=== PATIENT | female | born 1950 | race Caucasian/White ===

== ENCOUNTER 2019-11-09 18:57 | Emergency (ER) | payer MEDICARE, SELFPAY | END 2019-11-09 22:30 | disposition home or self-care (01) | PROVIDERS: Emergency Provider Emergency Medicine; Family Provider Nurse Practitioner; Visit Provider Emergency Medicine | DX: J44.0 Chronic obstructive pulmonary disease with (acute) lower respiratory infection (principal); J20.8 Acute bronchitis due to other specified organisms; I10 Essential (primary) hypertension; Z95.1 Presence of aortocoronary bypass graft; F17.210 Nicotine dependence, cigarettes, uncomplicated ==

== ENCOUNTER 2019-11-18 12:57 | Emergency (ER) | payer MEDICARE, SELFPAY ==
[2019-11-18] VITALS (9 sets, daily range): BP systolic 141–163; BP diastolic 78–107; PULSE 68–82; RESP 18–24; O2SAT 88–97; BMI 27.6
--- NOTE | 2019-11-18 13:05 | ED_ITS ---
Entered by Paty Jung, acting as scribe for HPI - SOB/Dyspnea General: Chief Complaint: Shortness of Breath/Dyspnea Stated Complaint: trouble breathing Time Seen by Provider: 11/18/19 13:07 Source: patient and family Mode of arrival: ambulatory Limitations: other History of Present Illness: HPI Narrative: 69 yo female presents with shortness of breath. pt states this started several days but worsened yesterday. pt has had a cough. pt states she was seen in clinic yesterday for the same symptoms. pt was also seen on 11/09/19 for the same symptoms, discharged and DX with acute viral and bacterial bronchitis associated with chronic obstructive pulmonary disease. pt has a HX of CHF and COPD. MD elicited complaint: shortness of breath and cough Pertinent past history: congestive heart failure Onset (ago): day(s) (yesterday) Context: smoke/fume exposure Timing: progressively worsening Severity: moderate Exacerbating factors: exertion Relieving factors: nothing Known history of: COPD, congestive heart failure and other (Hypertension, Heart Disease, Hip FX, Femur FX) Associated symptoms: Reports cough; Deny abdominal pain, dizziness, extremity pain, fever(s), nausea or vomiting Treatment prior to arrival: none Review of Systems Const: Denies: fever, chills or night sweats Eyes: Denies: change in vision or blurry vision ENMT: Denies: throat pain, oral sores/lesions, dental pain, nasal discharge or nasal congestion Card: Reports: shortness of breath on exertion Resp: Denies: productive cough GI: Denies: abdominal pain, nausea, vomiting, vomiting blood, coffee grounds in vomit, difficulty swallowing, heartburn/indigestion, diarrhea, constipation, cramping, blood in stool or black tarry stool : Denies: flank pain, painful urination, urinary frequency, urinary urgency, urinary incontinence or blood in urine Musc: Denies: neck pain, back pain, extremity pain, extremity swelling, joint pain or joint swelling Skin/Breast: Denies: rash, itching or redness Neuro: Denies: headache, numbness in extremities, weakness in extremities, changes in sensation, lack of coordination, difficulty walking, frequent falls, dizziness, vertigo or confusion Jasbir/Lymph: Denies: easy bruising, easy bleeding, petechiae, enlarged lymph nodes or tender lymph nodes PFSH ED PFSH: Statuses (acute, chronic, etc) shown below reflect problem list status as previously entered and may not be historically accurate Social History Smoking and tobacco status: current every day smoker Physical Exam Const: COMMON NORMALS: average body habitus, oriented x3 and alert GENERAL APPEARANCE: cooperative, well kempt and well developed NUTRITIONAL APPEARANCE: obese ORIENTATION/CONSCIOUSNESS: Yes awake, Yes oriented to person and Yes oriented to place HENMT: COMMON NORMALS: normocephalic, head/scalp atraumatic, EAC's normal, T M's normal bilaterally, external nose normal, moist oral mucous membranes and oropharynx normal HEAD & SCALP: normocephalic and atraumatic NOSE: e xternal nose normal EXTERNAL AUDITORY CANAL: EAC's normal TYMPANIC MEMBRANE: TM's normal bilaterally MOUTH: oral and palatal mucosa normal, lip normal and tongue normal THROAT: posterior oropharynx normal and tonsils normal Eye: COMMON NORMALS: PERRL, EOMs intact bilaterally, conjunctivae normal and no scleral icterus CONJUNCTIVA: Yes conjunctivae normal PUPIL: Yes PERRL Neck/C-Spine: COMMON NORMALS: full ROM, no lymphadenopathy, supple, no meningeal signs and thyroid normal THYROID: thyroid normal and asymmetrical Lymph: LYMPHATIC: no lymphadenopathy noted Resp: EFFORT & INSPECTION: No able to speak in complete sentences, Yes labored and Yes uses accessory muscles AUSCULTATION: rhonchi throughout and wheezes expiratory wheezes and throughout Cardio: COMMON NORMALS: regular rhythm RATE: tachycardic RHYTHM: regular rhythm HEART SOUNDS: no murmurs GI: COMMON NORMALS: normal to inspection, nondistended, normoactive bowel sounds, soft to palpation and no hepatosplenomegaly PALPATION: Yes soft and Yes no hepatosplenomegaly : COMMON NORMALS: Yes no CVA tenderness BLADDER/KIDNEY EXAM: Yes no CVA tenderness Back/Pelvis: COMMON NORMALS: no CVA tenderness LUMBAR SPINE/LOWER BACK: Yes normal to inspection Extremity: COMMON NORMALS: no calf tenderness and no pedal edema Neuro: COMMON NORMALS: oriented x3 SENSORIUM/ORIENTATION: Yes alert, Yes oriented to person and Yes oriented to place MENINGEAL SIGNS: Yes no meningeal signs Psych: APPEARANCE: Yes well kempt Skin: COMMON NORMALS: no rashes or lesions noted and skin turgor normal GENERAL SKIN EXAM: no rashes or lesions noted and turgor normal Course Vital Signs: Vital signs: Vital Signs Pulse Rate 82 11/18/19 17:57 Respiratory Rate 20 H 11/18/19 17:57 Blood Pressure 141/104 11/18/19 17:57 Pulse Oximetry 93 11/18/19 18:12 MDM - SOB/Dyspnea Medical Records: Attestation: I reviewed the patient's medical records. Medical records narrative: Chest x-ray reviewed and synapse Lab Data: Attestation: I reviewed the patient's lab results. Labs: Lab Results 11/18/19 11/18/19 11/18/19 Range/Units 13:22 13:22 13:22 WBC 15.0 H (4.0-10.0) 10^3/ uL RBC 4.41 (4.1-5.3) 10^6/u L Hgb 14.0 (11.5-15.3) g/dL Hct 41.5 (37.0-47.0) % MCV 94.1 (81-99) fL MCH 31.7 (28.0-34.0) pg MCHC 33.7 (30.0-36.0) g/dL RDW 11.9 L (12.1-15.1) % Plt Count 265 (130-400) 10^3/c mm MPV 10.4 (7.4-10.4) fL Neut % (Auto) 87.0 % Lymph % (Auto) 8.5 % [place] % (Auto) 3.0 % Eos % (Auto) 0.1 % Baso % (Auto) 0.1 % Neut # (Auto) 13.0 H (1.8-7.7) 10^3/u L Lymph # (Auto) 1.3 (0.8-4.8) 10^3/u L [place] # (Auto) 0.5 (0.2-0.9) 10^3/u L Eos # (Auto) 0.0 (0.0-0.8) 10^3/u L Baso # (Auto) 0.0 (0.0-0.1) 10^3/u L Nucleated RBC % (a uto) 0 % Nucleated RBCs # 0.0 /100WBC PT 13.00 (10.5-13.3) SECO NDS INR 0.95 (0.8-1.2) APTT 23.0 L (23.9-36.7) SECO NDS Specimen Type Sample Site ABG pH (7.35-7.45) ABG pCO2 (35-45) mmHg ABG pO2 (80.0-100.0) mmH g ABG HCO3 (22-26) mmol/L ABG Base Excess (-2.0-2.0) mmol/ L [place] Test Hematocrit (37-47) % O2 Delivery Device O2 Liters/Min % Specimen Drawn By Compacting Machine Operator/Tender ID Sodium 138 (136-145) mmol/L Potassium 4.1 (3.5-5.1) mmol/L Chloride 99 (98-107) mmol/L Carbon Dioxide 26 (22-29) mmol/L Anion Gap 17.1 (5-19) BUN 21 (8-23) mg/dL Creatinine 0.6 (0.5-0.9) mg/dL GFR Calculation 99.7 (90-130) mL/min Glucose 163 H (74-106) mg/dL Calcium 10.0 (8.8-10.2) mg/Dl Total Bilirubin 0.7 (0.15-1.2) mg/dL AST 19 (0-32) U/L ALT 16 (0-33) U/L Alkaline Phosphata se 117 H (35-105) IU/L Troponin T Baselin e (0-10) ng/mL Troponin T 120 [place] (0-10) ng/mL Delta Troponin T (0-10) ABS# NT-Pro-B Natriuret Pep 351 H (0-125) pg/mL Total Protein 7.6 (6.6-8.7) g/dL Albumin 4.4 (3.5-5.2) g/dL Globulin 3.2 (1.3-4.6) g/dL Urine Color (Yellow) Urine Appearance (CLEAR) Urine pH (5-7) Ur Specific Gravit y (1.005-1.030) Urine Protein (Negative) Urine Glucose (UA) (Normal) Urine Ketones (Negative) Urine Occult Blood (Negative) Urine Nitrate (Negative) Urine Bilirubin (Negative) Urine Urobilinogen (Negative) mg/dL Ur Leukocyte Una ase (Negative) Urine RBC (0-2) /hpf Urine WBC (0-5) /hpf Ur Squamous Epith Cells (0-5) Urine Bacteria (NONE) Urine Mucus Influenza Type A A g (Negative) POC Influenza B Ag (Negative) 11/18/19 11/18/19 11/18/19 Range/Units 13:22 13:22 13:39 WBC (4.0-10.0) 10^3/ uL RBC (4.1-5.3) 10^6/u L Hgb (11.5-15.3) g/dL Hct (37.0-47.0) % MCV (81-99) fL MCH (28.0-34.0) pg MCHC (30.0-36.0) g/dL RDW (12.1-15.1) % Plt Count (130-400) 10^3/c mm MPV (7.4-10.4) fL Neut % (Auto) % Lymph % (Auto) % [place] % (Auto) % Eos % (Auto) % Baso % (Auto) % Neut # (Auto) (1.8-7.7) 10^3/u L Lymph # (Auto) (0.8-4.8) 10^3/u L [place] # (Auto) (0.2-0.9) 10^3/u L Eos # (Auto) (0.0-0.8) 10^3/u L Baso # (Auto) (0.0-0.1) 10^3/u L Nucleated RBC % (a uto) % Nucleated RBCs # /100WBC PT (10.5-13.3) SECO NDS INR (0.8-1.2) APTT (23.9-36.7) SECO NDS Specimen Type Sample Site ABG pH (7.35-7.45) ABG pCO2 (35-45) mmHg ABG pO2 (80.0-100.0) mmH g ABG HCO3 (22-26) mmol/L ABG Base Excess (-2.0-2.0) mmol/ L [place] Test Hematocrit (37-47) % O2 Delivery Device O2 Liters/Min % Specimen Drawn By Compacting Machine Operator/Tender ID Sodium (136-145) mmol/L Potassium (3.5-5.1) mmol/L Chloride (98-107) mmol/L Carbon Dioxide (22-29) mmol/L Anion Gap (5-19) BUN (8-23) mg/dL Creatinine (0.5-0.9) mg/dL GFR Calculation (90-130) mL/min Glucose (74-106) mg/dL Calcium (8.8-10.2) mg/Dl Total Bilirubin (0.15-1.2) mg/dL AST (0-32) U/L ALT (0-33) U/L Alkaline Phosphata se (35-105) IU/L Troponin T Baselin e 15 H (0-10) ng/mL Troponin T 120 [place] (0-10) ng/mL Delta Troponin T (0-10) ABS# NT-Pro-B Natriuret Pep (0-125) pg/mL Total Protein (6.6-8.7) g/dL Albumin (3.5-5.2) g/dL Globulin (1.3-4.6) g/dL Urine Color Yellow (Yellow) Urine Appearance Clear (CLEAR) Urine pH 5.0 (5-7) Ur Specific Gravit y 1.025 (1.005-1.030) Urine Protein Trace A (Negative) Urine Glucose (UA) Norm (Normal) Urine Ketones Negative (Negative) Urine Occult Blood Neg (Negative) Urine Nitrate Negative (Negative) Urine Bilirubin Neg (Negative) Urine Urobilinogen Norm (Negative) mg/dL Ur Leukocyte Una ase Negative (Negative) Urine RBC None (0-2) /hpf Urine WBC None (0-5) /hpf Ur Squamous Epith Cells 0-4 H (0-5) Urine Bacteria 2+ H (NONE) Urine Mucus 1+ Influenza Type A A g Negative (Negative) POC Influenza B Ag Negative (Negative) 11/18/19 11/18/19 Range/Units 15:38 16:55 WBC (4.0-10.0) 10^3/ uL RBC (4.1-5.3) 10^6/u L Hgb (11.5-15.3) g/dL Hct (37.0-47.0) % MCV (81-99) fL MCH (28.0-34.0) pg MCHC (30.0-36.0) g/dL RDW (12.1-15.1) % Plt Count (130-400) 10^3/c mm MPV (7.4-10.4) fL Neut % (Auto) % Lymph % (Auto) % [place] % (Auto) % Eos % (Auto) % Baso % (Auto) % Neut # (Auto) (1.8-7.7) 10^3/u L Lymph # (Auto) (0.8-4.8) 10^3/u L [place] # (Auto) (0.2-0.9) 10^3/u L Eos # (Auto) (0.0-0.8) 10^3/u L Baso # (Auto) (0.0-0.1) 10^3/u L Nucleated RBC % (a uto) % Nucleated RBCs # /100WBC PT (10.5-13.3) SECO NDS INR (0.8-1.2) APTT (23.9-36.7) SECO NDS Specimen Type Arterial Sample Site Radial, right ABG pH 7.46 H (7.35-7.45) ABG pCO2 37.3 (35-45) mmHg ABG pO2 67.1 L (80.0-100.0) mmH g ABG HCO3 26.2 H (22-26) mmol/L ABG Base Excess 2.4 H (-2.0-2.0) mmol/ L [place] Test Pos Hematocrit 44.9 (37-47) % O2 Delivery Device Nc O2 Liters/Min 2.0 % Specimen Drawn By Broma Compacting Machine Operator/Tender ID broma Sodium (136-145) mmol/L Potassium (3.5-5.1) mmol/L Chloride (98-107) mmol/L Carbon Dioxide (22-29) mmol/L Anion Gap (5-19) BUN (8-23) mg/dL Creatinine (0.5-0.9) mg/dL GFR Calculation (90-130) mL/min Glucose (74-106) mg/dL Calcium (8.8-10.2) mg/Dl Total Bilirubin (0.15-1.2) mg/dL AST (0-32) U/L ALT (0-33) U/L Alkaline Phosphata se (35-105) IU/L Troponin T Baselin e (0-10) ng/mL Troponin T 120 [place] 11.69 H (0-10) ng/mL Delta Troponin T -3.31 L (0-10) ABS# NT-Pro-B Natriuret Pep (0-125) pg/mL Total Protein (6.6-8.7) g/dL Albumin (3.5-5.2) g/dL Globulin (1.3-4.6) g/dL Urine Color (Yellow) Urine Appearance (CLEAR) Urine pH (5-7) Ur Specific Gravit y (1.005-1.030) Urine Protein (Negative) Urine Glucose (UA) (Normal) Urine Ketones (Negative) Urine Occult Blood (Negative) Urine Nitrate (Negative) Urine Bilirubin (Negative) Urine Urobilinogen (Negative) mg/dL Ur Leukocyte Una ase (Negative) Urine RBC (0-2) /hpf Urine WBC (0-5) /hpf Ur Squamous Epith Cells (0-5) Urine Bacteria (NONE) Urine Mucus Influenza Type A A g (Negative) POC Influenza B Ag (Negative) Discharge Plan Discharge Patient Disposition: Home, Self-Care Clinical Impression: COPD (chronic obstructive pulmonary disease) Qualifiers: COPD type: COPD with acute exacerbation Qualified Code(s): J44.1 - Chronic obstructive pulmonary disease with (acute) exacerbation Condition: Stable Prescriptions: New doxycycline hyclate 100 mg capsule 100 mg PO BID 7 Days Qty: 14 RF: 0 Medrol (Emil) 4 mg tablets,dose pack See Rx Instructions .ROUTE .COMPLEX Qty: 21 RF: 0 No Action Plavix 75 mg Tablet 75 mg PO DAILY RF: 0 aspirin 81 mg Tablet,Chewable 81 mg PO DAILY RF: 0 Discharge Orders: Discharge Order (Routine); Ordered 11/18/19 Ordered By: Nazario Carey Referrals: Loretta Ramírez, [facility] [Primary Care Provider] - Discharge Diet: Advance as tolerated Discharge Activity: Increase activity as tolerated Patient Instructions: COPD, Doxycycline (By mouth), Methylprednisolone (By mouth), Dyspnea, COPD Stoplight Discharge Date/Time: 11/18/19 18:38 Coding Level of Care Code ED General Magistrate for g Fwd The documentation recorded by the Erich subramanian Bridget Annette, accurately reflects the service I personally performed and the decisions made by Cherry fung Curtis L, DO Nov 18, 2019 12:57
--- NOTE | 2019-11-18 13:23 | XRR_ITS ---
PROCEDURE INFORMATION: Exam: XR Chest, 1 View Exam date and time: 11/18/2019 1:29 PM Age: 69 years old Clinical indication: Dyspnea; Prior surgery; Surgery date: 6+ months; Surgery type: Open heart; Additional info: Unknown TECHNIQUE: Imaging protocol: XR of the chest Views: Single portable standing view. COMPARISON: CR Chest 2 views* [id number] 11/09/2019 7:44 PM FINDINGS: Tubes, catheters and devices: EKG leads are present overlying the chest. Lungs: The lungs are clear bilaterally. The pulmonary vasculature is normal. Pleural space: No pleural effusion. No pneumothorax. Heart/Mediastinum: The heart is normal in size and contour. Mediastinum: Stable. Bones/joints: The patient is status post median sternotomy with intact sternal cerclage wires. Mild rightward thoracic spinal curvature. XR/XR chest 1V portable [id number] IMPRESSION: No acute cardiopulmonary abnormality identified.
--- NOTE | 2019-11-18 13:23 | ECG_ITS ---
Measurements Intervals [place] Rate: 81 P: 80 PA: 150 QRS: 85 QRSD: 102 T: 79 QT: 364 QTc: [address] DEPRESSION [0.025+ mV ST DEPRESSION] Compared to ECG 11/09/2019 21:44:38 Sinus arrhythmia no longer present ST (T wave) deviation still present Electronically Signed On 11-18-2019 14:25:40 [employer]UTENANT FIREFIGHTER by Litzy Verma M.D. [email or web address]
--- NOTE | 2019-11-18 13:32 | PC.NURSE ---
Blood drawn on IV start, culture x1, lactic, and rainbow. Flu swab obtained, labeled, and sent to lab.
[2019-11-18 13:33] LABS: Basophils % 0.1 %; Eosinophils % 0.1 %; Hematocrit 41.5 % (37.0-47.0); Lymphocytes # 1.3 10^3/uL (0.8-4.8); Lymphocytes % 8.5 %; Mean Corpuscular HGB Conc 33.7 g/dL (30.0-36.0); Mean Corpuscular Hemoglobin 31.7 pg (28.0-34.0); Mean Corpuscular Volume 94.1 fL (81-99); Mean Platelet Volume 10.4 fL (7.4-10.4); Monocytes # 0.5 10^3/uL (0.2-0.9); Nucleated Red Blood Cells % 0 %; Platelet Count 265 10^3/cmm (130-400); Red Blood Count 4.41 10^6/uL (4.1-5.3); Red Cell Distribution Width 11.9 % (12.1-15.1)
[2019-11-18 13:42] LABS: INR 0.95 (0.8-1.2)
--- NOTE | 2019-11-18 13:42 | PC.NURSE ---
Radiology at bedside
[2019-11-18 13:52] LABS: Troponin(5th) Baseline 15 ng/mL (0-10)
[2019-11-18 13:56] LABS: Alanine Aminotransferase 16 U/L (0-33); Albumin Level 4.4 g/dL (3.5-5.2); Alkaline Phosphatase 117 IU/L (35-105); Anion Gap 17.1 (5-19); Aspartate Amino Transferase 19 U/L (0-32); Blood Urea Nitrogen 21 mg/dL (8-23); Carbon Dioxide 26 mmol/L (22-29); Chloride 99 mmol/L (98-107); Globulin 3.2 g/dL (1.3-4.6); Glomerular Filtration Rate 99.7 mL/min (90-130); Glucose 163 mg/dL (74-106); NT Pro B Type Natriuretic Pept 351 pg/mL (0-125); Potassium 4.1 mmol/L (3.5-5.1); Sodium 138 mmol/L (136-145); Total Bilirubin 0.7 mg/dL (0.15-1.2); Total Protein 7.6 g/dL (6.6-8.7)
[2019-11-18 13:57] LABS: Add RBC Morph No
[2019-11-18 14:13] LABS: Bilirubin Urine Neg (Negative); Blood Urine Neg (Negative); Glucose Urine UA Norm (Normal); Ketones Urine Negative (Negative); Leukocyte Esterase Urine Negative (Negative); Nitrate Urine Negative (Negative); Protein Urine Trace (Negative); Specific Gravity, Urine 1.025 (1.005-1.030); Urine Appearance Clear (CLEAR); Urine Color Yellow (Yellow); Urobilinogen Urine Norm (Negative)
[2019-11-18 14:19] LABS: Add Urine Culture? No; Bacteria Urine 2+; Mucus Urine 1+; Squamous Epithelial Cell Urine 0-4 (0-5)
--- NOTE | 2019-11-18 16:03 | PC.NURSE ---
RT at bedside
[2019-11-18 16:07] LABS: Troponin 5 2HR 11.69 ng/mL (0-10)
[2019-11-18 16:17] LABS: Troponin 5 2HR Delta -3.31 ABS# (0-10)
[2019-11-18 17:06] LABS: ABG PCO2 37.3 mmHg (35-45); ABG PH Result 7.46 (7.35-7.45); Arterial Blood Gas Hematocrit 44.9 % (37-47); Base Excess ABG 2.4 mmol/L (-2.0-2.0); Blood Gas Allen Test Pos; Blood Gas Sample Site Radial, right; Blood Gas Sample Type Arterial; HCO3 ABG 26.2 mmol/L (22-26); Oxygen Device NC; PO2 ABG 67.1 mmHg (80.0-100.0)
[2019-11-18 17:07] LABS: Blood Gas Drawn By BROMA
--- NOTE | 2019-11-18 17:24 | PC.NURSE ---
Pt ambulating with RT for home O2 eval
[2019-11-18 20:51] LABS: Influenza A by IFA Negative (Negative); Influenza B by IFA Negative (Negative)
== END 2019-11-18 18:38 | disposition home or self-care (01) ==
PROVIDERS: Emergency Provider Family Medicine; Family Provider Nurse Practitioner; PCP Nurse Practitioner
DX: J44.1 Chronic obstructive pulmonary disease with (acute) exacerbation (principal); F17.210 Nicotine dependence, cigarettes, uncomplicated; I10 Essential (primary) hypertension
CPT/HCPCS: 36415; 36591; 36600; 71045; 80053; 81001; 82803; 83880; 84484; 85025; 85610; 85730; 87804; 93005; 99283

== ENCOUNTER 2019-12-15 12:09 | Emergency (ER) | payer MEDICARE, OTHER, SELFPAY ==
[2019-12-15 12:12] VITALS: BP 161/84; PULSE 98; RESP 14; TEMP 36.7; O2SAT 97; BMI 27.6
[2019-12-15 13:45] LABS: Add Urine Microscopic? NO
[2019-12-15 14:32] LABS: Bilirubin Urine Neg (NEGATIVE); Blood Urine Neg (Negative); Glucose Urine UA Norm (Normal); Ketones Urine Negative (Negative); Leukocyte Esterase Urine Negative (Negative); Nitrate Urine Negative (Negative); Protein Urine Neg (Negative); Specific Gravity, Urine 1.025 (1.005-1.030); Urine Appearance Clear (CLEAR); Urine Color Yellow (Yellow); Urobilinogen Urine Norm (Negative); pH Urine 5 (5-7)
[2019-12-15 15:08] VITALS: RESP 18; O2SAT 96
[2019-12-15 15:11] VITALS: BP 123/75; BP 133/67; BP 141/76; PULSE 87; PULSE 91; PULSE 97
--- NOTE | 2019-12-15 15:15 | ECG_ITS ---
Measurements Intervals [place] Rate: 89 P: 75 KS: 148 QRS: 70 QRSD: 97 T: 76 QT: 349 QTc: 427 SINUS RHYTHM Compared to ECG 11/18/2019 13:12:38 ST (T wave) deviation no longer present Electronically Signed On 12-15-2019 16:19:51 [employer]NAGER [employer] by Ritchie Ferriera M.D. [email or web address]
--- NOTE | 2019-12-15 15:17 | ED_ITS ---
Entered by Susan Hahn, acting as scribe for Breana Wiggins MD Dec 15, 2019 12:09 HPI - Syncope General: Chief Complaint: Syncope Stated Complaint: dizzy Time Seen by Provider: 12/15/19 14:50 Source: patient Mode of arrival: wheelchair Limitations: no limitations History of Present Illness: HPI narrative: 69 yo Female presents to ED with complaint of syncopal episodes. Pt states that Saturday she passed all the way out and fell while walking across the kitchen. Pt's family states that the patient had an episode just sitting at the table this morning. Pt states that she has had 2-3 episodes along with some chest pressure for about a week. Pt states that she doesn't have any symptoms leading up to the episodes. Pt states that she does have a cardiac history. MD complaint: loss of consciousness and almost passed out Onset (ago): week(s) Prodromal symptoms: none Witnessed: Yes - by Bystander Context: at rest and during exertion Injuries sustained associated with event: none Associated symptoms: Reports other (chest pressure); Deny abdominal pain, chest pain, fever(s), headache(s) or nausea Review of Systems Const: Denies: fever, chills, body aches or change in appetite Eyes: Denies: blurry vision or eye discomfort ENMT: Denies: throat pain or dental pain Card: Reports: syncope, pre-syncope and other (chest pressure); Denies: chest pain Resp: Denies: shortness of breath GI: Denies: abdominal pain, nausea, vomiting or diarrhea : Denies: painful urination Musc: Denies: neck pain or back pain Skin/Breast: Denies: rash Neuro: Denies: headache Psych: Denies: depression Jasbir/Lymph: Denies: easy bruising All/Imm: Denies: hives PFSH ED PFSH: Statuses (acute, chronic, etc) shown below reflect problem list status as previously entered and may not be historically accurate Medical History (Updated 12/15/19 @ 16:01 by Breana Wiggins MD) Femur fracture (Acute) Heart disease (Acute) HTN (hypertension) (Acute) Surgical History (Updated 12/15/19 @ 15:26 by Susan Hahn) Hx of CABG (Acute) Social History Smoking and tobacco status: current every day smoker Physical Exam Const: COMMON NORMALS: no apparent distress, oriented x3 and healthy appearing HENMT: COMMON NORMALS: normocephalic and head/scalp atraumatic HEAD & SCALP: normocephalic and atraumatic Eye: COMMON NORMALS: PERRL and EOMs intact bilaterally PUPIL: Yes PERRL Neck/C-Spine: COMMON NORMALS: full ROM and supple Chest: COMMONS NORMALS: inspection of chest normal and palpation of chest normal Resp: COMMON NORMALS: normal respiratory effort, no retractions, no use of accessory muscles and clear to auscultation bilaterally AUSCULTATION: clear to auscultation bilaterally Cardio: COMMON NORMALS: regular rate, regular rhythm and no murmurs RATE: regular rate RHYTHM: regular rhythm GI: COMMON NORMALS: normal to inspection, nondistended, normoactive bowel sounds, soft to palpation, non-tender and no masses PALPATION: Yes soft Extremity: COMMON NORMALS: normal to inspection and full ROM Neuro: COMMON NORMALS: oriented x3, moves all extremities and no focal motor deficits Psych: COMMON NORMALS: mental status grossly normal, thought process normal and cooperative THOUGHT PROCESS: normal thought process Skin: COMMON NORMALS: no rashes or lesions noted and no wounds GENERAL SKIN EXAM: no rashes or lesions noted Course Vital Signs: Vital signs: Vital Signs Temperature 98.0 F 12/15/19 12:12 Pulse Rate 85 12/15/19 18:58 Respiratory Rate 17 12/15/19 18:58 Blood Pressure 133/69 12/15/19 18:58 Pulse Oximetry 98 12/15/19 18:58 MDM - Syncope MDM Narrative: Medical decision making narrative: Patient presents here with a syncopal episode. I strongly recommended admission as she has had multiple presyncopal episodes. Patient states she does not want to stay she is concerned with the weather and that it may snow. Informed her that I would recommend staying. She states she feels improved and would like to go home. Patient does have decision-making capacity. Her head CT and lab work and EKG here are all normal. I informed her she needs to follow-up with her primary care doctor soon as possible and she changes her mind she is to return. Lab Data: Labs: Lab Results 12/15/19 12/15/1912/15/20 Range/Units 13:30 15:22 15:22 WBC 11.9 H (4.0-10.0) 10^3/ uL RBC 4.39 (4.1-5.3) 10^6/u L Hgb 13.6 (11.5-15.3) g/dL Hct 41.4 (37.0-47.0) % MCV 94.3 (81-99) fL MCH 31.0 (28.0-34.0) pg MCHC 32.9 (30.0-36.0) g/dL RDW 12.3 (12.1-15.1) % Plt Count 203 (130-400) 10^3/c mm MPV 10.2 (7.4-10.4) fL Neut % (Auto) 63.5 % Lymph % (Auto) 20.9 % [place] % (Auto) 11.9 % Eos % (Auto) 0.6 % Baso % (Auto) 0.2 % Neut # (Auto) 7.5 (1.8-7.7) 10^3/u L Lymph # (Auto) 2.5 (0.8-4.8) 10^3/u L [place] # (Auto) 1.4 H (0.2-0.9) 10^3/u L Eos # (Auto) 0.1 (0.0-0.8) 10^3/u L Baso # (Auto) 0.0 (0.0-0.1) 10^3/u L Nucleated RBC % (a uto) 0 % Nucleated RBCs # 0.0 /100WBC Sodium 141 (136-145) mmol/L Potassium 3.4 L (3.5-5.1) mmol/L Chloride 100 (98-107) mmol/L Carbon Dioxide 27 (22-29) mmol/L Anion Gap 17.4 (5-19) BUN 14 (8-23) mg/dL Creatinine 0.7 (0.5-0.9) mg/dL GFR Calculation 83.5 L (90-130) mL/min Glucose 115 H (74-106) mg/dL Calcium 9.9 (8.5-10.5) mg/dL Total Bilirubin 0.5 (0.15-1.2) mg/dL AST 17 (0-32) U/L ALT 15 (0-33) U/L Alkaline Phosphata se 107 H (35-105) IU/L Troponin T Baselin e (0-10) ng/mL Troponin T 120 Min parvin (0-10) ng/mL Delta Troponin T (0-10) ABS# Total Protein 7.2 (6.6-8.7) g/dL Albumin 4.1 (3.5-5.2) g/dL Globulin 3.1 (1.3-4.6) g/dL Urine Color Yellow (Yellow) Urine Appearance Clear (CLEAR) Urine pH 5 (5-7) Ur Specific Gravit y 1.025 (1.005-1.030) Urine Protein Neg (Negative) Urine Glucose (UA) Norm (Normal) Urine Ketones Negative (Negative) Urine Occult Blood Neg (Negative) Urine Nitrate Negative (Negative) Urine Bilirubin Neg (NEGATIVE) Urine Urobilinogen Norm (Negative) mg/dL Ur Leukocyte Una ase Negative (Negative) 12/15/19 12/15/19 Range/Units 15:22 17:40 WBC (4.0-10.0) 10^3/ uL RBC (4.1-5.3) 10^6/u L Hgb (11.5-15.3) g/dL Hct (37.0-47.0) % MCV (81-99) fL MCH (28.0-34.0) pg MCHC (30.0-36.0) g/dL RDW (12.1-15.1) % Plt Count (130-400) 10^3/c mm MPV (7.4-10.4) fL Neut % (Auto) % Lymph % (Auto) % [place] % (Auto) % Eos % (Auto) % Baso % (Auto) % Neut # (Auto) (1.8-7.7) 10^3/u L Lymph # (Auto) (0.8-4.8) 10^3/u L [place] # (Auto) (0.2-0.9) 10^3/u L Eos # (Auto) (0.0-0.8) 10^3/u L Baso # (Auto) (0.0-0.1) 10^3/u L Nucleated RBC % (a uto) % Nucleated RBCs # /100WBC Sodium (136-145) mmol/L Potassium (3.5-5.1) mmol/L Chloride (98-107) mmol/L Carbon Dioxide (22-29) mmol/L Anion Gap (5-19) BUN (8-23) mg/dL Creatinine (0.5-0.9) mg/dL GFR Calculation (90-130) mL/min Glucose (74-106) mg/dL Calcium (8.5-10.5) mg/dL Total Bilirubin (0.15-1.2) mg/dL AST (0-32) U/L ALT (0-33) U/L Alkaline Phosphata se (35-105) IU/L Troponin T Baselin e 21 H (0-10) ng/mL Troponin T 120 Min parvin 19.20 H (0-10) ng/mL Delta Troponin T -1.80 L (0-10) ABS# Total Protein (6.6-8.7) g/dL Albumin (3.5-5.2) g/dL Globulin (1.3-4.6) g/dL Urine Color (Yellow) Urine Appearance (CLEAR) Urine pH (5-7) Ur Specific Gravit y (1.005-1.030) Urine Protein (Negative) Urine Glucose (UA) (Normal) Urine Ketones (Negative) Urine Occult Blood (Negative) Urine Nitrate (Negative) Urine Bilirubin (NEGATIVE) Urine Urobilinogen (Negative) mg/dL Ur Leukocyte Una ase (Negative) Imaging Data^: XR Hip/Pelvis: Radiologist's impression: [place] [address] XRay Report Signed Patient: Ronit Palma #: [id number] : 2Acct#:[id number] Age/Sex: 69 / FADM Date: 12/15/19 Loc: ERRoom/Bed: Attending Dr: Ordering Provider/Ordering MD: Breana Wiggins MD Date of Service: 12/15/19 Procedure(s): XR hip LT 2-3V wo/w pel* [id number] Accession Number(s): [id number] Report Number: [id number] WS: [id number] Left hip, AP and frog leg views, 12/15/2019 Clinical Data: fall Comparison: AP and frog leg, 09/07/2019. Findings: No new fractures or dislocations are seen. The hip joint is intact. The soft tissues are not remarkable. The adjacent pelvis is normal. The 3 orthopedic screws reducing an old left femoral head fracture remain in the same position. There are surgical clips overlying the left inguinal region and proximal medial soft tissue of the left thigh XR/XR hip LT 2-3V wo/w pel* [id number] Impression: 1. Negative for new left hip or left pelvic fracture 2. Satisfactory reduction of old left femoral head fracture. Dictated By:Danii Fletcher MD Signed By:Danii Fletcher MDSigned Date/Time:12/15/191658 DD/ 56 CT Head: Radiologist's impression: [place] [address] CT Scan Report Signed Patient: Ronit Palma #: [id number] : 2Acct#:[id number] Age/Sex: 69 / FADM Date: 12/15/19 Loc: ERRoom/Bed: Attending Dr: Ordering Provider/Ordering MD: Breana Wiggins MD Date of Service: 12/15/19 Procedure(s): CT head wo con* [id number] Accession Number(s): [id number] Report Number: [id number] PROCEDURE INFORMATION: Exam: CT Head Without Contrast Exam date and time: 12/15/2019 5:56 PM Age: 69 years old Clinical indication: Pain; Syncope and collapse; Headache TECHNIQUE: Imaging protocol: Computed tomography of the head without contrast. Total DLP: 898.92 mGy-cm Radiation optimization: All CT scans at this facility use at least one of these dose optimization techniques: automated exposure control; mA and/or kV adjustment per patient size (includes targeted exams where dose is matched to clinical indication); or iterative reconstruction. COMPARISON: No relevant prior studies available. FINDINGS: Brain: No acute intracranial mass or bleed. Subcortical and periventricular white matter low-density presumably chronic and related to small vessel disease. This is most pronounced about the frontal horns the lateral ventricles. Ventricles: See Brain Finding. Bones/joints: Unremarkable. No acute fracture. Sinuses: Right maxillary sinus and right-sided ethmoid sinus mucoperiosteal thickening. Thick retained secretions/fluid layering in both maxillary sinuses. Mastoid air cells: Visualized mastoid air cells are well aerated. Soft tissues: Unremarkable. CT/CT head wo con* [id number] IMPRESSION: 1.) Chronic appearing periventricular and subcortical white matter low-density in the frontal lobes which is probably due to chronic small vessel disease. 2.) Subacute to chronic maxillary sinusitis changes. Radiation Dose CTDIVOL = (mGy): DLP = 898.92 (mGy-cm) Dictated By:Damian Orourke MD Signed By:Damian Orourke MDSigned Date/Time:12/15/191835 DD/ 33 EKG Data^: EKG 1: Attestation: I personally reviewed and interpreted this EKG as follows: EKG interpretation date: 12/15/19 EKG interpretation time: 15:37 Interpretation: nsr hr [address] or t wave abnormalities qrs 97 qtc 396 Discharge Plan Discharge Patient Disposition: Home, Self-Care Clinical Impression: Vasovagal syncope Condition: Stable Prescriptions: No Action clopidogrel [Plavix] 75 mg Tablet 75 mg PO DAILY RF: 0 aspirin 81 mg Tablet,Chewable 81 mg PO DAILY RF: 0 atorvastatin [Lipitor] 40 mg Tablet 40 mg PO DAILY RF: 0 isosorbide mononitrate 30 mg Tablet Extended Release 24 Hr 30 mg PO BID RF: 0 diltiazem HCl 240 mg Capsule,Extended Release 24 Hr 240 mg PO DAILY RF: 0 Discharge Orders: Discharge Order (Routine); Ordered 12/15/19 Ordered By: Breana Wiggins Referrals: Loretta Ramírez, [facility] [Primary Care Provider] - 4-7 days Discharge Diet: Advance as tolerated Discharge Activity: Resume usual activity Patient Instructions: Syncope (ED) Discharge Date/Time: 12/15/19 18:58 Coding Level of Care Code ED Information Systems Director for Chg Fwd Exam Problem Focused The documentation recorded by the Jovani subramanian Carmen, accurately reflects the service I personally performed and the decisions made by Feliciano fung Korby, MD Dec 15, 2019 12:09
[2019-12-15 15:28] LABS: Basophils % 0.2 %; Eosinophils # 0.1 10^3/uL (0.0-0.8); Eosinophils % 0.6 %; Hematocrit 41.4 % (37.0-47.0); Hemoglobin 13.6 g/dL (11.5-15.3); Lymphocytes # 2.5 10^3/uL (0.8-4.8); Lymphocytes % 20.9 %; Mean Corpuscular HGB Conc 32.9 g/dL (30.0-36.0); Mean Corpuscular Volume 94.3 fL (81-99); Mean Platelet Volume 10.2 fL (7.4-10.4); Monocytes # 1.4 10^3/uL (0.2-0.9); Monocytes % 11.9 %; Neutrophils # 7.5 10^3/uL (1.8-7.7); Neutrophils % 63.5 %; Nucleated Red Blood Cells % 0 %; Platelet Count 203 10^3/cmm (130-400); Red Blood Count 4.39 10^6/uL (4.1-5.3); Red Cell Distribution Width 12.3 % (12.1-15.1); White Blood Count 11.9 10^3/uL (4.0-10.0)
[2019-12-15 15:45] LABS: Troponin(5th) Baseline 21 ng/mL (0-10)
[2019-12-15 16:25] LABS: Alanine Aminotransferase 15 U/L (0-33); Albumin Level 4.1 g/dL (3.5-5.2); Alkaline Phosphatase 107 IU/L (35-105); Anion Gap 17.4 (5-19); Aspartate Amino Transferase 17 U/L (0-32); Blood Urea Nitrogen 14 mg/dL (8-23); Calcium 9.9 mg/dL (8.5-10.5); Carbon Dioxide 27 mmol/L (22-29); Chloride 100 mmol/L (98-107); Creatinine Clr Calc Pharmacy 66.8235; Globulin 3.1 g/dL (1.3-4.6); Glomerular Filtration Rate 83.5 mL/min (90-130); Glucose 115 mg/dL (74-106); Potassium 3.4 mmol/L (3.5-5.1); Sodium 141 mmol/L (136-145); Total Bilirubin 0.5 mg/dL (0.15-1.2); Total Protein 7.2 g/dL (6.6-8.7)
--- NOTE | 2019-12-15 16:30 | XR_ITS ---
WS: [id number] Left hip, AP and frog leg views, 12/15/2019 Clinical Data: fall Comparison: AP and frog leg, 09/07/2019. Findings: No new fractures or dislocations are seen. The hip joint is intact. The soft tissues are not remarkab le. The adjacent pelvis is normal. The 3 orthopedic screws reducing an old left femoral head fracture remain in the same position. There are surgical clips overlying the left inguinal region and proximal medial soft tissue of the left th [facility] XR/XR hip LT 2-3V wo/w pel* [id number] Impression: 1. Negative for new left hip or left pelvic fracture 2. Satisfactory reduction of old left femoral head fracture.
--- NOTE | 2019-12-15 16:54 | CTR_ITS ---
PROCEDURE INFORMATION: Exam: CT Head Without Contrast Exam date and time: 12/15/2019 5:56 PM Age: 69 years old Clinical indication: Pain; Syncope and collapse; Headache TECHNIQUE: Imaging protocol: Computed tomography of the head without contrast. Total DLP: 898.92 mGy-cm Radiation optimization: All CT scans at this facility use at least one of these dose optimization techniques: automated exposure control; mA and/or kV adjustment per patient size (includes targeted exams where dose is matched to clinical indication); or iterative reconstruction. COMPARISON: No relevant prior studies available. FINDINGS: Brain: No acute intracranial mass or bleed. Subcortical and periventricular white matter low-density presumably chronic and related to small vessel disease. This is most pronounced about the frontal horns the lateral ventricles. Ventricles: See Brain Finding. Bones/joints: Unremarkable. No acute fracture. Sinuses: Right maxillary sinus and right-sided ethmoid sinus mucoperiosteal thickening. Thick retained secretions/fluid layering in both maxillary sinuses. Mastoid air cells: Visualized mastoid air cells are well aerated. Soft tissues: Unremarkable. CT/CT head wo con* [id number] IMPRESSION: 1.) Chronic appearing periventricular and subcortical white matter low-density in the frontal lobes which is probably due to chronic small vessel disease. 2.) Subacute to chronic maxillary sinusitis changes. Radiation Dose CTDIVOL = (mGy): DLP = 898.92 (mGy-cm)
--- NOTE | 2019-12-15 17:15 | ECG_ITS ---
Measurements Intervals [place] Rate: 92 P: 79 NH: 162 QRS: 68 QRSD: 89 T: 72 QT: 329 QTc: 407 SINUS RHYTHM Compared to ECG 11/18/2019 13:12:38 ST (T wave) deviation no longer present Electronically Signed On 12-15-2019 16:22:33 OPERATIONS AND MAINTENANCE SUPERVISOR by Ritchie Ferreira M.D. [id number]
[2019-12-15 17:25] VITALS: RESP 18; O2SAT 98
[2019-12-15 17:45] VITALS: PULSE 76; RESP 18; O2SAT 98
[2019-12-15 18:58] VITALS: BP 133/69; PULSE 85; RESP 17; O2SAT 98
== END 2019-12-15 18:58 | disposition home or self-care (01) ==
PROVIDERS: Family Medicine; Emergency Provider Emergency Medicine; Family Provider Nurse Practitioner; PCP Nurse Practitioner
DX: R55 Syncope and collapse (principal); Z79.02 Long term (current) use of antithrombotics/antiplatelets; Z79.82 Long term (current) use of aspirin; I10 Essential (primary) hypertension; Z95.1 Presence of aortocoronary bypass graft; F17.210 Nicotine dependence, cigarettes, uncomplicated
CPT/HCPCS: 36415; 70450; 73502; 80053; 81003; 84484; 85025; 93005; 99283; 99284

== ENCOUNTER 2020-03-06 22:13 | Inpatient (IN) | payer MEDICARE, OTHER, SELFPAY ==
[2020-03-06 22:16] VITALS: BP 137/55; PULSE 69; RESP 18; TEMP 36.8; O2SAT 95; BMI 27.8
--- NOTE | 2020-03-06 22:27 | W.ED.CHESTPA ---
HPI - Chest Pain General: Chief Complaint: Chest Pain Stated Complaint: chest pain Time Seen by Provider: 03/06/20 22:18 History of Present Illness: HPI narrative: 70-year-old female with a prior history of coronary disease, CABG in 2012. She presents with chest discomfort on and off for a couple of weeks now. Worse tonight for the past 30 to 45 minutes prior to arrival. Improved from 8 down to a 4 with nitroglycerin in the field. Mild shortness of breath. Mild worsening with deep inspiration and cough. MD complaint: chest pain Pertinent past history: coronary artery disease, prior [place] and CABG Onset (ago): minute(s) (45) Timing of current episode: episodic Prior episodes: Yes Onset: during rest Pain location: substernal Pain radiation: none Quality: tightness Relieving factors: nothing Exacerbating factors: exertion and inspiration Associated symptoms: Reports diaphoresis; Deny dyspnea, leg edema, palpitations or vomiting Review of Systems Const: Reports: diaphoresis Eyes: Denies: change in vision or blurry vision ENMT: Denies: painful swallowing, Change in hearing, nose bleeds or facial/sinus pain Card: Reports: chest pain; Denies: palpitations, irregular heart rhythm or edema Resp: Reports: non-productive cough; Denies: shortness of breath, productive cough or wheezing GI: Denies: vomiting : Denies: painful urination or blood in urine Musc: Denies: neck pain or back pain Skin/Breast: Denies: rash, itching or redness Neuro: Denies: dizziness, vertigo or confusion Psych: Denies: anxiety PFSH ED PFSH: Medical History (Updated 12/23/19 @ 00:00 by ) Femur fracture Heart disease HTN (hypertension) Surgical History (Updated 12/15/19 @ 15:26 by Susan Hahn) Hx of CABG Social History Smoking and tobacco status: current every day smoker Physical Exam Const: GENERAL APPEARANCE: well developed ORIENTATION/CONSCIOUSNESS: Yes oriented to person, Yes oriented to place and Yes oriented to time HENMT: COMMON NORMALS: normocephalic HEAD & SCALP: normocephalic FACE & SINUS: normal facial exam NOSE: no nasal discharge MOUTH: tongue normal TEETH & GINGIVA: no abnormal tooth and associated gingiva Eye: COMMON NORMALS: PERRL, EOMs intact bilaterally and conjunctivae normal EYELID: eyelids normal CONJUNCTIVA: Yes conjunctivae normal PUPIL: Yes PERRL Neck/C-Spine: GENERAL: No tracheal deviation Chest: COMMONS NORMALS: inspection of chest normal CHEST: No tenderness Resp: COMMON NORMALS: clear to auscultation bilaterally EFFORT & INSPECTION: No tachypneic, No respiratory distress, No retractions, No uses accessory muscles and No tracheal deviation AUSCULTATION: clear to auscultation bilaterally, no rhonchi, no wheezes and lung sounds not diminished Cardio: COMMON NORMALS: regular rate and regular rhythm RATE: regular rate RHYTHM: regular rhythm HEART SOUNDS: no murmurs PERIPHERAL PULSES: radial pulses present GI: INSPECTION: No abdominal distension AUSCULTATION: No hyperactive bowel sounds and No hypoactive bowel sounds PALPATION: No guarding and No rigid PERCUSSION: no dullness to percussion and no tympanic to percussion Neuro: SENSORIUM/ORIENTATION: Yes oriented to person, Yes oriented to place and Yes oriented to time Psych: COMMON NORMALS: mental status grossly normal Skin: COMMON NORMALS: no rashes or lesions noted GENERAL SKIN EXAM: no rashes or lesions noted Course Consultations: Consultation #1: [email or web address] Vital Signs: Vital signs: Vital Signs Temperature 98.2 F 03/06/20 22:16 Pulse Rate 54 L 03/06/20 23:01 Respiratory Rate 18 03/06/20 23:01 Blood Pressure 137/55 03/06/20 23:01 Pulse Oximetry 94 03/06/20 23:01 MDM - Chest Pain MDM Narrative: Medical decision making narrative: 70-year-old female with a history of coronary disease, status post CABG several years ago. She presents with chest pain. It is improved with nitroglycerin. Her first troponin is mildly elevated. Her other laboratory is benign. Because of her significant history, she will be observed. Lab Data: Labs: Lab Results 03/06/20 03/06/20 03/06/20 Range/Units 22:30 22:30 22:30 WBC 12.0 H (4.0-10.0) 10^3/ uL RBC 4.00 L (4.1-5.3) 10^6/u L Hgb 12.6 (11.5-15.3) g/dL Hct 38.9 (37.0-47.0) % MCV 97.3 (81-99) fL MCH 31.5 (28.0-34.0) pg MCHC 32.4 (30.0-36.0) g/dL RDW 12.1 (12.1-15.1) % Plt Count 216 (130-400) 10^3/c mm MPV 11.0 H (7.4-10.4) fL Neut % (Auto) 55.9 % Lymph % (Auto) 32.2 % Whitman % (Auto) 8.9 % Eos % (Auto) 2.3 % Baso % (Auto) 0.4 % Neut # (Auto) 6.7 (1.8-7.7) 10^3/u L Lymph # (Auto) 3.9 (0.8-4.8) 10^3/u L Whitman # (Auto) 1.1 H (0.2-0.9) 10^3/u L Eos # (Auto) 0.3 (0.0-0.8) 10^3/u L Baso # (Auto) 0.1 (0.0-0.1) 10^3/u L Nucleated RBC % (a uto) 0 % Nucleated RBCs # 0.0 /100WBC PT 12.30 (10.5-13.3) SECO NDS INR 0.89 (0.8-1.2) APTT 27.7 (23.9-36.7) SECO NDS Sodium 144 (136-145) mmol/L Potassium 3.8 (3.5-5.1) mmol/L Chloride 104 (98-107) mmol/L Carbon Dioxide 27 (22-29) mmol/L Anion Gap 16.8 (5-19) BUN 16 (8-23) mg/dL Creatinine 0.6 (0.5-0.9) mg/dL GFR Calculation 99.4 (90-130) mL/min Glucose 131 H (65-115) mg/dL Calculated Osmolal ity 296 H (285-295) mOsm/k g Calcium 9.8 (8.5-10.5) mg/dL Total Bilirubin 0.3 (0.15-1.2) mg/dL AST 19 (0-32) U/L ALT 12 (0-33) U/L Alkaline Phosphata se 133 H (35-105) IU/L Troponin T Baselin e (0-10) ng/mL NT-Pro-B Natriuret Pep 392 H (0-125) pg/mL Total Protein 7.5 (6.6-8.7) g/dL Albumin 4.2 (3.5-5.2) g/dL Globulin 3.3 (1.3-4.6) g/dL Urine Color (Yellow) Urine Appearance (CLEAR) Urine pH (5-7) Ur Specific Gravit y (1.005-1.030) Urine Protein (Negative) Urine Glucose (UA) (Normal) Urine Ketones (Negative) Urine Blood (Negative) Urine Nitrate (Negative) Urine Bilirubin (NEGATIVE) Urine Urobilinogen (Negative) mg/dL Ur Leukocyte Una ase (Negative) Urine RBC (0-2) /hpf Urine WBC (0-5) /hpf Ur Squamous Epith Cells (0-5) Urine Bacteria (NONE) 03/06/20 03/06/20 Range/Units 22:30 22:45 WBC (4.0-10.0) 10^3/ uL RBC (4.1-5.3) 10^6/u L Hgb (11.5-15.3) g/dL Hct (37.0-47.0) % MCV (81-99) fL MCH (28.0-34.0) pg MCHC (30.0-36.0) g/dL RDW (12.1-15.1) % Plt Count (130-400) 10^3/c mm MPV (7.4-10.4) fL Neut % (Auto) % Lymph % (Auto) % Whitman % (Auto) % Eos % (Auto) % Baso % (Auto) % Neut # (Auto) (1.8-7.7) 10^3/u L Lymph # (Auto) (0.8-4.8) 10^3/u L Whitman # (Auto) (0.2-0.9) 10^3/u L Eos # (Auto) (0.0-0.8) 10^3/u L Baso # (Auto) (0.0-0.1) 10^3/u L Nucleated RBC % (a uto) % Nucleated RBCs # /100WBC PT (10.5-13.3) SECO NDS INR (0.8-1.2) APTT (23.9-36.7) SECO NDS Sodium (136-145) mmol/L Potassium (3.5-5.1) mmol/L Chloride (98-107) mmol/L Carbon Dioxide (22-29) mmol/L Anion Gap (5-19) BUN (8-23) mg/dL Creatinine (0.5-0.9) mg/dL GFR Calculation (90-130) mL/min Glucose (65-115) mg/dL Calculated Osmolal ity (285-295) mOsm/k g Calcium (8.5-10.5) mg/dL Total Bilirubin (0.15-1.2) mg/dL AST (0-32) U/L ALT (0-33) U/L Alkaline Phosphata se (35-105) IU/L Troponin T Baselin e 11 H (0-10) ng/mL NT-Pro-B Natriuret Pep (0-125) pg/mL Total Protein (6.6-8.7) g/dL Albumin (3.5-5.2) g/dL Globulin (1.3-4.6) g/dL Urine Color Yellow (Yellow) Urine Appearance Cloudy (CLEAR) Urine pH 5 (5-7) Ur Specific Gravit y 1.020 (1.005-1.030) Urine Protein Trace (Negative) Urine Glucose (UA) Norm (Normal) Urine Ketones Negative (Negative) Urine Blood 2+ H (Negative) Urine Nitrate Negative (Negative) Urine Bilirubin Neg (NEGATIVE) Urine Urobilinogen Norm (Negative) mg/dL Ur Leukocyte Una ase 2+ H (Negative) Urine RBC 5-10 H (0-2) /hpf Urine WBC Too numerous to c nt H (0-5) /hpf Ur Squamous Epith Cells 15-25 H (0-5) Urine Bacteria 2+ H (NONE) Discharge Plan Discharge Prescriptions: No Action clopidogrel [Plavix] 75 mg Tablet 75 mg PO DAILY RF: 0 aspirin 81 mg Tablet,Chewable 81 mg PO DAILY RF: 0 atorvastatin [Lipitor] 40 mg Tablet 40 mg PO DAILY RF: 0 isosorbide mononitrate 30 mg Tablet Extended Release 24 Hr 30 mg PO BID RF: 0 diltiazem HCl 240 mg Capsule,Extended Release 24 Hr 240 mg PO DAILY RF: 0 Coding Level of Care Code ED Playground Director for Chg Fwd Exam Comprehensive
--- NOTE | 2020-03-06 22:31 | XR_ITS ---
WS: [id number] CHEST XRAY TECHNIQUE: Portable chest. CLINICAL INFORMATION: cp COMPARISON: November 18, 2019 FINDINGS: Sternotomy. Heart: Normal cardiac silhouette. Lungs: Moderate chronic emphysematous changes. No acute pulmonary infiltrates. Bones: Osteopenia. IMPRESSION: No acute chest findings
--- NOTE | 2020-03-06 22:31 | ECG_ITS ---
Measurements Intervals [place] Rate: 68 P: 65 CT: 175 QRS: 73 QRSD: 98 T: 76 QT: 400 QTc: 426 SINUS RHYTHM Compared to ECG 12/15/2019 15:37:21 No significant changes Electronically Signed On 03-07-2020 8:55:43 CDT by Litzy Verma M.D. [email or web address]
[2020-03-06 22:38] VITALS: BP 137/55; PULSE 68; RESP 25; O2SAT 92
[2020-03-06 22:39] LABS: Basophils # 0.1 10^3/uL (0.0-0.1); Basophils % 0.4 %; Eosinophils # 0.3 10^3/uL (0.0-0.8); Eosinophils % 2.3 %; Hematocrit 38.9 % (37.0-47.0); Hemoglobin 12.6 g/dL (11.5-15.3); Lymphocytes # 3.9 10^3/uL (0.8-4.8); Lymphocytes % 32.2 %; Mean Corpuscular HGB Conc 32.4 g/dL (30.0-36.0); Mean Corpuscular Hemoglobin 31.5 pg (28.0-34.0); Mean Corpuscular Volume 97.3 fL (81-99); Monocytes # 1.1 10^3/uL (0.2-0.9); Monocytes % 8.9 %; Neutrophils # 6.7 10^3/uL (1.8-7.7); Neutrophils % 55.9 %; Nucleated Red Blood Cells % 0 %; Platelet Count 216 10^3/cmm (130-400); Red Cell Distribution Width 12.1 % (12.1-15.1)
[2020-03-06] MEDS: ondansetron 2 mg/ML SDV 2 mL 4 MG IVP (22:50)
[2020-03-06 22:51] VITALS: RESP 18; O2SAT 96
[2020-03-06] MEDS: morphine 4 mg/mL SDV 1 mL IVP (22:51)
[2020-03-06 22:54] LABS: Troponin(5th) Baseline 11 ng/mL (0-10)
[2020-03-06 22:55] LABS: Alanine Aminotransferase 12 U/L (0-33); Albumin Level 4.2 g/dL (3.5-5.2); Alkaline Phosphatase 133 IU/L (35-105); Anion Gap 16.8 (5-19); Aspartate Amino Transferase 19 U/L (0-32); Blood Urea Nitrogen 16 mg/dL (8-23); Calcium 9.8 mg/dL (8.5-10.5); Carbon Dioxide 27 mmol/L (22-29); Chloride 104 mmol/L (98-107); Globulin 3.3 g/dL (1.3-4.6); Glomerular Filtration Rate 99.4 mL/min (90-130); Glucose 131 mg/dL (65-115); Osmolality Calculated 296 mOsm/kg (285-295); Potassium 3.8 mmol/L (3.5-5.1); Sodium 144 mmol/L (136-145); Total Bilirubin 0.3 mg/dL (0.15-1.2); Total Protein 7.5 g/dL (6.6-8.7)
[2020-03-06 22:57] LABS: INR 0.89 (0.8-1.2)
[2020-03-06 22:58] LABS: Partial Thromboplastin Time 27.7 SECONDS (23.9-36.7)
[2020-03-06] MEDS: nitroglycerin 1 gm/inch oint Pkt 0.5 INCH TOPICAL (22:58)
[2020-03-06 23:01] VITALS: BP 137/55; PULSE 54; RESP 18; O2SAT 94
[2020-03-06 23:02] LABS: NT Pro B Type Natriuretic Pept 392 pg/mL (0-125)
[2020-03-06 23:04] LABS: Add Urine Microscopic? YES; Bilirubin Urine Neg (NEGATIVE); Blood Urine 2+ (Negative); Glucose Urine UA Norm (Normal); Ketones Urine Negative (Negative); Leukocyte Esterase Urine 2+ (Negative); Nitrate Urine Negative (Negative); Protein Urine Trace (Negative); Urine Appearance Cloudy (CLEAR); Urine Color Yellow (Yellow); Urobilinogen Urine Norm (Negative); pH Urine 5 (5-7)
[2020-03-06 23:05] LABS: WBC Urine TOO NUMEROUS TO CNT /hpf (0-5)
[2020-03-06 23:08] LABS: Add Urine Culture? No; Bacteria Urine 2+; Squamous Epithelial Cell Urine 15-25 (0-5)
[2020-03-06 23:31] VITALS: BP 137/55; PULSE 53; RESP 15; O2SAT 91
[2020-03-07] VITALS (20 sets, daily range): BP systolic 108–147; BP diastolic 53–78; PULSE 51–87; RESP 15–18; TEMP 36.6–36.9; O2SAT 87–100
--- NOTE | 2020-03-07 00:31 | ECG_ITS ---
Measurements Intervals [place] Rate: 58 P: 57 PA: 175 QRS: 71 QRSD: 90 T: 78 QT: 449 QTc: 443 SINUS BRADYCARDIA Compared to ECG 12/15/2019 15:37:21 Sinus rhythm no longer present Electronically Signed On 03-07-2020 9:01:13 CDT by Litzy Verma M.D. [id number]
[2020-03-07 00:33] LABS: Troponin 5 2HR 10.79 ng/mL (0-10)
[2020-03-07 00:34] LABS: Troponin 5 2HR Delta -0.21 ABS# (0-10)
--- NOTE | 2020-03-07 01:13 | NMCV_ITS ---
NM carmine perf SPECT r/s* [id number] Ronit Palma Age: 70 Gender: F : 1950 Exam Date: 03/07/2020 08:08 Ordering Phys: Wayne Pool MD Technologist: EARL Dawson Exam Location: [facility] Indications: CHEST PAIN STRESS TEST Please see separate stress test report in [facility] for full findings IMAGE PROTOCOL Rest/Stress 1 Lexiscan Day Radiopharmaceutical Dose (mCi) Administration Site Administered by Rest: Tc-99m 10.9 IV EARL Olguin Sestamibi Stress:Tc-99m 32.8 IV EARL Olguin Sestamibi Rest: 07-Mar-2020 60 Discovery 630 Stress: 07-Mar-2020 30 Discovery 630 0.4mg Lexiscan. Supine position only as patient was unable to lay prone. SPECT RESULTS Technical Quality: Excellent Raw Data Analysis: Normal Image Corrections: No attenuation or motion correction applied Summed Stress Score: 0 Summed Rest Score: 0 Summed Difference Score: 0 PERFUSION FINDINGS Patchy areas of slightly decreased tracer uptake were noted in the anterior wall and inferior wall regions. No significant reversibility was noted FUNCTIONAL RESULTS (calculated via Gated SPECT) Stress Image LV EF (%): 78 Stress EDV (mL):83 TID: 0.92 Stress ESV (mL):18 FUNCTIONAL FINDINGS: Segmental wall motion analysis revealing no gross wall motion normalities. IMPRESSIONS 1. Myocardial perfusion imaging revealing small areas of slightly decreased persistent tracer uptake in the anterior wall and inferior wall regions, most likely represent attenuation artifact. 2. Normal LV ejection fraction of 78%. 3. LV wall motion analysis revealing no gross wall motion normalities. 4. Normal LV volume. No significant coronary ischemia, based on the above findings Dr Aditya Richmond MD [facility] (Electronically Signed) Final Date: 07 March 2020 12:44 S
--- NOTE | 2020-03-07 01:13 | USCV_ITS ---
Ronit Palma Age: 70 Gender: F : 1950 Exam Date: 03/07/2020 12:56 Ordering Phys: Wayne Pool MD Technologist: Daisy Rios Exam Location: [facility] Indication: SOB BP: 120 / 63 HR: 52 Rhythm: Sinus Technical Quality: Adequate MEASUREMENTS (Male / Female) Normal Values 2D ECHO LV Diastolic Diameter PLAX 4.3 cm 4.2 - 5.9 / 3.9 - 5.3 cm LV Systolic Diameter PLAX 2.3 cm IVS Diastolic Thickness 1.0 cm 0.6 - 1.0 / 0.6 - 0.9 cm IVS Systolic Thickness 1.6 cm LVPW Diastolic Thickness 1.0 cm 0.6 - 1.0 / 0.6 - 0.9 cm LVPW Systolic Thickness 1.1 cm LVOT Diameter 2.1 cm LV Ejection Fraction 2D Teich 77.5 % LV Ejection Fraction MOD 2C 64.6 % LV Ejection Fraction 2C AL 65.5 % LA Diameter 3.4 cm LA Width 2.9 cm LA Height 4.0 cm RA Width 3.0 cm RA Height 4.3 cm M-MODE LV Diastolic Diameter MM 5.8 cm 4.2 - 5.9 / 3.9 - 5.3 cm LV Systolic Diameter MM 3.0 cm LV Ejection Fraction MM Teich 79.2 % IVS Diastolic Thickness MM 0.8 cm 0.6 - 1.0 / 0.6 - 0.9 cm IVS Systolic Thickness MM 1.3 cm LVPW Diastolic Thickness MM 0.6 cm 0.6 - 1.0 / 0.6 - 0.9 cm LVPW Systolic Thickness MM 1.9 cm Aortic Annulus Diameter 3.2 cm LA Ao Ratio MM 1.1 MV E Point Septal Separation 0.5 cm DOPPLER AV Peak Velocity 159.0 cm/s LVOT Peak Velocity 101.0 cm/s AV Area Cont Eq vti 2.3 cm squared AV Area Cont Eq pk 2.2 cm squared MV Peak Velocity 139.0 cm/s MV Area PHT 3.0 cm squared Mitral E to A Ratio 1.1 MV E' Velocity 9.0 cm/s Mitral E to MV E' Ratio 12.0 Mitral E to LV E' Lateral Ratio 13.9 Mitral E to LV E' Septal Ratio 10.6 TR Peak Velocity 157.0 cm/s TR Peak Gradient 9.9 mmHg Right Atrial Pressure 3.0 mmHg Pulmonary Artery Systolic Pressu 12.9 mmHg PV Peak Velocity 109.0 cm/s RV Acceleration Time 0.1 s FINDINGS Left Ventricle Normal left ventricular size and systolic function, EF 76 %. No regional wall motion abnormalities. Mild left ventricular hypertrophy. Right Ventricle Normal right ventricular size and systolic function. Right Atrium The right atrium is normal in size. Left Atrium The left atrium is normal in size. Mitral Valve Trace mitral valve regurgitation. Aortic Valve Thickened aortic valve. Tricuspid Valve Trace tricuspid valve regurgitation. Pulmonic Valve Structurally normal pulmonic valve without significant stenosis. There is no pulmonic regurgitation. Pericardium Normal pericardium without effusion. Aorta Normal ascending aorta dimension. CONCLUSIONS Normal left ventricular size and systolic function, EF 76 %. No regional wall motion abnormalities. Mild left ventricular hypertrophy. Thickened aortic valve. Trace mitral valve regurgitation. There is no pericardial effusion. There are no intracardiac masses. There are no prior echocardiogram studies to compare. Dr Aditya Richmond MD [facility] (Electronically Signed) Final Date: 07 March 2020 15:38 S
--- NOTE | 2020-03-07 01:21 | P.HP_ITS ---
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 Patient states that this evening, she was getting up to use the bathroom, when she suddenly felt lightheaded, short of breath, and developed substernal chest pain. Substernal chest pain, radiated to her back, associated lightheadedness, dizziness, shortness of breath, no diaphoresis, no neck pain, no jaw pain, no arm pain, lasted about 10 minutes, relieved with nitroglycerin. Patient states that she has not had chest pain for a long time, this was quite unusual for her. No recent fevers, cough, URI symptoms, no sick contacts, no travel, no known exposure to covid19. Denies passing out, denies wheezing, denies shortness of breath with exertion chronically, denies lower extremity edema, has 2 pillow orthopnea, no paroxysmal nocturnal dyspnea. Review of Systems Const: Denies: fever, chills, fatigue or malaise Eyes: Denies: change in vision or blurry vision ENMT: Denies: nasal congestion Card: Reports: chest pain and lightheadedness; Denies: edema, syncope or pre-syncope Resp: Reports: shortness of breath; Denies: productive cough, non-productive cough or wheezing GI: Denies: abdominal pain, nausea, vomiting, vomiting blood, diarrhea, constipation, blood in stool or black tarry stool : Denies: flank pain, painful urination or urinary frequency Musc: Denies: neck pain or back pain Skin/Breast: Denies: rash Neuro: Denies: headache, dizziness or vertigo Psych: Denies: anxiety or depression Endo: Denies: excessive urination or excessive thirst Medications/Allergies Allergies Allergy/AdvReac Type Severity Reaction Status Date / Time No Known Allergies Allergy Verified 12/15/19 12:18 PFSH Acute PFSH: Medical History (Updated 03/07/20 @ 01:26 by Wayne Pool MD) Femur fracture Heart disease HTN (hypertension) Surgical History (Updated 12/15/19 @ 15:26 by Susan Hahn) Hx of CABG Family History (Updated 03/07/20 @ 01:26 by Wayne Pool MD) Mother CAD (coronary artery disease) Social History Smoking and tobacco status: current every day smoker Vitals/I&O/Wt Last Vital Signs Temp 98.2 F 03/06/20 22:16 Pulse 59 L 03/07/20 00:39 Resp 18 03/07/20 00:39 BP 113/53 03/07/20 00:39 Pulse Ox 94 03/07/20 00:39 Weight last 48 hrs Weight 73.482 kg Physical Exam Const: COMMON NORMALS: no apparent distress and oriented x3 GENERAL APPEARANCE: cooperative and comfortable HENMT: COMMON NORMALS: normocephalic HEAD & SCALP: normocephalic Eye: COMMON NORMALS: PERRL, EOMs intact bilaterally and no papilledema GENERAL EYE: normal appearance of both eyes PUPIL: Yes PERRL DIRECT OPHT HALMOSCOPY: Yes no papilledema Neck/C-Spine: COMMON NORMALS: full ROM, no lymphadenopathy, no JVD and thyroid normal THYROID: thyroid normal Lymph: LYMPHATIC: no lymphadenopathy noted Resp: COMMON NORMALS: normal respiratory effort, no retractions, no use of accessory muscles and clear to auscultation bilaterally AUSCULTATION: clear to auscultation bilaterally Cardio: COMMON NORMALS: no JVD, regular rate, regular rhythm, S1 normal heart sound, S2 normal heart sound, no gallops, no clicks and no murmurs RATE: regular rate RHYTHM: regular rhythm HEART SOUNDS: S1 normal and S2 normal GI: COMMON NORMALS: normal to inspection, nondistended, normoactive bowel sounds, soft to palpation, non-tender and no hepatosplenomegaly PALPATION: Yes soft and Yes no hepatosplenomegaly Extremity: COMMON NORMALS: normal to inspection, full ROM and no pedal edema Neuro: COMMON NORMALS: oriented x3, CN's II-XII intact bilaterally, moves all extremities and no focal motor deficits Psych: COMMON NORMALS: mental status grossly normal, thought process normal and cooperative THOUGHT PROCESS: normal thought process Data : 03/06/20 22:30 03/06/20 22:30 A&P Assessment and plan (1) Chest pain: -Sounds cardiac in nature -EKG shows no acute ST-T wave changes -Baseline troponin 11, 120-minute 10.79, delta 0.21 -Has a history of CAD with stenting x2, CABG x2 -Family history of CAD Plan: -Admit to cardiac stepdown unit -N.p.o. midnight -Trend troponins, trend EKGs, monitor for chest pain, telemetry monitoring -Aspirin, Plavix, beta-krystal, Imdur -Cardiac echocardiogram -Nuclear stress test Status: Acute (2) CAD (coronary artery disease): Status: Acute (3) Peripheral vascular disease: Status: Acute (4) Hypertension: Status: Acute (5) Hyperlipidemia: Status: Acute (6) UTI (urinary tract infection): UA shows evidence of UTI, start on Rocephin follow urine culture Status: Acute Attestations Medical Necessity Statement*: Patient requires hospitalization, outpatient with observation, chest pain Coding Level of Care Code Acute [facility] for [facility] Fwd Diagnoses Chest pain R07.9 CAD (coronary artery disease) I25.10 Peripheral vascular disease I73.9 Hypertension I10 Hyperlipidemia E78.5 UTI (urinary tract infection) N39.0
[2020-03-07] MEDS: cefTRIAXone 1,000 MG in sodium chloride 0.9% (plus) 50 ML 100 MG IV ×2 (01:40→23:35)
[2020-03-07] MEDS: enoxaparin 40 mg/0.4 mL Syringe SUBCUT ×2 (01:40→23:34)
--- NOTE | 2020-03-07 02:15 | PC.NURSE ---
Patient arrived from ER via stretcher and placed on telemetry. Patient is alert and oriented. Oriented to the room. Bed in low position, call light within reach, and side rails up x2. Will continue to monitor.
[2020-03-07 02:46] LABS: Thyroid Stimulating Hormone 4.34 uIU/mL (0.27-4.20)
--- NOTE | 2020-03-07 04:31 | ECG_ITS ---
Measurements Intervals [place] Rate: 59 P: 66 SC: 170 QRS: 63 QRSD: 101 T: 74 QT: 436 QTc: 432 SINUS BRADYCARDIA Compared to ECG 12/15/2019 15:37:21 Sinus rhythm no longer present Electronically Signed On 03-07-2020 8:58:05 CDT by Litzy Verma M.D. [id number]
[2020-03-07 05:18] LABS: INR 0.97 (0.8-1.2)
[2020-03-07 05:26] LABS: Troponin 5 6HR 12.44 ng/mL (0-10); Troponin 5 6HR Delta 1.44 ng/L (0-12)
[2020-03-07 05:28] LABS: Alanine Aminotransferase 10 U/L (0-33); Albumin Level 3.5 g/dL (3.5-5.2); Alkaline Phosphatase 112 IU/L (35-105); Anion Gap 12.7 (5-19); Aspartate Amino Transferase 16 U/L (0-32); Blood Urea Nitrogen 19 mg/dL (8-23); Calcium 9.4 mg/dL (8.5-10.5); Carbon Dioxide 27 mmol/L (22-29); Chloride 107 mmol/L (98-107); Globulin 2.3 g/dL (1.3-4.6); Glomerular Filtration Rate 99.4 mL/min (90-130); Glucose 116 mg/dL (65-115); Magnesium 2.1 mg/dL (1.7-2.3); Osmolality Calculated 293 mOsm/kg (285-295); Phosphorus 4.3 mg/dL (2.5-4.5); Potassium 3.7 mmol/L (3.5-5.1); Sodium 143 mmol/L (136-145); Total Bilirubin 0.2 mg/dL (0.15-1.2); Total Protein 5.8 g/dL (6.6-8.7)
[2020-03-07 05:30] LABS: Chol HDL Ratio 2.77 mg/dL (0.0-4.40); Cholesterol 119 mg/dL (0-200); HDL Cholesterol 43 mg/dL (60-100); LDL Cholesterol Calculated 50 mg/dL (50-129); LDL HDL Ratio 1.16 RATIO (0.00-3.22); Triglycerides 129 mg/dL (0-150)
[2020-03-07 05:31] LABS: Estmated Average Glucose 100; Hemoglobin A1C 5.1 % (4.0-6.0)
--- NOTE | 2020-03-07 08:06 | ECG_ITS ---
NAME OF STUDY: LEXISCAN SESTAMIBI STRESS TEST INDICATION: Chest Pain, PROCEDURE: At the baseline, the EKG revealed bradycardia with some nonspecific T wave changes. The baseline blood pressure was 120/64 mm Hg with a heart rate of58 beats/min. Lexiscan was infused over a period of 20 seconds. A total of 0.4 milligrams of Lexiscan was infused. The stress phase was continued for a total of 5 minutes. Heart rate at the end of the stress phase was 68 with a blood pressure 149/65. The EKG at the peak infusion revealed no significant changes. Sestamibi was injected 20 seconds after the Lexiscan infusion. Blood pressure at the end of the recovery phase was 137/61 with a heart rate of 67 per minute. CONCLUSION: 1. No significant EKG changes with the LexiScan infusion 2. No LexiScan induced chest pain or cardiac arrhythmia 3. Normal blood pressure and heart rate response 4. Sestamibi/sestamibi perfusion scan pending; see separate report. Electronically Signed On 03-08-2020 9:54:55 CDT by Aditya Richmond M.D. [id number]
[2020-03-07] MEDS: regadenoson 0.4 Mg/5 ml Syringe IVP (09:24)
--- NOTE | 2020-03-07 09:48 | PC.CHAP ---
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 visit [] Patient/Family/Request visit [] Outpatient visit [] Follow-up visit [] Physician referral [] Code/Alert [x] Routine visit [] Staff referral [] Actively dying [] Patient sleeping [] Family support [] [x] Out of room [] Palliative care [] [] Receiving care in room [] Pre-surgical visit [] Trauma [] Long length of stay [] ICU visit [] Other: Relational/Emotional Strength [] Patient feels connected with others/family/visitors/staff [] Distress [] Loneliness/isolation [] Abandonment Spirituality of Patient [] Person of Tia [] Attends Restorationist of their Tia [] Believes in Prayer [] Reads Bible or Rastafari materials [] There are Spiritual issues to be addressed Grape Crusher Interventions [] Prayer [] Active listening [] Non-anxious presence [] Spiritual/emotional support [] Crisis/trauma care [] Spiritual counseling [] Bereavement support [] Provided bereavement packet [] Provided Bible/devotional materials [] Provided toy/stuffed animal, coloring book to patient or family member [] Provided Communion [] Anointing/Rosamond [] Salvation [x] Completed spiritual assessment [] Other: Impact on Illness or Injury [] Angry [] Fearful [] Anxious [] Often cries [] Exhaustion [] Unable to work [] Unable to attend jainism [] Unable to walk/stand [] Unable to read [] Unable to drive [] Unable to eat/drink [] Unable to sleep [] Unable to be with family [] Patient intubated [] Other: Summary follow up . Patient out of room for stress test Time spent with patient
[2020-03-07] MEDS: acetaminophen 325 mg Tablet 650 MG PO ×2 (10:57→23:25)
[2020-03-07] MEDS: isosorbide mononitrate ER 30 mg Tablet PO ×2 (10:58→18:48)
[2020-03-07] MEDS: clopidogrel 75 mg Tablet PO (10:58)
[2020-03-07] MEDS: dilTIAZem ER (24HR) 240 mg Capsule PO (10:58)
[2020-03-07] MEDS: metoprolol succinate ER (24 HR) 50 mg Tablet PO (10:59)
[2020-03-07] MEDS: aspirin 81 mg Chew Tablet PO (10:59)
[2020-03-07] MEDS: atorvastatin 40 mg Tablet PO (10:59)
--- NOTE | 2020-03-07 13:45 | P.PN_ITS ---
Subjective Subjective: Interval history: The patient underwent stress test. Results are pending. Currently she denies any chest pain or shortness of breath. No diaphoresis. She also denies any fevers or chills, cough. Medications: Reviewed: Yes Medication Review Details: Generic Name Dose Route Start Last Admin Trade Name Freq PRN Reason Stop Dose Admin Acetaminophen 650 mg 03/07/20 01:13 03/07/20 10:57 Tylenol PO 650 mg Q6H PRN Administration Mild/Mod Pain Or Temp >/= 101 Albuterol Sulfate 2.5 mg 03/07/20 01:13 03/07/20 11:08 Albuterol INHALATION 2.5 mg Q4H.RESPIRATORY P RN Administration SHORTNESS OF ESTER TH Aspirin 81 mg 03/07/20 09:00 03/07/20 10:59 Aspirin Chewable PO 81 mg DAILY [place] Administration Atorvastatin Calci um 40 mg 03/07/20 09:00 03/07/20 10:59 Lipitor PO 40 mg DAILY [place] Administration Clopidogrel Bisulf ate 75 mg 03/07/20 09:00 03/07/20 10:58 Plavix PO 75 mg DAILY [place] Administration Diltiazem HCl 240 mg 03/07/20 09:00 03/07/20 10:58 Cardizem Cd (24h r) PO 240 mg DAILY [place] Administration Enoxaparin Sodium 40 mg 03/07/20 01:13 03/07/20 01:40 Lovenox SUBCUT 40 mg Q24H [place] Administration Ceftriaxone Sodium 1,000 mg/ 50 mls @ 100 mls/ hr 03/07/20 01:30 03/07/20 02:15 Sodium Chloride IV Infused Q24H [facility] Infusion Protocol Isosorbide Mononit rate 30 mg 03/07/20 09:00 03/07/20 10:58 Imdur PO 30 mg BID [place] Administration Metoprolol Succina te 50 mg 03/07/20 09:00 03/07/20 10:59 Toprol Xl PO 50 mg DAILY [place] Administration Fluticasone/Salmet gertrude 1 puff 03/07/20 08:00 03/07/20 07:13 Advair Diskus 10 0-50 INHALATION 1 puff BID.RESPIRATORY S CH Administration Vitals/I&O/Wt Last Vital Signs Temp 98.3 F 03/07/20 11:25 Pulse 64 03/07/20 11:25 Resp 16 03/07/20 11:25 BP 130/65 03/07/20 11:25 Pulse Ox 98 03/07/20 11:25 03/06/20 03/07/20 03/07/20 22:59 06:59 14:59 Intake Total 50 / 50 240 / 240 Output Total 100 / 100 Balance 50 / 50 140 / 140 Weight last 48 hrs Weight 73.482 kg Physical Exam Narrative: EXAM NARRATIVE: Awake alert and oriented x3. No acute distress. Mood and affect are appropriate. Responses are adequate. Normal speech. Eyes PERRLA, extraocular muscles intact. Neck supple. No JVD Lungs. Mild bilateral expiratory wheezes. No respiratory distress. Heart S1, S2, regular Abdomen soft, nontender, bowel sounds are present Extremities. No cyanosis no calf tenderness bilaterally Data : 03/06/20 22:30 03/07/20 04:31 A&P Additional A&P Information Chest pain with associated shortness of breath and orthopnea. Has history of coronary artery disease, CABG and stents. Underwent stress test. Echo is ordered. The results are pending. Currently chest pain free. Currently on aspirin, Plavix, beta-krystal, statin. Mild hypoxia. This could be secondary to COPD. The patient is a tobacco smoker. Counseling is provided. No evidence of exacerbation. She is on Advair and as needed DuoNeb. DVT prophylaxis Lovenox. Hypertension. Currently well controlled. UTI. Started on Rocephin The plan of care was discussed with the patient. She verbalized understanding and agreement. Attestations Medical Necessity Statement*: Requires another day for management of heart disease and urinary tract infection. Coding Level of Care Code Acute Floor Inspector for [facility]
--- NOTE | 2020-03-07 17:30 | PM.DCS ---
Discharge Providers Date of Admission: 03/07/20 14:29 Date of Discharge: March 07, 2020 Attending Provider at Admission: Wayne Pool MD Attending Provider at Discharge: Christopher Gonsalez Primary Care Provider: SULY Taveras Diagnoses at Discharge Discharge Diagnosis (1) Chest pain: Status: Acute (2) CAD (coronary artery disease): Status: Acute (3) Peripheral vascular disease: Status: Acute (4) Hypertension: Status: Acute (5) Hyperlipidemia: Status: Acute (6) UTI (urinary tract infection): Status: Acute Reason for Visit Reason for Visit: Reason For Visit: chest pain Hospital Course Discharge Summary: Please see patient's H&P, progress note, imaging study results. The patient presented with chest pain. She had mild elevation of troponin. Blood pressure was elevated on presentation. This could explain elevation of troponin. The patient underwent nuclear stress test and echo. These tests were unremarkable. I curb sided our wood sawyer who read the tests. We discussed the findings, symptoms. He felt that the patient's symptoms were not due to acute coronary syndrome. The patient also has some evidence of COPD. She is prescribed Advair discus and albuterol at discharge. She might need additional testing in outpatient settings and adjustments of her treatments. Smoking cessation counseling is provided personally. The patient also has urinary tract infection. She received Rocephin here. She is being discharged on nitrofurantoin. The patient is eager to go home. She did not want to stay for another day for observation. Denies any complaints at this time. She denies any chest pain, shortness of breath, diaphoresis, palpitations, dizziness or lightheadedness, fever or chills, nausea or vomiting, dysuria. Please see my progress note for physical examination. ECHO: CONCLUSIONS Normal left ventricular size and systolic function, EF 76 %. No regional wall motion abnormalities. Mild left ventricular hypertrophy. Thickened aortic valve. Trace mitral valve regurgitation. There is no pericardial effusion. There are no intracardiac masses. There are no prior echocardiogram studies to compare. STRESS: IMPRESSIONS 1. Myocardial perfusion imaging revealing small areas of slightly decreased persistent tracer uptake in the anterior wall and inferior wall regions, most likely represent attenuation artifact. 2. Normal LV ejection fraction of 78%. 3. LV wall motion analysis revealing no gross wall motion normalities. 4. Normal LV volume. No significant coronary ischemia, based on the above findings Discharge Data Data Completed and Pending: Completed Studies During Hospitalization Category Date Time Status XR chest 1V liane ble [id number] Stat Exams 03/06/20 22:31 Completed NM carmine perf SPECT r/s* [id number] Routin e Nuc Med 03/07/20 01:13 Completed CV echo complete* [id number] Routine Ultrasound 03/07/20 01:13 Completed Pending at discharge Category Date Time Status Sestamibi Stress Test Request Routi ne Exams 03/07/20 08:06 Ordered Sestamibi Stress Test Request Routi ne Exams 03/08/20 06:00 Stop Req Complete Blood Co unt w/Auto AM LABS Lab 03/08/20 04:00 Ordered Complete Blood Co unt w/Auto AM LABS Lab 03/09/20 04:00 Ordered Complete Blood Co unt w/Auto AM LABS Lab 03/10/20 04:00 Ordered Comprehensive Met abolic Panel AM LA BS Lab 03/08/20 04:00 Ordered Comprehensive Met abolic Panel AM LA BS Lab 03/09/20 04:00 Ordered Magnesium AM LABS Lab 03/08/20 04:00 Ordered Magnesium AM LABS Lab 03/09/20 04:00 Ordered Phosphorus AM LAB S Lab 03/08/20 04:00 Ordered Phosphorus AM LAB S Lab 03/09/20 04:00 Ordered Labs from last 24 hours 03/07/20 03/07/20 03/07/20 04:31 04:31 04:31 WBC RBC Hgb Hct MCV MCH MCHC RDW Plt Count MPV Neut % (Auto) Lymph % (Auto) [place] % (Auto) Eos % (Auto) Baso % (Auto) Neut # (Auto) Lymph # (Auto) [place] # (Auto) Eos # (Auto) Baso # (Auto) Nucleated RBC % (a uto) Nucleated RBCs # PT INR APTT Sodium 143 Potassium 3.7 Chloride 107 Carbon Dioxide 27 Anion Gap 12.7 BUN 19 Creatinine 0.6 GFR Calculation 99.4 Glucose 116 H Estimat Average Gl ucose 100 Hemoglobin A1c 5.1 Calculated Osmolal ity 293 Calcium 9.4 Phosphorus 4.3 Magnesium 2.1 Total Bilirubin 0.2 AST 16 ALT 10 Alkaline Phosphata se 112 H Troponin I 6 Hour Troponin I Hi Sens Del Troponin T Baselin e Troponin T 120 Min [place] Troponin T NT-Pro-B Natriuret Pep Total Protein 5.8 L D Albumin 3.5 Globulin 2.3 Triglycerides 129 Cholesterol 119 LDL Cholesterol, C alc 50 HDL Cholesterol 43 L LDL/HDL Ratio 1.16 Cholesterol/HDL Ra selene 2.77 TSH Urine Color Urine Appearance Urine pH Ur Specific Gravit y Urine Protein Urine Glucose (UA) Urine Ketones Urine Blood Urine Nitrate Urine Bilirubin Urine Urobilinogen Ur Leukocyte Una ase Urine RBC Urine WBC Ur Squamous Epith Cells Urine Bacteria 03/07/20 03/07/20 03/07/20 04:31 04:31 00:15 WBC RBC Hgb Hct MCV MCH MCHC RDW Plt Count MPV Neut % (Auto) Lymph % (Auto) [place] % (Auto) Eos % (Auto) Baso % (Auto) Neut # (Auto) Lymph # (Auto) [place] # (Auto) Eos # (Auto) Baso # (Auto) Nucleated RBC % (a uto) Nucleated RBCs # PT 13.20 INR 0.97 APTT Sodium Potassium Chloride Carbon Dioxide Anion Gap BUN Creatinine GFR Calculation Glucose Estimat Average Gl ucose Hemoglobin A1c Calculated Osmolal ity Calcium Phosphorus Magnesium Total Bilirubin AST ALT Alkaline Phosphata se Troponin I 6 Hour 12.44 H Troponin I Hi Sens Del 1.44 Troponin T Baselin e Troponin T 120 Min [place] 10.79 H Delta Troponin T -0.21 L NT-Pro-B Natriuret Pep Total Protein Albumin Globulin Triglycerides Cholesterol LDL Cholesterol, C alc HDL Cholesterol LDL/HDL Ratio Cholesterol/HDL Ra selene TSH Urine Color Urine Appearance Urine pH Ur Specific Gravit y Urine Protein Urine Glucose (UA) Urine Ketones Urine Blood Urine Nitrate Urine Bilirubin Urine Urobilinogen Ur Leukocyte Una ase Urine RBC Urine WBC Ur Squamous Epith Cells Urine Bacteria 03/06/20 03/06/20 03/06/20 22:45 22:30 22:30 WBC RBC Hgb Hct MCV MCH MCHC RDW Plt Count MPV Neut % (Auto) Lymph % (Auto) [place] % (Auto) Eos % (Auto) Baso % (Auto) Neut # (Auto) Lymph # (Auto) [place] # (Auto) Eos # (Auto) Baso # (Auto) Nucleated RBC % (a uto) Nucleated RBCs # PT INR APTT Sodium Potassium Chloride Carbon Dioxide Anion Gap BUN Creatinine GFR Calculation Glucose Estimat Average Gl ucose Hemoglobin A1c Calculated Osmolal ity Calcium Phosphorus Magnesium Total Bilirubin AST ALT Alkaline Phosphata se Troponin I 6 Hour Troponin I Hi Sens Del Troponin T Baselin e 11 H Troponin T 120 Min [place] Troponin T NT-Pro-B Natriuret Pep Total Protein Albumin Globulin Triglycerides Cholesterol LDL Cholesterol, C alc HDL Cholesterol LDL/HDL Ratio Cholesterol/HDL Ra selene TSH 4.34 H Urine Color Yellow Urine Appearance Cloudy Urine pH 5 Ur Specific Gravit y 1.020 Urine Protein Trace Urine Glucose (UA) Norm Urine Ketones Negative Urine Blood 2+ H Urine Nitrate Negative Urine Bilirubin Neg Urine Urobilinogen Norm Ur Leukocyte Una ase 2+ H Urine RBC 5-10 H Urine WBC Too numerous to c nt H Ur Squamous Epith Cells 15-25 H Urine Bacteria 2+ H 03/06/20 03/06/20 03/06/20 22:30 22:30 22:30 WBC 12.0 H RBC 4.00 L Hgb 12.6 Hct 38.9 MCV 97.3 MCH 31.5 MCHC 32.4 RDW 12.1 Plt Count 216 MPV 11.0 H Neut % (Auto) 55.9 Lymph % (Auto) 32.2 [place] % (Auto) 8.9 Eos % (Auto) 2.3 Baso % (Auto) 0.4 Neut # (Auto) 6.7 Lymph # (Auto) 3.9 [place] # (Auto) 1.1 H Eos # (Auto) 0.3 Baso # (Auto) 0.1 Nucleated RBC % (a uto) 0 Nucleated RBCs # 0.0 PT 12.30 INR 0.89 APTT 27.7 Sodium 144 Potassium 3.8 Chloride 104 Carbon Dioxide 27 Anion Gap 16.8 BUN 16 Creatinine 0.6 GFR Calculation 99.4 Glucose 131 H Estimat Average Gl ucose Hemoglobin A1c Calculated Osmolal ity 296 H Calcium 9.8 Phosphorus Magnesium Total Bilirubin 0.3 AST 19 ALT 12 Alkaline Phosphata se 133 H Troponin I 6 Hour Troponin I Hi Sens Del Troponin T Baselin e Troponin T 120 Min [place] Troponin T NT-Pro-B Natriuret Pep 392 H Total Protein 7.5 Albumin 4.2 Globulin 3.3 Triglycerides Cholesterol LDL Cholesterol, C alc HDL Cholesterol LDL/HDL Ratio Cholesterol/HDL Ra selene TSH Urine Color Urine Appearance Urine pH Ur Specific Gravit y Urine Protein Urine Glucose (UA) Urine Ketones Urine Blood Urine Nitrate Urine Bilirubin Urine Urobilinogen Ur Leukocyte Una ase Urine RBC Urine WBC Ur Squamous Epith Cells Urine Bacteria Vitals: Last Vital Signs Temp 98.1 F 03/07/20 15:23 Pulse 56 L 03/07/20 16:11 Resp 16 03/07/20 16:08 BP 108/62 03/07/20 15:23 Pulse Ox 96 03/07/20 16:08 Discharge Plan Discharge Patient Disposition: Home, Self-Care Condition: Stable Prescriptions: New Advair Diskus 100-50 mcg/dose Blister With Device 1 puff inhalation BID.RESPIRATORY Qty: 1 RF: 0 albuterol sulfate 90 mcg/actuation HFA aerosol inhaler 1 inh INHALATION Q6H PRN (Reason: shortness of breath or wheezing) Qty: 1 RF: 0 nitrofurantoin macrocrystal 50 mg capsule 50 mg PO Q6H 6 Days Qty: 24 RF: 0 Continued clopidogrel [Plavix] 75 mg Tablet 75 mg PO DAILY RF: 0 aspirin 81 mg Tablet,Chewable 81 mg PO DAILY RF: 0 atorvastatin [Lipitor] 40 mg Tablet 40 mg PO DAILY RF: 0 isosorbide mononitrate 30 mg Tablet Extended Release 24 Hr 30 mg PO BID RF: 0 diltiazem HCl 240 mg Capsule,Extended Release 24 Hr 240 mg PO DAILY RF: 0 Discharge Orders: Discharge Order (Routine); Ordered 03/07/20 Ordered By: Christopher Gonsalez Referrals: Loretta Ramírez FNP-C [Primary Care Provider] - 4-7 days Discharge Diet: Cardiac Discharge Activity: Increase activity as tolerated Patient Instructions: Angina (DC), How to Stop Smoking (DC), Coronary Artery Disease in Women (DC), Chronic Obstructive Pulmonary Disease (DC) Activity Restrictions/Additional Instructions: Please see your primary care provider next week. Please see your wood sawyer as soon as possible. Please return to emergency room if develop any new chest pain, palpitations, sweating, dizziness or lightheadedness, abnormally high blood pressure, or any other new complaints. Please stop smoking. Discharge Attestations Time Spent in Discharge Care*: greater than 30 min Quality Metrics Clinical Quality Measures During this hospital stay, did patient experience: None Coding Level of Care Code Acute Float Nurse for [facility] Fwd Diagnoses Chest pain R07.9 CAD (coronary artery disease) I25.10 Peripheral vascular disease I73.9 Hypertension I10 Hyperlipidemia E78.5 UTI (urinary tract infection) N39.0
--- NOTE | 2020-03-07 17:55 | PC.NURSE ---
Home oxygen Pt had a home O2 eval and required 3 L/min of oxygen. Discuss to pt that case mgt will set-up a home oxygen equipment for her in the morning due to them being unavailable this evening. Discuss to pt that her discharge order is put on hold by the doctor and she needs to stay tonight to get her an oxygen and talk to case mgt tomorrow. pt verbalizes understanding. Informed dgtr Ashley and she mentioned that they have tried to set-up an oxygen for her before but her insurance won't cover it.
[2020-03-08] VITALS (8 sets, daily range): BP systolic 119–136; BP diastolic 64–76; PULSE 46–57; RESP 16–18; TEMP 36.4–36.7; O2SAT 93–96
[2020-03-08 04:07] LABS: Basophils % 0.3 %; Eosinophils # 0.2 10^3/uL (0.0-0.8); Eosinophils % 2.3 %; Hematocrit 35.4 % (37.0-47.0); Hemoglobin 11.4 g/dL (11.5-15.3); Lymphocytes # 3.3 10^3/uL (0.8-4.8); Lymphocytes % 32.5 %; Mean Corpuscular HGB Conc 32.2 g/dL (30.0-36.0); Mean Corpuscular Hemoglobin 31.8 pg (28.0-34.0); Mean Corpuscular Volume 98.6 fL (81-99); Mean Platelet Volume 11.1 fL (7.4-10.4); Monocytes % 9.6 %; Neutrophils # 5.6 10^3/uL (1.8-7.7); Neutrophils % 54.9 %; Nucleated Red Blood Cells % 0 %; Platelet Count 171 10^3/cmm (130-400); Red Blood Count 3.59 10^6/uL (4.1-5.3); White Blood Count 10.2 10^3/uL (4.0-10.0)
[2020-03-08 04:45] LABS: Alanine Aminotransferase 9 U/L (0-33); Albumin Level 3.5 g/dL (3.5-5.2); Alkaline Phosphatase 101 IU/L (35-105); Anion Gap 11.7 (5-19); Aspartate Amino Transferase 14 U/L (0-32); Blood Urea Nitrogen 13 mg/dL (8-23); Calcium 9.2 mg/dL (8.5-10.5); Carbon Dioxide 28 mmol/L (22-29); Chloride 108 mmol/L (98-107); Globulin 2.4 g/dL (1.3-4.6); Glomerular Filtration Rate 99.4 mL/min (90-130); Glucose 102 mg/dL (65-115); Magnesium 2.2 mg/dL (1.7-2.3); Osmolality Calculated 294 mOsm/kg (285-295); Potassium 3.7 mmol/L (3.5-5.1); Sodium 144 mmol/L (136-145); Total Bilirubin 0.5 mg/dL (0.15-1.2); Total Protein 5.9 g/dL (6.6-8.7)
--- NOTE | 2020-03-08 07:54 | CT_ITS ---
WS: [id number] CTA OF THE CHEST WITH PULMONARY EMBOLISM PROTOCOL TECHNIQUE: High-resolution contrast enhanced CTA of the chest with coronal and sagittal reformatted i mages with pulmonary embolism protocol. MIP images are also reviewed. CLINICAL INFORMATION: hypoxia COMPARISON: None. DLP: 599.[address] scans at [facility] use at least one of these dose optimization techniques: automat ed exposure control; mA and/or kV adjustment per patient size (includes targeted exams where dose is matched to clinical indication); or iterative reconstruction. FINDINGS: Proximal main pulmonary arteries are normal. Segmental and subsegmental pulmonary arteries are patent . No evidence of pulmonary embolus. Prior sternotomy. CABG. Coronary calcification. Normal caliber th oracic aorta. No mediastinal or hilar lymphadenopathy. Mild chronic emphysematous changes. Slight atelectasis in the lung bases. No acute-appearing pulmonar y infiltrates. No consolidation or pleural fluid. Adrenal glands are normal. Partially visualized rig ht renal cyst. Small left renal cyst. Splenic granulomas. Small esophageal hiatal hernia. Splenic art dane calcification. Dense aortic calcification upper abdominal aorta. Hepatic granulomas. CT/CT angio chest PE protcl [id number] IMPRESSION: 1. No evidence for pulmonary embolus. 2. Mild chronic emphysematous changes. No acute pulmonary infiltrates. 3. Slight atelectasis in the right greater than left lung base. 4. Sternotomy with CABG. 5. Normal caliber thoracic aorta.
[2020-03-08] MEDS: atorvastatin 40 mg Tablet PO (08:33)
[2020-03-08] MEDS: isosorbide mononitrate ER 30 mg Tablet PO (08:33)
[2020-03-08] MEDS: clopidogrel 75 mg Tablet PO (08:33)
[2020-03-08] MEDS: aspirin 81 mg Chew Tablet PO (08:33)
[2020-03-08] MEDS: dilTIAZem ER (24HR) 240 mg Capsule PO (08:34)
--- NOTE | 2020-03-08 11:19 | PC.CHAP ---
Pastoral Care Encounter/Spiritual Assessment Type of Contact [] Declined weaving instructor visit [] Patient/Family/Request visit [] Outpatient visit [] Follow-up visit [] Physician referral [] Code/Alert [x] Routine visit [] Staff referral [] Actively dying [] Patient sleeping [] Family support [] [] Out of room [] Palliative care [] [x] Receiving care in room [] Pre-surgical visit [] Trauma [] Long length of stay [] ICU visit [] Other: Relational/Emotional Strength [] Patient feels connected with others/family/visitors/staff [xx] Distress [] Loneliness/isolation [] Abandonment Spirituality of Patient [x] Person of Tia [] Attends Protestant of their Tia [x] Believes in Prayer [] Reads Bible or Anglican materials [] There are Spiritual issues to be addressed Direct Selling Counselor Interventions [x] Prayer [x] Active listening [x] Non-anxious presence [x] Spiritual/emotional support [] Crisis/trauma care [] Spiritual counseling [] Bereavement support [] Provided bereavement packet [] Provided Bible/devotional materials [] Provided toy/stuffed animal, coloring book to patient or family member [] Provided Communion [] Anointing/[place] [] Salvation [x] Completed spiritual assessment [] Other: Impact on Illness or Injury [] Angry [x] Fearful [] Anxious [] Often cries [] Exhaustion [x] Unable to work [] Unable to attend jain [] Unable to walk/stand [] Unable to read [x] Unable to drive [] Unable to eat/drink [] Unable to sleep [] Unable to be with family [] Patient intubated [] Other: Summary Does not know what is wrong, doesn't about tests, not sure when she can go home Time spent with patient 10 mins
[2020-03-08] MEDS: iohexol 350 mg/mL 100 mL Btl IV (13:05)
--- NOTE | 2020-03-08 13:11 | P.DS_ITS ---
Discharge Providers Date of Admission: 03/07/20 14:29 Date of Discharge: March 08, 2020 Attending Provider at Admission: Wayne Pool MD Attending Provider at Discharge: Christopher Gonsalez Primary Care Provider: SULY Taveras Diagnoses at Discharge Discharge Diagnosis (1) Chest pain: Status: Acute (2) CAD (coronary artery disease): Status: Acute (3) Peripheral vascular disease: Status: Acute (4) Hypertension: Status: Acute (5) Hyperlipidemia: Status: Acute (6) UTI (urinary tract infection): Status: Acute Reason for Visit Reason for Visit: Reason For Visit: chest pain Hospital Course Discharge Summary: Please see patient's H&P, progress note, imaging study results. Please also see my discharge summary from yesterday. The discharge was delayed due to time needed for home O2 arrangements. There were no significant events since yesterday. My discharge summary from yesterday will serve as progress note for billing purposes. Today we performed CTA chest which was negative for PE. Briefly, The patient presented with chest pain. She had mild elevation of troponin. Blood pressure was elevated on presentation. This could explain elevation of troponin. The patient underwent nuclear stress test and echo. These tests were unremarkable. I curb sided our airborne mission systems who read the tests. We discussed the findings, symptoms. He felt that the patient's symptoms were not due to acute coronary syndrome. The patient also has some evidence of COPD. She is mildly hypoxic. She is prescribed Advair discus and albuterol at discharge. Home O2 arrangements are complete. She might need additional testing in outpatient settings and adjustments of her treatments. Smoking cessation counseling is provided personally. The patient also has urinary tract infection. She received Rocephin here. She is being discharged on nitrofurantoin. The patient is eager to go home. Denies any complaints at this time. She denies any chest pain, shortness of breath, diaphoresis, palpitations, dizziness or lightheadedness, fever or chills, nausea or vomiting, dysuria. Please see my progress note for physical examination. ECHO: CONCLUSIONS Normal left ventricular size and systolic function, EF 76 %. No regional wall motion abnormalities. Mild left ventricular hypertrophy. Thickened aortic valve. Trace mitral valve regurgitation. There is no pericardial effusion. There are no intracardiac masses. There are no prior echocardiogram studies to compare. STRESS: IMPRESSIONS 1. Myocardial perfusion imaging revealing small areas of slightly decreased persistent tracer uptake in the anterior wall and inferior wall regions, most likely represent attenuation artifact. 2. Normal LV ejection fraction of 78%. 3. LV wall motion analysis revealing no gross wall motion normalities. 4. Normal LV volume. No significant coronary ischemia, based on the above findings Physical Exam Narrative: EXAM NARRATIVE: Awake alert and oriented x3. No acute distress. Mood and affect are appropriate. Responses are adequate. Normal speech. Eyes PERRLA, extraocular muscles intact. Neck supple. No JVD Lungs. Mild bilateral expiratory wheezes. No respiratory distress. Heart S1, S2, regular Abdomen soft, nontender, bowel sounds are present Extremities. No cyanosis no calf tenderness bilaterally Discharge Data Data Completed and Pending: Completed Studies During Hospitalization Category Date Time Status CT angio chest PE protcl [id number] Rout ine Cat Scan 03/08/20 07:54 Completed Sestamibi Stress Test Request Routi ne Exams 03/07/20 08:06 Completed XR chest 1V liane ble [id number] Stat Exams 03/06/20 22:31 Completed NM carmine perf SPECT r/s* [id number] Routin e Nuc Med 03/07/20 01:13 Completed CV echo complete* [id number] Routine Ultrasound 03/07/20 01:13 Completed Pending at discharge Category Date Time Status Sestamibi Stress Test Request Routi ne Exams 03/08/20 06:00 Stop Req Complete Blood Co unt w/Auto AM LABS Lab 03/09/20 04:00 Ordered Complete Blood Co unt w/Auto AM LABS Lab 03/10/20 04:00 Ordered Comprehensive Met abolic Panel AM LA BS Lab 03/09/20 04:00 Ordered Magnesium AM LABS Lab 03/09/20 04:00 Ordered Phosphorus AM LAB S Lab 03/09/20 04:00 Ordered Labs from last 24 hours 03/08/20 03/08/20 03:23 03:23 WBC 10.2 H RBC 3.59 L Hgb 11.4 L Hct 35.4 L MCV 98.6 MCH 31.8 MCHC 32.2 RDW 12.0 L Plt Count 171 MPV 11.1 H Neut % (Auto) 54.9 Lymph % (Auto) 32.5 [place] % (Auto) 9.6 Eos % (Auto) 2.3 Baso % (Auto) 0.3 Neut # (Auto) 5.6 Lymph # (Auto) 3.3 [place] # (Auto) 1.0 H Eos # (Auto) 0.2 Baso # (Auto) 0.0 Nucleated RBC % (a uto) 0 Nucleated RBCs # 0.0 Sodium 144 Potassium 3.7 Chloride 108 H Carbon Dioxide 28 Anion Gap 11.7 BUN 13 Creatinine 0.6 GFR Calculation 99.4 Glucose 102 Calculated Osmolal ity 294 Calcium 9.2 Phosphorus 4.0 Magnesium 2.2 Total Bilirubin 0.5 AST 14 ALT 9 Alkaline Phosphata se 101 Total Protein 5.9 L Albumin 3.5 Globulin 2.4 Vitals: Last Vital Signs Temp 98.1 F 03/08/20 11:28 Pulse 57 L 03/08/20 11:28 Resp 18 03/08/20 11:28 BP 136/76 03/08/20 11:28 Pulse Ox 95 03/08/20 11:28 Discharge Plan Discharge Patient Disposition: Home, Self-Care Condition: Stable Prescriptions: New Advair Diskus 100-50 mcg/dose Blister With Device 1 puff inhalation BID.RESPIRATORY Qty: 1 RF: 0 albuterol sulfate 90 mcg/actuation HFA aerosol inhaler 1 inh INHALATION Q6H PRN (Reason: shortness of breath or wheezing) Qty: 1 RF: 0 nitrofurantoin macrocrystal 50 mg capsule 50 mg PO Q6H 6 Days Qty: 24 RF: 0 Continued clopidogrel [Plavix] 75 mg Tablet 75 mg PO DAILY RF: 0 aspirin 81 mg Tablet,Chewable 81 mg PO DAILY RF: 0 atorvastatin [Lipitor] 40 mg Tablet 40 mg PO DAILY RF: 0 isosorbide mononitrate 30 mg Tablet Extended Release 24 Hr 30 mg PO BID RF: 0 diltiazem HCl 240 mg Capsule,Extended Release 24 Hr 240 mg PO DAILY RF: 0 Discharge Orders: Discharge Order (Routine); Ordered 03/07/20 Ordered By: Chirstopher Gonsalez Other Ambulatory Orders: DME: Oxygen (Order) Location: None Selected Ordered By: Christopher Gonsalez Referrals: Loretta Ramírez FNP-C [Primary Care Provider] - 03/14/20 10:00 am (Tomorrow, please call [facility] to schedule a hospital followup appointment. [phone]) Discharge Diet: Cardiac Discharge Activity: Increase activity as tolerated Patient Instructions: Albuterol (By breathing), Fluticasone/Salmeterol (By breathing), Nitrofurantoin Macrocrystals (By mouth), Angina (DC), How to Stop Smoking (DC), Coronary Artery Disease in Women (DC), Chronic Obstructive Pulmonary Disease (DC) Activity Restrictions/Additional Instructions: Please see your primary care provider next week. Please see your airborne mission systems as soon as possible. Please return to emergency room if develop any new chest pain, palpitations, sweating, dizziness or lightheadedness, abnormally high blood pressure, or any other new complaints. Please stop smoking. Discharge Attestations Time Spent in Discharge Care*: less than 30 min Quality Metrics Clinical Quality Measures During this hospital stay, did patient experience: None Coding Level of Care Code Acute Optical Lab Technician for [facility] Diagnoses Chest pain R07.9 CAD (coronary artery disease) I25.10 Peripheral vascular disease I73.9 Hypertension I10 Hyperlipidemia E78.5 UTI (urinary tract infection) N39.0
== END 2020-03-08 13:55 | disposition home or self-care (01) | DRG 313 ==
LOC: ER 23:06 → MEDSURG 03-07 00:47
PROVIDERS: Admitting Provider Family Medicine; Emergency Provider Emergency Medicine; Family Provider Nurse Practitioner; PCP Nurse Practitioner; Visit Provider Internal Medicine
DX: R07.9 Chest pain, unspecified (principal); N39.0 Urinary tract infection, site not specified; I25.10 Atherosclerotic heart disease of native coronary artery without angina pectoris; Z95.5 Presence of coronary angioplasty implant and graft; Z95.1 Presence of aortocoronary bypass graft; I10 Essential (primary) hypertension; E78.5 Hyperlipidemia, unspecified; J44.9 Chronic obstructive pulmonary disease, unspecified; F17.210 Nicotine dependence, cigarettes, uncomplicated; I73.9 Peripheral vascular disease, unspecified; Z79.02 Long term (current) use of antithrombotics/antiplatelets; Z79.82 Long term (current) use of aspirin
CPT/HCPCS: 12345; 36415; 71045; 71275; 78452; 80053; 80061; 81001; 83036; 83735; 83880; 84100; 84443; 84484; 85025; 85610; 85730; 93005; 93017; 93306; 94640; 94664; 94762; 96372; 96375; 99283; A9270; A9500; G0378; J0696; J1650; J2270; J2405; J2785; J7611; Q9967

== ENCOUNTER → 2020-03-11 09:50 | Outpatient (BNVA) | payer MEDICARE, OTHER, SELFPAY | PROVIDERS: Family Provider Nurse Practitioner; PCP Nurse Practitioner; Visit Provider Nurse Practitioner | DX: J44.9 Chronic obstructive pulmonary disease, unspecified (principal); N39.0 Urinary tract infection, site not specified; I25.10 Atherosclerotic heart disease of native coronary artery without angina pectoris; J44.1 Chronic obstructive pulmonary disease with (acute) exacerbation; Z87.891 Personal history of nicotine dependence | CPT/HCPCS: 81000 ==

== ENCOUNTER → 2020-04-12 14:27 | Outpatient (BNVA) | payer MEDICARE, OTHER, SELFPAY | PROVIDERS: Family Provider Nurse Practitioner; PCP Nurse Practitioner; Visit Provider Nurse Practitioner | DX: N39.0 Urinary tract infection, site not specified (principal); N95.2 Postmenopausal atrophic vaginitis; B37.9 Candidiasis, unspecified; R58 Hemorrhage, not elsewhere classified | CPT/HCPCS: 81003; 85025 ==

== ENCOUNTER → 2020-06-17 11:06 | Outpatient (BNVA) | payer MEDICARE, OTHER, SELFPAY | PROVIDERS: Family Provider Nurse Practitioner; PCP Nurse Practitioner; Visit Provider Nurse Practitioner | DX: N39.0 Urinary tract infection, site not specified (principal); R31.29 Other microscopic hematuria | CPT/HCPCS: 80053; 81003 ==

== ENCOUNTER 2020-07-06 14:05 | Outpatient (CLI) | payer MEDICARE, OTHER, SELFPAY ==
--- NOTE | 2020-07-06 14:15 | US_ITS ---
NOTE: Report was unsigned for reason: Order was edited. Original Signature date and time was: 07/06/20 2337 WS: [id number] RENAL ULTRASOUND Urinary bladder ultrasound HISTORY: hematuria COMPARISON: 02/21/2018 TECHNIQUE: 2-D and color Doppler imaging of the kidney submitted. Right kidney: 10.7 cm x 4.8 cm x 4.4 cm. Normal size kidney. No hydronephrosis. Exophytic cyst from the lower pole measures 2.9 x 2.1 x 3.0 cm. No solid mass. Left kidney: 11.3 cm x 4.0 cm x 4.2 cm. Normal size kidney. Cortical cyst from the upper pole measures 1.4 x 1.4 x 1.3 cm. No solid mass or hydronephrosis. Aorta: Normal. Urinary Bladder: Minimally distended urinary bladder. No intraluminal filling defect or mass. [facility] US/US renal BI with bladder IMPRESSION: 1. No renal mass or obstruction. 2. Bilateral benign renal cysts. 3. Negative urinary bladder.
== END 2020-07-06 14:06 | disposition home or self-care (01) ==
LOC: RAD 14:09
PROVIDERS: PCP Nurse Practitioner; Visit Provider Nurse Practitioner
DX: R31.9 Hematuria, unspecified (principal); Q61.02 Congenital multiple renal cysts
CPT/HCPCS: 76770; 76857

== ENCOUNTER → 2020-07-08 10:36 | Outpatient (BNVA) | payer MEDICARE, OTHER, SELFPAY | PROVIDERS: Family Provider Nurse Practitioner; PCP Nurse Practitioner; Visit Provider Nurse Practitioner | DX: N39.0 Urinary tract infection, site not specified (principal) | CPT/HCPCS: 81000 ==

== ENCOUNTER → 2020-08-12 11:16 | Outpatient (BNVA) | payer MEDICARE, OTHER, SELFPAY | PROVIDERS: PCP Nurse Practitioner; Visit Provider Nurse Practitioner | DX: N90.89 Other specified noninflammatory disorders of vulva and perineum (principal); I10 Essential (primary) hypertension | CPT/HCPCS: 81003; 87530 ==

== ENCOUNTER → 2020-09-06 16:42 | Outpatient (BNVA) | payer MEDICARE, OTHER, SELFPAY | PROVIDERS: PCP Nurse Practitioner; Visit Provider Nurse Practitioner | DX: Z20.828 Contact with and (suspected) exposure to other viral communicable diseases (principal); J44.1 Chronic obstructive pulmonary disease with (acute) exacerbation | CPT/HCPCS: 87635 ==

== ENCOUNTER → 2020-12-06 15:04 | Outpatient (BNVA) | payer MEDICARE, OTHER, SELFPAY | PROVIDERS: PCP Nurse Practitioner; Visit Provider Nurse Practitioner | DX: R30.0 Dysuria (principal); J44.1 Chronic obstructive pulmonary disease with (acute) exacerbation; B00.9 Herpesviral infection, unspecified; I10 Essential (primary) hypertension; N95.2 Postmenopausal atrophic vaginitis; J44.9 Chronic obstructive pulmonary disease, unspecified | CPT/HCPCS: 80053; 81003; 84443; 85025 ==

== ENCOUNTER 2021-01-11 16:18 | Observation (INO) | payer MEDICARE, OTHER, SELFPAY ==
[2021-01-11] VITALS (8 sets, daily range): BP systolic 147–164; BP diastolic 58–88; PULSE 51–64; RESP 16–25; TEMP 36.7; O2SAT 95–100; BMI 27.8
--- NOTE | 2021-01-11 16:21 | ECG_ITS ---
[facility] Test Date: 2021-01-11 Pat Name: Ronit Palma Department: Room: Gender: Female Fraternity Adviser: : 1950 Requested By: Jessica Otto Order Number: [id number] Reading MD: PATSY MILAN Measurements Intervals [place] Rate: 58 P: 72 MS: 164 QRS: 68 QRSD: 106 T: 76 QT: 444 QTc: 437 Interpretive Statements SINUS BRADYCARDIA WARNING: DATA QUALITY MAY AFFECT INTERPRETATION Compared to ECG 03/07/2020 04:33:08 No significant changes Electronically Signed On 01-11-2021 20:07:21 TEST WORKER by PATSY MILAN [email or web address]
--- NOTE | 2021-01-11 16:21 | XR_ITS ---
WS: [id number] Exam: XR chest 1V portable [id number] Date/Time of Exam: 01/11/2021 5:06 PM Reason For Exam: chest pain Comparison 03/06/2020. The lungs are clear and fully expanded. Cardiomediastinal structures are unremarkable. Signs of previ ous CABG surgery. Hyperinflation. Bony structures are intact. XR/XR chest 1V portable [id number] IMPRESSION: 1. Pulmonary hyperinflation which might indicate obstructive lung disease. 2. No acute process noted.
[2021-01-11] MEDS: aspirin 81 mg Chew Tablet 324 MG PO (17:38)
[2021-01-11 18:17] LABS: Basophils # 0.1 10^3/uL (0.0-0.1); Basophils % 0.4 %; Eosinophils # 0.2 10^3/uL (0.0-0.8); Eosinophils % 1.2 %; Hematocrit 43.3 % (37.0-47.0); Hemoglobin 14.3 g/dL (11.5-15.3); Lymphocytes # 5.2 10^3/uL (0.8-4.8); Lymphocytes % 30.3 %; Mean Corpuscular Hemoglobin 31.8 pg (28.0-34.0); Mean Corpuscular Volume 96.2 fL (81-99); Mean Platelet Volume 10.4 fL (7.4-10.4); Monocytes # 1.2 10^3/uL (0.2-0.9); Monocytes % 6.7 %; Neutrophils # 10.49 10^3/uL (1.8-7.7); Neutrophils % 60.8 %; Nucleated Red Blood Cells % 0 %; Platelet Count 257 10^3/cmm (130-400); White Blood Count 17.3 10^3/uL (4.0-10.0)
[2021-01-11 18:19] LABS: D Dimer 0.75 ug/mIFEU (0-0.59)
--- NOTE | 2021-01-11 18:21 | ECG_ITS ---
[facility] Test Date: 2021-01-11 Pat Name: Ronti Palma Department: Room: Gender: Female Lines Tender: : 1950 Requested By: Jessica Otto Order Number: [id number] Reading MD: PATSY MILAN Measurements Intervals [place] Rate: 53 P: 65 FL: 173 QRS: 62 QRSD: 98 T: 70 QT: 446 QTc: 420 Interpretive Statements SINUS BRADYCARDIA Compared to ECG 01/11/2021 16:32:32 No significant changes Electronically Signed On 01-11-2021 20:08:19 PSYCHIATRIC NP by PATSY MILAN [id number]
--- NOTE | 2021-01-11 18:22 | PC.NURSE ---
EKG done at 1820 and shown to ER doctor
[2021-01-11 18:24] LABS: Troponin(5th) Baseline 14 ng/L (0-10)
[2021-01-11 18:25] LABS: Add Urine Microscopic? YES; Bacteria Urine 2+ /hpf; Bilirubin Urine Neg (Negative); Blood Urine Neg (Negative); Glucose Urine UA 4+ (Normal); Ketones Urine Negative (Negative); Leukocyte Esterase Urine Negative (Negative); Mucus Urine TRACE /hpf; Nitrate Urine Negative (Negative); Protein Urine Neg (Negative); Urine Appearance SL Hazy (CLEAR); Urine Color Yellow (Yellow); Urobilinogen Urine Norm (Negative); WBC Urine >100 /hpf (0-5); pH Urine 5 (5-7)
--- NOTE | 2021-01-11 18:26 | W.ED.CHESTPA ---
HPI - Chest Pain General: Chief Complaint: Chest Pain Stated Complaint: Chest Pain Time Seen by Provider: 01/11/21 17:06 History of Present Illness: HPI narrative: The patient is a 70-year-old female with past medical history of coronary artery disease, COPD, and CABG in 2012 comes to the ER complaining of mid to left chest pressure. She says she took a nitroglycerin at home which helped relieve it. She did not take an aspirin today. She was given aspirin 325 on arrival and a nitroglycerin which again relieved her chest pain. EKG shows no ST changes. MD complaint: chest heaviness Pertinent past history: coronary artery disease and CABG Onset (ago): hour(s) (3) Timing of current episode: episodic Prior episodes: Yes Onset: during rest and during exertion Pain location: left chest Pain radiation: left arm and neck Quality: heaviness Relieving factors: nitroglycerin Exacerbating factors: exertion Associated symptoms: Reports no associated symptoms; Deny abdominal pain, dyspnea or palpitations Review of Systems General: Reports: 10 or more systems reviewed and unremarkable except in HPI and below Const: Denies: fatigue Eyes: Denies: change in vision, blurry vision or eye redness ENMT: Denies: throat pain, swelling of lips/tongue, ear or mastoid pain or nasal congestion Card: Reports: chest pain; Denies: palpitations, irregular heart rhythm, edema, dyspnea on exertion or orthopnea Resp: Denies: dyspnea, productive cough or non-productive cough GI: Denies: abdominal pain, diarrhea or GI cramping : Denies: flank pain, difficulty voiding, urinary frequency or urinary urgency Musc: Denies: neck pain, back pain, extremity pain, joint pain, joint redness, limited range of motion or muscle weakness Skin/Breast: Denies: rash, pruritus, erythema, skin pain or skin tenderness Neuro: Denies: headache(s), numbness in extremities, weakness in extremities, sensory changes, difficulty walking, dizziness, confusion or Slurred speech present Psych: Denies: anxiety or depression Endo: Denies: polyuria All/Imm: Denies: urticaria, throat swelling or tongue swelling PFS ED PFSH: Medical History (Updated 01/11/21 @ 23:12 by Andrea Villalba MD) Bilateral renal cysts COPD (chronic obstructive pulmonary disease) Femur fracture Heart disease HTN (hypertension) Personal history of nicotine dependence Vitamin D insufficiency Surgical History History of cholecystectomy History of heart artery stent History of hip surgery left History of hysterectomy Hx of CABG Family History Mother CAD (coronary artery disease) Other Cancer Heart disease Social History Smoking and tobacco status: current every day smoker Second hand smoke exposure: Yes Smoking risk assessment/counseling performed?: Yes Alcohol intake: never Desire information about alcohol rehabilitation?: No Counseling given: No Desire information about substance/drug rehabilitation?: No Counseling given: No Caregiver/support person: No Lives independently: Yes Household members: none Marital status: / Number of children: 4 Current occupational status: retired History of recent travel: No Current gender identity: Female Physical Exam Const: COMMON NORMALS: no acute distress, average body habitus, patient oriented x3, no limitations, healthy appearing, alert and well nourished GENERAL APPEARANCE: cooperative, comfortable, well kempt and well developed ORIENTATION/CONSCIOUSNESS: Yes awake, Yes oriented to person, Yes oriented to place and Yes oriented to time HENMT: COMMON NORMALS: normocephalic, external ears normal and Normal external nose present HEAD & SCALP: normal to inspection and normocephalic NOSE: Normal external nose present EXTERNAL EAR: Yes external ears normal MOUTH: Normal oral and palatal mucosa present THROAT: posterior oropharynx normal Eye: COMMON NORMALS: Equal, round and reactive pupils present and EOMs intact bilaterally GENERAL EYE: appearance normal, both eyes and all related structures PUPIL: Yes Equal, round and reactive pupils present Neck/C-Spine: COMMON NORMALS: full ROM, no lymphadenopathy, no meningeal signs and no JVD GENERAL: Yes normal visual inspection Lymph: LYMPHATIC: no lymphadenopathy noted Chest: COMMONS NORMALS: normal inspection of the chest and normal palpation of entire chest wall Resp: COMMON NORMALS: normal respiratory effort, No retractions, No use of accessory muscles, clear to auscultation bilaterally and percussion normal EFFORT & INSPECTION: Yes able to speak in complete sentences AUSCULTATION: clear to auscultation bilaterally PERCUSSION: percussion normal Cardio: COMMON NORMALS: no JVD, regular rate, regular rhythm, S1 normal heart sound present, S2 normal heart sound present and Peripheral pulses 2+ throughout RATE: regular rate RHYTHM: regular rhythm HEART SOUNDS: S1 normal heart sound present and S2 normal heart sound present PERIPHERAL PULSES: Peripheral pulses 2+ throughout GI: COMMON NORMALS: Normal to inspection, nondistended, normoactive bowel sounds present, Soft to palpation, non-tender and no masses INSPECTION: Yes normal to inspection PALPATION: Yes Soft to palpation : COMMON NORMALS: Yes no CVA tenderness BLADDER/KIDNEY EXAM: Yes no CVA tenderness Back/Pelvis: COMMON NORMALS: no CVA tenderness, thoracic and lumbar spine normal to inspection, no thoracic nor lumbar tenderness and thoraco-lumbar ROM normal Extremity: COMMON NORMALS: normal to inspection, full ROM, capillary refill normal, no joint enlargement and no pedal edema GENERAL: Yes normal exam except as noted Neuro: COMMON NORMALS: patient oriented x3, CN's II-XII intact bilaterally, moves all extremities, no focal motor deficits, no sensory deficits noted and gait normal SENSORIUM/ORIENTATION: Yes alert, Yes oriented to person, Yes oriented to place and Yes oriented to time MENINGEAL SIGNS: Yes no meningeal signs Psych: COMMON NORMALS: mental status grossly normal, Normal thought process present, cooperative, normal affect and speech normal APPEARANCE: Yes well kempt ATTITUDE: Yes calm SPEECH: Yes normal speech THOUGHT PROCESS: Normal thought process present Skin: COMMON NORMALS: no rashes or lesions noted GENERAL SKIN EXAM: no rashes or lesions noted Course Vital Signs: Vital signs: Vital Signs Temperature 98.1 F 01/11/21 16:34 Pulse Rate 59 L 01/11/21 22:02 Respiratory Rate 17 01/11/21 22:02 Blood Pressure 164/78 01/11/21 22:02 Pulse Oximetry 98 01/11/21 22:02 MDM - Chest Pain MDM Narrative: Medical decision making narrative: The patient is a 70-year-old female who comes to the ER complaining of typical left-sided chest pain. EKG and troponins were negative x2 however with her risk factors smoking, COPD, and previous two-vessel CABG her heart score is quite high. As well nitroglycerin resolved her chest pain. Discussed with Dr. Richmond who recommended keeping her for observation. Dr. Mcclure accepts to cardiac stepdown unit Lab Data: Labs: Lab Results 01/11/21 01/11/21 01/11/21 Range/Units 17:40 17:40 17:40 WBC 17.3 H (4.0-10.0) 10^3/ uL RBC 4.50 (4.1-5.3) 10^6/u L Hgb 14.3 (11.5-15.3) g/dL Hct 43.3 (37.0-47.0) % MCV 96.2 (81-99) fL MCH 31.8 (28.0-34.0) pg MCHC 33.0 (30.0-36.0) g/dL RDW 12.0 L (12.1-15.1) % Plt Count 257 (130-400) 10^3/c mm MPV 10.4 (7.4-10.4) fL Neut % (Auto) 60.8 % Lymph % (Auto) 30.3 % [place] % (Auto) 6.7 % Eos % (Auto) 1.2 % Baso % (Auto) 0.4 % Neut # (Auto) 10.49 H (1.8-7.7) 10^3/u L Lymph # (Auto) 5.2 H (0.8-4.8) 10^3/u L [place] # (Auto) 1.2 H (0.2-0.9) 10^3/u L Eos # (Auto) 0.2 (0.0-0.8) 10^3/u L Baso # (Auto) 0.1 (0.0-0.1) 10^3/u L Nucleated RBC % (a uto) 0 % Nucleated RBCs # 0.0 /100WBC D-Dimer (0-0.59) ug/mIFE U Sodium 145 (136-145) mmol/L Potassium 3.3 L (3.5-5.1) mmol/L Chloride 106 (98-107) mmol/L Carbon Dioxide 28 (22-29) mmol/L Anion Gap 14.3 (5-19) BUN 12 (8-23) mg/dL Creatinine 0.6 (0.5-0.9) mg/dL GFR Calculation 99.4 (90-130) mL/min Glucose 97 (65-115) mg/dL Calculated Osmolal ity 300 H (285-295) mOsm/k g Calcium 8.9 (8.5-10.5) mg/dL Total Bilirubin 0.5 (0.15-1.2) mg/dL AST 13 (0-32) U/L ALT 10 (0-33) U/L Alkaline Phosphata se 129 H (35-105) IU/L Troponin T Baselin e 14 H (0-10) ng/L Troponin T 120 Min [place] (0-10) ng/L Delta Troponin T (0-10) ABS# Troponin T Hi Sens 6Hr (0-10) ng/L Troponin T Hi Sens 6Hr Delta (0-12) ng/L NT-Pro-B Natriuret Pep 598 H (0-125) pg/mL Total Protein 6.9 (6.6-8.7) g/dL Albumin 4.1 (3.5-5.2) g/dL Globulin 2.8 (1.3-4.6) g/dL Urine Color (Yellow) Urine Appearance (CLEAR) Urine pH (5-7) Ur Specific Gravit y (1.005-1.030) Urine Protein (Negative) Urine Glucose (UA) (Normal) Urine Ketones (Negative) Urine Blood (Negative) Urine Nitrate (Negative) Urine Bilirubin (Negative) Urine Urobilinogen (Negative) mg/dL Ur Leukocyte Una ase (Negative) Urine RBC (0-2) /hpf Urine WBC (0-5) /hpf Ur Squamous Epith Cells (0-5) /hpf Amorphous Sediment Urine Bacteria (NONE) /hpf Urine Mucus /hpf 01/11/21 01/11/21 01/11/21 Range/Units 17:40 17:40 19:08 WBC (4.0-10.0) 10^3/ uL RBC (4.1-5.3) 10^6/u L Hgb (11.5-15.3) g/dL Hct (37.0-47.0) % MCV (81-99) fL MCH (28.0-34.0) pg MCHC (30.0-36.0) g/dL RDW (12.1-15.1) % Plt Count (130-400) 10^3/c mm MPV (7.4-10.4) fL Neut % (Auto) % Lymph % (Auto) % [place] % (Auto) % Eos % (Auto) % Baso % (Auto) % Neut # (Auto) (1.8-7.7) 10^3/u L Lymph # (Auto) (0.8-4.8) 10^3/u L [place] # (Auto) (0.2-0.9) 10^3/u L Eos # (Auto) (0.0-0.8) 10^3/u L Baso # (Auto) (0.0-0.1) 10^3/u L Nucleated RBC % (a uto) % Nucleated RBCs # /100WBC D-Dimer 0.75 H (0-0.59) ug/mIFE U Sodium (136-145) mmol/L Potassium (3.5-5.1) mmol/L Chloride (98-107) mmol/L Carbon Dioxide (22-29) mmol/L Anion Gap (5-19) BUN (8-23) mg/dL Creatinine (0.5-0.9) mg/dL GFR Calculation (90-130) mL/min Glucose (65-115) mg/dL Calculated Osmolal ity (285-295) mOsm/k g Calcium (8.5-10.5) mg/dL Total Bilirubin (0.15-1.2) mg/dL AST (0-32) U/L ALT (0-33) U/L Alkaline Phosphata se (35-105) IU/L Troponin T Baselin e (0-10) ng/L Troponin T 120 Min [place] 11.82 H (0-10) ng/L Delta Troponin T -2.18 L (0-10) ABS# Troponin T Hi Sens 6Hr (0-10) ng/L Troponin T Hi Sens 6Hr Delta (0-12) ng/L NT-Pro-B Natriuret Pep (0-125) pg/mL Total Protein (6.6-8.7) g/dL Albumin (3.5-5.2) g/dL Globulin (1.3-4.6) g/dL Urine Color Yellow (Yellow) Urine Appearance Sl hazy (CLEAR) Urine pH 5 (5-7) Ur Specific Gravit y 1.020 (1.005-1.030) Urine Protein Neg (Negative) Urine Glucose (UA) 4+ H (Normal) Urine Ketones Negative (Negative) Urine Blood Neg (Negative) Urine Nitrate Negative (Negative) Urine Bilirubin Neg (Negative) Urine Urobilinogen Norm (Negative) mg/dL Ur Leukocyte Una ase Negative (Negative) Urine RBC 5-10 H (0-2) /hpf Urine WBC >100 H (0-5) /hpf Ur Squamous Epith Cells 10-15 H (0-5) /hpf Amorphous Sediment Not Reportable Urine Bacteria 2+ H (NONE) /hpf Urine Mucus Trace /hpf 01/11/21 Range/Units 22:34 WBC (4.0-10.0) 10^3/ uL RBC (4.1-5.3) 10^6/u L Hgb (11.5-15.3) g/dL Hct (37.0-47.0) % MCV (81-99) fL MCH (28.0-34.0) pg MCHC (30.0-36.0) g/dL RDW (12.1-15.1) % Plt Count (130-400) 10^3/c mm MPV (7.4-10.4) fL Neut % (Auto) % Lymph % (Auto) % [place] % (Auto) % Eos % (Auto) % Baso % (Auto) % Neut # (Auto) (1.8-7.7) 10^3/u L Lymph # (Auto) (0.8-4.8) 10^3/u L [place] # (Auto) (0.2-0.9) 10^3/u L Eos # (Auto) (0.0-0.8) 10^3/u L Baso # (Auto) (0.0-0.1) 10^3/u L Nucleated RBC % (a uto) % Nucleated RBCs # /100WBC D-Dimer (0-0.59) ug/mIFE U Sodium (136-145) mmol/L Potassium (3.5-5.1) mmol/L Chloride (98-107) mmol/L Carbon Dioxide (22-29) mmol/L Anion Gap (5-19) BUN (8-23) mg/dL Creatinine (0.5-0.9) mg/dL GFR Calculation (90-130) mL/min Glucose (65-115) mg/dL Calculated Osmolal ity (285-295) mOsm/k g Calcium (8.5-10.5) mg/dL Total Bilirubin (0.15-1.2) mg/dL AST (0-32) U/L ALT (0-33) U/L Alkaline Phosphata se (35-105) IU/L Troponin T Baselin e (0-10) ng/L Troponin T 120 Min [place] (0-10) ng/L Delta Troponin T (0-10) ABS# Troponin T Hi Sens 6Hr 11.66 H (0-10) ng/L Troponin T Hi Sens 6Hr Delta -2.34 L (0-12) ng/L NT-Pro-B Natriuret Pep (0-125) pg/mL Total Protein (6.6-8.7) g/dL Albumin (3.5-5.2) g/dL Globulin (1.3-4.6) g/dL Urine Color (Yellow) Urine Appearance (CLEAR) Urine pH (5-7) Ur Specific Gravit y (1.005-1.030) Urine Protein (Negative) Urine Glucose (UA) (Normal) Urine Ketones (Negative) Urine Blood (Negative) Urine Nitrate (Negative) Urine Bilirubin (Negative) Urine Urobilinogen (Negative) mg/dL Ur Leukocyte Una ase (Negative) Urine RBC (0-2) /hpf Urine WBC (0-5) /hpf Ur Squamous Epith Cells (0-5) /hpf Amorphous Sediment Urine Bacteria (NONE) /hpf Urine Mucus /hpf Discharge Plan Discharge Admit Provider: Tyra Mcclure Clinical Impression: Chest pain, Urinary tract infection, Leukocytosis Condition: Stable Coding Level of Care Code ED Sparmaker for Chg Fwd Exam Comprehensive
[2021-01-11 18:34] LABS: Alanine Aminotransferase 10 U/L (0-33); Albumin Level 4.1 g/dL (3.5-5.2); Alkaline Phosphatase 129 IU/L (35-105); Anion Gap 14.3 (5-19); Aspartate Amino Transferase 13 U/L (0-32); Blood Urea Nitrogen 12 mg/dL (8-23); Calcium 8.9 mg/dL (8.5-10.5); Carbon Dioxide 28 mmol/L (22-29); Chloride 106 mmol/L (98-107); Globulin 2.8 g/dL (1.3-4.6); Glomerular Filtration Rate 99.4 mL/min (90-130); Glucose 97 mg/dL (65-115); NT Pro B Type Natriuretic Pept 598 pg/mL (0-125); Osmolality Calculated 300 mOsm/kg (285-295); Potassium 3.3 mmol/L (3.5-5.1); Sodium 145 mmol/L (136-145); Total Bilirubin 0.5 mg/dL (0.15-1.2); Total Protein 6.9 g/dL (6.6-8.7)
[2021-01-11] MEDS: cefTRIAXone 1,000 MG in sodium chloride 0.9% (plus) 50 ML 100 MG IV (19:43)
[2021-01-11 20:16] LABS: Troponin 5 2HR 11.82 ng/L (0-10)
[2021-01-11 20:33] LABS: Troponin 5 2HR Delta -2.18 ABS# (0-10)
--- NOTE | 2021-01-11 21:07 | CTR_ITS ---
PROCEDURE INFORMATION: Exam: CT Angiography Chest With Contrast Exam date and time: 01/11/2021 9:12 PM Age: 70 years old Clinical indication: Chest pain; Prior surgery; Surgery type: Open heart; Additional info: R/O pe TECHNIQUE: Imaging protocol: Computed tomographic angiography of the chest with contrast. 3D rendering (Not supervised by radiologist): MIP and/or 3D reconstructed images were created by the technologist. Radiation optimization: All CT scans at this facility use at least one of these dose optimization techniques: automated exposure control; mA and/or kV adjustment per patient size (includes targeted exams where dose is matched to clinical indication); or iterative reconstruction. Contrast material: [id number]; Contrast volume: 74 ml; Contrast route: INTRAVENOUS (IV); COMPARISON: CT angio chest PE protcl [id number] 03/08/2020 11:52 AM RADIATION DOSE METRICS: Total DLP (mGy-cm): 574.61 FINDINGS: Pulmonary arteries: No evidence of pulmonary embolus. Aorta: No acute abnormality. Lungs: Mild, centrilobular emphysema. No consolidation or masses. Pleural spaces: Unremarkable. No pneumothorax. No pleural effusion. Heart: Changes of coronary bypass noted. Lymph nodes: No enlarged lymph nodes. Liver: Nonspecific calcifications in the liver and spleen, likely from old infection. Kidneys and ureters: A simple 1.5 cm left renal cyst does not require any further imaging. Bones/joints: The bones appear demineralized. Soft tissues: Within normal limits. Other findings: Scattered systemic vascular calcifications. CT/CT angio chest PE protcl [id number] IMPRESSION: No pulmonary embolus. COMMENTS: Consistent with the [employer]'s Incidental Findings Committee white paper (J Am Francois Radiol 2018): Any incidental renal lesion less than 1 cm or classified as too small to characterize, or any incidental cystic renal lesion characterized as simple-appearing, is likely benign. No follow-up imaging is recommended for these lesions per consensus recommendations based on imaging criteria. Radiation Dose CTDIVOL = (mGy): DLP = 574.61 (mGy-cm)
[2021-01-11] MEDS: iohexol 350 mg/mL 100 mL Btl IV (21:26)
--- NOTE | 2021-01-11 22:21 | ECG_ITS ---
[facility] Test Date: 2021-01-11 Pat Name: Ronit Palma Department: Room: Gender: Female Spanish Speaking Babysitter: : 1950 Requested By: Jessica Otto Order Number: [id number] Familia MD: Aditya Richmond M.D. Measurements Intervals [place] Rate: 59 P: 63 MD: 176 QRS: 71 QRSD: 98 T: 78 QT: 430 QTc: 428 Interpretive Statements SINUS BRADYCARDIA Compared to ECG 01/11/2021 18:14:51 No significant changes Electronically Signed On 01-12-2021 20:09:57 PROMOTIONS SPECIALIST by Aditya Richmond M.D. [email or web address]/[id number]
--- NOTE | 2021-01-11 22:30 | PC.NURSE ---
EKG done at 2230 and shown to ER doctor
--- NOTE | 2021-01-11 22:48 | P.HP_ITS ---
Providers/Chief Complaint Primary Care Provider: Loertta Ramírez, SULY Chief Complaint: Chest Pain History of Present Illness Ronit Palma is a 70 year old female who has history of established coronary artery disease status post stent and CABG x2, hypertension, COPD, nicotine dependence presented today with chief complaint of chest pain. Patient is stating that she was walking in his house when she start experiencing chest di scomfort which she is describing as someone sitting on her chest around 1 PM, it lasted for about 3 to 4 hours, she went to urgent care from where she was directed to the ER. By the time she went to urgent care her symptoms resolved she did not have any recurrence of symptoms her pain was not radiating to her jaw or left arm, no nausea, vomiting, shortness of breath, orthopnea PND. Currently she is smoking 1 pack/day. Diagnosis in the ER revealed normal CBC, BMP revealed hypokalemia otherwise unremarkable slightly high BNP however clinically she is dry, T wave inversion V2 V3 nonspecific no acute infarct changes noted, troponin not significantly high patient is symptom-free, Dr. Richmond recommending overnight observation Patient did get steroid called for bronchitis antibiotics for UTI, she has used estrogen and metronidazole vaginal cream as well for vulvovaginitis, used Macrobid for 7 days as well Review of Systems Const: Denies: fever(s) or chills Eyes: Denies: change in vision ENMT: Denies: throat pain Card: Reports: chest pain Resp: Denies: dyspnea GI: Denies: abdominal pain : Denies: flank pain Musc: Denies: neck pain Skin/Breast: Denies: rash Neuro: Denies: headache(s) Psych: Denies: anxiety Endo: Denies: polyuria Jasbir/Lymph: Denies: easy bruising All/Imm: Denies: urticaria Medications/Allergies Home Medications Medication Instructions Recorded Confirmed Last Taken Type aspirin 81 mg PO DAILY@0900 11/18/19 01/11/21 01/10/21 History clopidogrel [Plavix] 75 mg PO DAILY@0900 11/18/19 01/11/21 01/11/21 History diltiazem HCl 240 mg PO DAILY@0900 12/15/19 01/11/21 01/11/21 History isosorbide mononitrate 30 mg PO BID@0900,1800 12/15/19 01/11/21 01/11/21 History albuterol sulfate 90 mcg/actuation 1 inh INHALATION Q6H PRN #1 each 03/11/20 01/11/21 Unknown Rx aerosol inhaler Estrace 1 g VAGINAL BEDTIME@1800 01/11/21 01/11/21 01/11/21 History Lipitor 40 mg PO DAILY@0800 01/11/21 01/11/21 01/10/21 History acetaminophen [Tylenol] 325 - 350 mg PO QID PRN 01/11/21 01/11/21 Unknown History fluticasone propion-salmeterol 1 ea INHALATION BID@0900,1800 01/11/21 01/11/21 01/11/21 History [Advair Diskus] Allergies Allergy/AdvReac Type Severity Reaction Status Date / Time No Known Allergies Allergy Verified 01/11/21 16:36 PFSH Acute PFSH: Medical History (Updated 01/12/21 @ 00:24 by Tyra Mcclure MD) Bilateral renal cysts COPD (chronic obstructive pulmonary disease) Femur fracture Heart disease HTN (hypertension) Personal history of nicotine dependence Vitamin D insufficiency Surgical History History of cholecystectomy History of heart artery stent History of hip surgery left History of hysterectomy Hx of CABG Family History Mother CAD (coronary artery disease) Other Cancer Heart disease Social History Smoking and tobacco status: current every day smoker Second hand smoke exposure: Yes Smoking risk assessment/counseling performed?: Yes Alcohol intake: never Desire information about alcohol rehabilitation?: No Counseling given: No Desire information about substance/drug rehabilitation?: No Counseling given: No Caregiver/support person: No Lives independently: Yes Household members: none Marital status: / Number of children: 4 Current occupational status: retired History of recent travel: No Current gender identity: Female Vitals/I&O/Wt Last Vital Signs Temp 98.1 F 01/11/21 16:34 Pulse 59 L 01/11/21 22:02 Resp 17 01/11/21 22:02 BP 164/78 01/11/21 22:02 Pulse Ox 98 01/11/21 22:02 01/11/21 01/11/21 01/11/21 06:59 14:59 22:59 Intake Total 50 / 50 Balance 50 / 50 Weight last 48 hrs Weight 73.482 kg Physical Exam Narrative: EXAM NARRATIVE: Elderly female who appears more than stated age Clinically looks euvolemic Saturating well on room air No active distress sharp chest pain or shortness of breath S1, S2 sinus bradycardia no signs of heart failure Bilateral breath sounds without adventitious rhonchi or audible stridor or whe ezing Abdomen soft nontender bowel sound present Awake alert oriented x3 GCS 15 PERRLA, EOMI, Appropriate mood and affect No joint swelling No skin changes of ischemia gangrene or ulcer Data : 01/11/21 17:40 01/11/21 17:40 A&P Assessment and plan (1) Unstable angina: Typical chest pain/ unstable angina No significant delta troponin no active chest pain, hemodynamically stable, EKG showing nonspecific T wave changes V2 V3 no acute CT changes Monitor overnight on telemetry floor She still have room to optimize her antianginal medications however I would hold her Cardizem for now because of bradycardia, would recommend optimizing her nitrates No need to repeat echo, Patient is an active smoker, counseled on smoking cessation Status: Acute (2) Urinary tract infection: Abnormal UA with symptoms with continue ceftriaxone, requested urine cultures She has used metronidazole and estrogen vaginal cream in the past along Macrobid as well For recurrent UTI I would recommend outpatient follow-up with Dr. Spear Status: Acute Attestations Medical Necessity Statement*: Overnight monitoring for unstable angina with history of established coronary disease and CABG, anticipating discharge in less than 48 hours if she stays symptom-free Time Spent in Patient Care: (>than 50% of time spent in counselling and/or direct pt care on unit) . 50mins Coding Level of Care Code Acute Community Development Director for Kayden Molina Diagnoses Unstable angina I20.0 Urinary tract infection N39.0
--- NOTE | 2021-01-11 22:52 | PC.NURSE ---
report received from ANDREW Pandey and care transferred to ANDREW Burk
[2021-01-11 23:04] LABS: Troponin 5 6HR 11.66 ng/L (0-10)
[2021-01-11 23:05] LABS: Troponin 5 6HR Delta -2.34 ng/L (0-12)
[2021-01-12] VITALS (11 sets, daily range): BP systolic 130–154; BP diastolic 61–87; PULSE 52–65; RESP 18–21; TEMP 36.6–36.7; O2SAT 92–97
[2021-01-12] MEDS: enoxaparin 40 mg/0.4 mL Syringe SUBCUT (00:46)
[2021-01-12] MEDS: isosorbide mononitrate ER 30 mg Tablet PO ×2 (00:46→08:30)
[2021-01-12 05:11] LABS: Basophils # 0.1 10^3/uL (0.0-0.1); Basophils % 0.5 %; Eosinophils # 0.2 10^3/uL (0.0-0.8); Eosinophils % 1.6 %; Hematocrit 38.4 % (37.0-47.0); Hemoglobin 12.6 g/dL (11.5-15.3); Lymphocytes # 5.6 10^3/uL (0.8-4.8); Lymphocytes % 37.2 %; Mean Corpuscular HGB Conc 32.8 g/dL (30.0-36.0); Mean Corpuscular Hemoglobin 31.7 pg (28.0-34.0); Mean Corpuscular Volume 96.7 fL (81-99); Mean Platelet Volume 10.4 fL (7.4-10.4); Monocytes # 1.2 10^3/uL (0.2-0.9); Monocytes % 7.9 %; Neutrophils # 7.89 10^3/uL (1.8-7.7); Neutrophils % 52.1 %; Nucleated Red Blood Cells % 0 %; Platelet Count 213 10^3/cmm (130-400); Red Blood Count 3.97 10^6/uL (4.1-5.3); Red Cell Distribution Width 12.2 % (12.1-15.1); White Blood Count 15.1 10^3/uL (4.0-10.0)
[2021-01-12 05:25] LABS: Potassium 3.5 mmol/L (3.5-5.1)
--- NOTE | 2021-01-12 06:36 | PC.NURSE ---
NURSE NOTE: SHIFT SUMMARY: PT ALERT AND ORIENTED X4; MOVES ALL EXTREMITIES AND FOLLOWS ALL COMMANDS. PT ARRIVED TO UNIT EARLY THIS AM. ADMITTED FOR OBSERVATION OF CP. DENIES PAIN AT THIS TIME. ALL VS AND ASSESSMENTS CHARTED. NO DISTRESS NOTED AT THIS TIME.
[2021-01-12] MEDS: albuterol 8 gm MDI 1 PUFF INHALATION (08:12)
[2021-01-12] MEDS: cefTRIAXone 1,000 MG in sodium chloride 0.9% (plus) 50 ML 100 MG IV (08:28)
[2021-01-12] MEDS: aspirin 81 mg Chew Tablet PO (08:30)
[2021-01-12] MEDS: clopidogrel 75 mg Tablet PO (08:30)
[2021-01-12] MEDS: atorvastatin 40 mg Tablet PO (08:30)
[2021-01-12] MEDS: potassium chloride ER 20 mEq Tablet 40 MEQ PO (09:37)
[2021-01-12] MEDS: ciprofloxacin 500 mg Tablet PO (09:37)
[2021-01-12 10:26] LABS: Magnesium 2.1 mg/dL (1.7-2.3)
--- NOTE | 2021-01-12 10:46 | PC.CHAP ---
Pastoral Care Encounter/Spiritual Assessment Type of Contact [] Declined junior recruiter visit [] Patient/Family/Request visit [] Outpatient visit [] Follow-up visit [] Physician referral [] Code/Alert [x] Routine visit [] Staff referral [] Actively dying [] Patient sleeping [] Family support [] [] Out of room [] Palliative care [] [x] Receiving care in room [] Pre-surgical visit [] Trauma [x] Long length of stay [] ICU visit [] Other: Relational/Emotional Strength [x] Patient feels connected with others/family/visitors/staff [] Distress [] Loneliness/isolation [] Abandonment Spirituality of Patient [x] Person of Tia [] Attends Alevism of their Tia [x] Believes in Prayer [] Reads Bible or Hoahaoism materials [] There are Spiritual issues to be addressed Speech Correction Consultant Interventions [x] Prayer [x] Active listening [x] Non-anxious presence [x] Spiritual/emotional support [] Crisis/trauma care [x] Spiritual counseling [] Bereavement support [] Provided bereavement packet [] Provided Bible/devotional materials [] Provided toy/stuffed animal, coloring book to patient or family member [] Provided Communion [] Anointing/Hercules [] Salvation [x] Completed spiritual assessment [] Other: Impact on Illness or Injury [] Angry [] Fearful [x] Anxious [] Often cries [] Exhaustion [] Unable to work [] Unable to attend anglican [] Unable to walk/stand [] Unable to read [] Unable to drive [] Unable to eat/drink [] Unable to sleep [] Unable to be with family [] Patient intubated [] Other: Summary she dealing with her heart, has agood atitude, dealing with slow ercovery time, not sure when she can go home Time spent with patient 10 mins
--- NOTE | 2021-01-12 12:09 | P.DS_ITS ---
Discharge Providers Date of Admission: 01/11/21 22:49 Date of Discharge: January 12, 2021 Attending Provider at Admission: Tyra Mcclure MD Attending Provider at Discharge: Tyra Mcclure MD Primary Care Provider: SULY Taveras Diagnoses at Discharge Discharge Diagnosis (1) Unstable angina: Status: Acute (2) Urinary tract infection: Status: Acute Reason for Visit Reason for Visit: Chest Pain Hospital Course Hospital Course Patient experienced chest pain. See H&P for details. Work-up in ER was negative. However decision was made for admission. Had no further chest pain; resolved in the ED. Consideration for antianginal medication changes as an outpatient. Perhaps change diltiazem to Norvasc. Another option would be to increase dose of Imdur. There are other options to treat her chest pain. Of note she appears to have a urinary tract infection. She states that she gets frequent urinary tract infections I will treat with Cipro for total of 5 days. I advised her to follow-up with her primary care physician for a urine and culture approximately 1 week after completion of antibiotics. Also of note she was mildly hypokalemic. In patient with coronary artery disease goal potassium is over 4 and magnesium is over 2. Her magnesium level was checked and was 2.1 here in the hospital. I prescribed KCl 20 mEq every day. Patient states she used to be on potassium but was taken off. I ordered a BMP in 1 week to reevaluate. She was counseled to quit smoking. she is down from 2 packs to 1 pack/day. I strongly encouraged her to quit completely due to her cardiac condition as well as decreased lung volumes on exam Physical Exam Narrative: EXAM NARRATIVE: General: patient is a 70-year-old white female who appears older than her stated age she is in no acute distress she has an ashen color to her face. Heart: regular normal S1-S2 without murmurs clicks gallops or rubs Lungs: Clear to auscultation but severely diminished particularly with a prolonged expiratory phase. Abdomen: soft nontender nondistended positive bowel sounds Extremities: No clubbing cyanosis or edema pedal pulses intact Discharge Data Data Completed and Pending: Completed Studies During Hospitalization Category Date Time Status CT angio chest PE protcl [id number] Stat Cat Scan 01/11/21 21:07 Completed XR chest 1V liane ble [id number] Urgent Exams 01/11/21 16:21 Completed Pending at discharge Category Date Time Status Urine Culture Sta t Lab 01/12/21 00:18 Uncollected Labs from last 24 hours 01/12/21 01/12/21 01/12/21 04:52 04:52 04:52 WBC 15.1 H RBC 3.97 L Hgb 12.6 Hct 38.4 MCV 96.7 MCH 31.7 MCHC 32.8 RDW 12.2 Plt Count 213 MPV 10.4 Neut % (Auto) 52.1 Lymph % (Auto) 37.2 Cross % (Auto) 7.9 Eos % (Auto) 1.6 Baso % (Auto) 0.5 Neut # (Auto) 7.89 H Lymph # (Auto) 5.6 H Cross # (Auto) 1.2 H Eos # (Auto) 0.2 Baso # (Auto) 0.1 Nucleated RBC % (a uto) 0 Nucleated RBCs # 0.0 D-Dimer Sodium Potassium 3.5 Chloride Carbon Dioxide Anion Gap BUN Creatinine GFR Calculation Glucose Calculated Osmolal ity Calcium Magnesium 2.1 Total Bilirubin AST ALT Alkaline Phosphata se Troponin T Baselin e Troponin T 120 Min [place] Delta Troponin T Troponin T Hi Sens 6Hr Troponin T Hi Sens 6Hr Delta NT-Pro-B Natriuret Pep Total Protein Albumin Globulin Urine Color Urine Appearance Urine pH Ur Specific Gravit y Urine Protein Urine Glucose (UA) Urine Ketones Urine Blood Urine Nitrate Urine Bilirubin Urine Urobilinogen Ur Leukocyte Una ase Urine RBC Urine WBC Ur Squamous Epith Cells Amorphous Sediment Urine Bacteria Urine Mucus 01/11/21 01/11/21 01/11/21 22:34 19:08 17:40 WBC RBC Hgb Hct MCV MCH MCHC RDW Plt Count MPV Neut % (Auto) Lymph % (Auto) Cross % (Auto) Eos % (Auto) Baso % (Auto) Neut # (Auto) Lymph # (Auto) Cross # (Auto) Eos # (Auto) Baso # (Auto) Nucleated RBC % (a uto) Nucleated RBCs # D-Dimer Sodium Potassium Chloride Carbon Dioxide Anion Gap BUN Creatinine GFR Calculation Glucose Calculated Osmolal ity Calcium Magnesium Total Bilirubin AST ALT Alkaline Phosphata se Troponin T Baselin e Troponin T 120 Min [place] 11.82 H Delta Troponin T -2.18 L Troponin T Hi Sens 6Hr 11.66 H Troponin T Hi Sens 6Hr Delta -2.34 L NT-Pro-B Natriuret Pep Total Protein Albumin Globulin Urine Color Yellow Urine Appearance Sl hazy Urine pH 5 Ur Specific Gravit y 1.020 Urine Protein Neg Urine Glucose (UA) 4+ H Urine Ketones Negative Urine Blood Neg Urine Nitrate Negative Urine Bilirubin Neg Urine Urobilinogen Norm Ur Leukocyte Una ase Negative Urine RBC 5-10 H Urine WBC >100 H Ur Squamous Epith Cells 10-15 H Amorphous Sediment Not Reportable Urine Bacteria 2+ H Urine Mucus Trace 01/11/21 01/11/21 01/11/21 17:40 17:40 17:40 WBC RBC Hgb Hct MCV MCH MCHC RDW Plt Count MPV Neut % (Auto) Lymph % (Auto) Cross % (Auto) Eos % (Auto) Baso % (Auto) Neut # (Auto) Lymph # (Auto) Cross # (Auto) Eos # (Auto) Baso # (Auto) Nucleated RBC % (a uto) Nucleated RBCs # D-Dimer 0.75 H Sodium 145 Potassium 3.3 L Chloride 106 Carbon Dioxide 28 Anion Gap 14.3 BUN 12 Creatinine 0.6 GFR Calculation 99.4 Glucose 97 Calculated Osmolal ity 300 H Calcium 8.9 Magnesium Total Bilirubin 0.5 AST 13 ALT 10 Alkaline Phosphata se 129 H Troponin T Baselin e 14 H Troponin T 120 Min [place] Troponin T Troponin T Hi Sens 6Hr Troponin T Hi Sens 6Hr Delta NT-Pro-B Natriuret Pep 598 H Total Protein 6.9 Albumin 4.1 Globulin 2.8 Urine Color Urine Appearance Urine pH Ur Specific Gravit y Urine Protein Urine Glucose (UA) Urine Ketones Urine Blood Urine Nitrate Urine Bilirubin Urine Urobilinogen Ur Leukocyte Una ase Urine RBC Urine WBC Ur Squamous Epith Cells Amorphous Sediment Urine Bacteria Urine Mucus 01/11/21 17:40 WBC 17.3 H RBC 4.50 Hgb 14.3 Hct 43.3 MCV 96.2 MCH 31.8 MCHC 33.0 RDW 12.0 L Plt Count 257 MPV 10.4 Neut % (Auto) 60.8 Lymph % (Auto) 30.3 Cross % (Auto) 6.7 Eos % (Auto) 1.2 Baso % (Auto) 0.4 Neut # (Auto) 10.49 H Lymph # (Auto) 5.2 H Cross # (Auto) 1.2 H Eos # (Auto) 0.2 Baso # (Auto) 0.1 Nucleated RBC % (a uto) 0 Nucleated RBCs # 0.0 D-Dimer Sodium Potassium Chloride Carbon Dioxide Anion Gap BUN Creatinine GFR Calculation Glucose Calculated Osmolal ity Calcium Magnesium Total Bilirubin AST ALT Alkaline Phosphata se Troponin T Baselin e Troponin T 120 Min [place] Troponin T Troponin T Hi Sens 6Hr Troponin T Hi Sens 6Hr [place] NT-Pro-B Natriuret Pep Total Protein Albumin Globulin Urine Color Urine Appearance Urine pH Ur Specific Gravit y Urine Protein Urine Glucose (UA) Urine Ketones Urine Blood Urine Nitrate Urine Bilirubin Urine Urobilinogen Ur Leukocyte Una ase Urine RBC Urine WBC Ur Squamous Epith Cells Amorphous Sediment Urine Bacteria Urine Mucus Vitals: Last Vital Signs Temp 98.1 F 01/12/21 07:37 Pulse 64 01/12/21 08:15 Resp 18 01/12/21 08:10 BP 145/68 01/12/21 07:37 Pulse Ox 94 01/12/21 08:10 Discharge Plan Discharge Patient Disposition: Home Condition: Stable Prescriptions: New potassium chloride [Klor-Con M20] 20 mEq Tablet,Er Particles/Crystals 20 meq PO DAILY Qty: 30 RF: 0 ciprofloxacin HCl 500 mg Tablet 500 mg PO BID@0900,2100 Qty: 9 RF: 0 Continued albuterol sulfate 90 mcg/actuation HFA aerosol inhaler 1 inh INHALATION Q6H PRN (Reason: shortness of breath or wheezing) Qty: 1 RF: 2 Advair Diskus 100-50 mcg/dose blister with device 1 ea inhalation BID@0900,1800 RF: 0 Estrace 0.01 % (0.1 mg/gram) cream 1 g VAGINAL BEDTIME@1800 RF: 0 Tylenol 325 mg Tablet 325 - 350 mg PO QID PRN (Reason: headache/pain) RF: 0 clopidogrel [Plavix] 75 mg Tablet 75 mg PO DAILY@0900 RF: 0 aspirin 81 mg Tablet,Chewable 81 mg PO DAILY@0900 RF: 0 isosorbide mononitrate 30 mg Tablet Extended Release 24 Hr 30 mg PO BID@0900,1800 RF: 0 diltiazem HCl 240 mg Capsule,Extended Release 24 Hr 240 mg PO DAILY@0900 RF: 0 Changed Lipitor 40 mg tablet 40 mg PO QPM Qty: 0 RF: 0 Discharge Orders: Discharge Order (Routine); Ordered 01/12/21 Ordered By: Mustapha Berumen Other Ambulatory Orders: Basic Metabolic Panel (Routine) Timeframe: 1 Week Facility: [facility] - Location: Lab - Main Lab Ordered By: Mustapha Berumen Referrals: Loretta Ramírez, WALLPAPER CLEANER-C [Primary Care Provider] - 1 week () Discharge Diet: Advance as tolerated Discharge Activity: Resume usual activity Patient Instructions: Ciprofloxacin (By mouth), Potassium Chloride (By mouth) Discharge Attestations Time Spent in Discharge Care*: less than 30 min Specific Discharge Activities: educating patient and documenting/other paperwork Time Spent in Smoking Cessation: 3 to 10 minutes Quality Metrics Clinical Quality Measures During this hospital stay, did patient experience: None Coding Level of Care Code 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
== END 2021-01-12 12:55 | disposition home or self-care (01) ==
LOC: ER 17:06 → CSU 23:10
PROVIDERS: Physician Assistant; Admitting Provider Internal Medicine; Emergency Provider Family Medicine; PCP Nurse Practitioner; Visit Provider Internal Medicine
DX: I25.110 Atherosclerotic heart disease of native coronary artery with unstable angina pectoris (principal); N39.0 Urinary tract infection, site not specified; Z95.5 Presence of coronary angioplasty implant and graft; Z95.1 Presence of aortocoronary bypass graft; F17.210 Nicotine dependence, cigarettes, uncomplicated; Z79.82 Long term (current) use of aspirin; J44.9 Chronic obstructive pulmonary disease, unspecified; I11.0 Hypertensive heart disease with heart failure; I50.9 Heart failure, unspecified
CPT/HCPCS: 36415; 71045; 71275; 80053; 81001; 83735; 83880; 84132; 84484; 85025; 85378; 93005; 94640; 96365; 96372; 99285; G0378; J0696; J1650; J3535; Q9967

== ENCOUNTER → 2021-01-20 11:22 | Outpatient (BNVA) | payer MEDICARE, OTHER, SELFPAY | PROVIDERS: PCP Nurse Practitioner; Visit Provider Nurse Practitioner | DX: N39.0 Urinary tract infection, site not specified (principal); I10 Essential (primary) hypertension; J44.9 Chronic obstructive pulmonary disease, unspecified | CPT/HCPCS: 80048; 81003; 85025 ==

== ENCOUNTER → 2021-03-03 09:50 | Outpatient (BNVA) | payer MEDICARE, OTHER, SELFPAY | PROVIDERS: PCP Nurse Practitioner; Visit Provider Nurse Practitioner | DX: N39.0 Urinary tract infection, site not specified (principal) | CPT/HCPCS: 81000 ==

== ENCOUNTER 2021-03-09 10:41 | Outpatient (CLI) | payer MEDICARE, OTHER, SELFPAY ==
[2021-03-09 11:09] LABS: Basophils # 0.1 10^3/uL (0.0-0.1); Basophils % 0.6 %; Eosinophils # 0.3 10^3/uL (0.0-0.8); Eosinophils % 3.4 %; Hematocrit 39.1 % (37.0-47.0); Hemoglobin 12.8 g/dL (11.5-15.3); Lymphocytes # 2.9 10^3/uL (0.8-4.8); Lymphocytes % 28.5 %; Mean Corpuscular HGB Conc 32.7 g/dL (30.0-36.0); Mean Corpuscular Hemoglobin 31.8 pg (28.0-34.0); Mean Platelet Volume 10.2 fL (7.4-10.4); Monocytes # 0.9 10^3/uL (0.2-0.9); Monocytes % 9.2 %; Neutrophils # 5.85 10^3/uL (1.8-7.7); Neutrophils % 57.7 %; Nucleated Red Blood Cells % 0 %; Platelet Count 235 10^3/cmm (130-400); Red Blood Count 4.03 10^6/uL (4.1-5.3); Red Cell Distribution Width 11.9 % (12.1-15.1); White Blood Count 10.1 10^3/uL (4.0-10.0)
== END 2021-03-09 10:42 | disposition home or self-care (01) ==
LOC: LAB 10:53
PROVIDERS: PCP Nurse Practitioner; Visit Provider Internal Medicine Cardiovascular Disease
DX: Z79.899 Other long term (current) drug therapy (principal)
CPT/HCPCS: 36415; 85025

== ENCOUNTER 2021-05-05 11:25 | Outpatient (CLI) | payer MEDICARE, OTHER, SELFPAY ==
[2021-05-05 12:11] LABS: INR 1.02 (0.8-1.2)
== END 2021-05-05 11:26 | disposition home or self-care (01) ==
LOC: LAB 11:41
PROVIDERS: PCP Nurse Practitioner; Visit Provider Internal Medicine Cardiovascular Disease
DX: I48.0 Paroxysmal atrial fibrillation (principal)
CPT/HCPCS: 85610

== ENCOUNTER → 2021-05-12 10:42 | Outpatient (BNVA) | payer MEDICARE, OTHER, SELFPAY | PROVIDERS: PCP Nurse Practitioner; Visit Provider Nurse Practitioner | DX: I48.91 Unspecified atrial fibrillation (principal) | CPT/HCPCS: 85610 ==

== ENCOUNTER 2021-05-18 13:54 | Outpatient (CLI) | payer MEDICARE, OTHER, SELFPAY ==
[2021-05-18 15:58] LABS: INR 1.27 (0.8-1.2)
== END 2021-05-18 13:55 | disposition home or self-care (01) ==
LOC: LAB 14:00
PROVIDERS: PCP Nurse Practitioner; Visit Provider Nurse Practitioner
DX: I48.91 Unspecified atrial fibrillation (principal)
CPT/HCPCS: 36415; 85610

== ENCOUNTER → 2021-06-02 10:46 | Outpatient (BNVA) | payer MEDICARE, OTHER, SELFPAY | PROVIDERS: PCP Nurse Practitioner; Visit Provider Nurse Practitioner | DX: I48.91 Unspecified atrial fibrillation (principal) | CPT/HCPCS: 85610 ==

== ENCOUNTER → 2021-06-09 10:13 | Outpatient (BNVA) | payer MEDICARE, OTHER, SELFPAY | PROVIDERS: PCP Nurse Practitioner; Visit Provider Nurse Practitioner | DX: I48.91 Unspecified atrial fibrillation (principal) | CPT/HCPCS: 85610 ==

== ENCOUNTER 2021-06-16 11:08 | Outpatient (CLI) | payer MEDICARE, OTHER, SELFPAY ==
[2021-06-16 11:52] LABS: INR 1.24 (0.8-1.2)
== END 2021-06-16 11:09 | disposition home or self-care (01) ==
PROVIDERS: PCP Nurse Practitioner; Visit Provider Nurse Practitioner
DX: I48.91 Unspecified atrial fibrillation (principal)
CPT/HCPCS: 85610

== ENCOUNTER 2021-06-27 09:45 | Outpatient (CLI) | payer MEDICARE, OTHER, SELFPAY ==
[2021-06-27 10:15] LABS: INR 1.03 (0.8-1.2)
== END 2021-06-27 09:46 | disposition home or self-care (01) ==
PROVIDERS: PCP Nurse Practitioner; Visit Provider Nurse Practitioner
DX: I48.91 Unspecified atrial fibrillation (principal)
CPT/HCPCS: 36415; 85610

== ENCOUNTER 2021-07-06 11:23 | Outpatient (CLI) | payer MEDICARE, OTHER, SELFPAY ==
[2021-07-06 12:16] LABS: INR 1.37 (0.8-1.2)
== END 2021-07-06 11:24 | disposition home or self-care (01) ==
PROVIDERS: PCP Nurse Practitioner; Visit Provider Nurse Practitioner
DX: I48.91 Unspecified atrial fibrillation (principal)
CPT/HCPCS: 36415; 85610

== ENCOUNTER 2021-07-17 10:34 | Outpatient (CLI) | payer MEDICARE, OTHER, SELFPAY ==
[2021-07-17 11:11] LABS: INR 1.91 (0.8-1.2)
[2021-07-17 11:17] LABS: Anion Gap 12.1 (5-19); Blood Urea Nitrogen 10 mg/dL (8-23); Calcium 8.9 mg/dL (8.5-10.5); Carbon Dioxide 26 mmol/L (22-29); Chloride 104 mmol/L (98-107); Glomerular Filtration Rate 122.3 mL/min (90-130); Glucose 95 mg/dL (65-115); Osmolality Calculated 285 mOsm/kg (285-295); Potassium 4.1 mmol/L (3.5-5.1); Sodium 138 mmol/L (136-145)
== END 2021-07-17 10:35 | disposition home or self-care (01) ==
LOC: LAB 10:41
PROVIDERS: Internal Medicine; PCP Nurse Practitioner; Visit Provider Nurse Practitioner
DX: I25.10 Atherosclerotic heart disease of native coronary artery without angina pectoris (principal); I48.91 Unspecified atrial fibrillation
CPT/HCPCS: 36415; 80048; 85610

== ENCOUNTER → 2021-08-02 15:12 | Outpatient (BNVA) | payer MEDICARE, OTHER, SELFPAY | PROVIDERS: PCP Nurse Practitioner; Visit Provider Nurse Practitioner | DX: I48.91 Unspecified atrial fibrillation (principal) | CPT/HCPCS: 85610 ==

== ENCOUNTER 2021-08-17 13:41 | Outpatient (CLI) | payer MEDICARE, OTHER, SELFPAY ==
[2021-08-17 14:15] LABS: INR 1.48 (0.8-1.2)
== END 2021-08-17 13:42 | disposition home or self-care (01) ==
PROVIDERS: PCP Nurse Practitioner; Visit Provider Nurse Practitioner
DX: I48.91 Unspecified atrial fibrillation (principal)
CPT/HCPCS: 85610

== ENCOUNTER 2021-08-25 09:44 | Outpatient (CLI) | payer MEDICARE, OTHER, SELFPAY ==
[2021-08-25 10:14] LABS: INR 1.36 (0.8-1.2)
== END 2021-08-25 09:45 | disposition home or self-care (01) ==
PROVIDERS: PCP Nurse Practitioner; Visit Provider Internal Medicine Cardiovascular Disease
DX: I48.91 Unspecified atrial fibrillation (principal)
CPT/HCPCS: 36415; 85610

== ENCOUNTER 2021-09-04 12:55 | Outpatient (CLI) | payer MEDICARE, OTHER, SELFPAY ==
[2021-09-04 13:31] LABS: INR 1.84 (0.8-1.2)
== END 2021-09-04 12:56 | disposition home or self-care (01) ==
LOC: LAB 13:02
PROVIDERS: PCP Nurse Practitioner; Visit Provider Internal Medicine Cardiovascular Disease
DX: I48.91 Unspecified atrial fibrillation (principal)
CPT/HCPCS: 36415; 85610

== ENCOUNTER 2021-09-21 15:04 | Outpatient (CLI) | payer MEDICARE, OTHER, SELFPAY ==
[2021-09-21 15:43] LABS: INR 1.89 (0.8-1.2)
== END 2021-09-21 15:05 | disposition home or self-care (01) ==
LOC: LAB 15:08
PROVIDERS: PCP Nurse Practitioner; Visit Provider Internal Medicine Cardiovascular Disease
DX: I48.91 Unspecified atrial fibrillation (principal)
CPT/HCPCS: 85610

== ENCOUNTER → 2021-10-09 11:09 | Outpatient (BNVA) | payer MEDICARE, OTHER, SELFPAY | PROVIDERS: PCP Nurse Practitioner; Visit Provider Nurse Practitioner | DX: J44.9 Chronic obstructive pulmonary disease, unspecified (principal); I48.91 Unspecified atrial fibrillation; I10 Essential (primary) hypertension | CPT/HCPCS: 71046; 85025 ==

== ENCOUNTER 2021-10-26 11:40 | Outpatient (CLI) | payer MEDICARE, OTHER, SELFPAY ==
[2021-10-26 12:37] LABS: INR 1.03 (0.8-1.2)
== END 2021-10-26 11:41 | disposition home or self-care (01) ==
LOC: LAB 11:46
PROVIDERS: PCP Nurse Practitioner; Visit Provider Internal Medicine Cardiovascular Disease
DX: I48.0 Paroxysmal atrial fibrillation (principal)
CPT/HCPCS: 36415; 85610

== ENCOUNTER 2021-11-06 13:10 | Outpatient (CLI) | payer MEDICARE, OTHER, SELFPAY ==
[2021-11-06 13:49] LABS: Basophils # 0.1 10^3/uL (0.0-0.1); Basophils % 0.5 %; Eosinophils # 0.3 10^3/uL (0.0-0.8); Eosinophils % 2.6 %; Hematocrit 38.3 % (37.0-47.0); Hemoglobin 12.7 g/dL (11.5-15.3); Lymphocytes # 3.5 10^3/uL (0.8-4.8); Lymphocytes % 32.2 %; Mean Corpuscular HGB Conc 33.2 g/dL (30.0-36.0); Mean Corpuscular Hemoglobin 31.4 pg (28.0-34.0); Mean Corpuscular Volume 94.6 fl (81-99); Mean Platelet Volume 10.7 fL (7.4-10.4); Monocytes # 1.1 10^3/uL (0.2-0.9); Monocytes % 10.3 %; Neutrophils # 5.92 10^3/uL (1.8-7.7); Nucleated Red Blood Cells % 0 %; Platelet Count 218 10^3/cmm (130-400); Red Blood Count 4.05 10^6/uL (4.1-5.3); Red Cell Distribution Width 11.8 % (12.1-15.1)
[2021-11-06 13:50] LABS: INR 0.96 (0.8-1.2)
[2021-11-06 17:10] LABS: Creatinine Urine, Random 274 mg/dL (28-217); Microalbum Creatinine Ratio Ur 22 mg/dL (0-20); Microalbumin Random Urine 6 ug/dL (0-20)
== END 2021-11-06 13:11 | disposition home or self-care (01) ==
PROVIDERS: PCP Nurse Practitioner; Visit Provider Internal Medicine Nephrology
DX: I48.0 Paroxysmal atrial fibrillation (principal)
CPT/HCPCS: 36415; 82044; 85025; 85610

== ENCOUNTER 2021-11-28 13:19 | Outpatient (CLI) | payer MEDICARE, OTHER, SELFPAY ==
[2021-11-28 14:01] LABS: Basophils # 0.1 10^3/uL (0.0-0.1); Basophils % 0.6 %; Eosinophils # 0.3 10^3/uL (0.0-0.8); Eosinophils % 2.7 %; Hematocrit 41.3 % (37.0-47.0); Hemoglobin 13.7 g/dL (11.5-15.3); Lymphocytes # 3.6 10^3/uL (0.8-4.8); Lymphocytes % 36.9 %; Mean Corpuscular HGB Conc 33.2 g/dL (30.0-36.0); Mean Corpuscular Hemoglobin 31.7 pg (28.0-34.0); Mean Corpuscular Volume 95.6 fl (81-99); Mean Platelet Volume 10.7 fL (7.4-10.4); Monocytes # 0.9 10^3/uL (0.2-0.9); Monocytes % 9.2 %; Neutrophils # 4.96 10^3/uL (1.8-7.7); Neutrophils % 50.3 %; Nucleated Red Blood Cells % 0 %; Platelet Count 216 10^3/cmm (130-400); Red Blood Count 4.32 10^6/uL (4.1-5.3); Red Cell Distribution Width 11.9 % (12.1-15.1); White Blood Count 9.9 10^3/uL (4.0-10.0)
[2021-11-28 14:23] LABS: INR 1.83 (0.8-1.2)
== END 2021-11-28 13:20 | disposition home or self-care (01) ==
LOC: LAB 13:27
PROVIDERS: PCP Nurse Practitioner; Visit Provider Internal Medicine Cardiovascular Disease
DX: Z79.899 Other long term (current) drug therapy (principal); I10 Essential (primary) hypertension; N18.32 Chronic kidney disease, stage 3b; I48.0 Paroxysmal atrial fibrillation; Z79.01 Long term (current) use of anticoagulants
CPT/HCPCS: 36415; 85025; 85610

== ENCOUNTER → 2021-12-12 12:22 | Outpatient (BNVA) | payer MEDICARE, OTHER, SELFPAY | PROVIDERS: PCP Nurse Practitioner; Visit Provider Registered Nurse Neonatal Intensive Care | DX: N39.0 Urinary tract infection, site not specified (principal) | CPT/HCPCS: 81000 ==

== ENCOUNTER 2021-12-13 12:47 | Outpatient (CLI) | payer MEDICARE, OTHER, SELFPAY ==
[2021-12-13 13:50] LABS: Hematocrit 39.2 % (37.0-47.0); Hemoglobin 13.2 g/dL (11.5-15.3); Mean Corpuscular HGB Conc 33.7 g/dL (30.0-36.0); Mean Corpuscular Volume 95.1 fl (81-99); Mean Platelet Volume 10.4 fL (7.4-10.4); Platelet Count 217 10^3/cmm (130-400); Red Blood Count 4.12 10^6/uL (4.1-5.3); Red Cell Distribution Width 12.3 % (12.1-15.1); White Blood Count 12.2 10^3/uL (4.0-10.0)
[2021-12-13 14:21] LABS: Absolute Eosinophils 0.3 10^3/cmm (0.0-0.7); Absolute Segmented Neutrophil 5.4 10/cmm (1.6-7.1); Band Neutrophils Absolute 0.4 10^3/cmm (0.0-1.2); Eosinophils 3 %; Lymphocytes 43 %; Lymphocytes Absolute 5.7 10^3/cmm (1.2-3.4); Monocytes Absolute 0.4 10^3/cmm (0.1-0.6); Segmented Neutrophils 44 %; Total Cells Counted 100 (0-100)
[2021-12-13 14:22] LABS: Absolute Neutrophil 5.7 10^3/cmm (1.4-6.5); Platelet Estimate Normal (Normal)
== END 2021-12-13 12:48 | disposition home or self-care (01) ==
PROVIDERS: PCP Nurse Practitioner; Visit Provider Internal Medicine Cardiovascular Disease
DX: I48.0 Paroxysmal atrial fibrillation (principal); Z79.01 Long term (current) use of anticoagulants
CPT/HCPCS: 36415; 85007; 85027; 85610

== ENCOUNTER 2021-12-29 11:45 | Outpatient (CLI) | payer MEDICARE, OTHER, SELFPAY ==
[2021-12-29 13:31] LABS: Basophils # 0.1 10^3/uL (0.0-0.1); Basophils % 0.5 %; Eosinophils # 0.3 10^3/uL (0.0-0.8); Eosinophils % 2.5 %; Hematocrit 39.4 % (37.0-47.0); Hemoglobin 12.9 g/dL (11.5-15.3); Lymphocytes # 3.3 10^3/uL (0.8-4.8); Lymphocytes % 31.4 %; Mean Corpuscular HGB Conc 32.7 g/dL (30.0-36.0); Mean Corpuscular Volume 97.8 fl (81-99); Mean Platelet Volume 10.3 fL (7.4-10.4); Monocytes # 1.1 10^3/uL (0.2-0.9); Neutrophils # 5.86 10^3/uL (1.8-7.7); Nucleated Red Blood Cells % 0 %; Platelet Count 268 10^3/cmm (130-400); Red Blood Count 4.03 10^6/uL (4.1-5.3); Red Cell Distribution Width 12.1 % (12.1-15.1); White Blood Count 10.7 10^3/uL (4.0-10.0)
[2021-12-29 13:44] LABS: INR 1.94 (0.8-1.2)
== END 2021-12-29 11:46 | disposition home or self-care (01) ==
PROVIDERS: PCP Nurse Practitioner; Visit Provider Internal Medicine Cardiovascular Disease
DX: Z79.01 Long term (current) use of anticoagulants (principal); Z79.899 Other long term (current) drug therapy; I48.91 Unspecified atrial fibrillation
CPT/HCPCS: 36415; 85025; 85610

== ENCOUNTER 2022-01-24 14:55 | Outpatient (CLI) | payer MEDICARE, OTHER, SELFPAY ==
--- NOTE | 2022-01-24 | XR_ITS ---
WS: [id number] DEXA (DUAL ENERGY X-RAY ABSORPTIOMETRY) Bone mineral density was performed using a [employer] machine. HISTORY: Z78.0 - Asymptomatic menopausal state COMPARISON: None available. Lumbar spine BMD (L1-L4): 1.232 g/cm2 T score: 0.4 Z score: 1.8 Total hip BMD: Right: 0.697. T score: -2.5 Z score: -1.2 Left forearm BMD: 0.883 g/cm2. T score: 0.1 Z score: 1.9 10 year probability of a major osteoporotic fracture is 19%. XR/XR DEXA axial skeleton* [id number] IMPRESSION: OSTEOPOROSIS based upon the WHO classification for females.
[2022-01-24 16:35] LABS: INR 2.78 (0.8-1.2)
== END 2022-01-24 14:56 | disposition home or self-care (01) ==
PROVIDERS: PCP Nurse Practitioner; Referring Provider Internal Medicine Cardiovascular Disease; Visit Provider Nurse Practitioner
DX: Z79.01 Long term (current) use of anticoagulants (principal); I48.0 Paroxysmal atrial fibrillation; Z78.0 Asymptomatic menopausal state; M81.0 Age-related osteoporosis without current pathological fracture
CPT/HCPCS: 77080; 85610

== ENCOUNTER 2022-02-02 17:42 | Emergency (ER) | payer MEDICARE, OTHER, SELFPAY ==
[2022-02-02] VITALS (7 sets, daily range): BP systolic 111–139; BP diastolic 64–78; PULSE 78–105; RESP 16–23; TEMP 39.3; O2SAT 92–96; BMI 26.8
--- NOTE | 2022-02-02 17:56 | XRR_ITS ---
PROCEDURE INFORMATION: Exam: XR Chest Exam date and time: 02/02/2022 5:07 PM Age: 71 years old Clinical indication: Shortness of breath; Prior surgery; Surgery date: 6+ months; Additional info: Fever, SOB TECHNIQUE: Imaging protocol: XR of the chest. Views: 1 view. COMPARISON: CR XR chest 2V* [id number] 10/09/2021 11:08 AM FINDINGS: Lungs: Emphysematous changes. Left lower lobe atelectasis versus minimal infiltrate. Pleural spaces: Unremarkable. No pleural effusion. No pneumothorax. Heart/Mediastinum: Unremarkable. No cardiomegaly. Bones/joints: Sternotomy wires. XR/XR chest 1V portable [id number] IMPRESSION: 1. Emphysematous changes. 2. Left lower lobe atelectasis versus minimal infiltrate.
--- NOTE | 2022-02-02 17:57 | ECG_ITS ---
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 Measurements Intervals Armstrong Rate: 105 P: -22 IL: 163 QRS: -16 QRSD: 91 T: -36 QT: 325 QTc: 431 Interpretive Statements SINUS TACHYCARDIA LOW QRS VOLTAGE IN PRECORDIAL LEADS [QRS DEFLECTION < 1.0 mV IN CHEST LEADS] ST DEVIATION AND MODERATE T-WAVE ABNORMALITY, CONSIDER INFERIOR ISCHEMIA [-0.1+ mV T-WAVE IN II/aVF] Compared to ECG 01/11/2021 22:26:47 Low QRS voltage now present T-wave abnormality now present Possible ischemia now present Sinus bradycardia no longer present Electronically Signed On 02-02-2022 20:07:54 CDT by Abdelrahman Becker M.D. [email or web address]
--- NOTE | 2022-02-02 18:08 | W.ED.SOB ---
HPI - SOB/Dyspnea General: Chief Complaint: Shortness of Breath/Dyspnea Stated Complaint: Thinks COPD acting up, Slight fevor Time Seen by Provider: 02/02/22 17:56 History of Present Illness: HPI Narrative: Patient is a 71-year-old female comes to the ED with fever and shortness of breath. Patient has history of A. fib, CAD, hypertension and COPD. She is on 5 L of oxygen via nasal cannula continuously at home. Today she developed a fever and has worsening shortness of breath. She took 2 Tylenol before coming to the ED around 5 PM. Patient still actively smokes tobacco. She denies any upper respiratory symptoms, chest pain, palpitations, abdominal pain, nausea/vomiting, bowel symptoms or bladder symptoms. Associated symptoms: Reports fever(s); Deny abdominal pain, chest pain, nausea, orthopnea, palpitations or vomiting Review of Systems Const: Reports: fever(s); Denies: chills or fatigue Eyes: Denies: change in vision or eye discomfort ENMT: Denies: throat pain, odynophagia, nasal discharge or nasal congestion Card: Denies: chest pain, palpitations, edema, swelling of feet/ankles, dyspnea on exertion or orthopnea Resp: Reports: dyspnea; Denies: productive cough or non-productive cough GI: Denies: abdominal pain, nausea, vomiting, diarrhea, constipation or hematochezia : Denies: flank pain, dysuria or hematuria Musc: Denies: neck pain, back pain or extremity swelling Skin/Breast: Denies: rash or new lesions Neuro: Denies: headache(s), numbness in extremities or weakness in extremities PFS ED PFSH: Medical History Age related osteoporosis Bilateral renal cysts COPD (chronic obstructive pulmonary disease) Femur fracture Heart disease HTN (hypertension) Personal history of nicotine dependence Unstable angina Vitamin D insufficiency Surgical History History of cholecystectomy History of heart artery stent History of hip surgery left History of hysterectomy Hx of CABG Family History Mother CAD (coronary artery disease) Other Cancer Heart disease Social History Smoking and tobacco status: current every day smoker Second hand smoke exposure: Yes Smoking risk assessment/counseling performed?: Yes Alcohol intake: never Desire information about alcohol rehabilitation?: No Counseling given: No Desire information about substance/drug rehabilitation?: No Counseling given: No Caregiver/support person: No Lives independently: Yes Household members: none Marital status: / Number of children: 4 Current occupational status: retired History of recent travel: No Current gender identity: Female Physical Exam Const: COMMON NORMALS: patient oriented x3 and alert GENERAL APPEARANCE: cooperative HENMT: COMMON NORMALS: normocephalic HEAD & SCALP: normocephalic MOUTH: Normal oral and palatal mucosa present THROAT: posterior oropharynx normal and uvula midline Eye: COMMON NORMALS: Equal, round and reactive pupils present and conjunctivae normal CONJUNCTIVA: Yes conjunctivae normal PUPIL: Yes Equal, round and reactive pupils present Neck/C-Spine: COMMON NORMALS: supple GENERAL: Yes normal visual inspection Resp: COMMON NORMALS: normal respiratory effort, No retractions and No use of accessory muscles EFFORT & INSPECTION: Yes able to speak in complete sentences AUSCULTATION: diminished lung sounds bilateral in the lower lung ta OTHER: I witnessed patient transferring from wheelchair to exam bed. She did appear short of breath afterwards. Cardio: COMMON NORMALS: regular rate, regular rhythm, S1 normal heart sound present, S2 normal heart sound present, No gallops present (Cardio), No clicks present (Cardio), No murmurs present (Cardio) and Peripheral pulses 2+ throughout RATE: regular rate RHYTHM: regular rhythm HEART SOUNDS: S1 normal heart sound present and S2 normal heart sound present PERIPHERAL PULSES: Peripheral pulses 2+ throughout GI: COMMON NORMALS: Normal to inspection, nondistended, normoactive bowel sounds present, Soft to palpation, non-tender and no masses PALPATION: Yes Soft to palpation : COMMON NORMALS: Yes no CVA tenderness BLADDER/KIDNEY EXAM: Yes no CVA tenderness Back/Pelvis: COMMON NORMALS: no CVA tenderness Extremity: COMMON NORMALS: normal to inspection and no pedal edema Neuro: COMMON NORMALS: patient oriented x3 and moves all extremities SENSORIUM/ORIENTATION: Yes alert Skin: GENERAL SKIN EXAM: dry skin Course ED course: I talk with Dr. Chris about patient case and her COPD exacerbation along with her elevated white blood cell count. He recommended having patient admitted. I went and spoke with patient about admission into the hospital. She refused to be admitted and says she needs to go home where she has son with a mental handicap that she takes care of. I told her the risk and concerns we had for her and she still agreed she wants to go home she does not want to be admitted. Patient signed AMA form before discharge. Vital Signs: Vital signs: Vital Signs Temperature 102.8 F H 02/02/22 17:52 Pulse Rate 78 02/02/22 21:45 Respiratory Rate 22 H 02/02/22 21:45 Blood Pressure 128/78 02/02/22 21:45 Pulse Oximetry 95 02/02/22 21:45 MDM - SOB/Dyspnea Medical Decision Making Patient is a 71-year-old female comes to the ED with a fever and shortness of breath. Symptoms started today. Patient has a past medical history of A. fib, hypertension, CAD and COPD. Patient is on home oxygen and uses 5 L via nasal cannula continuously. No increased oxygen requirements since start of symptoms. States her shortness of breath seems a little worse with exertion. Denies any other symptoms such as chest pain, palpitations, cough, nausea/vomiting, upper respiratory symptoms, abdominal pain, bladder or bowel symptoms. Patient is febrile with a temperature of 102.8 here in the ED O2 is at 92% on 5 L. Rest of vitals are stable. Patient has some diminished lung sounds bilaterally at the bases. I did witness her transfer from the wheelchair to exam bed and it did cause some shortness of breath. She has a white blood cell count of 26.7. The rest of CBC, CMP were unremarkable. Lactic normal at 1. Troponins negative. BNP was 947. Influenza and Covid were negative. Chest x-ray showed emphysematous changes and left lower lobe atelectasis versus minimal infiltrate. Patient was given IV Solu-Medrol and Rocephin. She was also given DuoNeb breathing treatment here in the ED as well. I talked with Dr. Chris about patient case and I would like to have her admitted. He agreed. I went in to talk with patient about how well to have her admitted and she refused to be admitted into hospital today. She states that she has a son at home that has a mental handicap that she helps take care of. I told patient about the health risks of her going home and that I think she needs to be admitted tonight for further evaluation. Patient still refused admission and says she will sign out AMA. Patient diagnosed with acute exacerbation of COPD. She was sent home with a prescription for Augmentin, doxycycline and prednisone. She was given strict return to ED precautions. She was told to follow-up with her PCP in the next 3 to 5 days for reevaluation. Patient signed AMA form and left. Lab Data I reviewed the patient's lab results. : 02/02/22 18:10 02/02/22 18:10 Labs/Radiology: Radiology Impressions Chest X-Ray 02/02/22 17:56 IMPRESSION: 1. Emphysematous changes. 2. Left lower lobe atelectasis versus minimal infiltrate. Laboratory Results WBC 26.7 10^3/uL (4.0-10.0) H 02/02/22 18:10 RBC 4.10 10^6/uL (4.1-5.3) 02/02/22 18:10 Hgb 13.2 g/dL (11.5-15.3) 02/02/22 18:10 Hct 38.9 % (37.0-47.0) 02/02/22 18:10 MCV 94.9 fl (81-99) 02/02/22 18:10 MCH 32.2 pg (28.0-34.0) 02/02/22 18:10 MCHC 33.9 g/dL (30.0-36.0) 02/02/22 18:10 RDW 12.2 % (12.1-15.1) 02/02/22 18:10 Plt Count 208 10^3/cmm (130-400) 02/02/22 18:10 MPV 10.6 fL (7.4-10.4) H 02/02/22 18:10 Neut % (Auto) 82.3 % 02/02/22 18:10 Lymph % (Auto) 6.5 % 02/02/22 18:10 [place] % (Auto) 9.8 % 02/02/22 18:10 Eos % (Auto) 0.2 % 02/02/22 18:10 Baso % (Auto) 0.3 % 02/02/22 18:10 Neut # (Auto) 21.94 10^3/uL (1.8-7.7) H 02/02/22 18:10 Lymph # (Auto) 1.7 10^3/uL (0.8-4.8) 02/02/22 18:10 [place] # (Auto) 2.6 10^3/uL (0.2-0.9) H 02/02/22 18:10 Eos # (Auto) 0.1 10^3/uL (0.0-0.8) 02/02/22 18:10 Baso # (Auto) 0.1 10^3/uL (0.0-0.1) 02/02/22 18:10 Nucleated RBC % (auto) 0 % 02/02/22 18:10 Nucleated RBCs # 0.0 /100WBC 02/02/22 18:10 PT 25.50 SECONDS (12.1-14.9) H 02/02/22 18:10 INR 2.27 (0.8-1.2) H 02/02/22 18:10 Sodium 137 mmol/L (136-145) 02/02/22 18:10 Potassium 3.6 mmol/L (3.5-5.1) 02/02/22 18:10 Chloride 102 mmol/L (98-107) 02/02/22 18:10 Carbon Dioxide 21 mmol/L (22-29) L 02/02/22 18:10 Anion Gap 17.6 (5-19) 02/02/22 18:10 BUN 15 mg/dL (8-23) 02/02/22 18:10 Creatinine 0.6 mg/dL (0.5-0.9) 02/02/22 18:10 GFR Calculation 99.1 mL/min (90-130) 02/02/22 18:10 Glucose 123 mg/dL (65-115) H 02/02/22 18:10 Calculated Osmolality 286 mOsm/kg (285-295) 02/02/22 18:10 Lactic Acid 1.0 mmol/L (0.5-2.2) 02/02/22 19:35 Calcium 9.3 mg/dL (8.5-10.5) 02/02/22 18:10 Total Bilirubin 1.0 mg/dL (0.15-1.2) 02/02/22 18:10 AST 24 U/L (0-32) 02/02/22 18:10 ALT 15 U/L (0-33) 02/02/22 18:10 Alkaline Phosphatase 123 IU/L (35-105) H 02/02/22 18:10 Troponin T Baseline 12 ng/L (0-10) H 02/02/22 18:10 Troponin T 120 Minute 9.59 ng/L (0-10) 02/02/22 20:38 Delta Troponin T Not Reportable 02/02/22 20:38 NT-Pro-B Natriuret Pep 947 pg/mL (0-125) H 02/02/22 18:10 Total Protein 7.2 g/dL (6.6-8.7) 02/02/22 18:10 Albumin 4.3 g/dL (3.5-5.2) 02/02/22 18:10 Globulin 2.9 g/dL (1.3-4.6) 02/02/22 18:10 Influenza Type A Ag Negative (Negative) 02/02/22 18:08 Influenza Type B Ag Negative (Negative) 02/02/22 18:08 SARS-CoV-2 Ag (Rapid) Negative (Negative) 02/02/22 18:08 EKG Data EKG 1: EKG Interpretation Date: 02/02/22 Computer Generated Interpretation: [place] [address] Electrocardiograph Report Signed Patient: Ronit Palma Unit #: [id number] : 1950 Age/Sex: 71 / F ADM Date: 02/02/22 Loc: ER Room/Bed: Attending Dr: Ordering Provider/Ordering MD: Jewel Jesus Date of Service: 02/02/22 Procedure(s): ECG 12 lead EKG Accession Number(s): [id number] Report Number: [id number] ? [facility] ? Test Date:? ? 2022-02-02 Pat Name: ? ? Ronit Palma? Department: ? Patient ID: ? [id number] ? Room: ? Gender: ? ? ? Female ? 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 Requested By: Jewel Jesus Order Number: [id number]? Reading MD: ? Abdelrahman Becker M.D. ? Measurements Intervals? [place]? Rate: ? 105? P:? -22 MS: ? 163? QRS:? -16 QRSD: ? 91 ? T:? -36 QT: ? 325? QTc:? 431? Interpretive Statements SINUS TACHYCARDIA LOW QRS VOLTAGE IN PRECORDIAL LEADS? [QRS DEFLECTION < 1.0 mV IN CHEST LEADS] ST DEVIATION AND MODERATE T-WAVE ABNORMALITY, CONSIDER INFERIOR ISCHEMIA ?[-0.1+ mV T-WAVE IN II/aVF] Compared to ECG 01/11/2021 22:26:47 Low QRS voltage now present T-wave abnormality now present Possible ischemia now present Sinus bradycardia no longer present Electronically Signed On 02-02-2022 20:07:54 CDT by Abdelrahman Becker M.D. [id number] Dictated By: Abdelrahman Becker MD Signed By: Abdelrahman Becker MD Signed Date/Time: 02/02/222009 DD/ Discharge Plan Discharge Patient Disposition: Left Against Medical Advice Clinical Impression: Acute exacerbation of chronic obstructive pulmonary disease Condition: Stable Prescriptions: New prednisone 20 mg tablet 20 mg PO BID 5 Days Qty: 10 0RF doxycycline hyclate 100 mg capsule 100 mg PO BID 10 Days Qty: 20 0RF Augmentin 500-125 mg tablet 1 tab PO BID 7 Days Qty: 14 0RF No Action sulfamethoxazole-trimethoprim [Bactrim DS] 800-160 mg tablet 1 tab PO BID 5 Days Qty: 10 0RF albuterol sulfate 90 mcg/actuation HFA aerosol inhaler 1 inh INHALATION Q6H PRN (Reason: shortness of breath or wheezing) Qty: 1 2RF warfarin 2.5 mg tablet 3.75 mg PO DAILY 0RF ibandronate [Boniva] 150 mg tablet 150 mg PO .monthly Qty: 1 2RF calcium carbonate-vitamin D3 [Os-Paramjit 500 + D3] 500mg (1,250mg) -600 unit tablet 1 tab PO .2 times day Qty: 60 2RF Tylenol 325 mg Tablet 325 - 350 mg PO QID PRN (Reason: headache/pain) 0RF Lipitor 40 mg tablet 40 mg PO QPM Qty: 0 0RF clopidogrel [Plavix] 75 mg Tablet 75 mg PO DAILY@0900 0RF aspirin 81 mg Tablet,Chewable 81 mg PO DAILY@0900 0RF isosorbide mononitrate 30 mg Tablet Extended Release 24 Hr 30 mg PO BID@0900,1800 0RF diltiazem HCl 240 mg Capsule,Extended Release 24 Hr 240 mg PO DAILY@0900 0RF Referrals: Loretta Ramírez, LONG DISTANCE BILLING OPERATOR-C [Primary Care Provider] - Discharge Diet: Regular Discharge Activity: Increase activity as tolerated Activity Restrictions/Additional Instructions: Follow-up with medical provider as directed in the next 3 to 5 days for reevaluation. Take medications as prescribed. Return to the ER or your medical provider if condition worsens. Please read and understand discharge instructions. Thank you for choosing [facility] for your healthcare needs today. Please realize this is an emergency room and that we are providing you with a medical screening exam and this may not be complete and all inclusive of all the testing and or work up that you may need to determine your ailment or severity of your illness. It is very important that you follow up as instructed or that you return to the Emergency Department should you have concerns or if your condition changes or worsens in any way. Coding Level of Care Code ED Branch Lending Manager for Chg Fwd Exam Comprehensive
[2022-02-02 18:22] LABS: Basophils # 0.1 10^3/uL (0.0-0.1); Basophils % 0.3 %; Eosinophils # 0.1 10^3/uL (0.0-0.8); Eosinophils % 0.2 %; Hematocrit 38.9 % (37.0-47.0); Hemoglobin 13.2 g/dL (11.5-15.3); Lymphocytes # 1.7 10^3/uL (0.8-4.8); Lymphocytes % 6.5 %; Mean Corpuscular HGB Conc 33.9 g/dL (30.0-36.0); Mean Corpuscular Hemoglobin 32.2 pg (28.0-34.0); Mean Corpuscular Volume 94.9 fl (81-99); Mean Platelet Volume 10.6 fL (7.4-10.4); Monocytes # 2.6 10^3/uL (0.2-0.9); Monocytes % 9.8 %; Neutrophils # 21.94 10^3/uL (1.8-7.7); Neutrophils % 82.3 %; Nucleated Red Blood Cells % 0 %; Platelet Count 208 10^3/cmm (130-400); Red Cell Distribution Width 12.2 % (12.1-15.1); White Blood Count 26.7 10^3/uL (4.0-10.0)
[2022-02-02 18:31] LABS: INR 2.27 (0.8-1.2)
[2022-02-02] MEDS: ipratropium-albuterol 3 mL Neb 6 ML INHALATION (18:34)
[2022-02-02 18:51] LABS: Influenza A by IFA Negative (Negative); Influenza B by IFA Negative (Negative); SARS Covid-2 Antigen Negative (Negative)
[2022-02-02 18:53] LABS: Alanine Aminotransferase 15 U/L (0-33); Albumin Level 4.3 g/dL (3.5-5.2); Alkaline Phosphatase 123 IU/L (35-105); Anion Gap 17.6 (5-19); Aspartate Amino Transferase 24 U/L (0-32); Blood Urea Nitrogen 15 mg/dL (8-23); Calcium 9.3 mg/dL (8.5-10.5); Carbon Dioxide 21 mmol/L (22-29); Chloride 102 mmol/L (98-107); Globulin 2.9 g/dL (1.3-4.6); Glomerular Filtration Rate 99.1 mL/min (90-130); Glucose 123 mg/dL (65-115); NT Pro B Type Natriuretic Pept 947 pg/mL (0-125); Osmolality Calculated 286 mOsm/kg (285-295); Potassium 3.6 mmol/L (3.5-5.1); Sodium 137 mmol/L (136-145); Total Protein 7.2 g/dL (6.6-8.7)
[2022-02-02 19:07] LABS: Troponin(5th) Baseline 12 ng/L (0-10)
[2022-02-02] MEDS: cefTRIAXone 1,000 MG in sodium chloride 0.9% (plus) 50 ML 100 MG IV (19:34)
[2022-02-02] MEDS: acetaminophen 325 mg Tablet 650 MG PO (21:06)
[2022-02-02 21:21] LABS: Troponin 5 2HR 9.59 ng/L (0-10)
== END 2022-02-02 21:45 | disposition left against medical advice (07) ==
PROVIDERS: Emergency Provider Physician Assistant; PCP Nurse Practitioner
DX: J44.1 Chronic obstructive pulmonary disease with (acute) exacerbation (principal); Z79.01 Long term (current) use of anticoagulants; Z79.02 Long term (current) use of antithrombotics/antiplatelets; Z79.82 Long term (current) use of aspirin; I10 Essential (primary) hypertension; Z95.1 Presence of aortocoronary bypass graft; F17.210 Nicotine dependence, cigarettes, uncomplicated; Z53.21 Procedure and treatment not carried out due to patient leaving prior to being seen by health care provider
CPT/HCPCS: 71045; 80053; 83605; 83880; 84484; 85025; 85610; 87040; 87426; 87804; 93005; 94640; 96365; 96375; 99284; J0696; J2930

== ENCOUNTER 2022-02-09 10:15 | Outpatient (CLI) | payer MEDICARE, OTHER, SELFPAY ==
[2022-02-09 10:42] LABS: Basophils # 0.1 10^3/uL (0.0-0.1); Basophils % 0.3 %; Eosinophils # 0.3 10^3/uL (0.0-0.8); Eosinophils % 1.2 %; Hematocrit 41.2 % (37.0-47.0); Hemoglobin 14.1 g/dL (11.5-15.3); Lymphocytes # 6.4 10^3/uL (0.8-4.8); Lymphocytes % 30.2 %; Mean Corpuscular HGB Conc 34.2 g/dL (30.0-36.0); Mean Corpuscular Volume 93.4 fl (81-99); Mean Platelet Volume 10.2 fL (7.4-10.4); Monocytes # 1.8 10^3/uL (0.2-0.9); Monocytes % 8.2 %; Neutrophils # 11.87 10^3/uL (1.8-7.7); Neutrophils % 55.7 %; Nucleated Red Blood Cells % 0 %; Platelet Count 269 10^3/cmm (130-400); Red Blood Count 4.41 10^6/uL (4.1-5.3); Red Cell Distribution Width 11.9 % (12.1-15.1); White Blood Count 21.3 10^3/uL (4.0-10.0)
[2022-02-09 10:57] LABS: Estmated Average Glucose 105; Hemoglobin A1C 5.3 % (4.0-6.0)
[2022-02-09 11:40] LABS: Slide Review Slide Review Perform
== END 2022-02-09 10:16 | disposition home or self-care (01) ==
LOC: LAB 10:17
PROVIDERS: PCP Nurse Practitioner; Visit Provider Nurse Practitioner
DX: D72.829 Elevated white blood cell count, unspecified (principal); R73.9 Hyperglycemia, unspecified
CPT/HCPCS: 36415; 83036; 85025

== ENCOUNTER 2022-02-21 11:36 | Outpatient (CLI) | payer MEDICARE, OTHER, SELFPAY ==
--- NOTE | 2022-02-21 11:49 | MR_ITS ---
WS: [id number] MRI HEAD WITHOUT CONTRAST TECHNIQUE: Sagittal T1, T2 axial, T2 axial FLAIR, axial and coronal T1 images, axial susceptibility w eighted imaging, axial diffusion weighted images, and coronal T2 images were obtained. CLINICAL INFORMATION: D72.829 - Elevated white blood cell count, unspecified COMPARISON: CT head December 15, 2019 FINDINGS: No evidence of restricted diffusion to suggest acute ischemia. Ventricular system and basal cisterns are patent. Moderate small vessel changes. Mild parenchymal volume loss. Normal posterior fossa. Norm al vascular flow voids at the skull base. No extra-axial fluid collections. No evidence of mass or ma ss effect. Small retention cyst RIGHT maxillary sinus. Mild mucosal thickening in the mastoid air cells. No hemo siderin on the susceptibility weighted images. Normal optic chiasm and pituitary infundibulum. Tempor al lobes and hippocampal formations are normal in appearance. MR/MR head wo con* [id number] IMPRESSION: 1. No evidence of restricted diffusion to suggest acute ischemia. 2. Moderate small vessel changes with mild parenchymal volume loss. 3. Small retention cysts in the RIGHT maxillary sinus. Mild mucosal thickening in the mastoid tips. 4. Temporal lobes and hippocampal formations are normal in appearance. 5. No hemosiderin and on the susceptibly weighted images. 6. Mild degenerative arthritis partially visualized in the upper cervical spin e C5-C6.
== END 2022-02-21 11:37 | disposition home or self-care (01) ==
PROVIDERS: PCP Nurse Practitioner; Visit Provider Nurse Practitioner
DX: D72.829 Elevated white blood cell count, unspecified (principal); R51.9 Headache, unspecified; J34.1 Cyst and mucocele of nose and nasal sinus; M47.812 Spondylosis without myelopathy or radiculopathy, cervical region
CPT/HCPCS: 70551

== ENCOUNTER 2022-03-08 11:21 | Outpatient (CLI) | payer MEDICARE, OTHER, SELFPAY ==
[2022-03-08 12:56] LABS: Basophils # 0.1 10^3/uL (0.0-0.1); Basophils % 0.5 %; Eosinophils # 0.3 10^3/uL (0.0-0.8); Eosinophils % 2.9 %; Hematocrit 37.7 % (37.0-47.0); Hemoglobin 12.5 g/dL (11.5-15.3); Lymphocytes # 3.7 10^3/uL (0.8-4.8); Lymphocytes % 33.4 %; Mean Corpuscular HGB Conc 33.2 g/dL (30.0-36.0); Mean Corpuscular Hemoglobin 32.5 pg (28.0-34.0); Mean Corpuscular Volume 97.9 fl (81-99); Mean Platelet Volume 10.8 fL (7.4-10.4); Monocytes # 1.1 10^3/uL (0.2-0.9); Neutrophils # 5.75 10^3/uL (1.8-7.7); Neutrophils % 52.5 %; Nucleated Red Blood Cells % 0 %; Platelet Count 217 10^3/cmm (130-400); Red Blood Count 3.85 10^6/uL (4.1-5.3); Red Cell Distribution Width 12.4 % (12.1-15.1); White Blood Count 10.9 10^3/uL (4.0-10.0)
--- NOTE | 2022-03-08 16:47 | ONC CON_ITS ---
Dr. Whalen New Patient Note Patient: Ronit Palma Unit #: [id number]: 1950 Dicatated By: Roland Whalen M.D.Date of Visit: Mar 08, 2022 Onc MED New Patient/Consult Referring Physician: David Rebollar History of Present Illness: Mr. Ronit Palma, is a 72-year-old female with a history of COPD, chronic smoking since age 19, who went to see her PMD on February 08, 2022 with headaches, as per patient CT head was done which was unremarkable and lab work-up done on February 09, 2022 showed white blood count 21,300, hemoglobin 14.1 hematocrit 41.2 platelets 269,000 ANC 11,870, basophil 1800 normal being less than 900. Patient denies any signs symptoms suggestive of upper respiratory infection or dysuria or fever or chills at that time. Patient denies taking steroids in any form. Patient is a chronic smoker and still smoke about a pack a day. Denies any abdominal fullness or abdominal pain, denies any wheezing or shortness of breath, patient said she has history of off-and-on night sweats but no peripheral lymphadenopathy, no abdominal fullness, no recurrent fever or weight loss. Denies any alcohol use Patient has history of atrial fibrillation for which she is on anticoagulation with Coumadin Past Medical History: Ms. Palma's medical history consists of bilateral renal cysts, chronic obstructive pulmonary disease, heart disease, hypertension, osteoporosis, unstable angina, and vitamin d deficiency. Past Surgical History: Ms. Palma's surgical/procedural history consists of cholecystectomy, coronary artery bypass, coronary artery stent, hysterectomy, and left hip surgery. Medications: Carvedilol (3.125 mg) Tablet Oral Take as Directed, Clopidogrel Bisulfate 1 Tablet (of 75 mg) Oral daily, dilTIAZem HCl ER Beads 1 Capsule (of 240 mg) Capsule SR 24 HR Oral daily, Isosorbide Mononitrate ER (30 mg) Tablet SR 24 HR Oral Take as Directed, Valsartan 1 Tablet (of 80 mg) Oral daily, Warfarin Sodium 1 Tablet (of 5 mg) Oral daily Allergies: No Known Allergies. Social History: Ms. Palma is . She is a daily smoker who smokes 1.0 pack/day. She has no history of drinking. She has indicated exposure to the following products: cigarettes. Family History: There is no documented family history. Review Of Symptoms: Review of Systems is not available for this patient. Vital Signs: Performed on Mar 08, 2022 13:40: 5, 0, 26.63, 1.80 sq.m, 65 in, 98 %, 64 /min, 18 /min, 128/77 mm(hg), 97.6 F (LOW), and 160.0 lbs (HIGH). Performance Status: 0 - Fully active, able to carry on all predisease activities without restrictions. (ECOG) Physical Examination: ENMT - No mouth sores, no thrush, no jaundice, Respiratory - Poor air entry, mild wheezing, Cardiovascular - Irregular rate and rhythm, Abdomen - Soft, bowel sounds present, Extremities - No visible edema, no peripheral lymphadenopathy. Lab/Imaging: Most recent lab results are not available for this patient. Impression: Isolated leukocytosis/neutrophilia etiology unclear could be underlying subacute infection or inflammation or medication or myeloproliferative disorder but less likely. Or smoking related COPD Hypertension Atrial fibrillation on anticoagulation with Coumadin Plan: Discussed with patient regarding her labs white blood count 10.9 compared to 21.3 on February 09, 2022, hemoglobin 12.5 hematocrit 37.7 platelets 217,000 with normal differential except mildly elevated monocytes Clinically, patient doing well with no signs symptom suggestive of acute infection but chronic bronchitis/cough due to smoking, etiology for mild but now improving in fact near normal range leukocytosis could be due to subclinical infection like acute bronchitis/sinusitis or stress-induced because of chronic severe headaches or medications like steroids but patient is denying. Other possibility could be myeloproliferative disorder but less likely as her repeat CBC done today shows significant improvement in her isolated leukocytosis as her white blood count has gone down to 10,900 from 21,300 on February 09, 2022. At this point, no further work-up or recommendation rather observation, patient was advised to quit smoking and was offered any assistance she may need and she return to clinic in 1 month with CBC. Signed By: Roland Whalen M.D. <<Signature on File>>
== END 2022-03-08 11:22 | disposition home or self-care (01) ==
LOC: ONCMED 11:27
PROVIDERS: PCP Nurse Practitioner; Visit Provider Internal Medicine Hematology & Oncology
DX: D72.828 Other elevated white blood cell count (principal); J44.9 Chronic obstructive pulmonary disease, unspecified; I10 Essential (primary) hypertension; F17.210 Nicotine dependence, cigarettes, uncomplicated; I48.91 Unspecified atrial fibrillation; Z79.01 Long term (current) use of anticoagulants
CPT/HCPCS: 36415; 85025; 99204

== ENCOUNTER 2022-03-28 12:15 | Outpatient (CLI) | payer MEDICARE, OTHER, SELFPAY ==
[2022-03-28 13:38] LABS: INR 1.73 (0.8-1.2)
== END 2022-03-28 12:16 | disposition home or self-care (01) ==
LOC: LAB 12:26
PROVIDERS: PCP Nurse Practitioner; Visit Provider Internal Medicine Cardiovascular Disease
DX: Z79.01 Long term (current) use of anticoagulants (principal)
CPT/HCPCS: 85610

== ENCOUNTER 2022-04-06 09:48 | Oncology outpatient (recurring) (ONCR) | payer MEDICARE, OTHER, SELFPAY ==
[2022-04-06 10:11] LABS: Basophils # 0.1 10^3/uL (0.0-0.1); Eosinophils # 0.4 10^3/uL (0.0-0.8); Hematocrit 39.4 % (37.0-47.0); Hemoglobin 12.9 g/dL (11.5-15.3); Lymphocytes # 2.7 10^3/uL (0.8-4.8); Lymphocytes % 33.8 %; Mean Corpuscular HGB Conc 32.7 g/dL (30.0-36.0); Mean Corpuscular Hemoglobin 32.2 pg (28.0-34.0); Mean Corpuscular Volume 98.3 fl (81-99); Mean Platelet Volume 10.8 fL (7.4-10.4); Monocytes # 0.9 10^3/uL (0.2-0.9); Monocytes % 10.6 %; Neutrophils # 3.94 10^3/uL (1.8-7.7); Neutrophils % 49.3 %; Nucleated Red Blood Cells % 0 %; Platelet Count 191 10^3/cmm (130-400); Red Blood Count 4.01 10^6/uL (4.1-5.3)
== END 2022-04-17 23:59 | disposition home or self-care (01) ==
PROVIDERS: Internal Medicine Hematology & Oncology; PCP Nurse Practitioner; Visit Provider Nurse Practitioner Family
DX: D72.829 Elevated white blood cell count, unspecified (principal); F17.200 Nicotine dependence, unspecified, uncomplicated
CPT/HCPCS: 85025; 99999; G0463

== ENCOUNTER 2022-04-12 12:46 | Outpatient (CLI) | payer MEDICARE, OTHER, SELFPAY ==
[2022-04-12 13:37] LABS: INR 2.03 (0.8-1.2)
== END 2022-04-12 12:47 | disposition home or self-care (01) ==
LOC: LAB 13:01
PROVIDERS: PCP Nurse Practitioner; Visit Provider Nurse Practitioner
DX: Z79.01 Long term (current) use of anticoagulants (principal)
CPT/HCPCS: 36415; 85610

== ENCOUNTER 2022-05-10 12:42 | Outpatient (CLI) | payer MEDICARE, OTHER, SELFPAY ==
[2022-05-10 13:20] LABS: INR 2.96 (0.8-1.2)
== END 2022-05-10 12:43 | disposition home or self-care (01) ==
LOC: LAB 12:50
PROVIDERS: PCP Nurse Practitioner; Visit Provider Internal Medicine Cardiovascular Disease
DX: Z79.01 Long term (current) use of anticoagulants (principal)
CPT/HCPCS: 85610

== ENCOUNTER 2022-05-28 20:08 | Emergency (ER) | payer MEDICARE, OTHER, SELFPAY ==
--- NOTE | 2022-05-28 20:13 | XRR_ITS ---
PROCEDURE INFORMATION: Exam: XR Chest Exam date and time: 05/28/2022 8:25 PM Age: 72 years old Clinical indication: Shortness of breath; Prior surgery; Surgery date: 6+ months; Surgery type: Open heart; Additional info: SOB TECHNIQUE: Imaging protocol: Radiologic exam of the chest. Views: 1 view. COMPARISON: CR XR chest 1V portable [id number] 02/02/2022 5:07 PM FINDINGS: Lungs: No consolidation. Increased upper lung lucency may be related to emphysematous disease, unchanged. Pleural spaces: Unremarkable. No pleural effusion. No pneumothorax. Heart/Mediastinum: See Bones/joints finding. Bones/joints: Sternotomy wires and CABG clips. XR/XR chest 1V portable [id number] IMPRESSION: No acute findings.
--- NOTE | 2022-05-28 20:13 | ECG_ITS ---
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 Measurements Intervals [place] Rate: 59 P: 74 VT: 179 QRS: 78 QRSD: 102 T: 70 QT: 434 QTc: 430 Interpretive Statements SINUS BRADYCARDIA WITH OCCASIONAL VENTRICULAR PREMATURE COMPLEXES Compared to ECG 02/02/2022 17:05:57 Ventricular premature complex(es) now present Sinus tachycardia no longer present T-wave abnormality no longer present Possible ischemia no longer present Electronically Signed On 05-29-2022 17:32:49 CDT by Abdelrahman Becker M.D. [id number]
[2022-05-28 20:20] VITALS: BP 163/69; PULSE 61; RESP 18; TEMP 36.7; O2SAT 95; BMI 27.4
--- NOTE | 2022-05-28 20:22 | ED_ITS ---
HPI - SOB/Dyspnea General: Chief Complaint: Shortness of Breath/Dyspnea Stated Complaint: SOB/IRVING/CHILLS Time Seen by Provider: 05/28/22 20:11 Source: patient and EMS Mode of arrival: EMS Limitations: no limitations History of Present Illness: HPI Narrative: 89-year-old female who has a history of COPD states that since 11 today she has been having some shortness of breath. She has had a slight cough as well and some sharp chest pains with her cough. Patient denies any vomiting or diarrhea or fevers. Patient here is 95% on room air she wears oxygen as needed at home she is able speak in pleat sentences with no distress Associated symptoms: Reports chest pain; Deny abdominal pain, fever(s), nausea or vomiting Review of Systems Const: Denies: fever(s), chills, body aches or change in appetite Eyes: Denies: blurry vision or eye discomfort ENMT: Denies: throat pain or dental pain Card: Reports: chest pain Resp: Reports: dyspnea and non-productive cough GI: Denies: abdominal pain, nausea, vomiting or diarrhea : Denies: dysuria Musc: Denies: neck pain or back pain Skin/Breast: Denies: rash Neuro: Denies: headache(s) Psych: Denies: depression Jasbir/Lymph: Denies: easy bruising All/Imm: Denies: urticaria PFSH ED PFSH: Medical History Age related osteoporosis Bilateral renal cysts COPD (chronic obstructive pulmonary disease) Femur fracture Heart disease HTN (hypertension) Personal history of nicotine dependence Unstable angina Vitamin D insufficiency Surgical History History of cholecystectomy History of heart artery stent History of hip surgery left History of hysterectomy Hx of CABG Family History Mother CAD (coronary artery disease) Lung disease Other Cancer Heart disease Hypertension Denies family history of Diabetes Clotting disorder Dementia Hyperlipidemia Psychiatric illness Chronic kidney disease (CKD) Suicide Anesthesia complication Bleeding disorder Stroke Social History Smoking and tobacco status: current every day smoker (1 ppd) cigarettes Packs smoked per day: 1 Second hand smoke exposure: Yes Smoking risk assessment/counseling performed?: Yes Alcohol intake: never Desire information about alcohol rehabilitation?: No Counseling given: No Desire information about substance/drug rehabilitation?: No Counseling given: No Caregiver/support person: No Lives independently: Yes Household members: none Marital status: / Number of children: 4 Current occupational status: retired History of recent travel: No Current gender identity: Female Physical Exam Const: COMMON NORMALS: no acute distress, patient oriented x3 and healthy appearing HENMT: COMMON NORMALS: normocephalic and atraumatic HEAD & SCALP: normocephalic and atraumatic Eye: COMMON NORMALS: Equal, round and reactive pupils present and EOMs intact bilaterally PUPIL: Yes Equal, round and reactive pupils present Neck/C-Spine: COMMON NORMALS: full ROM and supple Chest: COMMONS NORMALS: normal inspection of the chest and normal palpation of entire chest wall Resp: COMMON NORMALS: normal respiratory effort, No retractions and No use of accessory muscles AUSCULTATION: wheezes (mild) Cardio: COMMON NORMALS: regular rate, regular rhythm and No murmurs present (Cardio) RATE: regular rate RHYTHM: regular rhythm GI: COMMON NORMALS: Normal to inspection, nondistended, normoactive bowel sounds present, Soft to palpation, non-tender and no masses PALPATION: Yes Soft to palpation Extremity: COMMON NORMALS: normal to inspection and full ROM Neuro: COMMON NORMALS: patient oriented x3, moves all extremities and no focal motor deficits Psych: COMMON NORMALS: mental status grossly normal, Normal thought process pr esent and cooperative THOUGHT PROCESS: Normal thought process present Skin: COMMON NORMALS: no rashes or lesions noted and no wounds GENERAL SKIN EXAM: no rashes or lesions noted Course Vital Signs: Vital signs: Vital Signs Temperature 98.1 F 05/28/22 20:20 Pulse Rate 58 L 05/28/22 21:00 Respiratory Rate 18 05/28/22 20:56 Blood Pressure 163/69 05/28/22 20:20 Pulse Oximetry 94 05/28/22 20:56 MDM - SOB/Dyspnea Medical Decision Making Patient presents here with shortness of breath cough likely from her COPD she is well-appearing here in no distress x-ray shows no signs of pneumonia blood work is normal. Patient given a breathing treatment here and Decadron she is stable for discharge she is to follow-up with her PCP and return if worsening she understands agrees to plan. Lab Data : 05/28/22 20:20 05/28/22 20:20 Labs/Radiology: Laboratory Results WBC 10.7 10^3/uL (4.0-10.0) H 05/28/22 20:20 RBC 4.19 10^6/uL (4.1-5.3) 05/28/22 20:20 Hgb 13.3 g/dL (11.5-15.3) 05/28/22 20:20 Hct 39.4 % (37.0-47.0) 05/28/22 20:20 MCV 94.0 fl (81-99) 05/28/22 20:20 MCH 31.7 pg (28.0-34.0) 05/28/22 20:20 MCHC 33.8 g/dL (30.0-36.0) 05/28/22 20:20 RDW 12.0 % (12.1-15.1) L 05/28/22 20:20 Plt Count 220 10^3/cmm (130-400) 05/28/22 20:20 MPV 11.2 fL (7.4-10.4) H 05/28/22 20:20 Neut % (Auto) 47.9 % 05/28/22 20:20 Lymph % (Auto) 37.3 % 05/28/22 20:20 [place] % (Auto) 10.4 % 05/28/22 20:20 Eos % (Auto) 3.4 % 05/28/22 20:20 Baso % (Auto) 0.5 % 05/28/22 20:20 Neut # (Auto) 5.14 10^3/uL (1.8-7.7) 05/28/22 20:20 Lymph # (Auto) 4.0 10^3/uL (0.8-4.8) 05/28/22 20:20 [place] # (Auto) 1.1 10^3/uL (0.2-0.9) H 05/28/22 20:20 Eos # (Auto) 0.4 10^3/uL (0.0-0.8) 05/28/22 20:20 Baso # (Auto) 0.1 10^3/uL (0.0-0.1) 05/28/22 20:20 Nucleated RBC % (auto) 0 % 05/28/22 20:20 Nucleated RBCs # 0.0 /100WBC 05/28/22 20:20 PT 24.50 SECONDS (12.1-14.9) H 05/28/22 20:20 INR 2.17 (0.8-1.2) H 05/28/22 20:20 Sodium 140 mmol/L (136-145) 05/28/22 20:20 Potassium 3.7 mmol/L (3.5-5.1) 05/28/22 20:20 Chloride 102 mmol/L (98-107) 05/28/22 20:20 Carbon Dioxide 26 mmol/L (22-29) 05/28/22 20:20 Anion Gap 15.7 (5-19) 05/28/22 20:20 BUN 16 mg/dL (8-23) 05/28/22 20:20 Creatinine 0.6 mg/dL (0.5-0.9) 05/28/22 20:20 GFR Calculation 98.8 mL/min (90-130) 05/28/22 20:20 Glucose 107 mg/dL (65-115) 05/28/22 20:20 Calculated Osmolality 292 mOsm/kg (285-295) 05/28/22 20:20 Calcium 9.6 mg/dL (8.5-10.5) 05/28/22 20:20 Total Bilirubin 0.3 mg/dL (0.15-1.2) 05/28/22 20:20 AST 16 U/L (0-32) 05/28/22 20:20 ALT 11 U/L (0-33) 05/28/22 20:20 Alkaline Phosphatase 121 IU/L (35-105) H 05/28/22 20:20 Troponin T Baseline 7 ng/L (0-10) 05/28/22 20:20 NT-Pro-B Natriuret Pep 257 pg/mL (0-125) H 05/28/22 20:20 Total Protein 7.5 g/dL (6.6-8.7) 05/28/22 20:20 Albumin 4.5 g/dL (3.5-5.2) 05/28/22 20:20 Globulin 3.0 g/dL (1.3-4.6) 05/28/22 20:20 SARS-CoV-2 Ag (Rapid) Negative (Negative) 05/28/22 20:40 EKG Data EKG 1: I personally reviewed and interpreted this EKG as follows: EKG Interpretation Date: 05/28/22 EKG interpretation time: 20:55 Interpretation: sinus rico hr [address] or t wave abnormalities qrs 102 qtc 432 Discharge Plan Discharge Patient Disposition: Home Clinical Impression: Acute exacerbation of chronic obstructive airways disease Condition: Stable Prescriptions: No Action albuterol sulfate 90 mcg/actuation HFA aerosol inhaler 1 inh INHALATION Q6H PRN (Reason: shortness of breath or wheezing) Qty: 1 2RF sjmsagfhco-xmcgnfzhiquwk-kdno [Esgic] 50-325-40 mg tablet 1 tab PO Q6H PRN (Reason: pain) Qty: 20 0RF venlafaxine [Effexor XR] 37.5 mg capsule,extended release 24hr 37.5 mg PO DAILY Qty: 30 2RF warfarin 2.5 mg tablet 3.75 mg PO DAILY 0RF ibandronate [Boniva] 150 mg tablet 150 mg PO .monthly Qty: 1 2RF calcium carbonate-vitamin D3 [Os-Paramjit 500 + D3] 500mg (1,250mg) -600 unit tablet 1 tab PO .2 times day Qty: 60 2RF valsartan [Diovan] 80 mg tablet 80 mg PO DAILY Qty: 30 1RF Tylenol 325 mg Tablet 325 - 350 mg PO QID PRN (Reason: headache/pain) 0RF Lipitor 40 mg tablet 40 mg PO QPM Qty: 0 0RF clopidogrel [Plavix] 75 mg Tablet 75 mg PO DAILY@0900 0RF aspirin 81 mg Tablet,Chewable 81 mg PO DAILY@0900 0RF isosorbide mononitrate 30 mg Tablet Extended Release 24 Hr 30 mg PO BID@0900,1800 0RF diltiazem HCl 240 mg Capsule,Extended Release 24 Hr 240 mg PO DAILY@0900 0RF Discharge Orders: Discharge ED (Routine); Ordered 05/28/22 Ordered By: Breana Wiggins Referrals: Loretta Ramírez, AGENCY SALES DIRECTOR-C [Primary Care Provider] - 1-3 days Discharge Diet: Advance as tolerated Discharge Activity: Resume usual activity Patient Instructions: Chest Pain (ED) Coding Level of Care Code ED Jigger Machine Operator for Chg Fwd Exam Comprehensive
[2022-05-28 20:34] LABS: Basophils # 0.1 10^3/uL (0.0-0.1); Basophils % 0.5 %; Eosinophils # 0.4 10^3/uL (0.0-0.8); Eosinophils % 3.4 %; Hematocrit 39.4 % (37.0-47.0); Hemoglobin 13.3 g/dL (11.5-15.3); Lymphocytes % 37.3 %; Mean Corpuscular HGB Conc 33.8 g/dL (30.0-36.0); Mean Corpuscular Hemoglobin 31.7 pg (28.0-34.0); Mean Platelet Volume 11.2 fL (7.4-10.4); Monocytes # 1.1 10^3/uL (0.2-0.9); Monocytes % 10.4 %; Neutrophils # 5.14 10^3/uL (1.8-7.7); Neutrophils % 47.9 %; Nucleated Red Blood Cells % 0 %; Platelet Count 220 10^3/cmm (130-400); Red Blood Count 4.19 10^6/uL (4.1-5.3); White Blood Count 10.7 10^3/uL (4.0-10.0)
[2022-05-28] MEDS: dexamethasone 10 mg/mL INJ IVP (20:44)
[2022-05-28 20:51] LABS: INR 2.17 (0.8-1.2)
[2022-05-28 20:54] VITALS: BP 125/84; PULSE 59; RESP 16; O2SAT 92
[2022-05-28] MEDS: ipratropium-albuterol 3 mL Neb INHALATION (20:54)
[2022-05-28 20:56] VITALS: PULSE 57; RESP 18; O2SAT 94
[2022-05-28 20:59] LABS: Troponin(5th) Baseline 7 ng/L (0-10)
[2022-05-28 21:00] VITALS: PULSE 58
[2022-05-28 21:08] LABS: Alanine Aminotransferase 11 U/L (0-33); Albumin Level 4.5 g/dL (3.5-5.2); Alkaline Phosphatase 121 IU/L (35-105); Anion Gap 15.7 (5-19); Aspartate Amino Transferase 16 U/L (0-32); Blood Urea Nitrogen 16 mg/dL (8-23); Calcium 9.6 mg/dL (8.5-10.5); Carbon Dioxide 26 mmol/L (22-29); Chloride 102 mmol/L (98-107); Creatinine Clr Calc Pharmacy 63.8902; Glomerular Filtration Rate 98.8 mL/min (90-130); Glucose 107 mg/dL (65-115); NT Pro B Type Natriuretic Pept 257 pg/mL (0-125); Osmolality Calculated 292 mOsm/kg (285-295); Potassium 3.7 mmol/L (3.5-5.1); Sodium 140 mmol/L (136-145); Total Bilirubin 0.3 mg/dL (0.15-1.2); Total Protein 7.5 g/dL (6.6-8.7)
[2022-05-28 21:12] LABS: SARS Covid-2 Antigen Negative (Negative)
[2022-05-28 22:14] VITALS: RESP 16; O2SAT 93
== END 2022-05-28 22:15 | disposition home or self-care (01) ==
PROVIDERS: Emergency Provider Emergency Medicine; PCP Nurse Practitioner
DX: J44.1 Chronic obstructive pulmonary disease with (acute) exacerbation (principal); Z79.01 Long term (current) use of anticoagulants; Z79.02 Long term (current) use of antithrombotics/antiplatelets; Z79.82 Long term (current) use of aspirin; I10 Essential (primary) hypertension; Z95.1 Presence of aortocoronary bypass graft; F17.210 Nicotine dependence, cigarettes, uncomplicated; Z20.822 Contact with and (suspected) exposure to COVID-19
CPT/HCPCS: 71045; 80053; 83880; 84484; 85025; 85610; 87426; 93005; 94640; 96374; 99285; J1100

== ENCOUNTER 2022-06-04 18:50 | Inpatient (IN) | payer MEDICARE, OTHER, SELFPAY ==
[2022-06-04 19:03] VITALS: BP 120/85; PULSE 53; RESP 20; TEMP 36.1; O2SAT 95; BMI 26.8
--- NOTE | 2022-06-04 19:04 | ECG_ITS ---
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 Measurements Intervals [place] Rate: 54 P: 55 [place]: 163 QRS: 68 QRSD: 97 T: 76 QT: 446 QTc: 425 Interpretive Statements SINUS BRADYCARDIA Compared to ECG 05/28/2022 20:55:13 Early repolarization changes Ventricular premature complex(es) no longer present Electronically Signed On 06-05-2022 20:48:38 CDT by Aditya Richmond M.D. [email or web address] delta regional medical centerVirtual Gaming Worldscleveland clinic lutheran hospitalPowtoon/store/OM/[id number]
--- NOTE | 2022-06-04 19:18 | CTR_ITS ---
PROCEDURE INFORMATION: Exam: CT Head Without Contrast Exam date and time: 06/04/2022 7:31 PM Age: 72 years old Clinical indication: Syncope and collapse; Patient HX: Patient has been C/O persistent headaches for the last month and had a syncopal episode today. ; Additional info: New onset of seizure, headache x 1 month TECHNIQUE: Imaging protocol: Computed tomography of the head without contrast. Radiation optimization: All CT scans at this facility use at least one of these dose optimization techniques: automated exposure control; mA and/or kV adjustment per patient size (includes targeted exams where dose is matched to clinical indication); or iterative reconstruction. COMPARISON: MR head wo con* [id number] 02/21/2022 12:47 PM RADIATION DOSE METRICS: Total DLP (mGy-cm): 1089.08 FINDINGS: Brain: Mild white matter chronic microvascular changes are noted. No hemorrhage or evidence of acute infarction. Cerebral ventricles: No ventriculomegaly. Paranasal sinuses: Visualized sinuses are unremarkable. No fluid levels. Mastoid air cells: Visualized mastoid air cells are well aerated. Bones/joints: Unremarkable. No acute fracture. Soft tissues: Unremarkable. CT/CT head wo con* [id number] IMPRESSION: No acute intracranial abnormality.
--- NOTE | 2022-06-04 19:28 | W.ED.GENADLT ---
HPI - General Adult General: Chief complaint: Syncope Stated complaint: SYNCOPE Time Seen by Provider: 06/04/22 18:59 History of Present Illness: Patient is a 72-year-old female with history of CAD s/p CABG , hypertension presenting to the emergency room for concerns of grand mal seizure. Patient was witnessed to have episode of loss of consciousness followed by global shaking around 6:00. Patient was shaking for few minutes per family. EMS was called and patient was brought to the emergency room. Shortly after EMS arrived, patient was postictal for a few minutes before resuming consciousness. The time EMS arrived arrived, patient was AAO x3 answering all questions. Patient complains of right-sided neck pain. No other focal complaints of pain. Patient denies nausea/vomiting, fever/chill, chest pain, shortness of breath, abdominal pain, dysuria/hematuria/polyuria, diarrhea/melena/hematochezia. No prior history of seizures. Patient denies any recent cough, runny nose or sore throat. Of note, patient has been complaining of 1 month of mild ongoing headache. No family history of aneurysm. Onset:6pm Duration: 10 minutes Location:home Severity:moderate/severe Associated symptoms: Reports headache(s) (+headache x 1 month); Deny chest pain, dyspnea, nausea, rash, palpitations or vomiting Review of Systems Const: Denies: fever(s) or chills Eyes: Denies: change in vision ENMT: Denies: mouth pain Card: Denies: chest pain or palpitations Resp: Denies: dyspnea or non-productive cough GI: Denies: abdominal pain, nausea, vomiting or diarrhea : Denies: dysuria Musc: Denies: extremity pain Skin/Breast: Denies: rash or new lesions Neuro: Reports: headache(s) (+headache x 1 month) and other (+Seizure); Denies: weakness in extremities Psych: Reports: other (Normal mood) Jasbir/Lymph: Denies: easy bruising PFSH ED PFSH: Medical History Age related osteoporosis Bilateral renal cysts COPD (chronic obstructive pulmonary disease) DVT (deep venous thrombosis) Femur fracture Heart disease HTN (hypertension) PE (pulmonary thromboembolism) Personal history of nicotine dependence Unstable angina Vitamin D insufficiency Surgical History History of cholecystectomy History of heart artery stent History of hip surgery left History of hysterectomy Hx of CABG Family History Mother CAD (coronary artery disease) Lung disease Other Cancer Heart disease Hypertension Denies family history of Diabetes Clotting disorder Dementia Hyperlipidemia Psychiatric illness Chronic kidney disease (CKD) Suicide Anesthesia complication Bleeding disorder Stroke Social History Smoking and tobacco status: current every day smoker cigarettes Packs smoked per day: 1 Second hand smoke exposure: Yes Smoking risk assessment/counseling performed?: Yes Alcohol intake: never Desire information about alcohol rehabilitation?: No Counseling given: No Desire information about substance/drug rehabilitation?: No Counseling given: No Caregiver/support person: No Lives independently: Yes Household members: none Marital status: / Number of children: 4 Current occupational status: retired History of recent travel: No Current gender identity: Female Physical Exam Const: COMMON NORMALS: alert HENMT: COMMON NORMALS: atraumatic HEAD & SCALP: atraumatic MOUTH: moist mucous membranes not abnormal Eye: COMMON NORMALS: EOMs intact bilaterally and conjunctivae normal CONJUNCTIVA: Yes conjunctivae normal Neck/C-Spine: COMMON NORMALS: full ROM and supple Resp: COMMON NORMALS: normal respiratory effort and clear to auscultation bilaterally AUSCULTATION: clear to auscultation bilaterally Cardio: COMMON NORMALS: regular rate RATE: regular rate GI: COMMON NORMALS: Soft to palpation and non-tender PALPATION: Yes Soft to palpation OTHER: No focal TTP. NO guarding rebound, guarding, rigidity. No CVA tenderness to percussion. Neg Aldrich/Neg McBurney's point tenderness, no suprabupic tenderness to palpation. Extremity: COMMON NORMALS: full ROM Neuro: SENSORIUM/ORIENTATION: Yes alert MOTOR EXAM: No Abnormal motor strength present and Other motor observations present (no focal motor deficits) OTHER: Mental status? Awake, alert, and oriented to self, year, month, location, and situation.? Following simple axial and appendicular commands.? Has appropriate fund of knowledge, comprehension, and insight.? Able to recall and understands pertinent aspects of medical history and current treatment status.? ? Language? Speech is fluent without word-finding difficulties.? Intact naming, expression, spa receptionist, and repetition.? ? Cranial nerves? 2,3,4,6: PERRL, EOMI with no nystagmus. 5: Intact sensation to light touch, symmetric? 7: Smile symmetrical, no facial droop.? 8: Hearing grossly intact.? 9,10: Normal palate movement.? 11: Normal strength in trapezius bilaterally 12: Tongue protrudes midline.? ? Motor examination? Normal bulk & tone. Strength as follows (R/L): Delts (5/5), Biceps (5/5), Triceps (5/5), Wrist ext (5/5), hip flexors (5/5), plantarflexors (5/5), dorsiflexors (5/5). ? Sensation? Light Touch: Grossly intact and equal in upper and lower extremities bilaterally? Romberg: Negative.? Distal joint position sense intact ? Coordination? Gazsnb-kl-xzyk-finger movements intact without dysmetria or past-pointing.? Rapid fingertaps: preserved amplitude without decriment.? No tremor, myoclonus or truncal ataxia.? ? Gait/stance? Steady, normal narrow base gait with appropriate arm swing and turning.? Tandem gait without hesitation or loss of balance. Psych: COMMON NORMALS: speech normal SPEECH: Yes normal speech MOOD & AFFECT: Yes euthymic mood Course Vital Signs: Vital signs: Vital Signs Temperature 98.0 F 06/06/22 11:29 Pulse Rate 86 06/06/22 11:29 Respiratory Rate 16 06/06/22 11:29 Blood Pressure 122/78 06/06/22 11:29 Pulse Oximetry 95 06/06/22 11:29 [facility] - General Adult Medical Decision Making 72-year-old female with history of CAD s/p CABG, hypertension who presents the emergency room with concerns for grand mal seizure in setting of new onset headache for the last few weeks. Patient on physical exam is neurologically intact. Hemodynamically stable. Troponin EKG within normal. Patient is noted to have leukocytosis 22.7. In the past, patient is known to have elevated white count. Patient is afebrile today. AOx3 with no nuchal rigidity at this time. CT head negative for any acute finding. Given new onset of seizure at age 72 and this ongoing headache with leukocytosis, patient will be admitted to the hospital for further evaluation. Lab Data : 06/06/22 02:06 06/06/22 02:[address] 06/04/22 19:18 IMPRESSION: No acute intracranial abnormality. Chest X-Ray 06/04/22 22:19 IMPRESSION: No acute cardiopulmonary abnormality. Head/Brain Mag Res Venography 06/05/22 09:30 IMPRESSION: Normal MR venogram cerebral veins. Cervical Spine CT 06/06/22 07:33 IMPRESSION: 1. Moderate spondylitic changes cervical spine with exaggeration of the normal cervical lordosis with mild cervical curve. 2. Mild central canal stenosis with disc osteophyte complex C5-C6 and C6-C7 worse at C6-C7 described above with slight indentation RIGHT ventral cervical cord. 3. Multilevel bony foraminal narrowing worse at LEFT C3-C4, RIGHT C4-C5, RIGHT C5-C6 and bilateral C6-C7. Laboratory Results WBC 17.9 10^3/uL (4.0-10.0) H 06/05/22 03:54 RBC 3.90 10^6/uL (4.1-5.3) L 06/05/22 03:54 Hgb 12.5 g/dL (11.5-15.3) 06/05/22 03:54 Hct 36.4 % (37.0-47.0) L 06/05/22 03:54 MCV 93.3 fl (81-99) 06/05/22 03:54 MCH 32.1 pg (28.0-34.0) 06/05/22 03:54 MCHC 34.3 g/dL (30.0-36.0) 06/05/22 03:54 RDW 12.2 % (12.1-15.1) 06/05/22 03:54 Plt Count 217 10^3/cmm (130-400) 06/05/22 03:54 MPV 10.7 fL (7.4-10.4) H 06/05/22 03:54 Neut % (Auto) 58.9 % 06/05/22 03:54 Lymph % (Auto) 31.4 % 06/05/22 03:54 [place] % (Auto) 7.8 % 06/05/22 03:54 Eos % (Auto) 0.7 % 06/05/22 03:54 Baso % (Auto) 0.2 % 06/05/22 03:54 Neut # (Auto) 10.56 10^3/uL (1.8-7.7) H 06/05/22 03:54 Lymph # (Auto) 5.6 10^3/uL (0.8-4.8) H 06/05/22 03:54 [place] # (Auto) 1.4 10^3/uL (0.2-0.9) H 06/05/22 03:54 Eos # (Auto) 0.1 10^3/uL (0.0-0.8) 06/05/22 03:54 Baso # (Auto) 0.0 10^3/uL (0.0-0.1) 06/05/22 03:54 Nucleated RBC % (auto) 0 % 06/05/22 03:54 Nucleated RBCs # 0.0 /100WBC 06/05/22 03:54 PT 27.90 SECONDS (12.1-14.9) H 06/05/22 03:54 INR 2.57 (0.8-1.2) H 06/05/22 03:54 Sodium 141 mmol/L (136-145) 06/05/22 03:54 Potassium 3.9 mmol/L (3.5-5.1) 06/05/22 03:54 Chloride 107 mmol/L (98-107) 06/05/22 03:54 Carbon Dioxide 27 mmol/L (22-29) 06/05/22 03:54 Anion Gap 10.9 (5-19) 06/05/22 03:54 BUN 21 mg/dL (8-23) 06/05/22 03:54 Creatinine 0.5 mg/dL (0.5-0.9) 06/05/22 03:54 GFR Calculation 122.0 mL/min (90-130) 06/05/22 03:54 Glucose 111 mg/dL (65-115) 06/05/22 03:54 Calculated Osmolality 296 mOsm/kg (285-295) H 06/05/22 03:54 Calcium 8.5 mg/dL (8.5-10.5) 06/05/22 03:54 Magnesium 2.3 mg/dL (1.7-2.3) 06/05/22 03:54 Total Bilirubin 0.4 mg/dL (0.15-1.2) 06/05/22 03:54 AST 11 U/L (0-32) 06/05/22 03:54 ALT 9 U/L (0-33) 06/05/22 03:54 Alkaline Phosphatase 87 IU/L (35-105) 06/05/22 03:54 Troponin T Baseline 9 ng/L (0-10) 06/04/22 19:30 Troponin T 120 Minute 9.17 ng/L (0-10) 06/04/22 21:20 Delta Troponin T 0.17 ABS# (0-10) 06/04/22 21:20 Troponin T Hi Sens 6Hr 13.25 ng/L (0-10) H 06/05/22 03:54 Troponin T Hi Sens 6Hr Delta 4.25 ng/L (0-12) 06/05/22 03:54 Total Protein 5.8 g/dL (6.6-8.7) L 06/05/22 03:54 Albumin 3.5 g/dL (3.5-5.2) 06/05/22 03:54 Globulin 2.3 g/dL (1.3-4.6) 06/05/22 03:54 Lipase 36 U/L (13-60) 06/04/22 19:30 Urine Color Yellow (Yellow) 06/04/22 19:58 Urine Appearance Clear (CLEAR) 06/04/22 19:58 Urine pH 5 (5-7) 06/04/22 19:58 Ur Specific Daisy 1.015 (1.005-1.030) 06/04/22 19:58 Urine Protein Neg (Negative) 06/04/22 19:58 Urine Glucose (UA) Norm (Normal) 06/04/22 19:58 Urine Ketones Negative (Negative) 06/04/22 19:58 Urine Blood Neg (Negative) 06/04/22 19:58 Urine Nitrate Negative (Negative) 06/04/22 19:58 Urine Bilirubin Neg (Negative) 06/04/22 19:58 Urine Urobilinogen Norm mg/dL (Negative) 06/04/22 19:58 Ur Leukocyte Esterase Negative (Negative) 06/04/22 19:58 Imaging Data Other Imaging: Radiologist's impression: [address] [address] [address] Scan Report Signed Patient: Ronit Palma Unit #: [id number] : 1950 Age/Sex: 72 / F ADM Date: 06/04/22 Loc: ER Room/Bed: Attending Dr: Ordering Provider/Ordering MD: Marina Chris MD Date of Service: 06/04/22 Procedure(s): CT head wo con* [id number] Accession Number(s): [id number] Report Number: [id number] PROCEDURE INFORMATION: Exam: CT Head Without Contrast Exam date and time: 06/04/2022 7:31 PM Age: 72 years old Clinical indication: Syncope and collapse; Patient HX: Patient has been C/O persistent headaches for the last month and had a syncopal episode today. ; Additional info: New onset of seizure, headache x 1 month TECHNIQUE: Imaging protocol: Computed tomography of the head without contrast. Radiation optimization: All CT scans at this facility use at least one of these dose optimization techniques: automated exposure control; mA and/or kV adjustment per patient size (includes targeted exams where dose is matched to clinical indication); or iterative reconstruction. COMPARISON: MR head wo con* [id number] 02/21/2022 12:47 PM RADIATION DOSE METRICS: Total DLP (mGy-cm): 1089.08 FINDINGS: Brain: Mild white matter chronic microvascular changes are noted. No hemorrhage or evidence of acute infarction. Cerebral ventricles: No ventriculomegaly. Paranasal sinuses: Visualized sinuses are unremarkable. No fluid levels. Mastoid air cells: Visualized mastoid air cells are well aerated. Bones/joints: Unremarkable. No acute fracture. Soft tissues: Unremarkable. CT/CT head wo con* [id number] IMPRESSION:? No acute intracranial abnormality. ? Dictated By: Nicholas Sandoval MD Signed By: Nicholas Sandoval MD Signed Date/Time: 06/04/221958 DD/ 30 Discharge Plan Discharge Patient Disposition: Admitted As Inpatient Admit Provider: Hebert Ryan Clinical Impression: Seizure, Headache Condition: Stable Discharge Diet: Cardiac Discharge Activity: Increase activity as tolerated Coding Level of Care Code ED Safety Director for Chg Fwd Exam Comprehensive
[2022-06-04 19:42] LABS: Basophils % 0.1 %; Eosinophils # 0.1 10^3/uL (0.0-0.8); Eosinophils % 0.3 %; Hematocrit 40.9 % (37.0-47.0); Hemoglobin 14.1 g/dL (11.5-15.3); Lymphocytes # 7.2 10^3/uL (0.8-4.8); Lymphocytes % 31.9 %; Mean Corpuscular HGB Conc 34.5 g/dL (30.0-36.0); Mean Corpuscular Hemoglobin 32.1 pg (28.0-34.0); Mean Corpuscular Volume 93.2 fl (81-99); Monocytes # 1.7 10^3/uL (0.2-0.9); Monocytes % 7.5 %; Neutrophils # 13.48 10^3/uL (1.8-7.7); Neutrophils % 59.2 %; Nucleated Red Blood Cells % 0 %; Platelet Count 274 10^3/cmm (130-400); Red Blood Count 4.39 10^6/uL (4.1-5.3); Red Cell Distribution Width 12.1 % (12.1-15.1); White Blood Count 22.7 10^3/uL (4.0-10.0)
[2022-06-04 20:04] LABS: Add Urine Microscopic? NO; Charge for UA Resulting for Rev
[2022-06-04 20:07] LABS: Bilirubin Urine Neg (Negative); Blood Urine Neg (Negative); Glucose Urine UA Norm (Normal); Ketones Urine Negative (Negative); Leukocyte Esterase Urine Negative (Negative); Nitrate Urine Negative (Negative); Protein Urine Neg (Negative); Specific Gravity, Urine 1.015 (1.005-1.030); Urine Appearance Clear (CLEAR); Urine Color Yellow (Yellow); Urobilinogen Urine Norm (Negative); pH Urine 5 (5-7)
[2022-06-04] MEDS: sodium chloride 0.9% 500 ML IV (20:09)
[2022-06-04 20:13] LABS: Alanine Aminotransferase 10 U/L (0-33); Albumin Level 4.1 g/dL (3.5-5.2); Alkaline Phosphatase 100 IU/L (35-105); Anion Gap 15.3 (5-19); Aspartate Amino Transferase 13 U/L (0-32); Blood Urea Nitrogen 23 mg/dL (8-23); Calcium 8.8 mg/dL (8.5-10.5); Carbon Dioxide 26 mmol/L (22-29); Chloride 102 mmol/L (98-107); Globulin 2.7 g/dL (1.3-4.6); Glomerular Filtration Rate 98.8 mL/min (90-130); Glucose 111 mg/dL (65-115); Lipase 36 U/L (13-60); Osmolality Calculated 294 mOsm/kg (285-295); Potassium 3.3 mmol/L (3.5-5.1); Sodium 140 mmol/L (136-145); Total Bilirubin 0.2 mg/dL (0.15-1.2); Total Protein 6.8 g/dL (6.6-8.7)
[2022-06-04 20:16] LABS: Troponin(5th) Baseline 9 ng/L (0-10)
[2022-06-04 20:20] LABS: Slide Review Slide Review Perform
--- NOTE | 2022-06-04 21:04 | ECG_ITS ---
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 Measurements Intervals [place] Rate: 49 P: 13 [place]: 139 QRS: 61 QRSD: 97 T: 75 QT: 473 QTc: 431 Interpretive Statements SINUS BRADYCARDIA Compared to ECG 06/04/2022 19:22:04 Nonspecific T wave changes No significant changes Electronically Signed On 06-05-2022 20:59:22 CDT by Aditya Richmond M.D. [id number]
[2022-06-04 21:42] VITALS: BP 127/63; PULSE 79; RESP 18; O2SAT 93
[2022-06-04 21:46] VITALS: PULSE 54; O2SAT 95
[2022-06-04 22:00] LABS: Troponin 5 2HR 9.17 ng/L (0-10)
[2022-06-04 22:01] LABS: Troponin 5 2HR Delta 0.17 ABS# (0-10)
[2022-06-04 22:09] VITALS: BP 127/63; PULSE 54; RESP 18; O2SAT 95
--- NOTE | 2022-06-04 22:16 | P.HP_ITS ---
Providers/Chief Complaint Admitting Physician: Hebert Ryan Primary Care Provider: SIMA Taveras-Mireille Chief Complaint: SYNCOPE History of Present Illness Pleasant 72-year-old lady was brought in for assessment by her family after an episode of new onset generalized tonic-clonic seizure with postictal period. Reportedly this happened while sitting in the chair. She only remembers feeling slightly lightheaded before hand. Denies any chest pain or pressure, no palpit ations. She has never had seizures before. No other concerns regarding her health recently apart from having a headache for close to about a month which she is at the lower posterior head, upper neck, radiating to the left arm. No fever. Leukocytosis noted in ER 22.7, although has some chronic leukocytosis as well for which she is getting work-up with hematology. She is feeling mildly congested currently with some phlegm production. Recently had reportedly had a respiratory tract infection, although did not require antibiotics. For headache was started on illahyguoh-pqkrqvrwgocqg-zrciugov which she has been taking since last Saturday. She is on chronic anticoagulation due to history of PE, DVT. No history of symptomatic bradycardia, although has had heart rates similarly slow as currently. Review of Systems Const: Denies: fever(s), chills, body aches or malaise Eyes: Denies: change in vision, eye discomfort or eye redness ENMT: Denies: throat pain, oral sores or ear or mastoid pain Card: Denies: chest pain, edema, pre-syncope or dyspnea on exertion Resp: Denies: dyspnea, productive cough, change in phlegm color or hemoptysis GI: Denies: abdominal pain, nausea, vomiting, diarrhea, constipation, hematochezia or melena : Denies: flank pain, urinary frequency or hematuria Musc: Denies: back pain, joint swelling or joint redness Skin/Breast: Denies: rash or new lesions Neuro: Reports: headache(s) and seizure-like activity; Denies: numbness in extremities, weakness in extremities, sensory changes, dizziness, vertigo, confusion, behavioral changes, Slurred speech present, difficulty communicating thoughts or involuntary movements Endo: Denies: polyuria or polydipsia Jasbir/Lymph: Denies: easy bleeding or tender lymph nodes All/Imm: Denies: urticaria or tongue swelling Medications/Allergies Home Medications Medication Instructions Recorded Confirmed Last Taken Type aspirin 81 mg chewable tablet 81 mg PO DAILY@0900 11/18/19 06/04/22 06/04/22 History clopidogrel 75 mg tablet (Plavix) 75 mg PO DAILY@0900 11/18/19 06/04/22 06/04/22 History diltiazem HCl 240 mg capsule,24 240 mg PO DAILY@0900 12/15/19 06/04/22 06/04/22 History hr,extended release isosorbide mononitrate 30 mg 30 mg PO BID@0900,1800 12/15/19 06/04/22 06/04/22 History tablet,extended release 24 hr acetaminophen 325 mg tablet 325 - 350 mg PO QID PRN 01/11/21 06/04/22 Unknown History (Tylenol) atorvastatin 40 mg tablet (Lipitor) 40 mg PO QPM #0 tab 01/12/21 06/04/22 06/03/22 Rx sszajsswqf-cjhmxrfgipqde-myojhwjm 1 tab PO Q6H PRN #20 tab 02/08/22 06/04/22 Unknown Rx 50 mg-325 mg-40 mg tablet (Esgic) valsartan 80 mg tablet (Diovan) 80 mg PO DAILY #30 tab 05/18/22 06/04/22 06/04/22 Rx cyclobenzaprine 5 mg tablet 5 mg PO BID PRN 5 Days #10 tab 06/02/22 06/04/22 Unknown Rx carvedilol 3.125 mg tablet See Rx Instructions .ROUTE .COMPLEX 06/04/22 06/04/22 06/04/22 History warfarin 5 mg tablet See Rx Instructions .ROUTE .COMPLEX 06/04/22 06/04/22 0 06/04/22 History Allergies Allergy/AdvReac Type Severity Reaction Status Date / Time No Known Allergies Allergy Verified 06/04/22 19:58 PFSH Acute PFSH: Medical History (Updated 06/04/22 @ 22:32 by Hebert Ryan MD) Age related osteoporosis Bilateral renal cysts COPD (chronic obstructive pulmonary disease) DVT (deep venous thrombosis) Femur fracture Heart disease HTN (hypertension) PE (pulmonary thromboembolism) Personal history of nicotine dependence Unstable angina Vitamin D insufficiency Surgical History History of cholecystectomy History of heart artery stent History of hip surgery left History of hysterectomy Hx of CABG Family History Mother CAD (coronary artery disease) Lung disease Other Cancer Heart disease Hypertension Denies family history of Diabetes Clotting disorder Dementia Hyperlipidemia Psychiatric illness Chronic kidney disease (CKD) Suicide Anesthesia complication Bleeding disorder Stroke Social History Smoking and tobacco status: current every day smoker (1 ppd) cigarettes Packs smoked per day: 1 Second hand smoke exposure: Yes Smoking risk assessment/counseling performed?: Yes Alcohol intake: never Desire information about alcohol rehabilitation?: No Counseling given: No Desire information about substance/drug rehabilitation?: No Counseling given: No Caregiver/support person: No Lives independently: Yes Household members: none Marital status: / Number of children: 4 Current occupational status: retired History of recent travel: No Current gender identity: Female Vitals/I&O/Wt Last Vital Signs Temp 97.0 F L 06/04/22 19:03 Pulse 54 L 06/04/22 22:09 Resp 18 06/04/22 22:09 BP 127/63 06/04/22 22:09 Pulse Ox 95 06/04/22 22:09 06/04/22 06/04/22 06/04/22 06:59 14:59 22:59 Intake Total 610 / 610 Balance 610 / 610 Weight last 48 hrs Weight 73.028 kg Physical Exam Narrative: Daughter is at bedside. Const: COMMON NORMALS: alert GENERAL APPEARANCE: cooperative ORIENTATION/CONSCIOUSNESS: Yes awake HENMT: COMMON NORMALS: normocephalic, EAC's normal, Normal external nose present and moist oral mucous membranes HEAD & SCALP: normocephalic NOSE: Normal external nose present EXTERNAL AUDITORY CANAL: EAC's normal Neck/C-Spine: COMMON NORMALS: no meningeal signs Chest: CHEST: Yes Symmetrical chest wall rise Resp: COMMON NORMALS: clear to auscultation bilaterally AUSCULTATION: rhonchi Cardio: COMMON NORMALS: regular rate, regular rhythm and No murmurs present ( Cardio) RATE: regular rate RHYTHM: regular rhythm GI: COMMON NORMALS: Normal to inspection, nondistended, normoactive bowel sounds present, Soft to palpation and non-tender PALPATION: Yes Soft to palpation Extremity: COMMON NORMALS: no pedal edema Neuro: COMMON NORMALS: moves all extremities SENSORIUM/ORIENTATION: Yes alert MENINGEAL SIGNS: Yes no meningeal signs Psych: COMMON NORMALS: mental status grossly normal Skin: COMMON NORMALS: no wounds RASHES: no rashes Data : 06/04/22 19:30 06/04/22 19:30 A&P Assessment and plan (1) Seizure: New onset seizure. CT of the head was not revealing of etiology. Does not drink alcohol. Was started on iszuqclota-bdethqqhpogcj-gbnqjocz which she has been taking since Saturday for headache. Discussed with her and her daughter that this medication can cause seizure, and perhaps this is the etiology. Would hold and not resume this medication. However, to assess for other causes, as differential is broad as discussed for her and daughter including possible past CVA, malignancy, inflammatory conditions or other causes, requested additional assessment by MRI. With headache, will also assess MRV. At this time does not to show meningeal signs. Does have some neck pain/posterior lower headache, but this has been going on for close to about a month. Afebrile, although does have leukocytosis. Discussed with her in case of recurrent symptoms or worsening symptoms, fever, or mental status changes, consider also obtaining CSF. Status: Acute (2) Headache: Avoid ofuqppvohm-ocivqrzuqjjqh-pcvntapi as can cause seizure. Acetaminophen for now, consider NSAID. Status: Acute (3) Cervical neuralgia: Neck pain, posterior lower headache, radiating to the left arm. Additional assessment as above. Also possible cervical radiculopathy. Consider follow-up imaging of the neck for DJD. Will also obtain duplex ultrasound of neck vessels. Status: Acute (4) Elevated white blood cell count, unspecified: Acute on chronic leukocytosis. She is undergoing work-up with hematology for previously chronic leukocytosis, although appears previously was around 11,000. Currently discussed with her and her daughter is higher at 22,000. With seizure, possible aspiration, obtain chest x-ray to assess for possible aspiration pneumonitis. She otherwise denies any respiratory symptoms, although does have rhonchi on exam. Denies cough, phlegm production or other symptoms of COPD exacerbation. Status: Acute (5) Bradycardia: Heart rate in the 50s, although appears to have had bradycardia in this range previously. Not previously symptomatic, and denies having syncopal or presyncopal episode recently, any palpitations, or other symptoms that could result from bradycardia. Monitor heart rate. Consider environmental monitoring technician. Status: Acute Plan Mild hypokalemia: Replace. Continue valsartan. Check magnesium. CAD, status post CABG History of DVT and PE: On chronic anticoagulation with warfarin. Check INR. COPD HTN Smoking addiction: Discussed with her smoking cessation, continue to encourage. Attestations Medical Necessity Statement*: Place in observation for additional assessment of management of new onset seizure, headache, leukocytosis. Coding Level of Care Code Acute [employer] for Kayden Gleasond Diagnoses Seizure R56.9 Headache R51.9 Cervical neuralgia M54.12 Elevated white blood cell count, unspecified D72.829 Bradycardia R00.1
--- NOTE | 2022-06-04 22:19 | XRR_ITS ---
PROCEDURE INFORMATION: Exam: XR Chest Exam date and time: 06/04/2022 10:44 PM Age: 72 years old Clinical indication: Condition or disease; Lung condition and disease; Pneumonia; Additional info: Leukocytosis, rhonchi, seizure, assess for possible aspiration pneumonia TECHNIQUE: Imaging protocol: Radiologic exam of the chest. Views: 1 view. COMPARISON: CR (CHEST, ) 05/28/2022 8:25 PM FINDINGS: Lungs: The lungs are clear. Pleural spaces: Unremarkable. No pleural effusion. No pneumothorax. Heart/Mediastinum: The heart is normal in size. Surgical changes of CABG are appreciated. Bones/joints: Unremarkable. XR/XR chest 1V portable [id number] IMPRESSION: No acute cardiopulmonary abnormality.
[2022-06-04 22:24] VITALS: BP 126/71; PULSE 58; RESP 17; TEMP 36.2; O2SAT 96
[2022-06-04 23:42] VITALS: BMI 26.8
[2022-06-05] VITALS (10 sets, daily range): BP systolic 115–131; BP diastolic 64–74; PULSE 51–64; RESP 16–17; TEMP 36.4–36.8; O2SAT 92–94
[2022-06-05] MEDS: potassium chloride ER 20 mEq Tablet PO (00:47)
--- NOTE | 2022-06-05 01:04 | ECG_ITS ---
[facility] Test Date: 2022-06-05 Pat Name: Ronit Palma Department: Room: 279 Gender: Female Paver Layer: : 1950 Requested By: Marina Chris Order Number: [id number] Familia MD: Aditya Richmond M.D. Measurements Intervals [place] Rate: 66 P: 63 GA: 167 QRS: 71 QRSD: 94 T: 75 QT: 419 QTc: 440 Interpretive Statements SINUS RHYTHM Compared to ECG 06/04/2022 21:42:35 Sinus bradycardia no longer present Electronically Signed On 06-05-2022 21:01:17 CDT by Aditya Richmond M.D. [id number]
[2022-06-05 04:01] LABS: Basophils % 0.2 %; Eosinophils # 0.1 10^3/uL (0.0-0.8); Eosinophils % 0.7 %; Hematocrit 36.4 % (37.0-47.0); Hemoglobin 12.5 g/dL (11.5-15.3); Lymphocytes # 5.6 10^3/uL (0.8-4.8); Lymphocytes % 31.4 %; Mean Corpuscular HGB Conc 34.3 g/dL (30.0-36.0); Mean Corpuscular Hemoglobin 32.1 pg (28.0-34.0); Mean Corpuscular Volume 93.3 fl (81-99); Mean Platelet Volume 10.7 fL (7.4-10.4); Monocytes # 1.4 10^3/uL (0.2-0.9); Monocytes % 7.8 %; Neutrophils # 10.56 10^3/uL (1.8-7.7); Neutrophils % 58.9 %; Nucleated Red Blood Cells % 0 %; Platelet Count 217 10^3/cmm (130-400); Red Cell Distribution Width 12.2 % (12.1-15.1); White Blood Count 17.9 10^3/uL (4.0-10.0)
[2022-06-05 04:12] LABS: INR 2.57 (0.8-1.2)
[2022-06-05 04:27] LABS: Alanine Aminotransferase 9 U/L (0-33); Albumin Level 3.5 g/dL (3.5-5.2); Alkaline Phosphatase 87 IU/L (35-105); Anion Gap 10.9 (5-19); Aspartate Amino Transferase 11 U/L (0-32); Blood Urea Nitrogen 21 mg/dL (8-23); Calcium 8.5 mg/dL (8.5-10.5); Carbon Dioxide 27 mmol/L (22-29); Chloride 107 mmol/L (98-107); Globulin 2.3 g/dL (1.3-4.6); Glucose 111 mg/dL (65-115); Magnesium 2.3 mg/dL (1.7-2.3); Osmolality Calculated 296 mOsm/kg (285-295); Potassium 3.9 mmol/L (3.5-5.1); Sodium 141 mmol/L (136-145); Total Bilirubin 0.4 mg/dL (0.15-1.2); Total Protein 5.8 g/dL (6.6-8.7); Troponin 5 6HR 13.25 ng/L (0-10)
[2022-06-05 04:28] LABS: Troponin 5 6HR Delta 4.25 ng/L (0-12)
[2022-06-05] MEDS: carvedilol 6.25 mg Tablet PO (06:58)
[2022-06-05] MEDS: isosorbide mononitrate ER 30 mg Tablet PO ×2 (08:40→17:36)
[2022-06-05] MEDS: losartan 50 mg Tablet PO (08:40)
[2022-06-05] MEDS: aspirin 81 mg Chew Tablet PO (08:40)
[2022-06-05] MEDS: ibuprofen 600 mg Tablet PO ×3 (08:40→22:33)
[2022-06-05] MEDS: clopidogrel 75 mg Tablet PO (08:41)
[2022-06-05] MEDS: lidocaine 5% Patch 1 PATCH TOPICAL ×2 (08:41→22:34)
--- NOTE | 2022-06-05 09:00 | PC.NURSE ---
Diltiazem dose held due to bradycardia in 40's. Physician notified
--- NOTE | 2022-06-05 09:30 | MR_ITS ---
WS: [id number] MR VENOGRAPHY HEAD 3-D noncontrast imaging performed through the cerebral veins. All imaging is reviewed. HISTORY: headache, seizure COMPARISON: No similar studies. Good demonstration of the dural venous sinuses and cerebral veins. There are no filling defects to george ggest acute or chronic thrombus. Normal appearance of the superior sagittal sinus and transverse sinu ses. Asymmetry of the jugular veins with the RIGHT being larger than the LEFT. There is no evidence f or thrombosis or occlusion. MR/[place] [id number] IMPRESSION: Normal MR venogram cerebral veins.
[2022-06-05] MEDS: dilTIAZem ER (24HR) 240 mg Capsule PO (09:52)
--- NOTE | 2022-06-05 11:14 | PC.NURSE ---
Verbal order Xanax 0.25 PO ONCE, give prior to MRI for anxiety.
--- NOTE | 2022-06-05 11:24 | PC.NURSE ---
Called lab to remind them of aptt due at 12:30 spoke with Ale
--- NOTE | 2022-06-05 12:48 | P.PN_ITS ---
Subjective Subjective: Been seizure free since admission. Feels ok. No complaints No acute events overnight Does mention she is claustrophobic and would like something before MRI WBC [id number] Vitals/I&O/Wt Last Vital Signs Temp 98.0 F 06/05/22 07:29 Pulse 58 L 06/05/22 08:00 Resp 16 06/05/22 07:29 BP 131/70 06/05/22 08:40 Pulse Ox 94 06/05/22 08:00 06/04/22 06/05/22 06/05/22 22:59 06:59 14:59 Intake Total 610 / 610 Balance 610 / 610 Weight last 48 hrs Weight 73.028 kg Weight 73.028 kg Physical Exam Narrative: General: Alert oriented x3, patient seen laying in bed appearing comfortable HEENT: Normocephalic, atraumatic, EOMI, edentulous Cardio: Regular rate rhythm, normal S1-S2 Respiratory: Clear to auscultation b/l GI: Abdomen soft, nontender, nondistended, bowel sounds + Extremities: no edema, no cyanosis Data : 06/05/22 03:54 06/05/22 03:54 A&P Assessment and plan (1) Bradycardia: Status: Acute (2) Seizure: Status: Acute (3) Headache: Status: Acute (4) Cervical neuralgia: Status: Acute (5) Elevated white blood cell count, unspecified: Status: Acute (6) Migraine: Status: Chronic (7) Atrial fibrillation: Status: Acute (8) Leukocytosis: Status: Acute (9) Personal history of nicotine dependence: Status: Chronic (10) COPD (chronic obstructive pulmonary disease): Status: Chronic Qualifiers: COPD type: emphysema (11) Hypertension: Status: Chronic (12) Peripheral vascular disease: Status: Acute (13) CAD (coronary artery disease): Status: Chronic Plan #Possible new onset seizure #Headache #Cervical neuralgia #Chronically elevated WBC count #History of COPD #Bradycardia #Coronary disease status post CABG #History of DVT and PE on warfarin #Hypertension #Nicotine dependence?unwilling to quit smoking at this time. ? Has been seizure-free since admission. Patient to go for MRI and MRV today. -Tylenol for headache if needed. She states headache is a lot better compared to before. ? Carotid Doppler pending ? Chronic leukocytosis. Chest x-ray clear. Lung exam clear. We will monitor for now. We will hold off on antibiotics. ? Bradycardia seems to be chronic. We will continue to monitor. Will place event monitor at discharge. -Continue aspirin, Plavix, Imdur, valsartan, Coreg ? Dose reduced Cardizem to 120 daily secondary to bradycardia. We will continue to monitor on telemetry. Full code Attestations Medical Necessity Statement*: Will most likely cross 2 midnight stay for investigation of all of the above. Coding Level of Care Code Acute Director Of Officiating for g Fwd Diagnoses Bradycardia R00.1 Seizure R56.9 Headache R51.9 Cervical neuralgia M54.12 Elevated white blood cell count, unspecified D72.829 Migraine G43.909 Atrial fibrillation I48.91 Leukocytosis D72.829 Personal history of nicotine dependence Z87.891 COPD (chronic obstructive pulmonary disease) J44.9 COPD type: emphysema Hypertension I10 Peripheral vascular disease I73.9 CAD (coronary artery disease) I25.10
[2022-06-05] MEDS: ALPRAZolam 0.5 mg Tablet 0.25 MG PO (14:37)
[2022-06-05] MEDS: atorvastatin 40 mg Tablet PO (17:36)
[2022-06-05] MEDS: carvedilol 3.125 mg Tablet PO (17:36)
[2022-06-06] VITALS: BP 92/61; PULSE 97; RESP 12; TEMP 36.6; O2SAT 92
[2022-06-06 02:36] LABS: Basophils % 0.2 %; Eosinophils # 0.2 10^3/uL (0.0-0.8); Eosinophils % 1.3 %; Hematocrit 36.6 % (37.0-47.0); Hemoglobin 12.4 g/dL (11.5-15.3); Lymphocytes # 4.3 10^3/uL (0.8-4.8); Lymphocytes % 32.6 %; Mean Corpuscular HGB Conc 33.9 g/dL (30.0-36.0); Mean Corpuscular Hemoglobin 31.3 pg (28.0-34.0); Mean Corpuscular Volume 92.4 fl (81-99); Mean Platelet Volume 10.8 fL (7.4-10.4); Monocytes # 1.3 10^3/uL (0.2-0.9); Monocytes % 9.6 %; Neutrophils # 7.19 10^3/uL (1.8-7.7); Neutrophils % 55.1 %; Nucleated Red Blood Cells % 0 %; Platelet Count 206 10^3/cmm (130-400); Red Blood Count 3.96 10^6/uL (4.1-5.3); Red Cell Distribution Width 11.9 % (12.1-15.1); White Blood Count 13.1 10^3/uL (4.0-10.0)
[2022-06-06 02:47] LABS: INR 1.77 (0.8-1.2)
[2022-06-06 02:54] LABS: Alanine Aminotransferase 8 U/L (0-33); Albumin Level 3.5 g/dL (3.5-5.2); Alkaline Phosphatase 86 IU/L (35-105); Anion Gap 11.5 (5-19); Aspartate Amino Transferase 10 U/L (0-32); Blood Urea Nitrogen 22 mg/dL (8-23); Calcium 8.5 mg/dL (8.5-10.5); Carbon Dioxide 26 mmol/L (22-29); Chloride 105 mmol/L (98-107); Globulin 2.2 g/dL (1.3-4.6); Glomerular Filtration Rate 98.8 mL/min (90-130); Glucose 89 mg/dL (65-115); Osmolality Calculated 291 mOsm/kg (285-295); Potassium 3.5 mmol/L (3.5-5.1); Sodium 139 mmol/L (136-145); Total Bilirubin 0.7 mg/dL (0.15-1.2); Total Protein 5.7 g/dL (6.6-8.7)
[2022-06-06 04:00] VITALS: BP 109/66; PULSE 65; RESP 12; TEMP 36.4; O2SAT 93
[2022-06-06] MEDS: carvedilol 6.25 mg Tablet PO (05:59)
[2022-06-06 06:00] VITALS: PULSE 59
--- NOTE | 2022-06-06 07:33 | CT_ITS ---
WS: [id number] CT CERVICAL SPINE TECHNIQUE: Noncontrast CT of the cervical spine with coronal and sagittal reformatted images. CLINICAL INFORMATION: r/o cervical disc disease COMPARISON: None. DLP: 250.[address] scans at [facility] use at least one of these dose optimization techniques: automated e xposure control; mA and/or kV adjustment per patient size (includes targeted exams where dose is matc hed to clinical indication); or iterative reconstruction. FINDINGS: Mild cervical curve. Exaggeration normal cervical lordosis. Moderate spondylitic changes. Normal C1-2 articulation. Slight anterolisthesis C4 on C5. Disc space narrowing worse at C5-C6 and C6-C7. Slight anterolisthesis C7 on T1. Lung apices are well aerated. Carotid bulb calcification. Normal visualize d posterior nasopharynx. C2-C3: No significant disc bulging. Mild facet arthropathy. Mild RIGHT bony foraminal narrowing. Mild facet arthropathy. C3-C4: Disc osteophytic ridging. Moderate LEFT facet arthropathy. Moderate LEFT bony foraminal narrow ing. Spinal canal is patent. C4-C5: Mild disc osteophytic ridging. Spinal canal is patent. Advanced RIGHT facet arthropathy. Mild to moderate bilateral bony foraminal narrowing. C5-C6: Disc osteophyte complex with endplate ridging. Mild central canal stenosis. Moderate RIGHT gre ater than LEFT bony foraminal narrowing. Moderate facet arthropathy. C6-C7: Disc osteophyte complex eccentric to the RIGHT with slight indentation on the RIGHT ventral ce rvical cord. Moderate bilateral bony foraminal narrowing. Mild facet arthropathy. Uncovertebral joint hypertrophy. C7-T1: No significant disc bulging. Spinal canal and foramen are patent. Visualized posterior nasopharynx: Normal. Prevertebral soft tissues: Normal. CT/CT cervical spin wo con* [id number] IMPRESSION: 1. Moderate spondylitic changes cervical spine with exaggeration of the normal cervical lordosis with mild cervical curve. 2. Mild central canal stenosis with disc osteophyte complex C5-C6 and C6-C7 wo rse at C6-C7 described above with slight indentation RIGHT ventral cervical cor d. 3. Multilevel bony foraminal narrowing worse at LEFT C3-C4, RIGHT C4-C5, RIGHT C5-C6 and bilateral C6-C7.
[2022-06-06 07:39] VITALS: BP 109/63; PULSE 56; RESP 16; TEMP 36.6; O2SAT 94
[2022-06-06] MEDS: ibuprofen 600 mg Tablet PO (09:40)
[2022-06-06] MEDS: isosorbide mononitrate ER 30 mg Tablet PO (09:41)
[2022-06-06] MEDS: aspirin 81 mg Chew Tablet PO (09:41)
[2022-06-06] MEDS: clopidogrel 75 mg Tablet PO (09:41)
[2022-06-06] MEDS: dilTIAZem ER (24HR) 120 mg Capsule PO (09:41)
[2022-06-06 09:42] VITALS: BP 122/78
[2022-06-06] MEDS: losartan 50 mg Tablet PO (09:42)
--- NOTE | 2022-06-06 09:44 | PC.NURSE ---
This nurse assumed care of patient this AM, patient is found resting in bed, AAOx4, no c/o pain, hopeful to go home later this day. Bed rails were not padded so this nurse applied rail padding and hooked up bedside suction. Room was found clean and clutter free with call light in reach. No needs at this time. After this mornings assessment patients VSS, patient states she is urinating without difficulty, states that she will not do the MRI but is agreeable to the CT scan and has been down and back from that test. Will continue to monitor.
[2022-06-06] MEDS: lidocaine 5% Patch 1 PATCH TOPICAL (09:45)
--- NOTE | 2022-06-06 09:47 | PC.NURSE ---
lidocane patch On upper right back area
--- NOTE | 2022-06-06 10:39 | PM.DCS ---
Discharge Providers Date of Admission: 06/05/22 21:00 Date of Discharge: June 06, 2022 Attending Provider at Admission: Hebert Ryan Attending Provider at Discharge: Conchita Reynolds MD Primary Care Provider: SULY Taveras Diagnoses at Discharge Discharge Diagnosis (1) Bradycardia: Status: Acute (2) Seizure: Status: Acute (3) Headache: Status: Acute (4) Cervical neuralgia: Status: Acute (5) Elevated white blood cell count, unspecified: Status: Acute (6) Migraine: Status: Chronic (7) Atrial fibrillation: Status: Acute (8) Leukocytosis: Status: Acute (9) Personal history of nicotine dependence: Status: Chronic (10) COPD (chronic obstructive pulmonary disease): Status: Chronic Qualifiers: COPD type: emphysema (11) Hypertension: Status: Chronic (12) Peripheral vascular disease: Status: Acute (13) CAD (coronary artery disease): Status: Chronic Reason for Visit Reason for Visit: SYNCOPE Brief History: Pleasant 72-year-old lady was brought in for assessment by her family after an episode of new onset generalized tonic-clonic seizure with postictal period.? Reportedly this happened while sitting in the chair.? She only remembers feeling slightly lightheaded before hand.? Denies any chest pain or pressure, no palpitations.? She has never had seizures before.? No other concerns regarding her health recently apart from having a headache for close to about a month which she is at the lower posterior head, upper neck, radiating to the left arm.? No fever.? Leukocytosis noted in ER 22.7, although has some chronic leukocytosis as well for which she is getting work-up with hematology.? She is feeling mildly congested currently with some phlegm production.? Recently had reportedly had a respiratory tract infection, although did not require antibiotics. For headache was started on gsmqlnzwhs-tojqwmolpykqa-vpltcgea which she has been taking since last Saturday. She is on chronic anticoagulation due to history of PE, DVT. No history of symptomatic bradycardia, although has had heart rates similarly slow as currently. Hospital Course Hospital Course Patient was admitted for a new onset seizure. MRI was ordered which patient was unable to complete due to severe claustrophobia despite getting Ativan. Ultimately she refused to get the test altogether. MRV however was able to be completed and it was negative. Patient's headache was also better at discharge. She was on barbital acetaminophen caffeine tablets on Saturday and unsure if that is what may have caused a seizure. Her son does have a history of seizures and follows with Dr. Mckeon already. CT cervical spine was also done which showed some narrowing at cervical foraminal. She was asked to follow-up with her primary care doctor and potentially orthopedic surgery. She was asked to follow-up with her primary care doctor for further work-up. However during hospital stay her case was discussed with Dr. Mckeon in detail. She recommended to start patient on Keppra 500 twice daily which we started. She also did get a few bouts of bradycardia and therefore her carvedilol dose was adjusted and diltiazem dose was adjusted. Carvedilol was dialed down to 3.125 twice daily and Cardizem 120 daily. Patient was given an EEG to do as an outpatient as soon as possible and to follow-up with Dr. Mckeon. EEG was scheduled for Saturday. All questions were answered. During hospital stay patient did remain seizure-free. Of note she does have chronic leukocytosis for which she is following up with oncology clinic. She is actively following up there for that. There was no evidence of infection therefore antibiotics were not given during the stay. Physical Exam Narrative: General: Alert oriented x3, patient seen laying in bed appearing comfortable HEENT: Normocephalic, atraumatic, EOMI, edentulous Cardio: Regular rate rhythm, normal S1-S2 Respiratory: Clear to auscultation b/l GI: Abdomen soft, nontender, nondistended, bowel sounds + Extremities: no edema, no cyanosis Neuro: Nonfocal exam Discharge Data Studies Completed and Pending Completed Studies During Hospitalization Category Date Time Status CT cervical spin wo con* [id number] Routine Cat Scan 06/06/22 07:[address] head wo con* [id number] Urgent Cat Scan 06/04/22 19:18 Completed CXRP [XR chest 1V portable [id number]] Routine Exams 06/04/22 22:19 [place] [id number] Routine MRI 06/05/22 09:30 Completed Pending at discharge Category Date Time Status Complete Blood Count w/Auto AM LABS Lab 06/07/22 04:00 Ordered Comprehensive Metabolic Panel AM LABS Lab 06/07/22 04:00 Ordered Prothrombin Time INR AM LABS Lab 06/07/22 04:00 Ordered Radiology Impressions Head CT 06/04/22 19:18 IMPRESSION: No acute intracranial abnormality. Chest X-Ray 06/04/22 22:19 IMPRESSION: No acute cardiopulmonary abnormality. Head/Brain Mag Res Venography 06/05/22 09:30 IMPRESSION: Normal MR venogram cerebral veins. Cervical Spine CT 06/06/22 07:33 IMPRESSION: 1. Moderate spondylitic changes cervical spine with exaggeration of the normal cervical lordosis with mild cervical curve. 2. Mild central canal stenosis with disc osteophyte complex C5-C6 and C6-C7 worse at C6-C7 described above with slight indentation RIGHT ventral cervical cord. 3. Multilevel bony foraminal narrowing worse at LEFT C3-C4, RIGHT C4-C5, RIGHT C5-C6 and bilateral C6-C7. Laboratory Results WBC 13.1 10^3/uL (4.0-10.0) H 06/06/22 02:06 RBC 3.96 10^6/uL (4.1-5.3) L 06/06/22 02:06 Hgb 12.4 g/dL (11.5-15.3) 06/06/22 02:06 Hct 36.6 % (37.0-47.0) L 06/06/22 02:06 MCV 92.4 fl (81-99) 06/06/22 02:06 MCH 31.3 pg (28.0-34.0) 06/06/22 02:06 MCHC 33.9 g/dL (30.0-36.0) 06/06/22 02:06 RDW 11.9 % (12.1-15.1) L 06/06/22 02:06 Plt Count 206 10^3/cmm (130-400) 06/06/22 02:06 MPV 10.8 fL (7.4-10.4) H 06/06/22 02:06 Neut % (Auto) 55.1 % 06/06/22 02:06 Lymph % (Auto) 32.6 % 06/06/22 02:06 [place] % (Auto) 9.6 % 06/06/22 02:06 Eos % (Auto) 1.3 % 06/06/22 02:06 Baso % (Auto) 0.2 % 06/06/22 02:06 Neut # (Auto) 7.19 10^3/uL (1.8-7.7) 06/06/22 02:06 Lymph # (Auto) 4.3 10^3/uL (0.8-4.8) 06/06/22 02:06 [place] # (Auto) 1.3 10^3/uL (0.2-0.9) H 06/06/22 02:06 Eos # (Auto) 0.2 10^3/uL (0.0-0.8) 06/06/22 02:06 Baso # (Auto) 0.0 10^3/uL (0.0-0.1) 06/06/22 02:06 Nucleated RBC % (auto) 0 % 06/06/22 02:06 Nucleated RBCs # 0.0 /100WBC 06/06/22 02:06 PT 21.00 SECONDS (12.1-14.9) H 06/06/22 02:06 INR 1.77 (0.8-1.2) H 06/06/22 02:06 Sodium 139 mmol/L (136-145) 06/06/22 02:06 Potassium 3.5 mmol/L (3.5-5.1) 06/06/22 02:06 Chloride 105 mmol/L (98-107) 06/06/22 02:06 Carbon Dioxide 26 mmol/L (22-29) 06/06/22 02:06 Anion Gap 11.5 (5-19) 06/06/22 02:06 BUN 22 mg/dL (8-23) 06/06/22 02:06 Creatinine 0.6 mg/dL (0.5-0.9) 06/06/22 02:06 GFR Calculation 98.8 mL/min (90-130) 06/06/22 02:06 Glucose 89 mg/dL (65-115) 06/06/22 02:06 Calculated Osmolality 291 mOsm/kg (285-295) 06/06/22 02:06 Calcium 8.5 mg/dL (8.5-10.5) 06/06/22 02:06 Magnesium 2.3 mg/dL (1.7-2.3) 06/05/22 03:54 Total Bilirubin 0.7 mg/dL (0.15-1.2) 06/06/22 02:06 AST 10 U/L (0-32) 06/06/22 02:06 ALT 8 U/L (0-33) 06/06/22 02:06 Alkaline Phosphatase 86 IU/L (35-105) 06/06/22 02:06 Troponin T Baseline 9 ng/L (0-10) 06/04/22 19:30 Troponin T 120 Minute 9.17 ng/L (0-10) 06/04/22 21:20 Delta Troponin T 0.17 ABS# (0-10) 06/04/22 21:20 Troponin T Hi Sens 6Hr 13.25 ng/L (0-10) H 06/05/22 03:54 Troponin T Hi Sens 6Hr Delta 4.25 ng/L (0-12) 06/05/22 03:54 Total Protein 5.7 g/dL (6.6-8.7) L 06/06/22 02:06 Albumin 3.5 g/dL (3.5-5.2) 06/06/22 02:06 Globulin 2.2 g/dL (1.3-4.6) 06/06/22 02:06 Lipase 36 U/L (13-60) 06/04/22 19:30 Urine Color Yellow (Yellow) 06/04/22 19:58 Urine Appearance Clear (CLEAR) 06/04/22 19:58 Urine pH 5 (5-7) 06/04/22 19:58 Ur Specific [place] 1.015 (1.005-1.030) 06/04/22 19:58 Urine Protein Neg (Negative) 06/04/22 19:58 Urine Glucose (UA) Norm (Normal) 06/04/22 19:58 Urine Ketones Negative (Negative) 06/04/22 19:58 Urine Blood Neg (Negative) 06/04/22 19:58 Urine Nitrate Negative (Negative) 06/04/22 19:58 Urine Bilirubin Neg (Negative) 06/04/22 19:58 Urine Urobilinogen Norm mg/dL (Negative) 06/04/22 19:58 Ur Leukocyte Esterase Negative (Negative) 06/04/22 19:58 Vitals Last Vital Signs Temp 97.9 F 06/06/22 07:39 Pulse 56 L 06/06/22 07:39 Resp 16 06/06/22 07:39 BP 122/78 06/06/22 09:42 Pulse Ox 94 06/06/22 07:39 Discharge Plan Discharge Patient Disposition: Home Condition: Stable Prescriptions: New carvedilol 3.125 mg Tablet 3.125 mg PO BID 30 Days Qty: 60 0RF diltiazem HCl 120 mg Capsule,Extended Release 24hr 120 mg PO DAILY@0900 30 Days Qty: 30 0RF Keppra 500 mg tablet 500 mg PO BID 30 Days Qty: 60 0RF Continued cyclobenzaprine 5 mg tablet 5 mg PO BID PRN (Reason: muscle spasm) 5 Days Qty: 10 0RF valsartan [Diovan] 80 mg tablet 80 mg PO DAILY Qty: 30 1RF acetaminophen [Tylenol] 325 mg Tablet 325 - 350 mg PO QID PRN (Reason: headache/pain) 0RF atorvastatin [Lipitor] 40 mg tablet 40 mg PO QPM Qty: 0 0RF clopidogrel [Plavix] 75 mg Tablet 75 mg PO DAILY@0900 0RF aspirin 81 mg Tablet,Chewable 81 mg PO DAILY@0900 0RF isosorbide mononitrate 30 mg Tablet Extended Release 24 Hr 30 mg PO BID@0900,1800 0RF warfarin 5 mg tablet See Rx Instructions .ROUTE .COMPLEX 0RF Rx Instructions: 5 MG PO EVERYDAY EXCEPT 7.5MG ON SATURDAY AND SATURDAY Discontinued [id number]-[id number]-numt [Esgic] 50-325-40 mg tablet 1 tab PO Q6H PRN (Reason: pain) Qty: 20 0RF diltiazem HCl 240 mg Capsule,Extended Release 24 Hr 240 mg PO DAILY@0900 0RF carvedilol 3.125 mg tablet See Rx Instructions .ROUTE .COMPLEX 0RF Rx Instructions: 3.125 mg- TAKE TWO TABLETS IN THE MORNING AND 1 TABLET IN THE EVENING Discharge Orders: Discharge Order (Routine); Ordered 06/06/22 Ordered By: Conchita Reynolds Other Ambulatory Orders: EEG electroencephalogram (Routine) Timeframe: 3 Days Facility: [facility] - Location: Neurology Ordered By: Conchita Reynolds Referrals: Wanda Mckeon MD [Physician] - 06/25/22 9:15 am (Patient will see NP. Keven) Loretta Ramírez FNP-Mireille [Primary Care Provider] - 06/07/22 3:40 pm Discharge Diet: Cardiac Discharge Activity: Increase activity as tolerated Patient Instructions: Diltiazem (By mouth), Carvedilol (By mouth), Levetiracetam (By mouth), Generalized Tonic Clonic Seizures (GEN), Opioid Safety, Seizures Activity Restrictions/Additional Instructions: Seizure precautions to be followed. Take showers instead of baths. You have an increased risk of drowning in a bathtub during a seizure. Don?t use electrical appliances near water. In the event of a seizure, you might drop the appliance into water and electrocute yourself. Use caution with hot items, which could burn you in the case of a seizure. For example, avoid carrying pots of hot water or food, and ask for assistance when possible. Make sure that paul handles are facing toward the back of your stove while you?re cooking. If you have a seizure, you may accidentally hit a forward-facing handle and spill hot food on your body. Do not drive or operate machinery for atleast 6 months or until cleared by neurologist. Please follow up with neurology and have your EEG completed at earliest convenience. Appointment for June 11 at 3:00 pm. Please return to ER if seizure recurs, chest pain, shortness of breath, lightheadedness, dizziness, falls, loss of bowel or bladder control, passing out. patient has an appointment to bulk picker heart monitor at 1:30 pm today at [facility].[phone] Discharge Attestations Time Spent in Discharge Care*: less than 30 min Quality Metrics Clinical Quality Measures [ No reported AMI, CVA or VTE this stay] Coding Level of Care Code Acute Chg [facility] note Diagnoses Bradycardia R00.1 Seizure R56.9 Headache R51.9 Cervical neuralgia M54.12 Elevated white blood cell count, unspecified D72.829 Migraine G43.909 Atrial fibrillation I48.91 Leukocytosis D72.829 Personal history of nicotine dependence Z87.891 COPD (chronic obstructive pulmonary disease) J44.9 COPD type: emphysema Hypertension I10 Peripheral vascular disease I73.9 CAD (coronary artery disease) I25.10
[2022-06-06] MEDS: ketorolac 30 mg/mL INJ 50 MG IVP (11:24)
[2022-06-06 11:29] VITALS: BP 122/78; PULSE 86; RESP 16; TEMP 36.7; O2SAT 95
--- NOTE | 2022-06-06 11:37 | PC.NURSE ---
Patient discharge education reviewed with patient. All questions answered, heading to heart center for heart monitor and verbally acknowledges discharge plan.
== END 2022-06-06 11:52 | disposition home or self-care (01) | DRG 101 ==
LOC: ER 19:38 → MEDSURG 21:21
PROVIDERS: Admitting Provider Internal Medicine; Emergency Provider Emergency Medicine; PCP Nurse Practitioner; Visit Provider Internal Medicine
DX: G40.409 Other generalized epilepsy and epileptic syndromes, not intractable, without status epilepticus (principal); I25.10 Atherosclerotic heart disease of native coronary artery without angina pectoris; Z95.1 Presence of aortocoronary bypass graft; Z95.5 Presence of coronary angioplasty implant and graft; I10 Essential (primary) hypertension; M81.0 Age-related osteoporosis without current pathological fracture; J43.9 Emphysema, unspecified; Z86.718 Personal history of other venous thrombosis and embolism; Z86.711 Personal history of pulmonary embolism; F17.210 Nicotine dependence, cigarettes, uncomplicated; F40.240 Claustrophobia; G43.709 Chronic migraine without aura, not intractable, without status migrainosus; I48.91 Unspecified atrial fibrillation; I73.9 Peripheral vascular disease, unspecified; M48.02 Spinal stenosis, cervical region; Z79.01 Long term (current) use of anticoagulants; Z79.82 Long term (current) use of aspirin; Z79.02 Long term (current) use of antithrombotics/antiplatelets
CPT/HCPCS: 36415; 70450; 70544; 71045; 72125; 80053; 81003; 83690; 83735; 84484; 85025; 85610; 93005; 96365; 99285; G0378; J1885; J1953; J7040

== ENCOUNTER → 2022-06-06 13:21 | Outpatient (BNVA) | payer MEDICARE, OTHER, SELFPAY | PROVIDERS: PCP Nurse Practitioner; Visit Provider Internal Medicine Cardiovascular Disease | DX: I49.3 Ventricular premature depolarization (principal) | CPT/HCPCS: 93229 ==

== ENCOUNTER 2022-06-16 22:55 | Emergency (ER) | payer MEDICARE, OTHER, SELFPAY ==
[2022-06-16 23:04] VITALS: BP 129/79; PULSE 86; RESP 24; TEMP 37.9; O2SAT 92; BMI 25.1
--- NOTE | 2022-06-16 23:30 | XRR_ITS ---
PROCEDURE INFORMATION: Exam: XR Chest Exam date and time: 06/17/2022 12:20 AM Age: 72 years old Clinical indication: Fever and other: Weakness; Additional info: Fever weakness TECHNIQUE: Imaging protocol: Radiologic exam of the chest. Views: 1 view. COMPARISON: CR (CHEST, ) 06/04/2022 10:44 PM FINDINGS: Tubes, catheters and devices: Device or stent overlays the midline. Lungs: Mild bibasilar opacities may represent superimposition of shadows, atelectasis,, inflammation, or infection, improved compared to the prior. Pleural spaces: No pneumothorax.. No large pleural effusion. Heart/Mediastinum: The cardiomediastinal silhouette is stable in appearance. Vasculature: Mild atherosclerotic calcifications of the aortic arch. Bones/joints: The patient is status post median sternotomy. Sternotomy wires are stable in appearance. XR/XR chest 1V portable [id number] IMPRESSION: Mild bibasilar opacity is may represent superimposition of shadows, atelectasis, inflammation, or infection, improved compared to the prior.
--- NOTE | 2022-06-16 23:31 | ECG_ITS ---
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 Measurements Intervals Arabi Rate: 86 P: FL: QRS: 72 QRSD: 98 T: 82 QT: 357 QTc: 428 Interpretive Statements Sinus RHYTHM with baseline artifact Compared to ECG 06/05/2022 02:45:18 No change Electronically Signed On 06-17-2022 10:35:18 CDT by Ritchie Ferreira M.D. [email or web address]
[2022-06-16 23:47] LABS: INR 1.78 (0.8-1.2)
[2022-06-16] MEDS: sodium chloride 0.9% 1,000 ML 999 ML IV (23:50)
[2022-06-16 23:52] LABS: Basophils % 0.2 %; Eosinophils % 0.2 %; Hematocrit 34.8 % (37.0-47.0); Hemoglobin 11.6 g/dL (11.5-15.3); Lymphocytes # 1.2 10^3/uL (0.8-4.8); Mean Corpuscular HGB Conc 33.3 g/dL (30.0-36.0); Mean Corpuscular Hemoglobin 31.4 pg (28.0-34.0); Mean Corpuscular Volume 94.3 fl (81-99); Mean Platelet Volume 11.2 fL (7.4-10.4); Monocytes # 0.5 10^3/uL (0.2-0.9); Monocytes % 9.1 %; Neutrophils # 3.75 10^3/uL (1.8-7.7); Neutrophils % 68.4 %; Nucleated Red Blood Cells % 0 %; Platelet Count 174 10^3/cmm (130-400); Red Blood Count 3.69 10^6/uL (4.1-5.3); Red Cell Distribution Width 12.2 % (12.1-15.1); White Blood Count 5.5 10^3/uL (4.0-10.0)
[2022-06-17] VITALS (7 sets, daily range): BP systolic 94–126; BP diastolic 49–67; PULSE 64–88; RESP 13–20; O2SAT 88–93
[2022-06-17 00:01] LABS: ABG PCO2 36.7 mmHg (35-45); ABG PH Result 7.45 (7.35-7.45); Arterial Blood Gas Hematocrit 33.9 % (37-47); Base Excess ABG 1.4 mmol/L (-2.0-2.0); Blood Gas Allen Test Pos; Blood Gas Sample Site Radial, right; Blood Gas Sample Type Arterial; HCO3 ABG 25.4 mmol/L (22-26); PO2 ABG 69.3 mmHg (80.0-100.0)
[2022-06-17 00:02] LABS: NT Pro B Type Natriuretic Pept 1001 pg/mL (0-125); Procalcitonin 0.19 ng/mL (0-0.5)
[2022-06-17 00:13] LABS: Alanine Aminotransferase 10 U/L (0-33); Albumin Level 3.5 g/dL (3.5-5.2); Alkaline Phosphatase 86 IU/L (35-105); Anion Gap 14.7 (5-19); Aspartate Amino Transferase 15 U/L (0-32); Blood Urea Nitrogen 17 mg/dL (8-23); C Reactive Protein 60.2 mg/L (0.0-4.9); Calcium 8.6 mg/dL (8.5-10.5); Carbon Dioxide 24 mmol/L (22-29); Chloride 104 mmol/L (98-107); Creatine Phosphokinase 58 U/L (26-192); Creatinine Clr Calc Pharmacy 63.6286; Globulin 2.8 g/dL (1.3-4.6); Glomerular Filtration Rate 82.7 mL/min (90-130); Glucose 111 mg/dL (65-115); Osmolality Calculated 290 mOsm/kg (285-295); Potassium 3.7 mmol/L (3.5-5.1); Sodium 139 mmol/L (136-145); Total Bilirubin 0.4 mg/dL (0.15-1.2); Total Protein 6.3 g/dL (6.6-8.7)
[2022-06-17 00:16] LABS: Lactate (Lactic Acid level) 0.6 mmol/L (0.5-2.2)
[2022-06-17 00:55] LABS: SARS Covid-2 Antigen Negative (Negative)
--- NOTE | 2022-06-17 00:57 | ED_ITS ---
Documented by User: Edison Medrano DO 06/17/22 02:35 HPI - Weakness General: Chief complaint: Weakness Stated complaint: weakness Time Seen by Provider: 06/16/22 23:09 Source: patient and family History of Present Illness: 72-year-old female who complains of cough, shortness of breath, and fevers. She was seen and admitted here a few days ago, after a seizure episode following administration of a new medication. She was started on Keppra. She continues to have fevers. She is got a cough with some green sputum. She has generalized weakness and trouble walking. This is worsening since her admission. MD Complaint: generalized weakness Onset (ago): day(s) Duration: constant and progressively worsening Location: generalized Migration: none Severity: moderate Relieving factors: none Exacerbating factors: none Associated symptoms: Reports chills, decreased appetite, fever(s) and short of breath; Denies chest pain, confusion, dysuria, headache(s), myalgias, nausea or vomiting Review of Systems Const: Reports: fever(s) and chills Eyes: Denies: change in vision ENMT: Denies: throat pain Card: Denies: chest pain Resp: Reports: dyspnea and productive cough GI: Denies: nausea or vomiting : Denies: dysuria Neuro: Denies: headache(s) or confusion PFSH ED PFSH: Medical History Age related osteoporosis Bilateral renal cysts COPD (chronic obstructive pulmonary disease) DVT (deep venous thrombosis) Femur fracture Heart disease HTN (hypertension) PE (pulmonary thromboembolism) Personal history of nicotine dependence Unstable angina Vitamin D insufficiency Surgical History History of cholecystectomy History of heart artery stent History of hip surgery left History of hysterectomy Hx of CABG Family History Mother CAD (coronary artery disease) Lung disease Other Cancer Heart disease Hypertension Denies family history of Diabetes Clotting disorder Dementia Hyperlipidemia Psychiatric illness Chronic kidney disease (CKD) Suicide Anesthesia complication Bleeding disorder Stroke Social History Smoking and tobacco status: current every day smoker cigarettes Packs smoked per day: 1 Second hand smoke exposure: Yes Smoking risk assessment/counseling performed?: Yes Alcohol intake: never Desire information about alcohol rehabilitation?: No Counseling given: No Desire information about substance/drug rehabilitation?: No Counseling given: No Caregiver/support person: No Lives independently: Yes Household members: none Marital status: / Number of children: 4 Current occupational status: retired History of recent travel: No Current gender identity: Female Physical Exam Const: GENERAL APPEARANCE: cooperative and frail appearing HENMT: COMMON NORMALS: normocephalic, atraumatic and Normal external nose present HEAD & SCALP: normocephalic and atraumatic FACE & SINUS: normal facial exam NOSE: Normal external nose present Eye: COMMON NORMALS: Equal, round and reactive pupils present and EOMs intact bilaterally PUPIL: Yes Equal, round and reactive pupils present Chest: CHEST: Yes Symmetrical chest wall rise Resp: COMMON NORMALS: No retractions, No use of accessory muscles and clear to auscultation bilaterally AUSCULTATION: clear to auscultation bilaterally and diminished lung sounds Cardio: COMMON NORMALS: regular rate and regular rhythm RATE: regular rate RHYTHM: regular rhythm GI: COMMON NORMALS: Normal to inspection, nondistended, normoactive bowel sounds present, Soft to palpation and non-tender PALPATION: Yes Soft to palpation Extremity: COMMON NORMALS: no pedal edema Neuro: GABRIELLE COMA SCALE: document GCS findings Gabrielle coma scale eye opening: Spontaneous Gabrielle coma scale verbal response: Orientated [place] coma scale motor response: Obey commands [place] coma scale total score: 15 Course Vital Signs: Vital signs: Vital Signs Temperature 100.2 F H 06/16/22 23:04 Pulse Rate 80 06/17/22 00:16 Respiratory Rate 15 06/17/22 00:11 Blood Pressure 129/79 06/16/22 23:04 Pulse Oximetry 92 06/17/22 00:11 Oxygen Delivery Me thod 06/17/22 00:16 Oxygen Flow Rate 1 06/17/22 00:16 MDM - Weakness Medical Decision Making CBC is normal. BMP is normal. Blood gas is essentially normal on room air. CRP is mildly high. COVID antigen is negative. Chest x-ray shows mild bibasil ar opacities that could be shadows, atelectasis, inflammation or infection is improved compared to her prior chest x-ray. She has a significant urinary tract infection by urinalysis. She is covered for this with IV Rocephin. She will be placed on Levaquin to cover both urinary tract infection and possible pneumonia although this is less likely. patient and family counseled. Lab Data : 06/16/22 23:05 06/16/22 23:05 Radiology Impressions Chest X-Ray 06/16/22 23:30 IMPRESSION: Mild bibasilar opacity is may represent superimposition of shadows, atelectasis, inflammation, or infection, improved compared to the prior. Laboratory Results WBC 5.5 10^3/uL (4.0-10.0) 06/16/22 23:05 RBC 3.69 10^6/uL (4.1-5.3) L 06/16/22 23:05 Hgb 11.6 g/dL (11.5-15.3) 06/16/22 23:05 Hct 34.8 % (37.0-47.0) L 06/16/22 23:05 MCV 94.3 fl (81-99) 06/16/22 23:05 MCH 31.4 pg (28.0-34.0) 06/16/22 23:05 MCHC 33.3 g/dL (30.0-36.0) 06/16/22 23:05 RDW 12.2 % (12.1-15.1) 06/16/22 23:05 Plt Count 174 10^3/cmm (130-400) 06/16/22 23:05 MPV 11.2 fL (7.4-10.4) H 06/16/22 23:05 Neut % (Auto) 68.4 % 06/16/22 23:05 Lymph % (Auto) 21.0 % 06/16/22 23:05 Crenshaw % (Auto) 9.1 % 06/16/22 23:05 Eos % (Auto) 0.2 % 06/16/22 23:05 Baso % (Auto) 0.2 % 06/16/22 23:05 Neut # (Auto) 3.75 10^3/uL (1.8-7.7) 06/16/22 23:05 Lymph # (Auto) 1.2 10^3/uL (0.8-4.8) 06/16/22 23:05 Crenshaw # (Auto) 0.5 10^3/uL (0.2-0.9) 06/16/22 23:05 Eos # (Auto) 0.0 10^3/uL (0.0-0.8) 06/16/22 23:05 Baso # (Auto) 0.0 10^3/uL (0.0-0.1) 06/16/22 23:05 Nucleated RBC % (auto) 0 % 06/16/22 23:05 Nucleated RBCs # 0.0 /100WBC 06/16/22 23:05 PT 21.10 SECONDS (12.1-14.9) H 06/16/22 23:05 INR 1.78 (0.8-1.2) H 06/16/22 23:05 Specimen Type Arterial 06/16/22 23:49 Sample Site Radial, right 06/16/22 23:49 ABG pH 7.45 (7.35-7.45) 06/16/22 23:49 ABG pCO2 36.7 mmHg (35-45) 06/16/22 23:49 ABG pO2 69.3 mmHg (80.0-100.0) L 06/16/22 23:49 ABG HCO3 25.4 mmol/L (22-26) 06/16/22 23:49 ABG Base Excess 1.4 mmol/L (-2.0-2.0) 06/16/22 23:49 Milton Test Pos 06/16/22 23:49 Hematocrit 33.9 % (37-47) L 06/16/22 23:49 O2 Delivery Device None 06/16/22 23:49 Insulation Cupola Charger ID Hensa 06/16/22 23:49 Sodium 139 mmol/L (136-145) 06/16/22 23:05 Potassium 3.7 mmol/L (3.5-5.1) 06/16/22 23:05 Chloride 104 mmol/L (98-107) 06/16/22 23:05 Carbon Dioxide 24 mmol/L (22-29) 06/16/22 23:05 Anion Gap 14.7 (5-19) 06/16/22 23:05 BUN 17 mg/dL (8-23) 06/16/22 23:05 Creatinine 0.7 mg/dL (0.5-0.9) 06/16/22 23:05 GFR Calculation 82.7 mL/min (90-130) L 06/16/22 23:05 Glucose 111 mg/dL (65-115) 06/16/22 23:05 Calculated Osmolality 290 mOsm/kg (285-295) 06/16/22 23:05 Lactate 0.6 mmol/L (0.5-2.2) 06/16/22 23:47 Calcium 8.6 mg/dL (8.5-10.5) 06/16/22 23:05 Total Bilirubin 0.4 mg/dL (0.15-1.2) 06/16/22 23:05 AST 15 U/L (0-32) 06/16/22 23:05 ALT 10 U/L (0-33) 06/16/22 23:05 Alkaline Phosphatase 86 IU/L (35-105) 06/16/22 23:05 Creatine Kinase 58 U/L (26-192) 06/16/22 23:05 C-Reactive Protein 60.2 mg/L (0.0-4.9) H 06/16/22 23:05 NT-Pro-B Natriuret Pep 1001 pg/mL (0-125) H 06/16/22 23:05 Total Protein 6.3 g/dL (6.6-8.7) L 06/16/22 23:05 Albumin 3.5 g/dL (3.5-5.2) 06/16/22 23:05 Globulin 2.8 g/dL (1.3-4.6) 06/16/22 23:05 Procalcitonin 0.19 ng/mL (0-0.5) 06/16/22 23:05 Urine Color Yellow (Yellow) 06/17/22 01:10 Urine Appearance Clear (CLEAR) 06/17/22 01:10 Urine pH 6.5 (5-7) 06/17/22 01:10 Ur Specific [place] 1.010 (1.005-1.030) 06/17/22 01:10 Urine Protein Neg (Negative) 06/17/22 01:10 Urine Glucose (UA) Norm (Normal) 06/17/22 01:10 Urine Ketones Negative (Negative) 06/17/22 01:10 Urine Blood Neg (Negative) 06/17/22 01:10 Urine Nitrate Negative (Negative) 06/17/22 01:10 Urine Bilirubin Neg (Negative) 06/17/22 01:10 Urine Urobilinogen Neg mg/dL (Negative) 06/17/22 01:10 Ur Leukocyte Esterase 2+ (Negative) H 06/17/22 01:10 Urine RBC 0-4 /hpf (0-2) H 06/17/22 01:10 Urine WBC 10-15 /hpf (0-5) H 06/17/22 01:10 Ur Squamous Epith Cells 0-4 /hpf (0-5) H 06/17/22 01:10 Amorphous Sediment Not Reportable 06/17/22 01:10 Urine Bacteria Trace /hpf (NONE) 06/17/22 01:10 Urine Mucus 1+ /hpf 06/17/22 01:10 SARS-CoV-2 Ag (Rapid) Negative (Negative) 06/16/22 23:05 Discharge Plan Discharge Patient Disposition: Home Clinical Impression: UTI (urinary tract infection), Fever Condition: Stable Prescriptions: New levofloxacin 500 mg tablet 500 mg PO DAILY 7 Days Qty: 7 0RF No Action albuterol sulfate 2.5 mg /3 mL (0.083 %) solution for nebulization 2.5 mg inhalation Q4H PRN (Reason: shortness of breath or wheezing) Qty: 75 2RF valsartan [Diovan] 80 mg tablet 80 mg PO DAILY Qty: 30 1RF acetaminophen [Tylenol] 325 mg Tablet 325 - 350 mg PO QID PRN (Reason: headache/pain) atorvastatin [Lipitor] 40 mg tablet 40 mg PO QPM Qty: 0 0RF clopidogrel [Plavix] 75 mg Tablet 75 mg PO DAILY@0900 aspirin 81 mg Tablet,Chewable 81 mg PO DAILY@0900 isosorbide mononitrate 30 mg Tablet Extended Release 24 Hr 30 mg PO BID@0900,1800 warfarin 5 mg tablet See Rx Instructions .ROUTE .COMPLEX Rx Instructions: 5 MG PO EVERYDAY EXCEPT 7.5MG ON SATURDAY AND SATURDAY carvedilol 3.125 mg Tablet 3.125 mg PO BID 30 Days Qty: 60 0RF diltiazem HCl 120 mg Capsule,Extended Release 24hr 120 mg PO DAILY@0900 30 Days Qty: 30 0RF Keppra 500 mg tablet 500 mg PO BID 30 Days Qty: 60 0RF Discharge Orders: Discharge ED (Routine); Ordered 06/17/22 Ordered By: Edison Medrano Referrals: Loretta Ramírez FNP-C [Primary Care Provider] - 1-3 days Patient Instructions: Fever in Adults (ED), Urinary Tract Infection in Older Adults (ED) Activity Restrictions/Additional Instructions: Follow-up with your doctor this coming week. As you have been placed on antibiotics, you may need to have your INR level rechecked while on warfarin. Return for continued fever despite 2-3 doses of antibiotics, worsening shortness of breath, worsening mental status or weakness, any other concerning symptoms despite treatment. Coding Level of Care Code ED Sausage Wrapper for Chg Fwd Exam Comprehensive Documented by User: Edna Smith MD 06/17/22 01:19 HPI - Weakness General: Chief complaint: Weakness Stated complaint: weakness Time Seen by Provider: 06/16/22 23:09 PFSH ED PFSH: Medical History Age related osteoporosis Bilateral renal cysts COPD (chronic obstructive pulmonary disease) DVT (deep venous thrombosis) Femur fracture Heart disease HTN (hypertension) PE (pulmonary thromboembolism) Personal history of nicotine dependence Unstable angina Vitamin D insufficiency Surgical History History of cholecystectomy History of heart artery stent History of hip surgery left History of hysterectomy Hx of CABG Family History Mother CAD (coronary artery disease) Lung disease Other Cancer Heart disease Hypertension Denies family history of Diabetes Clotting disorder Dementia Hyperlipidemia Psychiatric illness Chronic kidney disease (CKD) Suicide Anesthesia complication Bleeding disorder Stroke Social History Smoking and tobacco status: current every day smoker cigarettes Packs smoked per day: 1 Second hand smoke exposure: Yes Smoking risk assessment/counseling performed?: Yes Alcohol intake: never Desire information about alcohol rehabilitation?: No Counseling given: No Desire information about substance/drug rehabilitation?: No Counseling given: No Caregiver/support person: No Lives independently: Yes Household members: none Marital status: / Number of children: 4 Current occupational status: retired History of recent travel: No Current gender identity: Female Physical Exam Neuro: GABRIELLE COMA SCALE: document GCS findings Gabrielle coma scale total score: 15 Course 2 Vital Signs: Vital signs: Vital Signs Temperature 100.2 F H 06/16/22 23:04 Pulse Rate 80 06/17/22 00:16 Respiratory Rate 15 06/17/22 00:11 Blood Pressure 129/79 06/16/22 23:04 Pulse Oximetry 92 06/17/22 00:11 Oxygen Delivery Me thod 06/17/22 00:16 Oxygen Flow Rate 1 06/17/22 00:16 MDM - Weakness Lab Data : 06/16/22 23:05 06/16/22 23:05 Radiology Impressions Chest X-Ray 06/16/22 23:30 IMPRESSION: Mild bibasilar opacity is may represent superimposition of shadows, atelectasis, inflammation, or infection, improved compared to the prior. Laboratory Results WBC 5.5 10^3/uL (4.0-10.0) 06/16/22 23:05 RBC 3.69 10^6/uL (4.1-5.3) L 06/16/22 23:05 Hgb 11.6 g/dL (11.5-15.3) 06/16/22 23:05 Hct 34.8 % (37.0-47.0) L 06/16/22 23:05 MCV 94.3 fl (81-99) 06/16/22 23:05 MCH 31.4 pg (28.0-34.0) 06/16/22 23:05 MCHC 33.3 g/dL (30.0-36.0) 06/16/22 23:05 RDW 12.2 % (12.1-15.1) 06/16/22 23:05 Plt Count 174 10^3/cmm (130-400) 06/16/22 23:05 MPV 11.2 fL (7.4-10.4) H 06/16/22 23:05 Neut % (Auto) 68.4 % 06/16/22 23:05 Lymph % (Auto) 21.0 % 06/16/22 23:05 Crenshaw % (Auto) 9.1 % 06/16/22 23:05 Eos % (Auto) 0.2 % 06/16/22 23:05 Baso % (Auto) 0.2 % 06/16/22 23:05 Neut # (Auto) 3.75 10^3/uL (1.8-7.7) 06/16/22 23:05 Lymph # (Auto) 1.2 10^3/uL (0.8-4.8) 06/16/22 23:05 [place] # (Auto) 0.5 10^3/uL (0.2-0.9) 06/16/22 23:05 Eos # (Auto) 0.0 10^3/uL (0.0-0.8) 06/16/22 23:05 Baso # (Auto) 0.0 10^3/uL (0.0-0.1) 06/16/22 23:05 Nucleated RBC % (auto) 0 % 06/16/22 23:05 Nucleated RBCs # 0.0 /100WBC 06/16/22 23:05 PT 21.10 SECONDS (12.1-14.9) H 06/16/22 23:05 INR 1.78 (0.8-1.2) H 06/16/22 23:05 Specimen Type Arterial 06/16/22 23:49 Sample Site Radial, right 06/16/22 23:49 ABG pH 7.45 (7.35-7.45) 06/16/22 23:49 ABG pCO2 36.7 mmHg (35-45) 06/16/22 23:49 ABG pO2 69.3 mmHg (80.0-100.0) L 06/16/22 23:49 ABG HCO3 25.4 mmol/L (22-26) 06/16/22 23:49 ABG Base Excess 1.4 mmol/L (-2.0-2.0) 06/16/22 23:49 Milton Test Pos 06/16/22 23:49 Hematocrit 33.9 % (37-47) L 06/16/22 23:49 O2 Delivery Device None 06/16/22 23:49 Insulation Cupola Charger ID Hensa 06/16/22 23:49 Sodium 139 mmol/L (136-145) 06/16/22 23:05 Potassium 3.7 mmol/L (3.5-5.1) 06/16/22 23:05 Chloride 104 mmol/L (98-107) 06/16/22 23:05 Carbon Dioxide 24 mmol/L (22-29) 06/16/22 23:05 Anion Gap 14.7 (5-19) 06/16/22 23:05 BUN 17 mg/dL (8-23) 06/16/22 23:05 Creatinine 0.7 mg/dL (0.5-0.9) 06/16/22 23:05 GFR Calculation 82.7 mL/min (90-130) L 06/16/22 23:05 Glucose 111 mg/dL (65-115) 06/16/22 23:05 Calculated Osmolality 290 mOsm/kg (285-295) 06/16/22 23:05 Lactate 0.6 mmol/L (0.5-2.2) 06/16/22 23:47 Calcium 8.6 mg/dL (8.5-10.5) 06/16/22 23:05 Total Bilirubin 0.4 mg/dL (0.15-1.2) 06/16/22 23:05 AST 15 U/L (0-32) 06/16/22 23:05 ALT 10 U/L (0-33) 06/16/22 23:05 Alkaline Phosphatase 86 IU/L (35-105) 06/16/22 23:05 Creatine Kinase 58 U/L (26-192) 06/16/22 23:05 C-Reactive Protein 60.2 mg/L (0.0-4.9) H 06/16/22 23:05 NT-Pro-B Natriuret Pep 1001 pg/mL (0-125) H 06/16/22 23:05 Total Protein 6.3 g/dL (6.6-8.7) L 06/16/22 23:05 Albumin 3.5 g/dL (3.5-5.2) 06/16/22 23:05 Globulin 2.8 g/dL (1.3-4.6) 06/16/22 23:05 Procalcitonin 0.19 ng/mL (0-0.5) 06/16/22 23:05 Urine Color Yellow (Yellow) 06/17/22 01:10 Urine Appearance Clear (CLEAR) 06/17/22 01:10 Urine pH 6.5 (5-7) 06/17/22 01:10 Ur Specific [place] 1.010 (1.005-1.030) 06/17/22 01:10 Urine Protein Neg (Negative) 06/17/22 01:10 Urine Glucose (UA) Norm (Normal) 06/17/22 01:10 Urine Ketones Negative (Negative) 06/17/22 01:10 Urine Blood Neg (Negative) 06/17/22 01:10 Urine Nitrate Negative (Negative) 06/17/22 01:10 Urine Bilirubin Neg (Negative) 06/17/22 01:10 Urine Urobilinogen Neg mg/dL (Negative) 06/17/22 01:10 Ur Leukocyte Esterase 2+ (Negative) H 06/17/22 01:10 Urine RBC 0-4 /hpf (0-2) H 06/17/22 01:10 Urine WBC 10-15 /hpf (0-5) H 06/17/22 01:10 Ur Squamous Epith Cells 0-4 /hpf (0-5) H 06/17/22 01:10 Amorphous Sediment Not Reportable 06/17/22 01:10 Urine Bacteria Trace /hpf (NONE) 06/17/22 01:10 Urine Mucus 1+ /hpf 06/17/22 01:10 SARS-CoV-2 Ag (Rapid) Negative (Negative) 06/16/22 23:05 Discharge Plan Discharge Patient Disposition: Home Clinical Impression: UTI (urinary tract infection), Fever Condition: Stable Prescriptions: New levofloxacin 500 mg tablet 500 mg PO DAILY 7 Days Qty: 7 0RF No Action albuterol sulfate 2.5 mg /3 mL (0.083 %) solution for nebulization 2.5 mg inhalation Q4H PRN (Reason: shortness of breath or wheezing) Qty: 75 2RF valsartan [Diovan] 80 mg tablet 80 mg PO DAILY Qty: 30 1RF acetaminophen [Tylenol] 325 mg Tablet 325 - 350 mg PO QID PRN (Reason: headache/pain) atorvastatin [Lipitor] 40 mg tablet 40 mg PO QPM Qty: 0 0RF clopidogrel [Plavix] 75 mg Tablet 75 mg PO DAILY@0900 aspirin 81 mg Tablet,Chewable 81 mg PO DAILY@0900 isosorbide mononitrate 30 mg Tablet Extended Release 24 Hr 30 mg PO BID@0900,1800 warfarin 5 mg tablet See Rx Instructions .ROUTE .COMPLEX Rx Instructions: 5 MG PO EVERYDAY EXCEPT 7.5MG ON SATURDAY AND SATURDAY carvedilol 3.125 mg Tablet 3.125 mg PO BID 30 Days Qty: 60 0RF diltiazem HCl 120 mg Capsule,Extended Release 24hr 120 mg PO DAILY@0900 30 Days Qty: 30 0RF Keppra 500 mg tablet 500 mg PO BID 30 Days Qty: 60 0RF Discharge Orders: Discharge ED (Routine); Ordered 06/17/22 Ordered By: Edison Medrano Referrals: Loretta Ramírez, [facility] ASSOCIATE-C [Primary Care Provider] - 1-3 days Patient Instructions: Fever in Adults (ED), Urinary Tract Infection in Older Adults (ED) Activity Restrictions/Additional Instructions: Follow-up with your doctor this coming week. As you have been placed on a ntibiotics, you may need to have your INR level rechecked while on warfarin. Return for continued fever despite 2-3 doses of antibiotics, worsening shortness of breath, worsening mental status or weakness, any other concerning symptoms despite treatment. Coding Level of Care Code ED Sausage Wrapper for Kayden Molina Exam Comprehensive
[2022-06-17 01:24] LABS: Bilirubin Urine Neg (Negative); Blood Urine Neg (Negative); Glucose Urine UA Norm (Normal); Ketones Urine Negative (Negative); Nitrate Urine Negative (Negative); Protein Urine Neg (Negative); Urine Appearance Clear (CLEAR); Urine Color Yellow (Yellow); pH Urine 6.5 (5-7)
[2022-06-17 01:25] LABS: Add Urine Culture? No; Add Urine Microscopic? YES; Bacteria Urine TRACE /hpf; Leukocyte Esterase Urine 2+ (Negative); Mucus Urine 1+ /hpf; RBC Urine 0-4 /hpf (0-2); Squamous Epithelial Cell Urine 0-4 /hpf (0-5); Urobilinogen Urine Neg (Negative)
[2022-06-17] MEDS: cefTRIAXone 1,000 MG in sodium chloride 0.9% (plus) 50 ML 100 MG IV (01:25)
== END 2022-06-17 02:52 | disposition home or self-care (01) ==
PROVIDERS: Emergency Provider Emergency Medicine; PCP Nurse Practitioner
DX: N39.0 Urinary tract infection, site not specified (principal); Z79.01 Long term (current) use of anticoagulants; Z79.02 Long term (current) use of antithrombotics/antiplatelets; Z79.82 Long term (current) use of aspirin; J44.9 Chronic obstructive pulmonary disease, unspecified; I10 Essential (primary) hypertension; Z95.1 Presence of aortocoronary bypass graft; F17.210 Nicotine dependence, cigarettes, uncomplicated; Z20.822 Contact with and (suspected) exposure to COVID-19
CPT/HCPCS: 36415; 36600; 71045; 80053; 81001; 82550; 82803; 83605; 83880; 84145; 85025; 85610; 86140; 87040; 87426; 93005; 94640; 96365; 99285; J0696; J7030

== ENCOUNTER 2022-07-10 12:52 | Oncology outpatient (recurring) (ONCR) | payer MEDICARE, OTHER, SELFPAY ==
[2022-07-10 13:43] LABS: Basophils % 0.6 %; Eosinophils # 0.2 10^3/uL (0.0-0.8); Eosinophils % 3.2 %; Hematocrit 35.8 % (37.0-47.0); Hemoglobin 11.1 g/dL (11.5-15.3); Lymphocytes # 2.9 10^3/uL (0.8-4.8); Lymphocytes % 41.1 %; Mean Corpuscular Hemoglobin 30.5 pg (28.0-34.0); Mean Corpuscular Volume 98.4 fl (81-99); Mean Platelet Volume 10.4 fL (7.4-10.4); Monocytes # 0.7 10^3/uL (0.2-0.9); Monocytes % 9.7 %; Neutrophils # 3.13 10^3/uL (1.8-7.7); Neutrophils % 44.8 %; Nucleated Red Blood Cells % 0 %; Platelet Count 269 10^3/cmm (130-400); Red Blood Count 3.64 10^6/uL (4.1-5.3); Red Cell Distribution Width 13.2 % (12.1-15.1)
== END 2022-07-18 23:59 | disposition home or self-care (01) ==
PROVIDERS: PCP Nurse Practitioner; Visit Provider Nurse Practitioner Family
DX: D72.829 Elevated white blood cell count, unspecified (principal); F17.210 Nicotine dependence, cigarettes, uncomplicated
CPT/HCPCS: 85025; 99214; G0463

== ENCOUNTER 2022-07-27 08:28 | Outpatient (CLI) | payer MEDICARE, OTHER, SELFPAY ==
--- NOTE | 2022-07-27 10:00 | CT_ITS ---
WS: [id number] CT ABDOMEN PELVIS TECHNIQUE: Contrast-enhanced CT of the abdomen and pelvis with coronal and sagittal reformatted image s. CLINICAL INFORMATION: R63.4 - Abnormal weight loss COMPARISON: 08 15,017 DLP: 939.[address] scans at [facility] use at least one of these dose optimization techniques: automated e xposure control; mA and/or kV adjustment per patient size (includes targeted exams where dose is matc hed to clinical indication); or iterative reconstruction. FINDINGS: Diffuse fatty infiltration of the liver. Hepatic and splenic granulomas. The lung bases are well aera emir. Tiny esophageal hiatal hernia. Normal stomach and proximal duodenum. Normal pancreatic parenchymal enhancement. Prior cholecystectomy. Mild prominence of the common bile duct likely physiologic postcholecystectomy. Adrenal glands are normal. Normal renal parenchymal enha ncement. Bilateral renal cysts. No hydronephrosis. Tiny fat-containing umbilical hernia. Moderate chronic atheromatous disease abdominal aorta. Abdomina l aorta measures 1.9 x 2.1 cm in maximum dimension AP by transverse. Celiac and SMA are patent with d ense calcification at the origins. Normal sigmoid colon. No evidence of high-grade small or obstruction. No periaortic or pelvic lymphad enopathy. No inguinal lymphadenopathy. Disc space narrowing worse L5-S1. Cannulated screw fixation LEFT hip. Prior hysterectomy. CT/CT abdomen pelvis w con* [id number] IMPRESSION: 1. Diffuse fatty infiltration liver. Splenic and hepatic granulomas. 2. Tiny esophageal hiatal hernia. 3. Advanced atheromatous disease abdominal aorta with dense calcification alex ac and SMA origins which are patent. Severe stenosis of the SMA origin. 4. Maximum Aortic diameter 1.9 x 2.0 cm AP by transverse. 5. Prior cholecystectomy. 6. Bilateral renal cysts. 7. Prior hysterectomy. 8. No other remarkable findings.
[2022-07-27] MEDS: barium sulfate 450 mL Oral Susp PO (10:17)
[2022-07-27] MEDS: iohexol 350 mg/mL 100 mL Btl IV (10:17)
== END 2022-07-27 08:29 | disposition home or self-care (01) ==
PROVIDERS: PCP Nurse Practitioner; Visit Provider Nurse Practitioner
DX: R63.4 Abnormal weight loss (principal); R10.10 Upper abdominal pain, unspecified; K76.0 Fatty (change of) liver, not elsewhere classified; N28.1 Cyst of kidney, acquired; Z90.710 Acquired absence of both cervix and uterus; Z90.49 Acquired absence of other specified parts of digestive tract; I70.0 Atherosclerosis of aorta
CPT/HCPCS: 74177

== ENCOUNTER → 2022-08-29 13:58 | Outpatient (BNVA) | payer MEDICARE, OTHER, SELFPAY | PROVIDERS: PCP Nurse Practitioner; Visit Provider Nurse Practitioner | DX: I48.91 Unspecified atrial fibrillation (principal); E55.9 Vitamin D deficiency, unspecified; Z23 Encounter for immunization; I10 Essential (primary) hypertension | CPT/HCPCS: 80053; 82306; 82607; 84443; 85025; 85610 ==

== ENCOUNTER 2022-08-31 12:06 | Outpatient (CLI) | payer MEDICARE, OTHER, SELFPAY ==
--- NOTE | 2022-08-31 12:14 | XR_ITS ---
WS: [id number] Lumbar spine, 3 views, 08/31/2022 Clinical Data: I48.91 - Unspecified atrial fibrillation Comparison: Lumbar spine, 06/22/2016. Findings: There is degenerative disc narrowing at L3-L4 and worse at L5-S1. There is cortical irregularity of t he superior aspect of L3 which may represent a minimal cortical fracture. There is anterior osteoarth ritic spurring from L3 through L5. The transverse processes and SI joints are normal. There is diffuse demineralization of the lumbar sp ine. There are bilateral common iliac artery stents. There are calcifications overlying the right kid johanna. XR/XR lumbar spine 2-3V* [id number] Impression: 1. Degenerative disc narrowing at L3-L4 and L5-S1 with spurring L3-L5. 2. Minimal cortical irregularity of the superior aspect of L3 which may represe nt a cortical fracture. 3. Diffuse demineralization. 4. Possible right renal calcifications.
== END 2022-08-31 12:07 | disposition home or self-care (01) ==
LOC: RAD 12:09
PROVIDERS: PCP Nurse Practitioner; Visit Provider Nurse Practitioner
DX: I48.91 Unspecified atrial fibrillation (principal); M54.50 Low back pain, unspecified; M79.604 Pain in right leg; M48.07 Spinal stenosis, lumbosacral region; N20.0 Calculus of kidney
CPT/HCPCS: 72100

== ENCOUNTER 2022-09-20 13:20 | Outpatient (CLI) | payer MEDICARE, OTHER, SELFPAY | END 2022-09-20 13:21 | disposition home or self-care (01) | LOC: LAB 13:23 | PROVIDERS: PCP Nurse Practitioner; Visit Provider Internal Medicine Cardiovascular Disease | DX: I48.0 Paroxysmal atrial fibrillation (principal); Z79.01 Long term (current) use of anticoagulants | CPT/HCPCS: 36415; 85610 ==

== ENCOUNTER 2022-10-04 11:46 | Outpatient (CLI) | payer MEDICARE, OTHER, SELFPAY ==
[2022-10-04 12:26] LABS: INR 3.08 (0.8-1.2)
== END 2022-10-04 11:47 | disposition home or self-care (01) ==
PROVIDERS: PCP Nurse Practitioner; Visit Provider Internal Medicine Cardiovascular Disease
DX: I48.0 Paroxysmal atrial fibrillation (principal); Z79.01 Long term (current) use of anticoagulants
CPT/HCPCS: 36415; 85610

== ENCOUNTER 2022-10-10 09:43 | Outpatient (CLI) | payer MEDICARE, OTHER, SELFPAY ==
[2022-10-10 10:39] LABS: INR 2.63 (0.8-1.2)
== END 2022-10-10 09:44 | disposition home or self-care (01) ==
LOC: LAB 09:52
PROVIDERS: PCP Nurse Practitioner; Visit Provider Internal Medicine Cardiovascular Disease
DX: Z79.01 Long term (current) use of anticoagulants (principal)
CPT/HCPCS: 36415; 85610

== ENCOUNTER 2022-11-08 09:43 | Outpatient (CLI) | payer MEDICARE, OTHER, SELFPAY ==
[2022-11-08 10:47] LABS: INR 1.13 (0.8-1.2)
== END 2022-11-08 09:44 | disposition home or self-care (01) ==
LOC: LAB 09:51
PROVIDERS: PCP Nurse Practitioner; Visit Provider Internal Medicine Cardiovascular Disease
DX: Z79.01 Long term (current) use of anticoagulants (principal); I48.0 Paroxysmal atrial fibrillation
CPT/HCPCS: 36415; 85610

== ENCOUNTER 2022-11-26 10:18 | Outpatient (CLI) | payer MEDICARE, OTHER, SELFPAY | END 2022-11-26 10:19 | disposition home or self-care (01) | LOC: LAB 10:25 | PROVIDERS: PCP Nurse Practitioner; Visit Provider Internal Medicine Cardiovascular Disease | DX: I48.0 Paroxysmal atrial fibrillation (principal) | CPT/HCPCS: 36415; 85610 ==

== ENCOUNTER 2022-12-05 16:17 | Outpatient (CLI) | payer MEDICARE, OTHER, SELFPAY ==
[2022-12-05 17:58] LABS: INR 4.36 (0.8-1.2)
== END 2022-12-05 16:18 | disposition home or self-care (01) ==
LOC: LAB 16:23
PROVIDERS: PCP Nurse Practitioner; Visit Provider Nurse Practitioner
DX: Z01.89 Encounter for other specified special examinations (principal)
CPT/HCPCS: 36415; 85610

== ENCOUNTER 2022-12-13 13:45 | Outpatient (CLI) | payer MEDICARE, OTHER, SELFPAY ==
[2022-12-13 14:22] LABS: INR 1.85 (0.8-1.2)
== END 2022-12-13 13:46 | disposition home or self-care (01) ==
PROVIDERS: PCP Nurse Practitioner; Visit Provider Internal Medicine Cardiovascular Disease
DX: I48.0 Paroxysmal atrial fibrillation (principal); Z79.01 Long term (current) use of anticoagulants
CPT/HCPCS: 36415; 85610

== ENCOUNTER → 2022-12-27 14:04 | Outpatient (BNVA) | payer MEDICARE, OTHER, SELFPAY | PROVIDERS: PCP Nurse Practitioner; Visit Provider Nurse Practitioner | DX: E55.9 Vitamin D deficiency, unspecified (principal); I10 Essential (primary) hypertension; I48.91 Unspecified atrial fibrillation | CPT/HCPCS: 80053; 82306; 85610 ==

== ENCOUNTER 2023-01-10 12:44 | Outpatient (CLI) | payer MEDICARE, OTHER, SELFPAY ==
[2023-01-10 14:33] LABS: INR 7.14 (0.8-1.2)
== END 2023-01-10 12:45 | disposition home or self-care (01) ==
PROVIDERS: Family Medicine; PCP Nurse Practitioner; Visit Provider Internal Medicine Cardiovascular Disease
DX: I48.0 Paroxysmal atrial fibrillation (principal)
CPT/HCPCS: 36415; 85610

== ENCOUNTER 2023-01-15 14:44 | Outpatient (CLI) | payer MEDICARE, OTHER, SELFPAY | END 2023-01-15 14:45 | disposition home or self-care (01) | LOC: LAB 14:56 | PROVIDERS: PCP Nurse Practitioner; Visit Provider Internal Medicine Cardiovascular Disease | DX: I48.0 Paroxysmal atrial fibrillation (principal); Z79.01 Long term (current) use of anticoagulants | CPT/HCPCS: 36415; 85610 ==

== ENCOUNTER 2023-01-25 10:37 | Outpatient (CLI) | payer MEDICARE, OTHER, SELFPAY ==
[2023-01-25 11:39] LABS: INR 2.46 (0.8-1.2)
== END 2023-01-25 10:38 | disposition home or self-care (01) ==
LOC: LAB 10:39
PROVIDERS: PCP Nurse Practitioner; Visit Provider Internal Medicine Cardiovascular Disease
DX: Z79.01 Long term (current) use of anticoagulants (principal)
CPT/HCPCS: 36415; 85610

== ENCOUNTER 2023-02-11 12:24 | Outpatient (CLI) | payer MEDICARE, OTHER, SELFPAY ==
[2023-02-11 13:51] LABS: INR 3.52 (0.8-1.2)
== END 2023-02-11 12:25 | disposition home or self-care (01) ==
PROVIDERS: PCP Nurse Practitioner; Visit Provider Internal Medicine Cardiovascular Disease
DX: I48.0 Paroxysmal atrial fibrillation (principal); Z79.01 Long term (current) use of anticoagulants
CPT/HCPCS: 36415; 85610

== ENCOUNTER 2023-03-05 10:56 | Outpatient (CLI) | payer MEDICARE, OTHER, SELFPAY ==
[2023-03-05 11:47] LABS: INR 2.21 (0.8-1.2)
== END 2023-03-05 10:57 | disposition home or self-care (01) ==
LOC: LAB 11:03
PROVIDERS: PCP Nurse Practitioner; Visit Provider Internal Medicine Cardiovascular Disease
DX: I48.0 Paroxysmal atrial fibrillation (principal)
CPT/HCPCS: 36415; 85610

== ENCOUNTER 2023-03-27 22:54 | Emergency (ER) | payer MEDICARE, OTHER, SELFPAY ==
[2023-03-27 22:56] VITALS: BP 190/80; PULSE 83; RESP 16; TEMP 37.1; O2SAT 96; BMI 26.9
--- NOTE | 2023-03-27 23:02 | ECG_ITS ---
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 Measurements Intervals [place] Rate: 78 P: 80 WA: 177 QRS: 86 QRSD: 91 T: 83 QT: 380 QTc: 435 Interpretive Statements SINUS RHYTHM WITH SINUS ARRHYTHMIA MODERATE ST DEPRESSION [0.05+ mV ST DEPRESSION] Compared to ECG 06/16/2022 23:05:52 ST (T wave) deviation now present Electronically Signed On 03-28-2023 13:59:27 CDT by Ritchie Ferreira M.D. [id number] f
[2023-03-27 23:03] VITALS: BP 182/76
--- NOTE | 2023-03-27 23:03 | CTR_ITS ---
PROCEDURE INFORMATION: Exam: CT Head Without Contrast Exam date and time: 03/27/2023 11:44 PM Age: 73 years old Clinical indication: Weakness, facial; Patient HX: Right side facial and arm numbess; Additional info: Face numbness TECHNIQUE: Imaging protocol: Computed tomography of the head without contrast. Radiation optimization: All CT scans at this facility use at least one of these dose optimization techniques: automated exposure control; mA and/or kV adjustment per patient size (includes targeted exams where dose is matched to clinical indication); or iterative reconstruction. REPORTING DATA: Count of CT and Cardiac NM exams in prior 12 months: This patient has received 3 known CTs and 0 known cardiac nuclear medicine studies in the 12 months prior to the current study. COMPARISON: 1. [place] [id number] 06/05/2022 3:[address] head wo con* [id number] 12/15/2019 6:10 PM RADIATION DOSE METRICS: Total DLP (mGy-cm): 1167 FINDINGS: Brain: There is mild cortical atrophy. Low-density changes in the white matter are consistent with nonspecific small vessel chronic ischemic change. There is no intracranial mass, hemorrhage or edema. Cerebral ventricles: No ventriculomegaly. Paranasal sinuses: Visualized sinuses are unremarkable. No fluid levels. Mastoid air cells: Visualized mastoid air cells are well aerated. Bones/joints: Unremarkable. No acute fracture. Soft tissues: Unremarkable. CT/CT head wo con* [id number] IMPRESSION: No acute intracranial finding. No significant change from 06/04/2022.
--- NOTE | 2023-03-27 23:03 | CTR_ITS ---
PROCEDURE INFORMATION: Exam: CTA Head With Contrast, Arteriography Exam date and time: 03/27/2023 11:47 PM Age: 73 years old Clinical indication: Weakness; Additional info: Neurosymptoms TECHNIQUE: Imaging protocol: Computed tomographic angiography of the head with contrast. Exam focused on the arteries. 3D rendering (Not supervised by radiologist): MIP and/or 3D reconstructed images were created by the technologist. Radiation optimization: All CT scans at this facility use at least one of these dose optimization techniques: automated exposure control; mA and/or kV adjustment per patient size (includes targeted exams where dose is matched to clinical indication); or iterative reconstruction. Contrast material: OMNI 350; Contrast volume: 80 ml; Contrast route: INTRAVENOUS (IV); REPORTING DATA: Count of CT and Cardiac NM exams in prior 12 months: This patient has received 3 known CTs and 0 known cardiac nuclear medicine studies in the 12 months prior to the current study. COMPARISON: CT head wo con* [id number] 03/27/2023 11:44 PM RADIATION DOSE METRICS: Total DLP (mGy-cm): 405.3 FINDINGS: ANTERIOR CIRCULATION: Right internal carotid artery: There is some atherosclerotic calcification and mild stenosis in the right cavernous carotid artery. Right middle cerebral artery: No occlusion or significant stenosis. No aneurysm. Right anterior cerebral artery: No occlusion or significant stenosis. No aneurysm. Left internal carotid artery: There is atherosclerotic calcification and mild stenosis in the left cavernous carotid artery. Left middle cerebral artery: No occlusion or significant stenosis. No aneurysm. Left anterior cerebral artery: No occlusion or significant stenosis. No aneurysm. POSTERIOR CIRCULATION: Right vertebral artery: No occlusion or significant stenosis. No aneurysm. Left vertebral artery: There is atherosclerotic calcification and mild stenosis in the mid left V4 vertebral artery segment. Basilar artery: No occlusion or significant stenosis. No aneurysm. Right posterior cerebral artery: No occlusion or significant stenosis. No aneurysm. Left posterior cerebral artery: No occlusion or significant stenosis. No aneurysm. Brain: No definite mass, mass effect, or midline shift. Cerebral ventricles: No ventriculomegaly. Bones/joints: Unremarkable. No acute fracture. Soft tissues: Unremarkable. PROCEDURE INFORMATION: Exam: CTA Neck With Contrast Exam date and time: 03/27/2023 11:47 PM Age: 73 years old Clinical indication: Weakness; Additional info: Neurosymptoms TECHNIQUE: Imaging protocol: Computed tomographic angiography of the neck with contrast. 3D rendering (Not supervised by radiologist): MIP and/or 3D reconstructed images were created by the technologist. Radiation optimization: All CT scans at this facility use at least one of these dose optimization techniques: automated exposure control; mA and/or kV adjustment per patient size (includes targeted exams where dose is matched to clinical indication); or iterative reconstruction. Contrast material: OMNI 350; Contrast volume: 80 ml; Contrast route: INTRAVENOUS (IV); REPORTING DATA: Count of CT and Cardiac NM exams in prior 12 months: This patient has received 3 known CTs and 0 known cardiac nuclear medicine studies in the 12 months prior to the current study. COMPARISON: CT head wo con* [id number] 03/27/2023 11:44 PM RADIATION DOSE METRICS: Total DLP (mGy-cm): 405.7 FINDINGS: Right common carotid artery: No stenosis. No dissection or occlusion. Right internal carotid artery: There is some atherosclerotic calcification and plaque in the proximal right internal carotid artery with some ulcerated plaque in the carotid bulb and stenosis 2 cm beyond the origin in the 60-70% range as measured according to the NASCET criteria. Right external carotid artery: No occlusion or stenosis of the origin. Left common carotid artery: No stenosis. No dissection or occlusion. Left internal carotid artery: There is atherosclerotic plaque and calcification in the proximal left internal carotid artery causing mild to moderate stenosis in the 50% range as measured according to the NASCET criteria. Left external carotid artery: No occlusion or stenosis of the origin. Right vertebral artery: No stenosis. No dissection or occlusion. Left vertebral artery: No stenosis. No dissection or occlusion. Left subclavian artery: There is some atherosclerotic plaque and mild narrowing of the proximal left subclavian artery. Soft tissues: Normal. No significant soft tissue swelling. Bones/joints: No acute fracture. Lungs: There is moderate centrilobular emphysema in the pulmonary apices. CT/CT angio headneck* [id number] IMPRESSION: There is no large vessel intracranial occlusion or significant intracranial arterial stenosis. IMPRESSION: 1. 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 Mild to moderate stenosis in the proximal left internal carotid artery. REFERENCES: NASCET CRITERIA. The degree of stenosis in the cervical segment of the internal carotid artery is based on NASCET criteria. Normal is no stenosis. Mild is less than 50% stenosis. Moderate is 50-69% stenosis. Severe is 70% to 99% stenosis. Total occlusion is no detectable patent lumen.
--- NOTE | 2023-03-27 23:06 | W.ED.NEUROSD ---
Documented by User: SIMA Pratt 03/28/23 01:14 HPI - Neuro Symptoms/Deficit General: Chief Complaint: Neuro Symptoms/Deficit Stated Complaint: FACE NUMBNESS Time Seen by Provider: 03/27/23 23:03 History of Present Illness: 73-year-old female comes in today with complaints of numbness and weakness to the right side since this morning. Patient reports headache that started on Saturday. Patient states that she awakened this morning with numbness of her extremities and right side of the face. Patient reports some weakness in the right side arm and leg. Patient has medical history of coronary artery bypass about 10 years ago, history of DVT, chronic lung disease, history of PE, hypertension. Patient does take routine blood thinners including warfarin, Plavix, isosorbide, and valsartan. Patient is alert and answers questions appropriately. Patient denies any chest pain. Onset (ago): day(s) (Headache started on Saturday) Location: right face, right arm and right leg History of same: No Severity: moderate Quality: weak and numb Relieving factors: none Exacerbating factors: none Context: other (Awakened with numbness and weakness) On Anticoagulants: Yes Associated symptoms: Reports headache(s); Deny chest pain, nausea or vomiting Treatments Prior to Arrival: none Review of Systems General: Reports: 10 or more systems reviewed and unremarkable except in HPI and below Const: Denies: fever(s) Eyes: Denies: change in vision ENMT: Denies: throat pain Card: Denies: chest pain Resp: Denies: dyspnea GI: Denies: nausea, vomiting, diarrhea or constipation : Denies: difficulty voiding Musc: Denies: neck pain or back pain Skin/Breast: Denies: rash Neuro: Reports: headache(s) and numbness in extremities [facility] ED PFSH: Medical History Age related osteoporosis Bilateral renal cysts COPD (chronic obstructive pulmonary disease) DVT (deep venous thrombosis) Femur fracture Heart disease HTN (hypertension) PE (pulmonary thromboembolism) Personal history of nicotine dependence Unstable angina Vitamin D insufficiency Surgical History History of cholecystectomy History of heart artery stent History of hip surgery left History of hysterectomy Hx of CABG Family History Mother CAD (coronary artery disease) Lung disease Other Cancer Heart disease Hypertension Denies family history of Diabetes Clotting disorder Dementia Hyperlipidemia Psychiatric illness Chronic kidney disease (CKD) Suicide Anesthesia complication Bleeding disorder Stroke Social History Smoking and tobacco status: current every day smoker (1 ppd) cigarettes Packs smoked per day: 1 Second hand smoke exposure: Yes Smoking risk assessment/counseling performed?: Yes Alcohol intake: never Desire information about alcohol rehabilitation?: No Counseling given: No Substance/Drug Use: never Desire information about substance/drug rehabilitation?: No Counseling given: No Caregiver/support person: No Lives independently: Yes Household members: none Marital status: / Number of children: 4 Current occupational status: retired Do you think of yourself as: Straight/Heterosexual Current gender identity: Female NIH stroke score NIHSS: Level Of Consciousness - 1a: 0 Level Of Consciousness Questions - 1b: Both Correct Level Of Consciousness Commands - 1c: Both Correct Best Gaze - 2: Normal Visual [place] - 3: No Visual Loss Facial Palsy - 4: Normal Motor Arm Right - 5: Drift Motor Arm Left - 5: No Drift Motor Leg Right - 6: Effort Against [place] Motor Leg Left - 6: No Drift Limb Ataxia - 7: Absent Sensory - 8: Mild To Moderate Loss Best Language - 9: No Aphasia Dysarthia - 10: Normal Extinction And Inattention - 11: 0 Score: Total Score: 1 Physical Exam Const: COMMON NORMALS: alert HENMT: COMMON NORMALS: normocephalic HEAD & SCALP: normocephalic Eye: GENERAL EYE: appearance normal, both eyes and all related structures Neck/C-Spine: COMMON NORMALS: full ROM and no meningeal signs Resp: COMMON NORMALS: normal respiratory effort and clear to auscultation bilaterally AUSCULTATION: clear to auscultation bilaterally Cardio: COMMON NORMALS: regular rate and regular rhythm RATE: regular rate RHYTHM: regular rhythm GI: COMMON NORMALS: non-tender Back/Pelvis: COMMON NORMALS: thoracic and lumbar spine normal to inspection Extremity: COMMON NORMALS: no pedal edema NARRATIVE EXTREMITY EXAM: Weakness noted in the right arm and lower leg. Neuro: SENSORIUM/ORIENTATION: Yes alert MENINGEAL SIGNS: Yes no meningeal signs SENSORY EXAM: Yes other (Numbness in the arm and face on the right side) Right pupil size (mm): 3 Left pupil size (mm): 3 Skin: COMMON NORMALS: turgor normal GENERAL SKIN EXAM: turgor normal Course ED course: 2314, reviewed patient with Dr. Wiggins who agreed to see patient for further evaluation and treatment. 2319, discussed patient with daughter, daughter states that patient has a history of carotid stenosis which she is being monitored for. Patient also has had a headache for longer than a week. And increased numbness and weakness today. Vital Signs: Vital signs: Vital Signs Temperature 98.7 F 03/27/23 22:56 Pulse Rate 74 03/28/23 01:44 Respiratory Rate 16 03/28/23 01:44 Blood Pressure 151/74 03/28/23 01:44 Pulse Oximetry 97 03/28/23 01:44 Oxygen Delivery Me thod Room Air 03/28/23 00:43 MDM - Neuro Symptoms/Deficit Medical Decision Making Patient was brought in by EMS for concerns of numbness and weakness to the right side. On exam patient is alert and oriented. Patient does have some facial numbness and upper extremity numbness on sensory evaluation. Patient has increased weakness in the right arm and right lower leg. Drift noted in the arm and fighting against gravity in the leg. Vital signs are normal except for some elevated blood pressure. Patient denies any shortness of breath or chest pain. No facial palsy is noted. Patient speaks clearly. Patient is managing secretions well. Differential diagnosis includes but not limited to stroke syndrome, cervical radiculopathy, intracranial bleeding, mass effect. CT of the head was unremarkable. CTA of the head and neck noted some carotid stenosis. Patient did already know about the carotid stenosis. I offered admission to the hospital for observation and further imaging, however patient felt comfortable to go home. Patient was treated for headache with medical Reglan and was released to home for follow-up with specialist and primary care. I reviewed this with patient with Dr. Wiggins who agreed with plan. Lab Data 03/27/23 22:45 03/27/23 22:[address] 03/27/23 23:03 IMPRESSION: No acute intracranial finding. No significant change from 06/04/2022. Head/Neck CTA 03/27/23 23:03 IMPRESSION: There is no large vessel intracranial occlusion or significant intracranial arterial stenosis. IMPRESSION: 1. 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 Mild to moderate stenosis in the proximal left internal carotid artery. REFERENCES: NASCET CRITERIA. The degree of stenosis in the cervical segment of the internal carotid artery is based on NASCET criteria. Normal is no stenosis. Mild is less than 50% stenosis. Moderate is 50-69% stenosis. Severe is 70% to 99% stenosis. Total occlusion is no detectable patent lumen. Chest X-Ray 03/27/23 23:16 IMPRESSION: No acute infiltrate. Laboratory Results WBC 10.8 10^3/uL (4.0-10.0) H 03/27/23 22:45 RBC 3.89 10^6/uL (4.1-5.3) L 03/27/23 22:45 Hgb 12.4 g/dL (11.5-15.3) 03/27/23 22:45 Hct 38.2 % (37.0-47.0) 03/27/23 22:45 MCV 98.2 fl (81-99) 03/27/23 22:45 MCH 31.9 pg (28.0-34.0) 03/27/23 22:45 MCHC 32.5 g/dL (30.0-36.0) 03/27/23 22:45 RDW 12.4 % (12.1-15.1) 03/27/23 22:45 Plt Count 198 10^3/cmm (130-400) 03/27/23 22:45 MPV 10.5 fL (7.4-10.4) H 03/27/23 22:45 Neut % (Auto) 45.2 % 03/27/23 22:45 Lymph % (Auto) 38.9 % 03/27/23 22:45 Mccracken % (Auto) 11.2 % 03/27/23 22:45 Eos % (Auto) 3.9 % 03/27/23 22:45 Baso % (Auto) 0.5 % 03/27/23 22:45 Neut # (Auto) 4.87 10^3/uL (1.8-7.7) 03/27/23 22:45 Lymph # (Auto) 4.2 10^3/uL (0.8-4.8) 03/27/23 22:45 M[place]racken # (Auto) 1.2 10^3/uL (0.2-0.9) H 03/27/23 22:45 Eos # (Auto) 0.4 10^3/uL (0.0-0.8) 03/27/23 22:45 Baso # (Auto) 0.1 10^3/uL (0.0-0.1) 03/27/23 22:45 Nucleated RBC % (auto) 0 % 03/27/23 22:45 Nucleated RBCs # 0.0 /100WBC 03/27/23 22:45 PT 24.80 SECONDS (12.1-14.9) H 03/27/23 22:45 INR 2.16 (0.8-1.2) H 03/27/23 22:45 APTT 37.6 SECONDS (23.9-36.7) H 03/27/23 22:45 Sodium 141 mmol/L (136-145) 03/27/23 22:45 Potassium 3.5 mmol/L (3.5-5.1) 03/27/23 22:45 Chloride 104 mmol/L (98-107) 03/27/23 22:45 Carbon Dioxide 26 mmol/L (22-29) 03/27/23 22:45 Anion Gap 14.5 (5-19) 03/27/23 22:45 BUN 11 mg/dL (8-23) 03/27/23 22:45 Creatinine 0.6 mg/dL (0.5-0.9) 03/27/23 22:45 GFR Calculation Not Reportable 03/27/23 22:45 Glucose 114 mg/dL (65-115) 03/27/23 22:45 Calculated Osmolality 292 mOsm/kg (285-295) 03/27/23 22:45 Calcium 9.3 mg/dL (8.5-10.5) 03/27/23 22:45 Total Bilirubin 0.3 mg/dL (0.15-1.2) 03/27/23 22:45 AST 21 U/L (0-32) 03/27/23 22:45 ALT 13 U/L (0-33) 03/27/23 22:45 Alkaline Phosphatase 135 U/L (35-105) H 03/27/23 22:45 Troponin T Baseline 10 ng/L (0-10) 03/27/23 22:45 Troponin T 120 Minute 12.76 ng/L (0-10) H 03/28/23 00:46 Delta Troponin T 2.76 ABS# (0-10) 03/28/23 00:46 Total Protein 7.3 g/dL (6.6-8.7) 03/27/23 22:45 Albumin 4.3 g/dL (3.5-5.2) 03/27/23 22:45 Globulin 3.0 g/dL (1.3-4.6) 03/27/23 22:45 Urine Color Straw (Yellow) 03/27/23 23:28 Urine Appearance Hazy (CLEAR) A 03/27/23 23:28 Urine pH 5 (5-7) 03/27/23 23:28 Ur Specific [place] 1.015 (1.005-1.030) 03/27/23 23:28 Urine Protein Neg (Negative) 03/27/23 23:28 Urine Glucose (UA) Norm (Normal) 03/27/23 23:28 Urine Ketones Negative (Negative) 03/27/23 23:28 Urine Blood Neg (Negative) 03/27/23 23:28 Urine Nitrate Negative (Negative) 03/27/23 23:28 Urine Bilirubin Neg (Negative) 03/27/23 23:28 Urine Urobilinogen Norm mg/dL (Negative) 03/27/23 23:28 Ur Leukocyte Esterase 2+ (Negative) H 03/27/23 23:28 Urine RBC 0-4 /hpf (0-2) H 03/27/23 23:28 Urine WBC 15-25 /hpf (0-5) H 03/27/23 23:28 Ur Squamous Epith Cells 5-10 /hpf (0-5) H 03/27/23 23:28 Amorphous Sediment Not Reportable 03/27/23 23:28 Urine Bacteria Trace /hpf (NONE) 03/27/23 23:28 Discharge Plan Discharge Patient Disposition: Home Clinical Impression: Headache Qualifiers: Headache type: unspecified Headache chronicity pattern: unspecified pattern Intractability: not intractable Qualified Code(s): R51.9 - Headache, unspecified Carotid artery stenosis Qualifiers: Laterality: bilateral Qualified Code(s): I65.23 - Occlusion and stenosis of bilateral carotid arteries Condition: Stable Prescriptions: No Action albuterol sulfate 2.5 mg /3 mL (0.083 %) solution for nebulization 2.5 mg inhalation Q4H PRN (Reason: shortness of breath or wheezing) Qty: 75 2RF fluticasone propionate [Flovent HFA] 44 mcg/actuation HFA aerosol inhaler 2 puff inhalation BID Qty: 10.6 0RF escitalopram oxalate [Lexapro] 10 mg tablet 10 mg PO .at supper Qty: 30 2RF valsartan [Diovan] 80 mg tablet 80 mg PO DAILY Qty: 30 2RF ergocalciferol (vitamin D2) 1,250 mcg (50,000 unit) capsule 1,250 mcg PO .weekly Qty: 4 2RF acetaminophen [Tylenol] 325 mg Tablet 325 - 350 mg PO QID PRN (Reason: headache/pain) atorvastatin [Lipitor] 40 mg tablet 40 mg PO QPM Qty: 0 0RF clopidogrel [Plavix] 75 mg Tablet 75 mg PO DAILY@0900 aspirin 81 mg Tablet,Chewable 81 mg PO DAILY@0900 isosorbide mononitrate 30 mg Tablet Extended Release 24 Hr 30 mg PO BID@0900,1800 warfarin 5 mg tablet See Rx Instructions .ROUTE .COMPLEX Rx Instructions: 5 MG PO EVERYDAY EXCEPT 7.5MG ON SATURDAY AND SATURDAY Discharge Orders: Discharge ED (Routine); Ordered 03/28/23 Ordered By: Garrett Clayton Referrals: Loretta Ramírez, [employer]NALYST[facility]C [Primary Care Provider] - Discharge Diet: Usual diet Discharge Activity: Increase activity as tolerated Patient Instructions: General Headache (ED) Activity Restrictions/Additional Instructions: Continue routine care. Drink plenty of fluids. Follow-up with primary care for further instructions. Return to ED for new concerns. Coding Level of Care Code ED Executive Administrative Assistant for Chg Fwd Documented by User: Breana Wiggins MD 03/28/23 02:51 HPI - Neuro Symptoms/Deficit General: Chief Complaint: Neuro Symptoms/Deficit Stated Complaint: FACE NUMBNESS Time Seen by Provider: 03/27/23 23:03 PFS ED PFSH: Medical History Age related osteoporosis Bilateral renal cysts COPD (chronic obstructive pulmonary disease) DVT (deep venous thrombosis) Femur fracture Heart disease HTN (hypertension) PE (pulmonary thromboembolism) Personal history of nicotine dependence Unstable angina Vitamin D insufficiency Surgical History History of cholecystectomy History of heart artery stent History of hip surgery left History of hysterectomy Hx of CABG Family History Mother CAD (coronary artery disease) Lung disease Other Cancer Heart disease Hypertension Denies family history of Diabetes Clotting disorder Dementia Hyperlipidemia Psychiatric illness Chronic kidney disease (CKD) Suicide Anesthesia complication Bleeding disorder Stroke Social History Smoking and tobacco status: current every day smoker (1 ppd) cigarettes Packs smoked per day: 1 Second hand smoke exposure: Yes Smoking risk assessment/counseling performed?: Yes Alcohol intake: never Desire information about alcohol rehabilitation?: No Counseling given: No Substance/Drug Use: never Desire information about substance/drug rehabilitation?: No Counseling given: No Caregiver/support person: No Lives independently: Yes Household members: none Marital status: / Number of children: 4 Current occupational status: retired Do you think of yourself as: Straight/Heterosexual Current gender identity: Female NIH stroke score NIHSS: Motor Arm Right - 5: No Drift Motor Leg Right - 6: No Drift Score: Total Score: 1 Course Vital Signs: Vital signs: Vital Signs Temperature 98.7 F 03/27/23 22:56 Pulse Rate 74 03/28/23 01:44 Respiratory Rate 16 03/28/23 01:44 Blood Pressure 151/74 03/28/23 01:44 Pulse Oximetry 97 03/28/23 01:44 Oxygen Delivery Me thod Room Air 03/28/23 00:43 MDM - Neuro Symptoms/Deficit Medical Decision Making Patient was brought in by EMS for concerns of numbness and weakness to the right side. On exam patient is alert and oriented. Patient does have some facial numbness and upper extremity numbness on sensory evaluation. Patient has increased weakness in the right arm and right lower leg. Drift noted in the arm and fighting against gravity in the leg. Vital signs are normal except for some elevated blood pressure. Patient denies any shortness of breath or chest pain. No facial palsy is noted. Patient speaks clearly. Patient is managing secretions well. Differential diagnosis includes but not limited to stroke syndrome, cervical radiculopathy, intracranial bleeding, mass effect. CT of the head was unremarkable. CTA of the head and neck noted some carotid stenosis. Patient did already know about the carotid stenosis. I offered admission to the hospital for observation and further imaging, however patient felt comfortable to go home. Patient was treated for headache with medical Reglan and was released to home for follow-up with specialist and primary care. I reviewed this with patient with Dr. Wiggins who agreed with plan. Lab Data 03/27/23 22:45 03/27/23 22:[address] 03/27/23 23:03 IMPRESSION: No acute intracranial finding. No significant change from 06/04/2022. Head/Neck CTA 03/27/23 23:03 IMPRESSION: There is no large vessel intracranial occlusion or significant intracranial arterial stenosis. IMPRESSION: 1. 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 Mild to moderate stenosis in the proximal left internal carotid artery. REFERENCES: NASCET CRITERIA. The degree of stenosis in the cervical segment of the internal carotid artery is based on NASCET criteria. Normal is no stenosis. Mild is less than 50% stenosis. Moderate is 50-69% stenosis. Severe is 70% to 99% stenosis. Total occlusion is no detectable patent lumen. Chest X-Ray 03/27/23 23:16 IMPRESSION: No acute infiltrate. Laboratory Results WBC 10.8 10^3/uL (4.0-10.0) H 03/27/23 22:45 RBC 3.89 10^6/uL (4.1-5.3) L 03/27/23 22:45 Hgb 12.4 g/dL (11.5-15.3) 03/27/23 22:45 Hct 38.2 % (37.0-47.0) 03/27/23 22:45 MCV 98.2 fl (81-99) 03/27/23 22:45 MCH 31.9 pg (28.0-34.0) 03/27/23 22:45 MCHC 32.5 g/dL (30.0-36.0) 03/27/23 22:45 RDW 12.4 % (12.1-15.1) 03/27/23 22:45 Plt Count 198 10^3/cmm (130-400) 03/27/23 22:45 MPV 10.5 fL (7.4-10.4) H 03/27/23 22:45 Neut % (Auto) 45.2 % 03/27/23 22:45 Lymph % (Auto) 38.9 % 03/27/23 22:45 M[place]racken % (Auto) 11.2 % 03/27/23 22:45 Eos % (Auto) 3.9 % 03/27/23 22:45 Baso % (Auto) 0.5 % 03/27/23 22:45 Neut # (Auto) 4.87 10^3/uL (1.8-7.7) 03/27/23 22:45 Lymph # (Auto) 4.2 10^3/uL (0.8-4.8) 03/27/23 22:45 [place] # (Auto) 1.2 10^3/uL (0.2-0.9) H 03/27/23 22:45 Eos # (Auto) 0.4 10^3/uL (0.0-0.8) 03/27/23 22:45 Baso # (Auto) 0.1 10^3/uL (0.0-0.1) 03/27/23 22:45 Nucleated RBC % (auto) 0 % 03/27/23 22:45 Nucleated RBCs # 0.0 /100WBC 03/27/23 22:45 PT 24.80 SECONDS (12.1-14.9) H 03/27/23 22:45 INR 2.16 (0.8-1.2) H 05/10/23 22:45 APTT 37.6 SECONDS (23.9-36.7) H 03/27/23 22:45 Sodium 141 mmol/L (136-145) 03/27/23 22:45 Potassium 3.5 mmol/L (3.5-5.1) 03/27/23 22:45 Chloride 104 mmol/L (98-107) 03/27/23 22:45 Carbon Dioxide 26 mmol/L (22-29) 03/27/23 22:45 Anion Gap 14.5 (5-19) 03/27/23 22:45 BUN 11 mg/dL (8-23) 03/27/23 22:45 Creatinine 0.6 mg/dL (0.5-0.9) 03/27/23 22:45 GFR Calculation Not Reportable 03/27/23 22:45 Glucose 114 mg/dL (65-115) 03/27/23 22:45 Calculated Osmolality 292 mOsm/kg (285-295) 03/27/23 22:45 Calcium 9.3 mg/dL (8.5-10.5) 03/27/23 22:45 Total Bilirubin 0.3 mg/dL (0.15-1.2) 03/27/23 22:45 AST 21 U/L (0-32) 03/27/23 22:45 ALT 13 U/L (0-33) 03/27/23 22:45 Alkaline Phosphatase 135 U/L (35-105) H 03/27/23 22:45 Troponin T Baseline 10 ng/L (0-10) 03/27/23 22:45 Troponin T 120 Minute 12.76 ng/L (0-10) H 03/28/23 00:46 Delta Troponin T 2.76 ABS# (0-10) 03/28/23 00:46 Total Protein 7.3 g/dL (6.6-8.7) 03/27/23 22:45 Albumin 4.3 g/dL (3.5-5.2) 03/27/23 22:45 Globulin 3.0 g/dL (1.3-4.6) 03/27/23 22:45 Urine Color Straw (Yellow) 03/27/23 23:28 Urine Appearance Hazy (CLEAR) A 03/27/23 23:28 Urine pH 5 (5-7) 03/27/23: Ur Specific [place] 1.015 (1.005-1.030) 03/27/23 23: Urine Protein Neg (Negative) 03/27/23: Urine Glucose (UA) Norm (Normal) 03/27/23: Urine Ketones Negative (Negative) 03/27/23: Urine Blood Neg (Negative) 03/27/23: Urine Nitrate Negative (Negative) 03/27/23: Urine Bilirubin Neg (Negative) 03/27/23: Urine Urobilinogen Norm mg/dL (Negative) 03/27/23 23: Ur Leukocyte Esterase 2+ (Negative) H 03/27/23: Urine RBC 0-4 /hpf (0-2) H 03/27/23: Urine WBC 15-25 /hpf (0-5) H 03/27/23: Ur Squamous Epith Cells 5-10 /hpf (0-5) H 03/27/23: Amorphous Sediment Not Reportable 03/27/23: Urine Bacteria Trace /hpf (NONE) 03/27/23 23:28 Discharge Plan Discharge Patient Disposition: Home Clinical Impression: Headache Qualifiers: Headache type: unspecified Headache chronicity pattern: unspecified pattern Intractability: not intractable Qualified Code(s): R51.9 - Headache, unspecified Carotid artery stenosis Qualifiers: Laterality: bilateral Qualified Code(s): I65.23 - Occlusion and stenosis of bilateral carotid arteries Condition: Stable Prescriptions: No Action albuterol sulfate 2.5 mg /3 mL (0.083 %) solution for nebulization 2.5 mg inhalation Q4H PRN (Reason: shortness of breath or wheezing) Qty: 75 2RF fluticasone propionate [Flovent HFA] 44 mcg/actuation HFA aerosol inhaler 2 puff inhalation BID Qty: 10.6 0RF escitalopram oxalate [Lexapro] 10 mg tablet 10 mg PO .at supper Qty: 30 2RF valsartan [Diovan] 80 mg tablet 80 mg PO DAILY Qty: 30 2RF ergocalciferol (vitamin D2) 1,250 mcg (50,000 unit) capsule 1,250 mcg PO .weekly Qty: 4 2RF acetaminophen [Tylenol] 325 mg Tablet 325 - 350 mg PO QID PRN (Reason: headache/pain) atorvastatin [Lipitor] 40 mg tablet 40 mg PO QPM Qty: 0 0RF clopidogrel [Plavix] 75 mg Tablet 75 mg PO DAILY@0900 aspirin 81 mg Tablet,Chewable 81 mg PO DAILY@0900 isosorbide mononitrate 30 mg Tablet Extended Release 24 Hr 30 mg PO BID@0900,1800 warfarin 5 mg tablet See Rx Instructions .ROUTE .COMPLEX Rx Instructions: 5 MG PO EVERYDAY EXCEPT 7.5MG ON SATURDAY AND SATURDAY Discharge Orders: Discharge ED (Routine); Ordered 03/28/23 Ordered By: Garrett Clayton Referrals: Loretta Ramírez, JORGEC [Primary Care Provider] - Discharge Diet: Usual diet Discharge Activity: Increase activity as tolerated Patient Instructions: General Headache (ED) Activity Restrictions/Additional Instructions: Continue routine care. Drink plenty of fluids. Follow-up with primary care for further instructions. Return to ED for new concerns. Coding Level of Care Code ED Executive Administrative Assistant for Kayden Molina
--- NOTE | 2023-03-27 23:16 | XRR_ITS ---
PROCEDURE INFORMATION: Exam: XR Chest Exam date and time: 03/27/2023 11:21 PM Age: 73 years old Clinical indication: Other: Face, numbness; Prior surgery; Surgery date: 6+ months; Surgery type: Bypass, stents, 11 yrs ago; Additional info: Stroke TECHNIQUE: Imaging protocol: Radiologic exam of the chest. Views: 1 view. COMPARISON: CR XR chest 1V portable [id number] 06/17/2022 12:20 AM FINDINGS: Lungs: Mild emphysematous changes. No acute infiltrate. There is no pulmonary venous congestion. Pleural spaces: Unremarkable. No pleural effusion. No pneumothorax. Heart/Mediastinum: Heart is within normal limits of size. Bones/joints: Sternotomy wires and mediastinal surgical clips are present, consistent with previous coronary arterial bypass grafting. XR/XR chest 1V portable [id number] IMPRESSION: No acute infiltrate.
[2023-03-27 23:20] LABS: Basophils # 0.1 10^3/uL (0.0-0.1); Basophils % 0.5 %; Eosinophils # 0.4 10^3/uL (0.0-0.8); Eosinophils % 3.9 %; Hematocrit 38.2 % (37.0-47.0); Hemoglobin 12.4 g/dL (11.5-15.3); Lymphocytes # 4.2 10^3/uL (0.8-4.8); Lymphocytes % 38.9 %; Mean Corpuscular HGB Conc 32.5 g/dL (30.0-36.0); Mean Corpuscular Hemoglobin 31.9 pg (28.0-34.0); Mean Corpuscular Volume 98.2 fl (81-99); Mean Platelet Volume 10.5 fL (7.4-10.4); Monocytes # 1.2 10^3/uL (0.2-0.9); Monocytes % 11.2 %; Neutrophils # 4.87 10^3/uL (1.8-7.7); Neutrophils % 45.2 %; Nucleated Red Blood Cells % 0 %; Platelet Count 198 10^3/cmm (130-400); Red Blood Count 3.89 10^6/uL (4.1-5.3); Red Cell Distribution Width 12.4 % (12.1-15.1); White Blood Count 10.8 10^3/uL (4.0-10.0)
[2023-03-27 23:27] LABS: Troponin(5th) Baseline 10 ng/L (0-10)
[2023-03-27 23:31] LABS: INR 2.16 (0.8-1.2)
[2023-03-27 23:32] LABS: Alanine Aminotransferase 13 U/L (0-33); Albumin Level 4.3 g/dL (3.5-5.2); Alkaline Phosphatase 135 U/L (35-105); Anion Gap 14.5 (5-19); Aspartate Amino Transferase 21 U/L (0-32); Blood Urea Nitrogen 11 mg/dL (8-23); Calcium 9.3 mg/dL (8.5-10.5); Carbon Dioxide 26 mmol/L (22-29); Chloride 104 mmol/L (98-107); Glucose 114 mg/dL (65-115); Osmolality Calculated 292 mOsm/kg (285-295); Partial Thromboplastin Time 37.6 SECONDS (23.9-36.7); Potassium 3.5 mmol/L (3.5-5.1); Sodium 141 mmol/L (136-145); Total Bilirubin 0.3 mg/dL (0.15-1.2); Total Protein 7.3 g/dL (6.6-8.7)
[2023-03-27] MEDS: iohexol 350 mg/mL 500 mL Btl (per mL) IV (23:38)
--- NOTE | 2023-03-27 23:43 | PC.NURSE ---
Pt. wheeled to bathroom in wheelchair. Pt. was able to ambulate from wheelchair to bathroom and commode and then out of bathroom , back to wheel chair on her own without any weakness or s/s of deficit.
[2023-03-27 23:47] LABS: Bilirubin Urine Neg (Negative); Blood Urine Neg (Negative); Glucose Urine UA Norm (Normal); Ketones Urine Negative (Negative); Leukocyte Esterase Urine 2+ (Negative); Nitrate Urine Negative (Negative); Protein Urine Neg (Negative); Specific Gravity, Urine 1.015 (1.005-1.030); Urine Appearance Hazy (CLEAR); Urine Color Straw (Yellow); Urobilinogen Urine Norm (Negative); pH Urine 5 (5-7)
[2023-03-27 23:48] LABS: Add Urine Culture? Yes; Add Urine Microscopic? YES; Bacteria Urine TRACE /hpf; RBC Urine 0-4 /hpf (0-2); WBC Urine 15-25 /hpf (0-5)
[2023-03-28] VITALS: BP 172/74; PULSE 77; RESP 18; O2SAT 94
[2023-03-28] MEDS: hyDRALAzine 20 mg/mL INJ 1 mL 5 MG IVP
[2023-03-28 00:26] VITALS: BP 160/70; PULSE 75; RESP 16; O2SAT 90
[2023-03-28 00:43] VITALS: BP 157/82; PULSE 88; RESP 18; O2SAT 97
[2023-03-28 00:48] VITALS: BP 141/77
--- NOTE | 2023-03-28 01:04 | ECG_ITS ---
[facility] Test Date: 2023-03-28 Pat Name: Ronit Palma Department: Room: Gender: Female Admitting Supervisor: : [id number] Requested By: Garrett Sanchez Order Number: [id number] Familia MD: Ritchie Ferreira M.D. Measurements Intervals [place] Rate: 68 P: 73 ND: 184 QRS: 70 QRSD: 97 T: 77 QT: 420 QTc: 447 Interpretive Statements SINUS RHYTHM Compared to ECG 06/16/2022 23:05:52 No significant changes Electronically Signed On 03-28-2023 14:12:30 CDT by Ritchie Ferreira M.D. [email or web address]
[2023-03-28 01:07] LABS: Troponin 5 2HR 12.76 ng/L (0-10)
[2023-03-28 01:08] LABS: Troponin 5 2HR Delta 2.76 ABS# (0-10)
[2023-03-28 01:44] VITALS: BP 151/74; PULSE 74; RESP 16; O2SAT 97
[2023-03-28] MEDS: metoclopramide 5 mg/mL SDV 2 mL 10 MG IVP (01:44)
== END 2023-03-28 01:45 | disposition home or self-care (01) ==
PROVIDERS: Emergency Provider Nurse Practitioner Family; PCP Nurse Practitioner
DX: R51.9 Headache, unspecified (principal); I65.23 Occlusion and stenosis of bilateral carotid arteries; Z79.01 Long term (current) use of anticoagulants; Z79.82 Long term (current) use of aspirin; Z79.02 Long term (current) use of antithrombotics/antiplatelets; F17.210 Nicotine dependence, cigarettes, uncomplicated; J44.9 Chronic obstructive pulmonary disease, unspecified; I10 Essential (primary) hypertension; Z95.1 Presence of aortocoronary bypass graft
CPT/HCPCS: 70450; 70496; 70498; 71045; 80053; 81001; 84484; 85025; 85610; 85730; 87086; 93005; 96374; 96375; 99285; J0360; J2765; Q9967

== ENCOUNTER → 2023-04-01 13:54 | Outpatient (BNVA) | payer MEDICARE, OTHER, SELFPAY | PROVIDERS: PCP Nurse Practitioner; Visit Provider Nurse Practitioner | DX: E55.9 Vitamin D deficiency, unspecified (principal); Z51.81 Encounter for therapeutic drug level monitoring; Z79.01 Long term (current) use of anticoagulants; I10 Essential (primary) hypertension | CPT/HCPCS: 82306; 85610 ==

== ENCOUNTER 2023-05-13 13:09 | Outpatient (CLI) | payer MEDICARE, OTHER, SELFPAY ==
[2023-05-13 13:44] LABS: INR 1.31 (0.8-1.2)
== END 2023-05-13 13:10 | disposition home or self-care (01) ==
PROVIDERS: PCP Nurse Practitioner; Visit Provider Internal Medicine Cardiovascular Disease
DX: I48.0 Paroxysmal atrial fibrillation (principal)
CPT/HCPCS: 36415; 85610

== ENCOUNTER 2023-05-20 15:04 | Outpatient (CLI) | payer MEDICARE, OTHER, SELFPAY ==
[2023-05-20 15:57] LABS: INR 1.45 (0.8-1.2)
== END 2023-05-20 15:05 | disposition home or self-care (01) ==
PROVIDERS: PCP Nurse Practitioner; Visit Provider Internal Medicine Cardiovascular Disease
DX: I48.0 Paroxysmal atrial fibrillation (principal)
CPT/HCPCS: 36415; 85610

== ENCOUNTER 2023-05-30 14:12 | Outpatient (CLI) | payer MEDICARE, OTHER, SELFPAY ==
[2023-05-30 14:56] LABS: INR 1.77 (0.8-1.2)
== END 2023-05-30 14:13 | disposition home or self-care (01) ==
LOC: LAB 14:19
PROVIDERS: PCP Nurse Practitioner; Visit Provider Internal Medicine Cardiovascular Disease
DX: I48.0 Paroxysmal atrial fibrillation (principal)
CPT/HCPCS: 36415; 85610

== ENCOUNTER 2023-06-17 11:56 | Outpatient (CLI) | payer MEDICARE, OTHER, SELFPAY ==
[2023-06-17 12:46] LABS: INR 0.99 (0.8-1.2)
== END 2023-06-17 11:57 | disposition home or self-care (01) ==
PROVIDERS: PCP Nurse Practitioner; Visit Provider Internal Medicine Cardiovascular Disease
DX: I48.0 Paroxysmal atrial fibrillation (principal)
CPT/HCPCS: 36415; 85610

== ENCOUNTER → 2023-06-24 15:20 | Outpatient (BNVA) | payer MEDICARE, OTHER, SELFPAY | PROVIDERS: PCP Nurse Practitioner; Visit Provider Nurse Practitioner Family | DX: R30.0 Dysuria (principal) | CPT/HCPCS: 81000; 87086 ==

== ENCOUNTER → 2023-06-28 11:51 | Outpatient (BNVA) | payer MEDICARE, OTHER, SELFPAY | PROVIDERS: PCP Nurse Practitioner; Visit Provider Nurse Practitioner | DX: E55.9 Vitamin D deficiency, unspecified (principal); I10 Essential (primary) hypertension; Z51.81 Encounter for therapeutic drug level monitoring; Z79.01 Long term (current) use of anticoagulants | CPT/HCPCS: 80053; 80061; 81000; 82306; 84443; 85610 ==

== ENCOUNTER 2023-07-08 12:36 | Outpatient (CLI) | payer MEDICARE, OTHER, SELFPAY ==
[2023-07-08 13:56] LABS: INR 1.28 (0.8-1.2)
== END 2023-07-08 12:37 | disposition home or self-care (01) ==
LOC: LAB 12:40
PROVIDERS: PCP Nurse Practitioner; Visit Provider Nurse Practitioner
DX: I48.0 Paroxysmal atrial fibrillation (principal)
CPT/HCPCS: 36415; 85610

== ENCOUNTER 2023-07-17 11:30 | Outpatient (CLI) | payer MEDICARE, OTHER, SELFPAY ==
[2023-07-17 12:24] LABS: INR 1.83 (0.8-1.2)
== END 2023-07-17 11:31 | disposition home or self-care (01) ==
LOC: LAB 11:38
PROVIDERS: PCP Nurse Practitioner; Visit Provider Internal Medicine Cardiovascular Disease
DX: I48.0 Paroxysmal atrial fibrillation (principal)
CPT/HCPCS: 36415; 85610

== ENCOUNTER 2023-07-25 11:07 | Outpatient (CLI) | payer MEDICARE, OTHER, SELFPAY ==
[2023-07-25 12:01] LABS: INR 1.55 (0.8-1.2)
== END 2023-07-25 11:08 | disposition home or self-care (01) ==
PROVIDERS: PCP Nurse Practitioner; Visit Provider Internal Medicine Cardiovascular Disease
DX: I48.0 Paroxysmal atrial fibrillation (principal)
CPT/HCPCS: 85610

== ENCOUNTER 2023-08-05 12:26 | Outpatient (CLI) | payer MEDICARE, OTHER, SELFPAY ==
[2023-08-05 13:54] LABS: INR 2.44 (0.8-1.2)
== END 2023-08-05 12:27 | disposition home or self-care (01) ==
PROVIDERS: PCP Nurse Practitioner; Visit Provider Internal Medicine Cardiovascular Disease
DX: I48.0 Paroxysmal atrial fibrillation (principal)
CPT/HCPCS: 36415; 85610

== ENCOUNTER 2023-08-16 14:26 | Outpatient (CLI) | payer MEDICARE, OTHER, SELFPAY ==
[2023-08-16 15:08] LABS: INR 1.74 (0.8-1.2)
== END 2023-08-16 14:27 | disposition home or self-care (01) ==
PROVIDERS: PCP Nurse Practitioner; Visit Provider Internal Medicine Cardiovascular Disease
DX: I48.0 Paroxysmal atrial fibrillation (principal)
CPT/HCPCS: 36415; 85610

== ENCOUNTER 2023-09-05 14:32 | Outpatient (CLI) | payer MEDICARE, OTHER, SELFPAY ==
[2023-09-05 15:16] LABS: INR 2.07 (0.8-1.2)
== END 2023-09-05 14:33 | disposition home or self-care (01) ==
PROVIDERS: PCP Nurse Practitioner; Visit Provider Internal Medicine Cardiovascular Disease
DX: I48.0 Paroxysmal atrial fibrillation (principal)
CPT/HCPCS: 85610

== ENCOUNTER 2023-10-02 11:05 | Outpatient (CLI) | payer MEDICARE, OTHER, SELFPAY ==
[2023-10-02 12:11] LABS: INR 1.31 (0.8-1.2)
== END 2023-10-02 11:06 | disposition home or self-care (01) ==
PROVIDERS: PCP Nurse Practitioner; Visit Provider Internal Medicine Cardiovascular Disease
DX: I48.0 Paroxysmal atrial fibrillation (principal)
CPT/HCPCS: 36415; 85610

== ENCOUNTER 2023-10-15 14:23 | Outpatient (CLI) | payer MEDICARE, OTHER, SELFPAY ==
[2023-10-15 14:49] LABS: INR 1.37 (0.8-1.2)
== END 2023-10-15 14:24 | disposition home or self-care (01) ==
LOC: LAB 14:26
PROVIDERS: PCP Nurse Practitioner; Visit Provider Internal Medicine Cardiovascular Disease
DX: I48.0 Paroxysmal atrial fibrillation (principal)
CPT/HCPCS: 36415; 85610

== ENCOUNTER 2023-10-23 02:59 | Emergency (ER) | payer MEDICARE, OTHER, SELFPAY ==
[2023-10-23] VITALS (10 sets, daily range): BP systolic 125–178; BP diastolic 65–96; PULSE 66–97; RESP 14–20; TEMP 36.8; O2SAT 92–96; BMI 25.0
--- NOTE | 2023-10-23 03:18 | ED_ITS ---
HPI - Chest Pain 2 General: Chief Complaint: Chest Pain Stated Complaint: CP Time Seen by Provider: 10/23/23 03:01 History of Present Illness: 73-year-old female presents to the emerg ency department with complaints of left- sided chest pain. She states she was sitting at home watching TV approximately 2 hours before her chest pain started. She states it started in the front and is worse when she coughs or pushes on her left rib area. She states she does have a coronary artery disease history and has had 2 vessel CABG in the past. She states that when she coughs her chest pain is worse at present it is 7 out of 10 and sharp. She states she also has a history of COPD and continues to smoke cigarettes daily. She states she takes Coumadin for her anticoagulation for her cardiac stents and was seen by her doctor 2 days ago and had her INR checked. Review of Systems 2 General: Reports: 10 or more systems reviewed and unremarkable except in HPI and below Card: Reports: chest pain Resp: Reports: productive cough PFSH ED 2 PFSH: Medical History (Updated 10/23/23 @ 05:08 by Paras Bartholomew MD) Anxiety PE (pulmonary thromboembolism) DVT (deep venous thrombosis) Age related osteoporosis Unstable angina Bilateral renal cysts Personal history of nicotine dependence Vitamin D insufficiency Femur fracture Heart disease HTN (hypertension) COPD (chronic obstructive pulmonary disease) Surgical History History of hip surgery left History of cholecystectomy History of hysterectomy History of heart artery stent Hx of CABG Family History Mother CAD (coronary artery disease) Lung disease Other Cancer Heart disease Hypertension Denies family history of Diabetes Clotting disorder Dementia Hyperlipidemia Psychiatric illness Chronic kidney disease (CKD) Suicide Anesthesia complication Bleeding disorder Stroke Social History Smoking and tobacco/nicotine status: current every day tobacco/nicotine user (1 ppd) cigarettes Packs smoked per day: 1 Second hand smoke exposure: Yes Alcohol intake: never Substance/Drug Use: never Adopted: No Caregiver/support person: No Lives independently: Yes Household members: children Housing: House Marital status: / Number of children: 4 service: No Current occupational status: retired Do you think of yourself as: Straight/Heterosexual Current gender identity: Female Physical Exam 2 Narrative: EXAM NARRATIVE: Constitutional: the patient appears well nourished and with normal development. Vital signs reviewed as documented. HENMT: Normocephalic, atraumatic. Extermal ears with normal appearance without drainage. Nose without drainage, normal appearance. Mucus membranes moist. Neck is supple, No jugular venous distension, trachea is midline, no appreciable carotid bruits. No lymphadenopathy. No meningeal signs. Flexion, extension and lateral rotation is without pain. Eyes: Pupils are equal, round, reactive to light and accommodation. No scleral icterus. Extra-ocular movement are intact. Thorax is symmetrical and with equal rise and fall with respirations. Patient's left chest wall pain is reproducible upon palpation. And also worse with a deep breath. Resp: Scattered intermittent bilateral expiratory wheezes, coarse breath sounds on the left greater than the right. Cardio: Regular rate and rhythm. Positive S1, S2. No appreciable murmurs, rubs or gallops. GI: Abdominal exam reveals normal bowel sounds to all quadrants. No organomegaly. No obvious palpable masses noted. No hepatomegally appreciated. Soft, nontender to palpation. Extremity: Extremities are non-edematous and both femoral and pedal pulses are 2+ and equal bilaterally. Moves all extremities well, sensation in all extremities. Neuro: Alert and oriented x4, person, place, time and situation. Cranial nerves II through XII are grossly intact, there is no focal neurological deficits that I can appreciate at present. Motor strength in the upper and lower extremities are equal and bilateral 5/5. Psych: Cooperative, calm, normal thought process, appropriate judgment. Skin: No lesions, rashes. No gross abnormalities noted. Back: Symmetrical, no obvious deformity, No CVA tenderness Course 2 Vital Signs: Vital signs: Vital Signs Temperature 98.2 F 10/23/23 03:01 Pulse Rate 78 10/23/23 03:54 Respiratory Rate 16 10/23/23 03:01 Blood Pressure 125/68 10/23/23 03:54 Pulse Oximetry 96 10/23/23 03:01 Oxygen Delivery Me thod Room Air 10/23/23 03:01 MDM - Chest Pain Medical Decision Making Physical exam completed and documented, I will obtain serial cardiac enzymes, serial twelve-lead EKGs, chest x-ray, CBC, CMP, urinalysis, B-type natriuretic peptide, PT/PTT/INR, and a chest x-ray. I provide cardiac dose aspirin if indicated and nitroglycerin administration if indicated. Pending the review of the twelve-lead EKG I will also consider providing loading dose of heparin and possible heparin drip as well as evaluate the need for nitroglycerin drip, and reevaluate accordingly. I will review any pervious and pertinent medical records for assist in obtaining beneficial medical information to improved the care and treatment of the patient. I will reevaluate in consider hospitalist consultation and cardiology consultation. Medical Records I reviewed the patient's medical records. Lab Data I reviewed the patient's lab results. 10/23/23 02:44 10/23/23 02:44 Radiology Impressions Chest X-Ray 10/23/23 03:19 IMPRESSION: No evidence of active cardiopulmonary disease. Laboratory Results WBC 12.65 10^3/uL (3.29-11.43) H 10/23/23 02:44 RBC 4.05 10^6/uL (3.85-5.65) 10/23/23 02:44 Hgb 12.50 g/dL (11.27-16.99) 10/23/23 02:44 Hct 37.7 % (36-47) 10/23/23 02:44 MCV 93.1 fl (85-98) 10/23/23 02:44 MCH 30.9 pg (27-33) 10/23/23 02:44 MCHC 33.2 g/dL (30-55) 10/23/23 02:44 RDW 12.7 % (12.1-15.1) 10/23/23 02:44 Plt Count 253 10^3/cmm (157-399) 10/23/23 02:44 MPV 10.6 fL (7.4-10.4) H 10/23/23 02:44 Neut % (Auto) 59.8 % 10/23/23 02:44 Lymph % (Auto) 28.7 % 10/23/23 02:44 [place] % (Auto) 8.1 % 10/23/23 02:44 Eos % (Auto) 2.7 % 10/23/23 02:44 Baso % (Auto) 0.3 % 10/23/23 02:44 Neut # (Auto) 7.57 10^3/uL (1.8-7.7) 10/23/23 02:44 Lymph # (Auto) 3.6 10^3/uL (0.8-4.8) 10/23/23 02:44 [place] # (Auto) 1.0 10^3/uL (0.2-0.9) H 10/23/23 02:44 Eos # (Auto) 0.3 10^3/uL (0.0-0.8) 10/23/23 02:44 Baso # (Auto) 0.0 10^3/uL (0.0-0.1) 10/23/23 02:44 Nucleated RBC % (auto) 0 % 10/23/23 02:44 Nucleated RBCs # 0.0 /100WBC 10/23/23 02:44 PT 15.80 SECONDS (12.1-14.9) H 10/23/23 02:44 INR 1.22 (0.8-1.2) H 10/23/23 02:44 Sodium 139 mmol/L (136-145) 10/23/23 02:44 Potassium 3.6 mmol/L (3.5-5.1) 10/23/23 02:44 Chloride 101 mmol/L (98-107) 10/23/23 02:44 Carbon Dioxide 24 mmol/L (22-29) 10/23/23 02:44 Anion Gap 17.6 (5-19) 10/23/23 02:44 BUN 19 mg/dL (8-23) 10/23/23 02:44 Creatinine 0.6 mg/dL (0.5-0.9) 10/23/23 02:44 GFR Calculation Not Reportable 10/23/23 02:44 Glucose 118 mg/dL (65-115) H 10/23/23 02:44 Calculated Osmolality 291 mOsm/kg (285-295) 10/23/23 02:44 Calcium 9.7 mg/dL (8.5-10.5) 10/23/23 02:44 Total Bilirubin 0.3 mg/dL (0.15-1.2) 10/23/23 02:44 AST 21 U/L (0-32) 10/23/23 02:44 ALT 10 U/L (0-33) 10/23/23 02:44 Alkaline Phosphatase 148 U/L (35-105) H 10/23/23 02:44 Troponin T Baseline 11 ng/L (0-10) H 10/23/23 02:44 Troponin T 120 Minute 16.17 ng/L (0-10) H 10/23/23 04:25 Delta Troponin T 5.17 ABS# (0-10) 10/23/23 04:25 NT-Pro-B Natriuret Pep 221 pg/mL (0-125) H 10/23/23 02:44 Total Protein 7.7 g/dL (6.6-8.7) 10/23/23 02:44 Albumin 4.5 g/dL (3.5-5.2) 10/23/23 02:44 Globulin 3.2 g/dL (1.3-4.6) 10/23/23 02:44 Urine Color Colorless (Yellow) 10/23/23 03:32 Urine Appearance Clear (CLEAR) 10/23/23 03:32 Urine pH 7 (5-7) 10/23/23 03:32 Ur Specific [place] 1.010 (1.005-1.030) 10/23/23 03:32 Urine Protein Neg (Negative) 10/23/23 03:32 Urine Glucose (UA) Norm (Normal) 10/23/23 03:32 Urine Ketones Negative (Negative) 10/23/23 03:32 Urine Blood Neg (Negative) 10/23/23 03:32 Urine Nitrate Negative (Negative) 10/23/23 03:32 Urine Bilirubin Neg (Negative) 10/23/23 03:32 Urine Urobilinogen Neg mg/dL (Negative) 10/23/23 03:32 Ur Leukocyte Esterase Negative (Negative) 10/23/23 03:32 Urine RBC None /hpf (0-2) 10/23/23 03:32 Urine WBC None /hpf (0-5) 10/23/23 03:32 Ur Squamous Epith Cells 0-4 /hpf (0-5) H 10/23/23 03:32 Amorphous Sediment Not Reportable 10/23/23 03:32 Urine Bacteria Trace /hpf (NONE) 10/23/23 03:32 All radiology interpretation(s) finalized by discharge Discharge Plan Discharge Patient Disposition: Home Clinical Impression: Atypical chest pain Cough Qualifiers: Cough type: acute Qualified Code(s): R05.1 - Acute cough Pneumonia Qualifiers: Pneumonia type: due to unspecified organism Laterality: left Lung location: l ower lobe of lung Qualified Code(s): J18.9 - Pneumonia, unspecified organism Condition: Stable Prescriptions: New azithromycin [Zithromax TRI-WU] 500 mg tablet See Rx Instructions .ROUTE .COMPLEX Qty: 3 0RF Rx Instructions: For 250 mg dose pack: take 500 mg today (day 1), then 250 mg for 4 days (days 2-5) prednisone 20 mg tablet 60 mg PO DAILY 5 Days Qty: 15 0RF No Action Trelegy Ellipta 100-62.5-25 mcg blister with device 1 inh inhalation Q24H Qty: 28 5RF hydrochlorothiazide 25 mg tablet 25 mg PO DAILY PRN (Reason: high blood pressure) Qty: 30 0RF albuterol sulfate 2.5 mg /3 mL (0.083 %) solution for nebulization 2.5 mg inhalation Q4H PRN (Reason: shortness of breath or wheezing) Qty: 75 2RF escitalopram oxalate [Lexapro] 10 mg tablet 10 mg PO .at supper Qty: 30 2RF ergocalciferol (vitamin D2) 1,250 mcg (50,000 unit) capsule 1,250 mcg PO .weekly Qty: 4 2RF valsartan [Diovan] 80 mg tablet 80 mg PO DAILY Qty: 30 2RF acetaminophen [Tylenol] 325 mg Tablet 325 - 350 mg PO QID PRN (Reason: headache/pain) atorvastatin [Lipitor] 40 mg tablet 40 mg PO QPM Qty: 0 0RF clopidogrel [Plavix] 75 mg Tablet 75 mg PO DAILY@0900 aspirin 81 mg Tablet,Chewable 81 mg PO DAILY@0900 isosorbide mononitrate 30 mg Tablet Extended Release 24 Hr 30 mg PO BID@0900,1800 warfarin 5 mg tablet See Rx Instructions .ROUTE .COMPLEX Rx Instructions: 5mg 3 days 7.5mg 4 days; Discharge Orders: Discharge ED (Routine); Ordered 10/23/23 Ordered By: Paras Bartholomew Referrals: Loretta Ramírez, SKI PATROL OFFICER-C [Primary Care Provider] - Discharge Diet: Advance as tolerated Discharge Activity: Resume usual activity Patient Instructions: Opioid Safety, Pain Management Activity Restrictions/Additional Instructions: Activity Restrictions/Additional Instructions: Thank you for choosing [facility] for your healthcare needs today. Please realize that you were seen in the Emergency Department and that we are providing you with an emergency medical screening exam and this may not be a complete and all inclusive of all the testing and or medical work-up that you may need to determine your ailment or severity of your illness. It is very important that you follow-up as instructed with your Primary care provider or Specialist for additional evaluation and to discuss your medical treatment plan. You may return to the Emergency Department should you have concerns or if your condition changes or worsens in any way. Coding Level of Care Code ED Supervisor [employer] for Kayden Molina
--- NOTE | 2023-10-23 03:19 | ECG_ITS ---
[facility] Test Date: 2023-10-23 Pat Name: Ronit Palma Department: Room: Gender: Female Celery Cutter: : 1950 Requested By: Paras Bartholomew Order Number: [id number] Familia MD: Abdelrahman Becker M.D. Measurements Intervals [place] Rate: 74 P: 76 UT: 195 QRS: 72 QRSD: 97 T: 76 QT: 401 QTc: 447 Interpretive Statements SINUS RHYTHM Compared to ECG 03/28/2023 01:04:13 No significant changes Electronically Signed On 10-23-2023 9:00:59 MARKETING OPERATIONS ASSOCIATE by Abdelrahman Becker M.D. [id number] f
--- NOTE | 2023-10-23 03:19 | XRR_ITS ---
PROCEDURE INFORMATION: Exam: XR Chest Exam date and time: 10/23/2023 3:30 AM Age: 73 years old Clinical indication: Chest wall pain; Prior surgery; Surgery date: 6+ months; Surgery type: Open heart 15 years ago; Patient HX: Chest pain that started two hours ago, smoker, no HX of cancer; Additional info: Cxp TECHNIQUE: Imaging protocol: Radiologic exam of the chest. Views: 1 view. COMPARISON: CR XR chest 1V portable [id number] 03/27/2023 11:21 PM FINDINGS: Lungs: Minimal streaky bibasilar atelectasis, [id number]. No consolidation. Pleural spaces: Unremarkable. No pleural effusion. No pneumothorax. Heart/Mediastinum: Stable cardiomediastinal silhouette. Bones/joints: Median sternotomy changes seen. XR/XR chest 1V portable [id number] IMPRESSION: No evidence of active cardiopulmonary disease.
[2023-10-23 03:29] LABS: Basophils % 0.3 %; Eosinophils # 0.3 10^3/uL (0.0-0.8); Eosinophils % 2.7 %; Hematocrit 37.7 % (36-47); Lymphocytes # 3.6 10^3/uL (0.8-4.8); Lymphocytes % 28.7 %; Mean Corpuscular HGB Conc 33.2 g/dL (30-55); Mean Corpuscular Hemoglobin 30.9 pg (27-33); Mean Corpuscular Volume 93.1 fl (85-98); Mean Platelet Volume 10.6 fL (7.4-10.4); Monocytes % 8.1 %; Neutrophils # 7.57 10^3/uL (1.8-7.7); Neutrophils % 59.8 %; Nucleated Red Blood Cells % 0 %; Platelet Count 253 10^3/cmm (157-399); Red Blood Count 4.05 10^6/uL (3.85-5.65); Red Cell Distribution Width 12.7 % (12.1-15.1); White Blood Count 12.65 10^3/uL (3.29-11.43)
[2023-10-23 03:35] LABS: INR 1.22 (0.8-1.2)
[2023-10-23 03:42] LABS: Troponin(5th) Baseline 11 ng/L (0-10)
[2023-10-23 03:51] LABS: Alanine Aminotransferase 10 U/L (0-33); Albumin Level 4.5 g/dL (3.5-5.2); Alkaline Phosphatase 148 U/L (35-105); Anion Gap 17.6 (5-19); Aspartate Amino Transferase 21 U/L (0-32); Blood Urea Nitrogen 19 mg/dL (8-23); Calcium 9.7 mg/dL (8.5-10.5); Carbon Dioxide 24 mmol/L (22-29); Chloride 101 mmol/L (98-107); Globulin 3.2 g/dL (1.3-4.6); Glucose 118 mg/dL (65-115); NT Pro B Type Natriuretic Pept 221 pg/mL (0-125); Osmolality Calculated 291 mOsm/kg (285-295); Potassium 3.6 mmol/L (3.5-5.1); Sodium 139 mmol/L (136-145); Total Bilirubin 0.3 mg/dL (0.15-1.2); Total Protein 7.7 g/dL (6.6-8.7)
[2023-10-23] MEDS: nitroglycerin 1 gm/inch oint Pkt 1 INCH TOPICAL (03:54)
[2023-10-23 04:54] LABS: Urine Appearance Clear (CLEAR); Urine Color Colorless (Yellow)
[2023-10-23 04:55] LABS: Bilirubin Urine Neg (Negative); Blood Urine Neg (Negative); Glucose Urine UA Norm (Normal); Ketones Urine Negative (Negative); Leukocyte Esterase Urine Negative (Negative); Nitrate Urine Negative (Negative); Protein Urine Neg (Negative); Urobilinogen Urine Neg (Negative); pH Urine 7 (5-7)
[2023-10-23 04:55] LABS: Troponin 5 2HR 16.17 ng/L (0-10); Troponin 5 2HR Delta 5.17 ABS# (0-10)
[2023-10-23 05:02] LABS: Add Urine Culture? No; Bacteria Urine TRACE /hpf; Squamous Epithelial Cell Urine 0-4 /hpf (0-5)
--- NOTE | 2023-10-23 05:19 | ECG_ITS ---
[facility] Test Date: 2023-10-23 Pat Name: Ronit Palma Department: Room: Gender: Female Pipeline Executive: : 1950 Requested By: Paras Bartholomew Order Number: [id number] Familia MD: Abdelrahman Becker M.D. Measurements Intervals [place] Rate: 91 P: 70 NE: 184 QRS: 76 QRSD: 102 T: 78 QT: 365 QTc: 450 Interpretive Statements SINUS RHYTHM MODERATE ST DEPRESSION [0.05+ mV ST DEPRESSION] Compared to ECG 03/28/2023 01:04:13 ST (T wave) deviation now present Electronically Signed On 10-23-2023 9:01:39 RN PLACEMENT by Abdelrahman Becker M.D. [id number] f
== END 2023-10-23 05:30 | disposition home or self-care (01) ==
PROVIDERS: Emergency Provider Internal Medicine; PCP Nurse Practitioner
DX: R07.89 Other chest pain (principal); R05.1 Acute cough; J18.9 Pneumonia, unspecified organism; Z79.02 Long term (current) use of antithrombotics/antiplatelets; Z79.82 Long term (current) use of aspirin; Z79.01 Long term (current) use of anticoagulants; F17.210 Nicotine dependence, cigarettes, uncomplicated; Z95.1 Presence of aortocoronary bypass graft; I10 Essential (primary) hypertension; J44.9 Chronic obstructive pulmonary disease, unspecified
CPT/HCPCS: 71045; 80053; 81001; 83880; 84484; 85025; 85610; 93005; 99285

== ENCOUNTER → 2023-10-29 11:14 | Outpatient (BNVA) | payer MEDICARE, OTHER, SELFPAY | PROVIDERS: PCP Nurse Practitioner; Visit Provider Nurse Practitioner | DX: I48.91 Unspecified atrial fibrillation (principal); J44.9 Chronic obstructive pulmonary disease, unspecified; D72.829 Elevated white blood cell count, unspecified | CPT/HCPCS: 85025; 85610 ==

== ENCOUNTER 2023-10-30 11:39 | Outpatient (CLI) | payer MEDICARE, OTHER, SELFPAY ==
--- NOTE | 2023-10-30 12:00 | CT_ITS ---
WS: [id number] CT scan of the chest without IV contrast, additional two-dimensional coronal and sagittal reconstruct ion was performed. 10/30/2023 Clinical Data: J44.9 - Chronic obstructive pulmonary disease, unspecified Comparison: CTA of the chest, 01/11/2021 DLP: 305.[address] scans at [facility] use at least one of these dose optimization techniques: automated e xposure control; mA and/or kV adjustment per patient size (includes targeted exams where dose is matc hed to clinical indication); or iterative reconstruction. Findings: There is a nodule in the left upper lobe measuring 0.6 cm seen best on axial image 30 of 69. No masses or effusions are seen. There is coronary artery calcification. There are midline sternotomy sutures. The heart size is normal with no pericardial effusion. The pulmonary arterial system and th oracic aorta demonstrate no abnormalities or dilatations. The trachea bifurcates normally into the br onchi. There is no axillary or significant mediastinal adenopathy. The bony thorax shows no abnormali ties. The upper abdomen demonstrates splenic granulomas. There are cysts of both kidneys. Impression: 1. 0.6 cm left upper lobe nodule which was not present before and recommend follow-up CT chest in 3 m [facility]. 2. Negative for active cardiac disease.
== END 2023-10-30 11:40 | disposition home or self-care (01) ==
LOC: RAD 11:40
PROVIDERS: PCP Nurse Practitioner; Visit Provider Nurse Practitioner
DX: J44.9 Chronic obstructive pulmonary disease, unspecified (principal); D72.829 Elevated white blood cell count, unspecified; R91.1 Solitary pulmonary nodule
CPT/HCPCS: 71250

== ENCOUNTER 2023-12-05 11:56 | Outpatient (CLI) | payer MEDICARE, OTHER, SELFPAY ==
[2023-12-05 13:06] LABS: INR 1.38 (0.8-1.2)
== END 2023-12-05 11:57 | disposition home or self-care (01) ==
LOC: LAB 11:58
PROVIDERS: PCP Nurse Practitioner; Visit Provider Internal Medicine Cardiovascular Disease
DX: I48.0 Paroxysmal atrial fibrillation (principal)
CPT/HCPCS: 36415; 85610

== ENCOUNTER 2023-12-15 22:27 | Emergency (ER) | payer MEDICARE, OTHER, SELFPAY ==
[2023-12-15 22:30] VITALS: BP 192/102; PULSE 97; RESP 17; TEMP 36.4; BMI 25.6
--- NOTE | 2023-12-15 22:34 | ECG_ITS ---
[facility] Test Date: 2023-12-15 Pat Name: Ronit Palma Department: Room: Gender: Female Hospice Case Manager: : 1950 Requested By: Edison Holloway Order Number: [id number] Familia MD: Aditya Richmond M.D. Measurements Intervals [place] Rate: 90 P: 93 DC: 165 QRS: 86 QRSD: 98 T: 72 QT: 363 QTc: 446 Interpretive Statements SINUS RHYTHM MODERATE ST DEPRESSION [0.05+ mV ST DEPRESSION] Compared to ECG 10/23/2023 04:21:55 ST (T wave) deviation now present Electronically Signed On 12-16-2023 19:25:00 FLORIST HELPER by Aditya Richmond M.D. [id number] f
--- NOTE | 2023-12-15 22:41 | XRR_ITS ---
PROCEDURE INFORMATION: Exam: XR Chest Exam date and time: 12/15/2023 10:52 PM Age: 73 years old Clinical indication: Chest wall pain; Patient HX: Chest pain; Tachycardia; HTN; HX cabg 2014 TECHNIQUE: Imaging protocol: Radiologic exam of the chest. Views: 1 view. COMPARISON: CT chest [facility] [id number] 10/30/2023 12:08 PM FINDINGS: Lungs: Unremarkable. No consolidation. Pleural spaces: Unremarkable. No pleural effusion. No pneumothorax. Heart/Mediastinum: Unremarkable. No cardiomegaly. Bones/joints: Unremarkable. XR/XR chest 1V portable [id number] IMPRESSION: No acute findings.
[2023-12-15 22:47] LABS: Basophils # 0.1 10^3/uL (0.0-0.1); Basophils % 0.4 %; Eosinophils # 0.3 10^3/uL (0.0-0.8); Eosinophils % 1.6 %; Hematocrit 38.6 % (36-47); Lymphocytes # 4.8 10^3/uL (0.8-4.8); Lymphocytes % 29.8 %; Mean Corpuscular HGB Conc 33.2 g/dL (30-55); Mean Corpuscular Hemoglobin 30.6 pg (27-33); Mean Corpuscular Volume 92.3 fl (85-98); Mean Platelet Volume 10.2 fL (7.4-10.4); Monocytes # 1.4 10^3/uL (0.2-0.9); Monocytes % 8.9 %; Neutrophils # 9.44 10^3/uL (1.8-7.7); Neutrophils % 58.8 %; Nucleated Red Blood Cells % 0 %; Platelet Count 259 10^3/cmm (157-399); Red Blood Count 4.18 10^6/uL (3.85-5.65); Red Cell Distribution Width 12.7 % (12.1-15.1); White Blood Count 16.03 10^3/uL (3.29-11.43)
[2023-12-15 22:57] VITALS: BP 142/71; PULSE 78; RESP 16; O2SAT 96
[2023-12-15 23:05] LABS: INR 1.58 (0.8-1.2); Partial Thromboplastin Time 30.1 SECONDS (23.9-36.7)
[2023-12-15 23:07] VITALS: BP 130/73; PULSE 86; RESP 16; O2SAT 93
[2023-12-15 23:11] LABS: Troponin(5th) Baseline 17 ng/L (0-10)
[2023-12-15] MEDS: ondansetron 2 mg/ML SDV 2 mL 4 MG IVP (23:11)
[2023-12-15] MEDS: morphine 4 mg/mL SDV 1 mL 2 MG IVP (23:11)
[2023-12-15 23:20] LABS: Alanine Aminotransferase 10 U/L (0-33); Albumin Level 4.2 g/dL (3.5-5.2); Alkaline Phosphatase 127 U/L (35-105); Anion Gap 16.3 (5-19); Aspartate Amino Transferase 15 U/L (0-32); Blood Urea Nitrogen 24 mg/dL (8-23); Calcium 9.5 mg/dL (8.5-10.5); Carbon Dioxide 24 mmol/L (22-29); Chloride 102 mmol/L (98-107); Globulin 2.9 g/dL (1.3-4.6); Glucose 133 mg/dL (65-115); NT Pro B Type Natriuretic Pept 270 pg/mL (0-125); Osmolality Calculated 294 mOsm/kg (285-295); Potassium 3.3 mmol/L (3.5-5.1); Sodium 139 mmol/L (136-145); Total Bilirubin 0.2 mg/dL (0.15-1.2); Total Protein 7.1 g/dL (6.6-8.7)
--- NOTE | 2023-12-15 23:53 | ED_ITS ---
HPI - Chest Pain 2 General: Chief Complaint: Chest Pain Stated Complaint: high HR Time Seen by Provider: 12/15/23 22:33 History of Present Illness: 73-year-old female with a history of cor onary disease and COPD. She presents with diffuse chest discomfort that started earlier in the evening while at rest. Pain has not let up. She is mildly short of breath. She notes some mild increase in cough recently. Minimal sputum production. No fever. Associated symptoms: Reports dyspnea and nausea; Deny abdominal pain, fever(s), palpitations or vomiting Review of Systems 2 Const: Denies: fever(s) or chills ENMT: Denies: throat pain Card: Reports: chest pain; Denies: palpitations Resp: Reports: dyspnea and non-productive cough GI: Reports: nausea; Denies: abdominal pain or vomiting PFSH ED 2 PFSH: Medical History Anxiety PE (pulmonary thromboembolism) DVT (deep venous thrombosis) Age related osteoporosis Unstable angina Bilateral renal cysts Personal history of nicotine dependence Vitamin D insufficiency Femur fracture Heart disease HTN (hypertension) COPD (chronic obstructive pulmonary disease) Surgical History History of hip surgery left History of cholecystectomy History of hysterectomy History of heart artery stent Hx of CABG Family History Mother CAD (coronary artery disease) Lung disease Other Cancer Heart disease Hypertension Denies family history of Diabetes Clotting disorder Dementia Hyperlipidemia Psychiatric illness Chronic kidney disease (CKD) Suicide Anesthesia complication Bleeding disorder Stroke Social History Smoking and tobacco/nicotine status: current every day tobacco/nicotine user (1 ppd) cigarettes Packs smoked per day: 1 Second hand smoke exposure: Yes Alcohol intake: never Substance/Drug Use: never Adopted: No Caregiver/support person: No Lives independently: Yes Household members: children Housing: House Marital status: / Number of children: 4 service: No Current occupational status: retired Do you think of yourself as: Straight/Heterosexual Current gender identity: Female Physical Exam 2 Const: COMMON NORMALS: no acute distress GENERAL APPEARANCE: cooperative; not ill appearing and not frail appearing HENMT: COMMON NORMALS: normocephalic, atraumatic and Normal external nose present HEAD & SCALP: normocephalic and atraumatic FACE & SINUS: normal facial exam and face symmetric NOSE: Normal external nose present Eye: COMMON NORMALS: Equal, round and reactive pupils present and EOMs intact bilaterally PUPIL: Yes Equal, round and reactive pupils present Neck/C-Spine: GENERAL: Yes trachea midline Chest: CHEST: Yes Symmetrical chest wall rise Resp: COMMON NORMALS: normal respiratory effort, No retractions, No use of accessory muscles and clear to auscultation bilaterally AUSCULTATION: clear to auscultation bilaterally Cardio: COMMON NORMALS: regular rate and regular rhythm RATE: regular rate RHYTHM: regular rhythm GI: COMMON NORMALS: Normal to inspection, nondistended, normoactive bowel sounds present Extremity: COMMON NORMALS: no pedal edema Neuro: GABRIELLE COMA SCALE: document GCS findings Gabrielle coma scale eye opening: Spontaneous Maxwell coma scale verbal response: Orientated Gabrielle coma scale motor response: Obey commands Gabrielle coma scale total score: 15 S ENSORY EXAM: Yes extremities (intact) Psych: COMMON NORMALS: speech normal SPEECH: Yes normal speech Skin: COMMON NORMALS: no rashes or lesions noted GENERAL SKIN EXAM: no rashes or lesions noted Course 2 Vital Signs: Vital signs: Vital Signs Temperature 97.6 F 12/16/23 02:29 Pulse Rate 76 12/16/23 02:29 Respiratory Rate 16 12/16/23 02:29 Blood Pressure 154/80 12/16/23 02:29 Pulse Oximetry 93 12/16/23 02:29 Oxygen Delivery Me thod Room Air 12/15/23 22:30 MDM - Chest Pain Medical Decision Making Patient was very hypertensive on arrival. This is improved with medication. Chest pain is improved with medication as well. White blood cell count is 16. She is has a history of high white blood cell counts. Other CBC markers are fine. Potassium is mildly low. Delta troponin is negative. EKG showed no acute ST wave changes. Chest x-ray is negative. Pain is improved after morphine and GI cocktail here. She will be allowed discharge home. Lab Data 12/15/23 22:44 12/15/23 22:44 Radiology Impressions Chest X-Ray 12/15/23 22:41 IMPRESSION: No acute findings. Laboratory Results WBC 16.03 10^3/uL (3.29-11.43) H 12/15/23 22:44 RBC 4.18 10^6/uL (3.85-5.65) 12/15/23 22:44 Hgb 12.80 g/dL (11.27-16.99) 12/15/23 22:44 Hct 38.6 % (36-47) 12/15/23 22:44 MCV 92.3 fl (85-98) 12/15/23 22:44 MCH 30.6 pg (27-33) 12/15/23 22:44 MCHC 33.2 g/dL (30-55) 12/15/23 22:44 RDW 12.7 % (12.1-15.1) 12/15/23 22:44 Plt Count 259 10^3/cmm (157-399) 12/15/23 22:44 MPV 10.2 fL (7.4-10.4) 12/15/23 22:44 Neut % (Auto) 58.8 % 12/15/23 22:44 Lymph % (Auto) 29.8 % 12/15/23 22:44 [place] % (Auto) 8.9 % 12/15/23 22:44 Eos % (Auto) 1.6 % 12/15/23 22:44 Baso % (Auto) 0.4 % 12/15/23 22:44 Neut # (Auto) 9.44 10^3/uL (1.8-7.7) H 12/15/23 22:44 Lymph # (Auto) 4.8 10^3/uL (0.8-4.8) 12/15/23 22:44 [place] # (Auto) 1.4 10^3/uL (0.2-0.9) H 12/15/23 22:44 Eos # (Auto) 0.3 10^3/uL (0.0-0.8) 12/15/23 22:44 Baso # (Auto) 0.1 10^3/uL (0.0-0.1) 12/15/23 22:44 Nucleated RBC % (auto) 0 % 12/15/23 22:44 Nucleated RBCs # 0.0 /100WBC 12/15/23 22:44 PT 19.50 SECONDS (12.1-14.9) H 12/15/23 22:44 INR 1.58 (0.8-1.2) H 12/15/23 22:44 APTT 30.1 SECONDS (23.9-36.7) 12/15/23 22:44 Sodium 139 mmol/L (136-145) 12/15/23 22:44 Potassium 3.3 mmol/L (3.5-5.1) L 12/15/23 22:44 Chloride 102 mmol/L (98-107) 12/15/23 22:44 Carbon Dioxide 24 mmol/L (22-29) 12/15/23 22:44 Anion Gap 16.3 (5-19) 12/15/23 22:44 BUN 24 mg/dL (8-23) H 12/15/23 22:44 Creatinine 0.7 mg/dL (0.5-0.9) 12/15/23 22:44 GFR Calculation Not Reportable 12/15/23 22:44 Glucose 133 mg/dL (65-115) H 12/15/23 22:44 Calculated Osmolality 294 mOsm/kg (285-295) 12/15/23 22:44 Calcium 9.5 mg/dL (8.5-10.5) 12/15/23 22:44 Total Bilirubin 0.2 mg/dL (0.15-1.2) 12/15/23 22:44 AST 15 U/L (0-32) 12/15/23 22:44 ALT 10 U/L (0-33) 12/15/23 22:44 Alkaline Phosphatase 127 U/L (35-105) H 12/15/23 22:44 Troponin T Baseline 17 ng/L (0-10) H 12/15/23 22:44 Troponin T 120 Minute 17.49 ng/L (0-10) H 12/16/23 00:44 Delta Troponin T 0.49 ABS# (0-10) 12/16/23 00:44 NT-Pro-B Natriuret Pep 270 pg/mL (0-125) H 12/15/23 22:44 Total Protein 7.1 g/dL (6.6-8.7) 12/15/23 22:44 Albumin 4.2 g/dL (3.5-5.2) 12/15/23 22:44 Globulin 2.9 g/dL (1.3-4.6) 12/15/23 22:44 Urine Color Colorless (Yellow) 12/15/23 23:51 Urine Appearance Clear (CLEAR) 12/15/23 23:51 Urine pH 5 (5-7) 12/15/23 23:51 Ur Specific [place] 1.010 (1.005-1.030) 12/15/23 23:51 Urine Protein Neg (Negative) 12/15/23 23:51 Urine Glucose (UA) Norm (Normal) 12/15/23 23:51 Urine Ketones Negative (Negative) 12/15/23 23:51 Urine Blood Neg (Negative) 12/15/23 23:51 Urine Nitrate Negative (Negative) 12/15/23 23:51 Urine Bilirubin Neg (Negative) 12/15/23 23:51 Urine Urobilinogen Norm mg/dL (Negative) 12/15/23 23:51 Ur Leukocyte Esterase Negative (Negative) 12/15/23 23:51 All radiology interpretation(s) finalized by discharge Discharge Plan Discharge Patient Disposition: Home Clinical Impression: Chest pain Condition: Stable Prescriptions: No Action Trelegy Ellipta 100-62.5-25 mcg blister with device 1 inh inhalation Q24H Qty: 28 5RF hydrochlorothiazide 25 mg tablet 25 mg PO DAILY PRN (Reason: high blood pressure) Qty: 30 0RF Probiotic Digestive Care 20 billion cell capsule See Rx Instructions PO .2 times day Qty: 60 2RF Rx Instructions: 20 billion cell PO .2 times day; albuterol sulfate 2.5 mg /3 mL (0.083 %) solution for nebulization 2.5 mg inhalation Q4H PRN (Reason: shortness of breath or wheezing) Qty: 75 2RF escitalopram oxalate [Lexapro] 10 mg tablet 10 mg PO .at supper Qty: 30 2RF ergocalciferol (vitamin D2) 1,250 mcg (50,000 unit) capsule 1,250 mcg PO .weekly Qty: 4 2RF valsartan [Diovan] 80 mg tablet 80 mg PO DAILY Qty: 30 2RF methylprednisolone [Medrol (Emil)] 4 mg tablets,dose pack See Rx Instructions PO PER PKG DIR Qty: 21 0RF Rx Instructions: PO PER PKG DIR doxycycline hyclate 100 mg tablet 100 mg PO BID 7 Days Qty: 14 0RF acetaminophen [Tylenol] 325 mg Tablet 325 - 350 mg PO QID PRN (Reason: headache/pain) atorvastatin [Lipitor] 40 mg tablet 40 mg PO QPM Qty: 0 0RF clopidogrel [Plavix] 75 mg Tablet 75 mg PO DAILY@0900 aspirin 81 mg Tablet,Chewable 81 mg PO DAILY@0900 isosorbide mononitrate 30 mg Tablet Extended Release 24 Hr 30 mg PO BID@0900,1800 warfarin 5 mg tablet See Rx Instructions .ROUTE .COMPLEX Rx Instructions: 5mg 3 days 7.5mg 4 days; Discharge Orders: Discharge ED (Routine); Ordered 12/16/23 Ordered By: Edison Medrano Referrals: Loretta Ramírez, [employer] [Primary Care Provider] - 1-3 days Patient Instructions: Chest Pain (ED), Opioid Safety, Pain Management Activity Restrictions/Additional Instructions: Return for worsening chest pain, worsening shortness of breath, fever, other concerning symptoms. Call your doctor today for an appointment this week for follow-up. Coding Level of Care Code ED Director Group Sales for Kayden Molina
[2023-12-16] LABS: Add Urine Microscopic? NO; Charge for UA Resulting for Rev
[2023-12-16 00:02] LABS: Bilirubin Urine Neg (Negative); Blood Urine Neg (Negative); Glucose Urine UA Norm (Normal); Ketones Urine Negative (Negative); Leukocyte Esterase Urine Negative (Negative); Nitrate Urine Negative (Negative); Protein Urine Neg (Negative); Urine Appearance Clear (CLEAR); Urine Color Colorless (Yellow); Urobilinogen Urine Norm (Negative); pH Urine 5 (5-7)
[2023-12-16 00:38] VITALS: BP 154/80; PULSE 76; RESP 16; O2SAT 93
[2023-12-16 01:23] LABS: Troponin 5 2HR 17.49 ng/L (0-10); Troponin 5 2HR Delta 0.49 ABS# (0-10)
[2023-12-16] MEDS: lidocaine 2% viscous 15 ML, aluminum-mag hydrox-simethicon 30 ML, sucralfate oral liq 1 GM PO (02:14)
[2023-12-16] MEDS: morphine 4 mg/mL SDV 1 mL 2 MG IVP (02:15)
[2023-12-16 02:29] VITALS: BP 154/80; PULSE 76; RESP 16; TEMP 36.4; O2SAT 93
== END 2023-12-16 02:31 | disposition home or self-care (01) ==
PROVIDERS: Emergency Provider Emergency Medicine; PCP Nurse Practitioner
DX: R07.9 Chest pain, unspecified (principal); Z79.02 Long term (current) use of antithrombotics/antiplatelets; Z79.82 Long term (current) use of aspirin; Z79.01 Long term (current) use of anticoagulants; F17.210 Nicotine dependence, cigarettes, uncomplicated; I10 Essential (primary) hypertension; J44.9 Chronic obstructive pulmonary disease, unspecified; Z95.1 Presence of aortocoronary bypass graft
CPT/HCPCS: 36415; 71045; 80053; 81003; 83880; 84484; 85025; 85610; 85730; 93005; 96374; 96375; 96376; 99285; J2270; J2405

== ENCOUNTER 2023-12-24 11:14 | Outpatient (RCR) | payer MEDICARE, OTHER, SELFPAY ==
[2023-12-24 12:03] LABS: INR 1.42 (0.8-1.2)
== END 2024-01-16 23:59 | disposition home or self-care (01) ==
LOC: LAB 11:14
PROVIDERS: PCP Nurse Practitioner; Visit Provider Internal Medicine Cardiovascular Disease
DX: I48.0 Paroxysmal atrial fibrillation (principal)
CPT/HCPCS: 36415; 85610

== ENCOUNTER 2024-01-03 13:41 | Outpatient (CLI) | payer MEDICARE, OTHER, SELFPAY ==
[2024-01-03 14:37] LABS: INR 1.43 (0.8-1.2)
== END 2024-01-03 13:42 | disposition home or self-care (01) ==
LOC: LAB 13:46
PROVIDERS: PCP Nurse Practitioner; Visit Provider Internal Medicine Cardiovascular Disease
DX: I48.0 Paroxysmal atrial fibrillation (principal)
CPT/HCPCS: 36415; 85610

== ENCOUNTER 2024-01-14 10:49 | Outpatient (CLI) | payer MEDICARE, OTHER, SELFPAY ==
[2024-01-14 11:40] LABS: INR 4.59 (0.8-1.2)
== END 2024-01-14 10:50 | disposition home or self-care (01) ==
LOC: LAB 10:54
PROVIDERS: PCP Nurse Practitioner; Visit Provider Internal Medicine Cardiovascular Disease
DX: I48.0 Paroxysmal atrial fibrillation (principal)
CPT/HCPCS: 36415; 85610

== ENCOUNTER 2024-01-24 14:22 | Outpatient (CLI) | payer MEDICARE, OTHER, SELFPAY ==
[2024-01-24 15:39] LABS: Prothrombin Time > 120.00 SECONDS (12.1-14.9)
[2024-01-24 16:29] LABS: INR > 20.00 (0.8-1.2)
== END 2024-01-24 14:23 | disposition home or self-care (01) ==
LOC: LAB 14:23
PROVIDERS: PCP Nurse Practitioner; Visit Provider Nurse Practitioner
DX: I48.0 Paroxysmal atrial fibrillation (principal)
CPT/HCPCS: 36415; 85610

== ENCOUNTER 2024-01-26 21:22 | Emergency (ER) | payer MEDICARE, OTHER, SELFPAY ==
[2024-01-26 21:25] VITALS: BP 160/79; PULSE 75; RESP 18; TEMP 36.5; O2SAT 98; BMI 26.1
--- NOTE | 2024-01-26 21:40 | XRR_ITS ---
PROCEDURE INFORMATION: Exam: XR Chest Exam date and time: 01/26/2024 9:47 PM Age: 73 years old Clinical indication: Prior surgery; Surgery date: 6+ months; Surgery type: Cabg; Patient HX: Cough; Afib; Hypercoagulated TECHNIQUE: Imaging protocol: Radiologic exam of the chest. Views: 1 view. COMPARISON: CR (CHEST, ) 12/15/2023 10:52 PM FINDINGS: Lungs: Small focal hazy opacity in the right lower lobe. Pleural spaces: No large pleural effusion. No pneumothorax. Heart/Mediastinum: Sequela of prior CABG. No cardiomegaly. Bones/joints: No acute abnormality. XR/XR chest 1V portable [id number] IMPRESSION: Small focal hazy opacity in the right lower lobe, indeterminate, may represent mild infiltrate.
--- NOTE | 2024-01-26 21:46 | ED_ITS ---
HPI - Recheck/Abnormal Lab/Rx 2 General: Chief Complaint: Recheck/Abnormal Lab/Rx Stated Complaint: abnormal labs Time Seen by Provider: 01/26/24 21:23 Source: patient Mode of arrival: ambulatory Limitations: no limitations History of Present Illness: 73-year-old female who is on Coumadin sh e states the raised her Coumadin dose twice she takes 1-1/2 1 day and 3 the other day 10 mg tablets. States she had her blood drawn on Saturday and was called today and told that her INR was elevated and told to come to the ER. I do have her blood work her INR is greater than 20 states she had some nosebleeds denies any other bleeding she denies any pain anywhere. Review of Systems 2 Const: Denies: fever(s), chills, body aches or change in appetite ENMT: Reports: epistaxis; Denies: throat pain or dental pain Card: Denies: chest pain Resp: Denies: dyspnea GI: Denies: abdominal pain, nausea, vomiting or diarrhea Musc: Denies: neck pain or back pain Skin/Breast: Denies: rash Neuro: Denies: headache(s) PFSH ED 2 PFSH: Medical History Anxiety PE (pulmonary thromboembolism) DVT (deep venous thrombosis) Age related osteoporosis Unstable angina Bilateral renal cysts Personal history of nicotine dependence Vitamin D insufficiency Femur fracture Heart disease HTN (hypertension) COPD (chronic obstructive pulmonary disease) Surgical History History of hip surgery left History of cholecystectomy History of hysterectomy History of heart artery stent Hx of CABG Family History Mother CAD (coronary artery disease) Lung disease Other Cancer Heart disease Hypertension Denies family history of Diabetes Clotting disorder Dementia Hyperlipidemia Psychiatric illness Chronic kidney disease (CKD) Suicide Anesthesia complication Bleeding disorder Stroke Social History Smoking and tobacco/nicotine status: current every day tobacco/nicotine user (1 ppd) cigarettes Packs smoked per day: 1 Second hand smoke exposure: Yes Alcohol intake: never Substance/Drug Use: never Adopted: No Caregiver/support person: No Lives independently: Yes Household members: children Housing: House Marital status: / Number of children: 4 service: No Current occupational status: retired Do you think of yourself as: Straight/Heterosexual Current gender identity: Female Physical Exam 2 Const: COMMON NORMALS: no acute distress, patient oriented x3 and healthy appearing HENMT: COMMON NORMALS: normocephalic and atraumatic HEAD & SCALP: n ormocephalic and atraumatic Neck/C-Spine: COMMON NORMALS: full ROM and supple Chest: COMMONS NORMALS: normal inspection of the chest Resp: COMMON NORMALS: normal respiratory effort Cardio: COMMON NORMALS: regular rate, regular rhythm and No murmurs present (Cardio) RATE: regular rate RHYTHM: regular rhythm GI: COMMON NORMALS: Soft to palpation and non-tender PALPATION: Yes Soft to palpation Extremity: COMMON NORMALS: normal to inspection and full ROM Neuro: COMMON NORMALS: patient oriented x3, moves all extremities and no focal motor deficits Psych: COMMON NORMALS: mental status grossly normal, Normal thought process present and cooperative THOUGHT PROCESS: Normal thought process present Skin: COMMON NORMALS: no rashes or lesions noted and no wounds GENERAL SKIN EXAM: no rashes or lesions noted Course 2 Vital Signs: Vital signs: Vital Signs Temperature 97.7 F 01/26/24 21:25 Pulse Rate 65 01/26/24 22:18 Respiratory Rate 16 01/26/24 22:18 Blood Pressure 137/76 01/26/24 22:18 Pulse Oximetry 93 01/26/24 22:18 Oxygen Delivery Me thod Room Air 01/26/24 21:25 MDM - Recheck/Abnormal Lab/Rx Medical Decision Making Patient presents here with an elevated INR on the eighth it was greater than 20 she had held her Coumadin today its down to 11 she has no active bleeding at this time hemoglobin stable I informed her she needs to continue to hold her Coumadin she is to follow-up with PCP tomorrow I informed her she needs another INR check in 1 to 2 days and they can adjust her meds accordingly if she has any bleeding the meantime she is to return immediately she understands agrees to plan. Medical Records I reviewed the patient's medical records. Lab Data I reviewed the patient's lab results. 01/26/24 21:05 01/26/24 21:05 Radiology Impressions Chest X-Ray 01/26/24 21:40 IMPRESSION: Small focal hazy opacity in the right lower lobe, indeterminate, may represent mild infiltrate. Laboratory Results WBC 9.57 10^3/uL (3.29-11.43) 01/26/24 21:05 RBC 4.19 10^6/uL (3.85-5.65) 01/26/24 21:05 Hgb 12.60 g/dL (11.27-16.99) 01/26/24 21:05 Hct 38.3 % (36-47) 01/26/24 21:05 MCV 91.4 fl (85-98) 01/26/24 21:05 MCH 30.1 pg (27-33) 01/26/24 21: MCHC 32.9 g/dL (30-55) 01/26/24 21:05 RDW 12.8 % (12.1-15.1) 01/26/24 21:05 Plt Count 225 10^3/cmm (157-399) 01/26/24 21:05 MPV 10.0 fL (7.4-10.4) 01/26/24 21:05 Neut % (Auto) 56.8 % 01/26/24 21:05 Lymph % (Auto) 29.6 % 01/26/24 21:05 [place] % (Auto) 9.1 % 01/26/24 21:05 Eos % (Auto) 3.8 % 01/26/24 21:05 Baso % (Auto) 0.2 % 01/26/24 21:05 Neut # (Auto) 5.44 10^3/uL (1.8-7.7) 01/26/24 21:05 Lymph # (Auto) 2.8 10^3/uL (0.8-4.8) 01/26/24 21:05 [place] # (Auto) 0.9 10^3/uL (0.2-0.9) 01/26/24 21:05 Eos # (Auto) 0.4 10^3/uL (0.0-0.8) 01/26/24 21:05 Baso # (Auto) 0.0 10^3/uL (0.0-0.1) 01/26/24 21:05 Nucleated RBC % (auto) 0 % 03/10/24 21:05 Nucleated RBCs # 0.0 /100WBC 01/26/24 21:05 PT 94.50 SECONDS (12.1-14.9) H 01/26/24 21:05 INR 11.61 (0.8-1.2) H* 01/26/24 21:05 Sodium 141 mmol/L (136-145) 01/26/24 21:05 Potassium 3.9 mmol/L (3.5-5.1) 01/26/24 21:05 Chloride 105 mmol/L (98-107) 01/26/24 21:05 Carbon Dioxide 25 mmol/L (22-29) 01/26/24 21:05 Anion Gap 14.9 (5-19) 01/26/24 21:05 BUN 23 mg/dL (8-23) 01/26/24 21:05 Creatinine 0.8 mg/dL (0.5-0.9) 01/26/24 21:05 GFR Calculation Not Reportable 01/26/24 21:05 Glucose 99 mg/dL (65-115) 01/26/24 21:05 Calculated Osmolality 296 mOsm/kg (285-295) H 01/26/24 21:05 Calcium 8.9 mg/dL (8.5-10.5) 01/26/24 21:05 Total Bilirubin 0.3 mg/dL (0.15-1.2) 01/26/24 21:05 AST 21 U/L (0-32) 01/26/24 21:05 ALT 13 U/L (0-33) 01/26/24 21:05 Alkaline Phosphatase 128 U/L (35-105) H 01/26/24 21:05 Total Protein 7.4 g/dL (6.6-8.7) 01/26/24 21:05 Albumin 4.0 g/dL (3.5-5.2) 01/26/24 21:05 Globulin 3.4 g/dL (1.3-4.6) 01/26/24 21:05 No radiology studies performed this visit Discharge Plan Discharge Patient Disposition: Home Clinical Impression: Elevated INR Condition: Stable Prescriptions: No Action Trelegy Ellipta 100-62.5-25 mcg blister with device 1 inh inhalation Q24H Qty: 28 5RF hydrochlorothiazide 25 mg tablet 25 mg PO DAILY PRN (Reason: high blood pressure) Qty: 30 0RF Probiotic Digestive Care 20 billion cell capsule See Rx Instructions PO .2 times day Qty: 60 2RF Rx Instructions: 20 billion cell PO .2 times day; albuterol sulfate 2.5 mg /3 mL (0.083 %) solution for nebulization 2.5 mg inhalation Q4H PRN (Reason: shortness of breath or wheezing) Qty: 75 2RF escitalopram oxalate [Lexapro] 10 mg tablet 10 mg PO .at supper Qty: 30 2RF ergocalciferol (vitamin D2) 1,250 mcg (50,000 unit) capsule 1,250 mcg PO .weekly Qty: 4 2RF valsartan [Diovan] 80 mg tablet 80 mg PO DAILY Qty: 30 2RF methylprednisolone [Medrol (Emil)] 4 mg tablets,dose pack See Rx Instructions PO PER PKG DIR Qty: 21 0RF Rx Instructions: PO PER PKG DIR doxycycline hyclate 100 mg tablet 100 mg PO BID 7 Days Qty: 14 0RF acetaminophen [Tylenol] 325 mg Tablet 325 - 350 mg PO QID PRN (Reason: headache/pain) atorvastatin [Lipitor] 40 mg tablet 40 mg PO QPM Qty: 0 0RF clopidogrel [Plavix] 75 mg Tablet 75 mg PO DAILY@0900 aspirin 81 mg Tablet,Chewable 81 mg PO DAILY@0900 isosorbide mononitrate 30 mg Tablet Extended Release 24 Hr 30 mg PO BID@0900,1800 warfarin 5 mg tablet See Rx Instructions .ROUTE .COMPLEX Rx Instructions: 5mg 3 days 7.5mg 4 days; Discharge Orders: Discharge ED (Routine); Ordered 01/26/24 Ordered By: Breana Wiggins Referrals: Loretta Ramírez, [employer] [Primary Care Provider] - 1-3 days Discharge Diet: Advance as tolerated Discharge Activity: Resume usual activity Patient Instructions: Elevated INR (ED) Activity Restrictions/Additional Instructions: hold your coumadin for 3 days follow up with your pcp in 1-2 days for inr recheck. return if bleeding Coding Level of Care Code ED Frame Aligner for Kayden Molina
[2024-01-26 22:14] LABS: Basophils % 0.2 %; Eosinophils # 0.4 10^3/uL (0.0-0.8); Eosinophils % 3.8 %; Hematocrit 38.3 % (36-47); Lymphocytes # 2.8 10^3/uL (0.8-4.8); Lymphocytes % 29.6 %; Mean Corpuscular HGB Conc 32.9 g/dL (30-55); Mean Corpuscular Hemoglobin 30.1 pg (27-33); Mean Corpuscular Volume 91.4 fl (85-98); Monocytes # 0.9 10^3/uL (0.2-0.9); Monocytes % 9.1 %; Neutrophils # 5.44 10^3/uL (1.8-7.7); Neutrophils % 56.8 %; Nucleated Red Blood Cells % 0 %; Platelet Count 225 10^3/cmm (157-399); Red Blood Count 4.19 10^6/uL (3.85-5.65); Red Cell Distribution Width 12.8 % (12.1-15.1); White Blood Count 9.57 10^3/uL (3.29-11.43)
[2024-01-26 22:18] VITALS: BP 137/76; PULSE 65; RESP 16; O2SAT 93
[2024-01-26 22:42] LABS: INR 11.61 (0.8-1.2)
[2024-01-26 22:45] LABS: Alanine Aminotransferase 13 U/L (0-33); Alkaline Phosphatase 128 U/L (35-105); Anion Gap 14.9 (5-19); Aspartate Amino Transferase 21 U/L (0-32); Blood Urea Nitrogen 23 mg/dL (8-23); Calcium 8.9 mg/dL (8.5-10.5); Carbon Dioxide 25 mmol/L (22-29); Chloride 105 mmol/L (98-107); Creatinine Clr Calc Pharmacy 63.8283; Globulin 3.4 g/dL (1.3-4.6); Glucose 99 mg/dL (65-115); Osmolality Calculated 296 mOsm/kg (285-295); Potassium 3.9 mmol/L (3.5-5.1); Sodium 141 mmol/L (136-145); Total Bilirubin 0.3 mg/dL (0.15-1.2); Total Protein 7.4 g/dL (6.6-8.7)
[2024-01-26 23:24] VITALS: BP 137/76; PULSE 65; RESP 16; TEMP 36.5; O2SAT 93
== END 2024-01-26 23:29 | disposition home or self-care (01) ==
PROVIDERS: Emergency Provider Emergency Medicine; PCP Nurse Practitioner
DX: R79.89 Other specified abnormal findings of blood chemistry (principal); Z79.01 Long term (current) use of anticoagulants; Z79.02 Long term (current) use of antithrombotics/antiplatelets; Z79.82 Long term (current) use of aspirin; F17.210 Nicotine dependence, cigarettes, uncomplicated; I10 Essential (primary) hypertension; J44.9 Chronic obstructive pulmonary disease, unspecified; Z95.1 Presence of aortocoronary bypass graft
CPT/HCPCS: 71045; 80053; 85025; 85610; 99284

== ENCOUNTER 2024-01-27 20:05 | Emergency (ER) | payer MEDICARE, OTHER, SELFPAY ==
[2024-01-27 20:23] VITALS: BP 153/84; PULSE 72; RESP 16; TEMP 36.6; O2SAT 96
[2024-01-27 20:31] VITALS: BP 158/64; PULSE 75; O2SAT 96
[2024-01-27 20:49] LABS: Basophils % 0.5 %; Eosinophils # 0.3 10^3/uL (0.0-0.8); Eosinophils % 3.4 %; Lymphocytes # 2.5 10^3/uL (0.8-4.8); Lymphocytes % 32.5 %; Mean Corpuscular HGB Conc 33.2 g/dL (30-55); Mean Corpuscular Hemoglobin 30.2 pg (27-33); Mean Corpuscular Volume 90.9 fl (85-98); Mean Platelet Volume 10.1 fL (7.4-10.4); Monocytes # 0.9 10^3/uL (0.2-0.9); Monocytes % 11.2 %; Neutrophils # 3.93 10^3/uL (1.8-7.7); Nucleated Red Blood Cells % 0 %; Platelet Count 212 10^3/cmm (157-399); Red Blood Count 4.07 10^6/uL (3.85-5.65); Red Cell Distribution Width 12.7 % (12.1-15.1); White Blood Count 7.57 10^3/uL (3.29-11.43)
[2024-01-27 21:00] VITALS: BP 152/75; PULSE 68; O2SAT 94
[2024-01-27 21:16] LABS: INR 6.36 (0.8-1.2)
--- NOTE | 2024-01-27 21:20 | XRR_ITS ---
PROCEDURE INFORMATION: Exam: XR Chest Exam date and time: 01/27/2024 9:24 PM Age: 73 years old Clinical indication: Other: Spitting up blood; Additional info: Cough/hemoptysis x 2 days TECHNIQUE: Imaging protocol: Radiologic exam of the chest. Views: 1 view. COMPARISON: CR (CHEST, ) 01/26/2024 9:47 PM FINDINGS: Lungs: Hyperinflated lungs. No focal consolidation. The previously described right lower lung zone hazy opacities not well seen on today's study, likely represent atelectasis. Pleural spaces: Unremarkable. No pleural effusion. No pneumothorax. Heart/Mediastinum: Unremarkable. No cardiomegaly. Bones/joints: Mild degenerative disease of bilateral acromioclavicular joints. Moderate degenerative disease of the lower cervical spine. Surgical changes of sternotomy. XR/XR chest 1V portable [id number] IMPRESSION: Resolution of the right lower lung zone airspace opacity, likely representing atelectasis. No focal consolidation.
--- NOTE | 2024-01-27 21:24 | ED_ITS ---
HPI - General Adult 2 General: Chief complaint: General Medical Stated complaint: Spitting up blood Time Seen by Provider: 01/27/24 21:09 History of Present Illness: 73-year-old female presents emergency de partment stating that she had several episodes of coughing fits today and states she coughed up some blood. She states she was seen here in the emergency department yesterday and was advised to return to the emergency department if she became concerned or if things worsened. She states that she is on Coumadin, Plavix and aspirin and had her INR checked 4 days ago and it was found to be 20 she was told to hold her Coumadin and come to the emergency department. She states she has had some epistaxis but has not had any additional epistaxis since she was seen here in the emergency department yesterday. Her INR yesterday was 11. She denies shortness of breath or chest pain today. Associated symptoms: Deny chest pain, dyspnea, nausea or vomiting Review of Systems 2 General: Reports: 10 or more systems reviewed and unremarkable except in HPI and below Const: Denies: fever(s) or chills Card: Denies: chest pain Resp: Reports: hemoptysis; Denies: dyspnea GI: Denies: abdominal pain, nausea or vomiting PFSH ED 2 PFSH: Medical History Anxiety PE (pulmonary thromboembolism) DVT (deep venous thrombosis) Age related osteoporosis Unstable angina Bilateral renal cysts Personal history of nicotine dependence Vitamin D insufficiency Femur fracture Heart disease HTN (hypertension) COPD (chronic obstructive pulmonary disease) Surgical History History of hip surgery left History of cholecystectomy History of hysterectomy History of heart artery stent Hx of CABG Family History Mother CAD (coronary artery disease) Lung disease Other Cancer Heart disease Hypertension Denies family history of Diabetes Clotting disorder Dementia Hyperlipidemia Psychiatric illness Chronic kidney disease (CKD) Suicide Anesthesia complication Bleeding disorder Stroke Social History Smoking and tobacco/nicotine status: current every day tobacco/nicotine user (1 ppd) cigarettes Packs smoked per day: 1 Second hand smoke exposure: Yes Alcohol intake: never Substance/Drug Use: never Adopted: No Caregiver/support person: No Lives independently: Yes Household members: children Housing: House Marital status: / Number of children: 4 service: No Current occupational status: retired Do you think of yourself as: Straight/Heterosexual Current gender identity: Female Physical Exam 2 Narrative: EXAM NARRATIVE: Constitutional: the patient appears well nourished and with normal development. Vital signs reviewed as documented. No acute distress HENMT: Normocephalic, atraumatic. External ears normal appearance without drainage. Nose without drainage, normal appearance. Mucus membranes moist. Neck is supple, No jugular venous distension, trachea is midline, Flexion, extension and lateral rotation is without pain. Eyes: Pupils are equal, round. No scleral icterus. Extra-ocular movement are intact. Thorax is symmetrical and with equal rise and fall with respirations. Resp: Lungs are clear to auscultation. No wheezes, rales, crackles or ronchi at present. Cardio: Regular rate and rhythm. Positive S1, S2. No appreciable murmurs, rubs or gallops. GI: Abdominal exam reveals normal bowel sounds to all quadrants. No organomegaly. No obvious palpable masses noted. No hepatomegally appreciated. Soft, non-tender to palpation. Extremity: Extremities are non-edematous and both femoral and pedal pulses are 2+ and equal bilaterally. Moves all extremities well, sensation in all extremities. Neuro: Alert and oriented x4, person, place, time and situation. Motor strength in the upper and lower extremities are equal and bilateral 5/5. Psych: Cooperative, calm, normal thought process, appropriate judgment. Skin: No lesions, rashes. No gross abnormalities noted. Course 2 Vital Signs: Vital signs: Vital Signs Temperature 97.9 F 01/27/24 20:23 Pulse Rate 63 01/27/24 21:30 Respiratory Rate 16 01/27/24 20:23 Blood Pressure 141/69 01/27/24 21:30 Pulse Oximetry 95 01/27/24 21:30 Oxygen Delivery Me thod Room Air 01/27/24 21:30 MDM - General Adult Medical Decision Making Patient presents emergency department after being seen yesterday for concerns of hemoptysis. She states she is having no active bleeding at present. She states she did have a single episode of coughing with a small amount of blood. She states she does not feel short of breath or have chest pain. I repeated her INR and it is improved from 11-6 I advised her to continue to hold her Coumadin and to keep her primary care provider appointment as previously advised. She does have an appointment to have her INR checked in 2 days and I encouraged her to keep that appointment. I advised her if any additional bleeding occurs to return to the emergency department immediately. I did talk with Dr. Mcclure regarding need for observation of this patient given that she is taking Plavix, aspirin and Coumadin and at present he agreed that the patient could be monitored at home and follow-up as previously discussed. Differential Diagnosis Supratherapeutic INR, hemoptysis, pneumonia, Medical Records I reviewed the patient's medical records. Lab Data I reviewed the patient's lab results. 01/27/24 20:44 Radiology Impressions Chest X-Ray 01/27/24 21:20 IMPRESSION: Resolution of the right lower lung zone airspace opacity, likely representing atelectasis. No focal consolidation. Laboratory Results WBC 7.57 10^3/uL (3.29-11.43) 01/27/24 20:44 RBC 4.07 10^6/uL (3.85-5.65) 01/27/24 20:44 Hgb 12.30 g/dL (11.27-16.99) 01/27/24 20:44 Hct 37.0 % (36-47) 01/27/24 20:44 MCV 90.9 fl (85-98) 01/27/24 20:44 MCH 30.2 pg (27-33) 01/27/24 20:44 MCHC 33.2 g/dL (30-55) 01/27/24 20:44 RDW 12.7 % (12.1-15.1) 01/27/24 20:44 Plt Count 212 10^3/cmm (157-399) 01/27/24 20:44 MPV 10.1 fL (7.4-10.4) 01/27/24 20:44 Neut % (Auto) 52.0 % 01/27/24 20:44 Lymph % (Auto) 32.5 % 01/27/24 20:44 Keith % (Auto) 11.2 % 01/27/24 20:44 Eos % (Auto) 3.4 % 01/27/24 20:44 Baso % (Auto) 0.5 % 01/27/24 20:44 Neut # (Auto) 3.93 10^3/uL (1.8-7.7) 01/27/24 20:44 Lymph # (Auto) 2.5 10^3/uL (0.8-4.8) 01/27/24 20:44 Keith # (Auto) 0.9 10^3/uL (0.2-0.9) 01/27/24 20:44 Eos # (Auto) 0.3 10^3/uL (0.0-0.8) 01/27/24 20:44 Baso # (Auto) 0.0 10^3/uL (0.0-0.1) 01/27/24 20:44 Nucleated RBC % (auto) 0 % 01/27/24 20:44 Nucleated RBCs # 0.0 /100WBC 01/27/24 20:44 PT 58.60 SECONDS (12.1-14.9) H 01/27/24 20:44 INR 6.36 (0.8-1.2) H* 01/27/24 20:44 All radiology interpretation(s) finalized by discharge Discharge Plan Discharge Patient Disposition: Home Clinical Impression: Cough with hemoptysis, Supratherapeutic INR Condition: Stable Prescriptions: No Action Trelegy Ellipta 100-62.5-25 mcg blister with device 1 inh inhalation Q24H Qty: 28 5RF hydrochlorothiazide 25 mg tablet 25 mg PO DAILY PRN (Reason: high blood pressure) Qty: 30 0RF Probiotic Digestive Care 20 billion cell capsule See Rx Instructions PO .2 times day Qty: 60 2RF Rx Instructions: 20 billion cell PO .2 times day; albuterol sulfate 2.5 mg /3 mL (0.083 %) solution for nebulization 2.5 mg inhalation Q4H PRN (Reason: shortness of breath or wheezing) Qty: 75 2RF escitalopram oxalate [Lexapro] 10 mg tablet 10 mg PO .at supper Qty: 30 2RF ergocalciferol (vitamin D2) 1,250 mcg (50,000 unit) capsule 1,250 mcg PO .weekly Qty: 4 2RF valsartan [Diovan] 80 mg tablet 80 mg PO DAILY Qty: 30 2RF methylprednisolone [Medrol (Emil)] 4 mg tablets,dose pack See Rx Instructions PO PER PKG DIR Qty: 21 0RF Rx Instructions: PO PER PKG DIR doxycycline hyclate 100 mg tablet 100 mg PO BID 7 Days Qty: 14 0RF acetaminophen [Tylenol] 325 mg Tablet 325 - 350 mg PO QID PRN (Reason: headache/pain) atorvastatin [Lipitor] 40 mg tablet 40 mg PO QPM Qty: 0 0RF clopidogrel [Plavix] 75 mg Tablet 75 mg PO DAILY@0900 aspirin 81 mg Tablet,Chewable 81 mg PO DAILY@0900 isosorbide mononitrate 30 mg Tablet Extended Release 24 Hr 30 mg PO BID@0900,1800 warfarin 5 mg tablet See Rx Instructions .ROUTE .COMPLEX Rx Instructions: 5mg 3 days 7.5mg 4 days; Discharge Orders: Discharge ED (Routine); Ordered 01/27/24 Ordered By: Paras Bartholomew Referrals: Loretta Ramírez, [facility] PLANNER-C [Primary Care Provider] - Discharge Diet: Usual diet Discharge Activity: Resume usual activity Patient Instructions: Opioid Safety, Pain Management Activity Restrictions/Additional Instructions: Activity Restrictions/Additional Instructions: Thank you for choosing [facility] for your healthcare needs today. Please realize that you were seen in the Emergency Department and that we are providing you with an emergency medical screening exam and this may not be a complete and all inclusive of all the testing and or medical work-up that you may need to determine your ailment or severity of your illness. It is very important that you follow-up as instructed with your Primary care provider or Specialist for additional evaluation and to discuss your medical treatment plan. You may return to the Emergency Department should you have concerns or if your condition changes or worsens in any way. Coding Level of Care Code ED Early [employer] Director for Kayden Molina
[2024-01-27 21:30] VITALS: BP 141/69; PULSE 63; O2SAT 95
== END 2024-01-28 00:16 | disposition home or self-care (01) ==
PROVIDERS: Emergency Medicine; Emergency Provider Internal Medicine; PCP Nurse Practitioner
DX: R04.2 Hemoptysis (principal); R79.89 Other specified abnormal findings of blood chemistry; Z79.82 Long term (current) use of aspirin; Z79.02 Long term (current) use of antithrombotics/antiplatelets; Z79.01 Long term (current) use of anticoagulants; F17.210 Nicotine dependence, cigarettes, uncomplicated; I10 Essential (primary) hypertension; J44.9 Chronic obstructive pulmonary disease, unspecified; Z95.1 Presence of aortocoronary bypass graft
CPT/HCPCS: 36415; 71045; 85025; 85610; 99284

== ENCOUNTER → 2024-01-29 11:32 | Outpatient (BNVA) | payer MEDICARE, OTHER, SELFPAY | PROVIDERS: PCP Nurse Practitioner; Visit Provider Nurse Practitioner | DX: I48.91 Unspecified atrial fibrillation (principal); R79.1 Abnormal coagulation profile | CPT/HCPCS: 85610 ==

== ENCOUNTER 2024-01-31 13:15 | Outpatient (CLI) | payer MEDICARE, OTHER, SELFPAY ==
[2024-01-31 14:29] LABS: INR 1.17 (0.8-1.2)
== END 2024-01-31 13:16 | disposition home or self-care (01) ==
LOC: LAB 13:17
PROVIDERS: PCP Nurse Practitioner; Visit Provider Nurse Practitioner
DX: R79.1 Abnormal coagulation profile (principal)
CPT/HCPCS: 85610

== ENCOUNTER → 2024-02-04 12:03 | Outpatient (BNVA) | payer MEDICARE, OTHER, SELFPAY | PROVIDERS: PCP Nurse Practitioner; Visit Provider Nurse Practitioner | DX: Z51.81 Encounter for therapeutic drug level monitoring (principal); Z79.01 Long term (current) use of anticoagulants; I48.91 Unspecified atrial fibrillation | CPT/HCPCS: 85610 ==

== ENCOUNTER 2024-02-12 12:55 | Outpatient (RCR) | payer MEDICARE, OTHER, SELFPAY ==
[2024-02-12 13:27] LABS: INR 1.41 (0.8-1.2)
== END 2024-02-16 23:59 | disposition home or self-care (01) ==
LOC: LAB 12:55
PROVIDERS: PCP Nurse Practitioner; Visit Provider Internal Medicine Cardiovascular Disease
DX: I48.0 Paroxysmal atrial fibrillation (principal)
CPT/HCPCS: 36415; 85610

== ENCOUNTER 2024-02-14 12:14 | Outpatient (CLI) | payer MEDICARE, OTHER, SELFPAY ==
--- NOTE | 2024-02-14 12:30 | CT_ITS ---
WS: [id number] CT HEAD NONCONTRAST HISTORY: R51.9 - Headache, unspecified TECHNIQUE: Contiguous axial imaging performed through the brain in 2.5 mm imaging. Bone and soft tiss ue windows. Sagittal and coronal reformats reviewed. All CT scans at [facility] use at least one of these dose optimization techniques: automated exposure control; mA and/or kV adjustment per pa tient size (includes targeted exams where dose is matched to clinical indication); or iterative recon struction. DLP: 1066.98 mGy.cm COMPARISON: 03/27/2023 No acute intracranial hemorrhage, midline shift or mass effect. Mild atrophy and small vessel ischemic disease. Very similar to the prior study. Ventricles: Normal size with no hydrocephalus. Dense atherosclerotic plaque in the distal vertebral arteries and through the intracranial carotid ar teries. Paranasal sinuses: As visualized are clear. Mastoid air cells: Small amount of fluid LEFT mastoid air cells. Calvarium and scalp: Skull is intact with no soft tissue edema or swelling. IMPRESSION: 1. Stable noncontrast head CT since 03/27/2023. 2. No acute hemorrhage or edema. 3. Mild atrophy and small vessel ischemic disease.
--- NOTE | 2024-02-14 13:00 | CT_ITS ---
WS: [id number] Exam: CT chest mery burgos [id number] Date/Time of Exam: 02/14/2024 12:31 PM Reason For Exam: R91.1 - Solitary pulmonary nodule DLP: 296.[address] scans at [facility] use at least one of these dose optimization techniques: automated e xposure control; mA and/or kV adjustment per patient size (includes targeted exams where dose is matc hed to clinical indication); or iterative reconstruction. Comparison with previous exam 10/30/2023. There is an enlarging soft tissue nodule in the superior segment of the LEFT lower lobe that measures 12.46 x 7.93 cm. No other pulmonary nodules identified. The lungs are otherwise clear and fully infl ated. Mild emphysematous changes in the upper lung zones. No mediastinal or hilar lymphadenopathy. Th e trachea and major bronchi are patent. The thoracic aorta is normal in caliber. No pleural or perica rdial effusion noted. The chest wall is intact. No destructive bone lesions are seen. Previous median sternotomy and CABG surgery. Normal thyroid tissue. CT sections of the upper abdomen again demonstra te bilateral renal cysts. IMPRESSION: 1. Enlarging soft tissue nodule in the superior segment of the LEFT lower lobe. This could represent pulmonary malignancy. A vascular malformation could also have this appearance. 2. No lymphadenopathy in the chest. 3. Mild emphysematous changes and pulmonary hyperinflation. Recommendations: PET/CT could be helpful in further differentiation.
== END 2024-02-14 12:15 | disposition home or self-care (01) ==
LOC: RAD 12:15
PROVIDERS: PCP Nurse Practitioner; Visit Provider Nurse Practitioner
DX: R51.9 Headache, unspecified (principal); R91.1 Solitary pulmonary nodule
CPT/HCPCS: 70450; 71250

== ENCOUNTER → 2024-02-19 09:41 | Outpatient (BNVA) | payer MEDICARE, OTHER, SELFPAY | PROVIDERS: PCP Nurse Practitioner; Visit Provider Nurse Practitioner | DX: I48.91 Unspecified atrial fibrillation (principal); Z51.81 Encounter for therapeutic drug level monitoring; Z79.01 Long term (current) use of anticoagulants | CPT/HCPCS: 85610 ==

== ENCOUNTER 2024-02-21 12:16 | Outpatient (CLI) | payer MEDICARE, OTHER, SELFPAY | END 2024-02-21 12:17 | disposition home or self-care (01) | LOC: LAB 12:26 | PROVIDERS: PCP Nurse Practitioner; Visit Provider Nurse Practitioner | DX: I48.91 Unspecified atrial fibrillation (principal) | CPT/HCPCS: 36415; 85610 ==

== ENCOUNTER 2024-03-03 11:06 | Outpatient (CLI) | payer MEDICARE, OTHER, SELFPAY ==
[2024-03-03 11:44] LABS: INR 2.18 (0.8-1.2)
== END 2024-03-03 11:07 | disposition home or self-care (01) ==
PROVIDERS: PCP Nurse Practitioner; Visit Provider Nurse Practitioner
DX: Z51.81 Encounter for therapeutic drug level monitoring (principal); Z79.01 Long term (current) use of anticoagulants; I48.91 Unspecified atrial fibrillation
CPT/HCPCS: 36415; 85610

== ENCOUNTER 2024-03-03 13:24 | Outpatient (CLI) | payer MEDICARE, OTHER, SELFPAY ==
--- NOTE | 2024-03-03 14:00 | PETR_ITS ---
PROCEDURE INFORMATION: Exam: PET/CT Skull Base to Mid-thigh Exam date and time: 03/03/2024 2:08 PM Age: 74 years old Clinical indication: Abnormal findings; Enlarging soft tissue nodule in the superior segment of the left lower lobe. This could represent. Pulmonary malignancy. A vascular malformation could also have this appearance. Prior surgery; Surgery date: 6+ months; Surgery type: Heart stents, 2x bypass; Additional info: R91.1 - solitary pulmonary nodule LABS AND CLINICAL REPORTS: Glucose: 111 mg/dl Treatment strategy for malignancy (PET staging): Initial Staging (PI) TECHNIQUE: Imaging protocol: Following at least four-hour fasting and following the injection of radiopharmaceutical, low dose CT images were obtained. Then, PET images were obtained. Attenuation corrected images were constructed using the CT scan. Fused images of PET and CT were reviewed. The standardized uptake values (SUV) reported below are maximum values within a region of interest, expressed in gm/ml. Exam includes orbital meatal line to mid-thigh. Radiopharmaceutical: 12.89 mCi F-18 FDG (Fluorodeoxyglucose), IV. Time of imaging post radiopharmaceutical administration: 1 hour Injection site: Left antecubital vein COMPARISON: CT chest 02/14/2024 and 10/30/2023 FINDINGS: Brain: Visualized brain has normal physiologic uptake. Pharynx: No abnormal uptake. Larynx: No abnormal uptake. Lungs, pleura and trachea: 1.3 cm left lower lobe lung nodule measures 2.5 SUV. Mild centrilobular emphysema in the upper lobes. No pleural effusion. Heart: Normal physiologic uptake. No cardiomegaly. Status post CABG surgery. No pericardial effusion. Mediastinal space: No abnormal uptake. Liver: No abnormal uptake. Calcified granulomas in both lobes with the largest 1.5 cm calcified nodule in the right lobe. Gallbladder and bile ducts: No abnormal uptake. Status post cholecystectomy. Pancreas: No abnormal uptake. Spleen: No abnormal uptake. No splenomegaly. Small calcified granulomas. Adrenal glands: No abnormal uptake. No nodules. Kidneys and ureters: Normal physiologic uptake. No hydronephrosis. Stable simple bilateral renal cysts measuring 3.1 cm on the right side and 2.5 cm on the left side Stomach and bowel: No abnormal uptake. Intraperitoneal and retroperitoneal spaces: No abnormal uptake. No ascites. Bladder: Normal physiologic uptake. Reproductive: No abnormal uptake. The uterus is absent post surgically. Vasculature: No abnormal uptake. No aortic aneurysms. Stents in bilateral common iliac arteries. Lymph nodes: Borderline uptake within normal size bilateral axillary lymph nodes (1.9 SUV on the left side, 1.6 SUV on the right side) and borderline uptake up to 2.5 SUV within normal size bilateral hilar lymph nodes is likely benign reactive in nature. No FDG avid lymphadenopathy in the head, neck, abdomen, pelvis, and the groins. Bones/joints: No abnormal uptake in the visualized axial and appendicular skeleton. Status post sternotomy. Internal fixation pins within the left femoral head and neck. Soft tissues: Linear area of mildly increased uptake of 2.3 SUV within the left levator scapula muscle adjacent to the attachment point of the scapula is likely benign. [facility] [id number] IMPRESSION: 1.3 cm left lower lobe lung nodule with borderline uptake of 2.5 SUV may be malignant or benign inflammatory in nature. Nonspecific uptake of 2.5 SUV within bilateral normal size hilar lymph nodes is probably benign. Borderline uptake up to 1.9 SUV within normal size bilateral axillary lymph nodes is likely benign. No FDG avid findings outside of the chest concerning for malignancy.
== END 2024-03-03 13:25 | disposition home or self-care (01) ==
LOC: RAD 13:26
PROVIDERS: PCP Nurse Practitioner; Visit Provider Nurse Practitioner
DX: R91.1 Solitary pulmonary nodule (principal)
CPT/HCPCS: 78815; A9552

== ENCOUNTER 2024-04-15 11:39 | Outpatient (RCR) | payer MEDICARE, OTHER, SELFPAY ==
[2024-03-24 09:53] LABS: INR 1.63 (0.8-1.2)
[2024-04-15 12:08] LABS: INR 2.58 (0.8-1.2)
== END 2024-04-17 23:59 | disposition home or self-care (01) ==
LOC: LAB 11:39
PROVIDERS: PCP Nurse Practitioner; Visit Provider Nurse Practitioner
DX: Z51.81 Encounter for therapeutic drug level monitoring (principal); Z79.01 Long term (current) use of anticoagulants
CPT/HCPCS: 36415; 85610

== ENCOUNTER 2024-05-28 15:44 | Outpatient (CLI) | payer MEDICARE, OTHER, SELFPAY ==
[2024-05-28 16:39] LABS: INR 2.06 (0.8-1.2)
== END 2024-05-28 15:45 | disposition home or self-care (01) ==
LOC: LAB 15:45
PROVIDERS: PCP Nurse Practitioner; Visit Provider Nurse Practitioner
DX: Z51.81 Encounter for therapeutic drug level monitoring (principal); Z79.01 Long term (current) use of anticoagulants
CPT/HCPCS: 85610

== ENCOUNTER 2024-07-09 11:32 | Outpatient (CLI) | payer MEDICARE, OTHER, SELFPAY ==
[2024-07-09 12:37] LABS: INR 2.55 (0.8-1.2)
== END 2024-07-09 11:33 | disposition home or self-care (01) ==
LOC: LAB 11:34
PROVIDERS: PCP Nurse Practitioner; Visit Provider Nurse Practitioner
DX: I48.91 Unspecified atrial fibrillation (principal)
CPT/HCPCS: 36415; 85610

== ENCOUNTER → 2024-08-11 12:09 | Outpatient (BNVA) | payer MEDICARE, OTHER, SELFPAY | PROVIDERS: PCP Nurse Practitioner; Visit Provider Nurse Practitioner | DX: R06.2 Wheezing (principal) | CPT/HCPCS: 71046 ==

== ENCOUNTER → 2024-10-12 16:59 | Outpatient (BNVA) | payer MEDICARE, OTHER, SELFPAY | PROVIDERS: PCP Nurse Practitioner; Visit Provider Nurse Practitioner | DX: I48.91 Unspecified atrial fibrillation (principal); I10 Essential (primary) hypertension | CPT/HCPCS: 85610 ==

== ENCOUNTER 2024-10-13 13:37 | Outpatient (CLI) | payer MEDICARE, OTHER, SELFPAY ==
--- NOTE | 2024-10-13 13:44 | XRR_ITS ---
PROCEDURE INFORMATION: Exam: XR Left Shoulder Exam date and time: 10/13/2024 1:57 PM Age: 74 years old Clinical indication: Patient HX: Left lateral shoulder and humerus pain after fall 1 mo ago, worsening pain; Additional info: M79.602 - pain in left arm TECHNIQUE: Imaging protocol: Radiologic exam of the left shoulder. Views: 2 or more views. COMPARISON: [place] [id number] 10/13/2024 1:57 PM FINDINGS: Bones/joints: Median sternotomy. Mild articular surface narrowing and spurring at the acromioclavicular and glenohumeral joints. No fracture or dislocation. No acute osseous or joint abnormality. Soft tissues: Normal. XR/XR shoulder LT min 2V* [id number] IMPRESSION: No acute findings.
--- NOTE | 2024-10-13 13:44 | XRR_ITS ---
PROCEDURE INFORMATION: Exam: XR Left Humerus Exam date and time: 10/13/2024 1:57 PM Age: 74 years old Clinical indication: Upper arm; Patient HX: Left lateral shoulder and humerus pain after fall 1 mo ago, worsening pain; Additional info: M79.602 - pain in left arm TECHNIQUE: Imaging protocol: Radiologic exam of the left humerus. Views: 2 or more views. COMPARISON: CR XR shoulder LT min 2V* [id number] 10/13/2024 1:57 PM FINDINGS: Bones/joints: Normal. No fracture or dislocation. No acute osseous or joint abnormality. Soft tissues: Normal. XR/[place] [id number] IMPRESSION: No acute findings.
[2024-10-13 14:00] LABS: Basophils % 0.6 %; Eosinophils # 0.4 10^3/uL (0.0-0.8); Hematocrit 38.3 % (36-47); Lymphocytes # 1.5 10^3/uL (0.8-4.8); Lymphocytes % 23.6 %; Mean Corpuscular HGB Conc 33.4 g/dL (30-55); Mean Corpuscular Hemoglobin 31.2 pg (27-33); Mean Corpuscular Volume 93.4 fl (85-98); Mean Platelet Volume 10.5 fL (7.4-10.4); Monocytes # 0.9 10^3/uL (0.2-0.9); Monocytes % 13.3 %; Neutrophils # 3.64 10^3/uL (1.8-7.7); Nucleated Red Blood Cells % 0 %; Platelet Count 191 10^3/cmm (157-399); Red Cell Distribution Width 12.6 % (12.1-15.1); White Blood Count 6.49 10^3/uL (3.29-11.43)
[2024-10-13 14:27] LABS: Alanine Aminotransferase 8 U/L (0-33); Albumin Level 4.2 g/dL (3.5-5.2); Alkaline Phosphatase 98 U/L (35-105); Anion Gap 13.9 (5-19); Aspartate Amino Transferase 18 U/L (0-32); Blood Urea Nitrogen 16 mg/dL (8-23); Calcium 9.3 mg/dL (8.5-10.5); Carbon Dioxide 28 mmol/L (22-29); Chloride 100 mmol/L (98-107); Chol HDL Ratio 3.29 mg/dL (0.0-4.40); Cholesterol 204 mg/dL (0-200); Globulin 2.7 g/dL (1.3-4.6); Glucose 85 mg/dL (65-115); HDL Cholesterol 62 mg/dL (60-100); LDL Cholesterol Calculated 107 mg/dL (50-129); Osmolality Calculated 286 mOsm/kg (285-295); Potassium 3.9 mmol/L (3.5-5.1); Sodium 138 mmol/L (136-145); Thyroid Stimulating Hormone 1.25 uIU/mL (0.27-4.20); Total Bilirubin 0.4 mg/dL (0.15-1.2); Total Protein 6.9 g/dL (6.6-8.7); Triglycerides 176 mg/dL (0-150); VLDL Cholestrol Calculation 35 mg/dL (0-30)
== END 2024-10-13 13:38 | disposition home or self-care (01) ==
LOC: RAD 13:39
PROVIDERS: PCP Nurse Practitioner; Visit Provider Nurse Practitioner
DX: M79.602 Pain in left arm (principal); I10 Essential (primary) hypertension
CPT/HCPCS: 73030; 73060; 80053; 80061; 84443; 85025

== ENCOUNTER 2024-12-11 14:32 | Outpatient (CLI) | payer MEDICARE, OTHER, SELFPAY ==
[2024-12-11 15:05] LABS: INR 2.31 (0.8-1.2)
== END 2024-12-11 14:33 | disposition home or self-care (01) ==
LOC: LAB 14:35
PROVIDERS: PCP Nurse Practitioner; Visit Provider Nurse Practitioner
DX: Z51.81 Encounter for therapeutic drug level monitoring (principal); Z79.01 Long term (current) use of anticoagulants
CPT/HCPCS: 36415; 85610

== ENCOUNTER 2025-01-15 21:45 | Inpatient (IN) | payer MEDICARE, OTHER, SELFPAY ==
[2025-01-15 21:46] VITALS: BP 136/65; PULSE 108; RESP 20; TEMP 38.8; O2SAT 97; BMI 23.6
--- NOTE | 2025-01-15 22:16 | ECG_ITS ---
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 Measurements Intervals [place] Rate: 103 P: 80 UT: 161 QRS: 81 QRSD: 102 T: 79 QT: 362 QTc: 476 Interpretive Statements SINUS TACHY[address]IA [address] DEVIATION AND MODERATE T-WAVE ABNORMALITY, CONSIDER ANTERIOR ISCHEMIA [-0.1+ mV T-WAVE IN V3/V4] Compared to ECG 12/15/2023 22:34:27 T-wave abnormality now present Possible ischemia now present Sinus rhythm no longer present ST (T wave) deviation no longer present Electronically Signed On 01-16-2025 07:39:05 [employer] by Abdelrahman Becker M.D. [email or web address]
--- NOTE | 2025-01-15 22:16 | XRR_ITS ---
PROCEDURE INFORMATION: Exam: XR Chest Exam date and time: 01/15/2025 10:24 PM Age: 74 years old Clinical indication: Cough and fever and shortness of breath; Prior surgery; Surgery date: 6+ months; Surgery type: Cabg. Coronary stents; Cough with fever and SOB. History of lung cancer. ; Additional info: Cough, SOB, fever TECHNIQUE: Imaging protocol: Radiologic exam of the chest. Views: 1 view. COMPARISON: CR XR chest 2V* [id number] 08/11/2024 12:19 PM FINDINGS: Lungs: Stable mild hyperinflation. No focal consolidation. Pleural spaces: Unremarkable. No pleural effusion. No pneumothorax. Heart/Mediastinum: Unremarkable. No cardiomegaly. Vasculature: Vascular calcifications of the aorta. Bones/joints: Changes of prior sternotomy. Diffuse osteopenia. Degenerative change within bilateral glenohumeral joints. XR/XR chest 1V portable [id number] IMPRESSION: No acute cardiopulmonary process.
--- NOTE | 2025-01-15 22:29 | ED_ITS ---
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 Patient's daughter is here and also helps give history. The patient uses an oxygen concentrator for oxygen as needed during the day and 4 L/min at night. However daughter reports that the machine was found to be malfunctioning today. It was intermittently turning off and they could not get it to work correctly. Daughter saw that she had an increased respiratory rate and felt hot to the touch. Daughter advised she come to the emergency department for treatment. Patient does take warfarin for history of DVT. Associated symptoms: Deny abdominal pain, chest pain, extremity pain, nausea, syncope or vomiting Related Data Home Medications ?Medication ?Instructions ?Recorded ?Confirmed aspirin 81 mg chewable tablet 81 mg PO DAILY@0900 01/0 12/0712/24/24 clopidogrel 75 mg tablet (Plavix) 75 mg PO DAILY@0900 11/18/19 12/24/24 isosorbide mononitrate 30 mg 30 mg PO BID@0900,1800 12/24/24 tablet,extended release 24 hr acetaminophen 325 mg tablet 325 - 350 mg PO QID PRN 12/24/24 (Tylenol) headache/pain Previous Rx's ?Medication ?Instructions ?Recorded atorvastatin 40 mg tablet (Lipitor) 40 mg PO QPM #0 ta bs 01/12/21 Lactobacillus rhamnosus GG 20 See Rx Instructions PO . 2 times 10/29/23 billion cell capsule (Probiotic day #60 caps Digestive Care) albuterol sulfate 2.5 mg/3 mL 2.5 mg (3 mL) inhalation Q4H PRN 02/19/24 (0.083 %) solution for nebulization shortness of breat h or wheezing #75 mL hydrochlorothiazide 25 mg tablet 25 mg PO DAILY PRN hi gh blood 04/14/24 pressure #30 tabs escitalopram oxalate 10 mg tablet 10 mg PO .at supper #30 tabs 11/25/24 (Lexapro) fluticasone fur. 100 mcg-umeclid 1 inh inhalation Q24H #28 ea 10/12/24 62.5 mcg-vilant 25 mcg inhalat.powder (Trelegy Ellipta) valsartan 160 mg tablet (Diovan) 160 mg PO DAILY #30 t abs 10/12/24 cholecalciferol (vitamin D3) 125 250 mcg (2 x 125 mcg (5,000 unit)) 10/20/24 mcg (5,000 unit) capsule PO DAILY #60 caps lidocaine 5 % topical patch 1 patch topical DAILY #30 ea 10/20/24 warfarin 2 mg tablet 5 mg (2.5 x 2 mg) PO DAILY # 70 tabs 12/13/24 amoxicillin 875 mg-potassium 1 tab PO BID 7 days #14 t abs 12/24/24 clavulanate 125 mg tablet yhzvfpntqwvsbra-tnyfjidhxaccyic-QM 5 ml PO Q6H PRN col d symptoms #118 12/24/24 2 mg-30 mg-10 mg/5 mL oral syrup mL (Bromfed DM) oseltamivir 75 mg capsule (Tamiflu) 75 mg PO BID 5 day s #10 caps 12/24/24 prednisone 20 mg tablet 20 mg PO DAILY 5 days #5 tab s 12/24/24 Allergies Allergy/AdvReac Type Severity Reaction Status Date / Time tramadol Allergy Severe Seizure Verified 12/24/24 18:20 Review of Systems 2 General: Reports: 10 or more systems reviewed and unremarkable except in HPI and below Eyes: Denies: change in vision ENMT: Denies: throat pain Card: Denies: chest pain, edema or syncope GI: Denies: abdominal pain, nausea, vomiting or diarrhea : Denies: flank pain, dysuria or urinary frequency Musc: Denies: neck pain, back pain, extremity pain or extremity swelling Skin/Breast: Denies: rash or erythema Neuro: Denies: numbness in extremities, weakness in extremities or lack of coordination PFSH ED 2 PFSH: Medical History (Updated 01/15/25 @ 23:37 by Michael Castillo MD) Smoking addiction Anxiety PE (pulmonary thromboembolism) DVT (deep venous thrombosis) Age related osteoporosis Unstable angina Bilateral renal cysts Personal history of nicotine dependence Vitamin D insufficiency Femur fracture Heart disease HTN (hypertension) COPD (chronic obstructive pulmonary disease) Surgical History History of hip surgery left History of cholecystectomy History of hysterectomy History of heart artery stent Hx of CABG Family History Mother CAD (coronary artery disease) Lung disease Other Cancer Heart disease Hypertension Denies family history of Diabetes Clotting disorder Dementia Hyperlipidemia Psychiatric illness Chronic kidney disease (CKD) Suicide Anesthesia complication Bleeding disorder Stroke Social History Smoking and tobacco/nicotine status: current every day tobacco/nicotine user cigarettes Packs smoked per day: 1 Second hand smoke exposure: Yes Alcohol intake: never Substance/Drug Use: never Adopted: No Caregiver/support person: No Lives independently: Yes Household members: children Housing: House Marital status: / Number of children: 4 service: No Current occupational status: retired Do you think of yourself as: Straight/Heterosexual Current gender identity: Female Physical Exam 2 Narrative: EXAM NARRATIVE: Awake, alert, cooperative. Tachycardic with a heart rate around 110 bpm. Warm to the touch. Unhealthy skin tone. Appears chronically ill. Appears acutely ill but nontoxic. Stigmata of chronic tobacco smoking in the hair, skin, and nails. Breath sounds are significantly diminished posteriorly. Anterior breath sounds are relatively normal. Abdomen soft and nontender. Const: COMMON NORMALS: no limitations and alert EXAM LIMITATIONS: no altered mental status HENMT: COMMON NORMALS: normocephalic, atraumatic and external ears normal H EAD & SCALP: normocephalic and atraumatic EXTERNAL EAR: Yes external ears normal MOUTH: no muffled voice Eye: COMMON NORMALS: EOMs intact bilaterally, conjunctivae normal and no scleral icterus CONJUNCTIVA: Yes conjunctivae normal Neck/C-Spine: COMMON NORMALS: no JVD GENERAL: Yes normal visual inspection and Yes trachea midline Resp: COMMON NORMALS: No use of accessory muscles Cardio: COMMON NORMALS: no JVD and regular rhythm RHYTHM: regular rhythm GI: COMMON NORMALS: Soft to palpation and non-tender PALPATION: Yes Soft to palpation and No Guarding due to palpation present (GI) Extremity: COMMON NORMALS: normal to inspection Neuro: COMMON NORMALS: moves all extremities, no focal motor deficits and no sensory deficits noted SENSORIUM/ORIENTATION: Yes alert SPEECH: speech normal Psych: COMMON NORMALS: mental status grossly normal, Normal thought process present, cooperative, normal affect and speech normal SPEECH: Yes normal speech THOUGHT PROCESS: Normal thought process present Skin: COMMON NORMALS: no rashes or lesions noted, turgor normal and no jaundice GENERAL SKIN EXAM: no rashes or lesions noted and turgor normal Course 2 Vital Signs: Vital signs: Vital Signs Temperature 101.8 F H 01/15/25 21:46 Pulse Rate 104 H 01/15/25 22:41 Respiratory Rate 16 01/15/25 22:41 Blood Pressure 136/66 01/15/25 22:41 Pulse Oximetry 97 01/15/25 22:41 Oxygen Delivery Me thod Nasal Cannula 01/15/25 22:41 Oxygen Flow Rate 5 01/15/25 22:41 MDM - SOB/Dyspnea Medical Decision Making 74-year-old female with chronic hypoxic respiratory failure presents with fever, tachypnea, tachycardia, headache, body aches, fatigue, weakness. She is now requiring oxygen even during the day which is typically as needed. She came to the hospital because her concentrator was not working well. I have turned her oxygen flow down to 4 L/min at this time. We can probably slowly wean it down once her fever comes down. We do not have the ability to replace her oxygen concentrator tonight and there is no home health agency available. Given that the patient has an acute respiratory illness, poor baseline, and inability to utilize home oxygen she will require admission. This could be a viral respiratory illness or may be bacterial. We will go ahead and obtain a lactic acid and blood cultures as a precaution. PCR for COVID flu and RSV are pending. Tylenol provided for fever. EKG was obtained at 2235. EP interpretation. Sinus tachycardia, rate 103, enlarged P waves suggesting left atrial enlargement, QRS duration 102 ms, some T wave changes through the anterior leads and minor ST depression in the lateral leads Update Chest x-ray 1 view. EP interpretation. There is some increasing lung markings in the right lung base which is concerning for developing pneumonia. This is in comparison to the previous chest x-ray. No consolidation. There is a slight haziness in the left lower lung that was present previously. This probably corresponds to the patient's known pulmonary nodule. Suspected mild atelectasis in the left lung base. Given this concern for developing pneumonia, patient will be started on Rocephin and azithromycin. White blood cell count is 12.3, neutrophil percentage is 85.4% INR is 1.25 which is slightly low for this patient. We may consider doing Lovenox after her creatinine results. Update 11:30 PM Lactic acid normal. Creatinine normal. Sodium 133 otherwise normal electrolytes. No significant glycemic abnormalities. BNP mildly elevated. COVID and flu are negative. UA pending. I discussed with Dr. Mcclure, hospitalist. UA w/o convincing signs of infection. He would like me to order a CT scan of the chest abdomen pelvis without contrast. Radiologist read the chest x-ray as no change. He would like to make sure there is nothing else going on on the CT to make sure we are treating the correct pathogen. He will admit to med surg. Medical Records I reviewed the patient's medical records. Lab Data I reviewed the patient's lab results. 01/15/25 21:30 01/15/25 21:30 Labs/Radiology: Radiology Impressions Chest X-Ray 01/15/25 22:16 IMPRESSION: No acute cardiopulmonary process. Laboratory Results WBC 12.38 10^3/uL (3.29-11.43) H 01/15/25 21: RBC 3.77 10^6/uL (3.85-5.65) L 01/15/25 21: Hgb 12.20 g/dL (11.27-16.99) 01/15/25 21: Hct 36.9 % (36-47) 01/15/25 21: MCV 97.9 fl (85-98) 01/15/25 21: MCH 32.4 pg (27-33) 01/15/25 21: MCHC 33.1 g/dL (30-55) 01/15/25 21: RDW 12.2 % (12.1-15.1) 01/15/25 21: Plt Count 223 10^3/cmm (157-399) 01/15/25 21: MPV 10.1 fL (7.4-10.4) 01/15/25 21: Neut % (Auto) 85.4 % 01/15/25 21:30 Lymph % (Auto) 6.9 % 01/15/25 21:30 [place] % (Auto) 6.2 % 01/15/25 21:30 Eos % (Auto) 0.8 % 01/15/25 21: Baso % (Auto) 0.2 % 01/15/25 21:30 Neut # (Auto) 10.57 10^3/uL (1.8-7.7) H 01/15/25 21:30 Lymph # (Auto) 0.9 10^3/uL (0.8-4.8) 01/15/25 21: [place] # (Auto) 0.8 10^3/uL (0.2-0.9) 01/15/25 21: Eos # (Auto) 0.1 10^3/uL (0.0-0.8) 01/15/25 21: Baso # (Auto) 0.0 10^3/uL (0.0-0.1) 01/15/25 21: Nucleated RBC % (auto) 0 % 01/15/25 21: Nucleated RBCs # 0.0 /100WBC 01/15/25 21:30 PT 16.60 SECONDS (12.1-14.9) H 01/15/25 22:16 INR 1.25 (0.8-1.2) H 01/15/25 22:16 Sodium 133 mmol/L (136-145) L 01/15/25 21:30 Potassium 3.8 mmol/L (3.5-5.1) 01/15/25 21: Chloride 98 mmol/L (98-107) 01/15/25 21:30 Carbon Dioxide 26 mmol/L (22-29) 01/15/25 21:30 Anion Gap 12.8 (5-19) 01/15/25 21:30 BUN 15 mg/dL (8-23) 01/15/25 21: Creatinine 0.7 mg/dL (0.5-0.9) 01/15/25 21:30 GFR Calculation Not Reportable 01/15/25 21: Glucose 111 mg/dL (65-115) 01/15/25 21: Calculated Osmolality 278 mOsm/kg (285-295) L 01/15/25:30 Lactic Acid 1.6 mmol/L (0.5-2.2) 01/15/25 21:30 Calcium 9.1 mg/dL (8.5-10.5) 01/15/25 21:30 Magnesium 1.9 mg/dL (1.7-2.3) 01/15/25 21:30 Total Bilirubin 0.7 mg/dL (0.15-1.2) 01/15/25 21:30 AST 22 U/L (0-32) 01/15/25 21:30 ALT 9 U/L (0-33) 01/15/25 21:30 Alkaline Phosphatase 118 U/L (35-105) H 01/15/25 21:30 NT-Pro-B Natriuret Pep 1626 pg/mL (0-125) H 01/15/25 21:30 Total Protein 6.9 g/dL (6.6-8.7) 01/15/25 21:30 Albumin 4.0 g/dL (3.5-5.2) 01/15/25 21: Globulin 2.9 g/dL (1.3-4.6) 01/15/25 21:30 Amorphous Sediment Not Reportable 01/15/25 23:14 Influenza A (PCR) Negative (Negative) 01/15/25 22:18 Influenza Type B (PCR) Negative (Negative) 01/15/25 22:18 RSV (PCR) Negative (Negative) 01/15/25 22:18 SARS-CoV-2 (PCR) Negative (Negative) 01/15/25 22:18 XR interpretation done by ED provider, pending radiology final review ED provider radiology interpretation(s): CXR Discharge Plan Discharge Patient Disposition: Admitted As Inpatient Clinical Impression: Acute and chronic respiratory failure with hypoxia, Fever, Acute exacerbation of chronic obstructive pulmonary disease Condition: Stable Prescriptions: No Action Probiotic Digestive Care 20 billion cell capsule See Rx Instructions PO .2 times day Qty: 60 2RF Rx Instructions: 20 billion cell PO .2 times day; albuterol sulfate 2.5 mg /3 mL (0.083 %) solution for nebulization 2.5 mg inhalation Q4H PRN (Reason: shortness of breath or wheezing) Qty: 75 2RF escitalopram oxalate [Lexapro] 10 mg tablet 10 mg PO .at supper Qty: 30 5RF Trelegy Ellipta 100-62.5-25 mcg blister with device 1 inh inhalation Q24H Qty: 28 5RF valsartan [Diovan] 160 mg tablet 160 mg PO DAILY Qty: 30 5RF lidocaine 5 % adhesive patch,medicated 1 patch topical DAILY Qty: 30 0RF Rx Instructions: leave on most painful area for up to 12 hrs cholecalciferol (vitamin D3) 125 mcg (5,000 unit) capsule 250 mcg PO DAILY Qty: 60 2RF prednisone 20 mg tablet 20 mg PO DAILY 5 Days Qty: 5 0RF Rx Instructions: start this medicine on Saturday, tomorrow ckyljsginmxclcm-eydkweyrk-PB [Bromfed DM] 2-30-10 mg/5 mL syrup 5 ml PO Q6H PRN (Reason: cold symptoms) Qty: 118 0RF amoxicillin-pot clavulanate 875-125 mg tablet 1 tab PO BID 7 Days Qty: 14 0RF oseltamivir [Tamiflu] 75 mg capsule 75 mg PO BID 5 Days Qty: 10 0RF hydrochlorothiazide 25 mg tablet 25 mg PO DAILY PRN (Reason: high blood pressure) Qty: 30 0RF warfarin 2 mg tablet 5 mg PO DAILY Qty: 70 0RF acetaminophen [Tylenol] 325 mg Tablet 325 - 350 mg PO QID PRN (Reason: headache/pain) atorvastatin [Lipitor] 40 mg tablet 40 mg PO QPM Qty: 0 0RF clopidogrel [Plavix] 75 mg Tablet 75 mg PO DAILY@0900 aspirin 81 mg Tablet,Chewable 81 mg PO DAILY@0900 isosorbide mononitrate 30 mg Tablet Extended Release 24 Hr 30 mg PO BID@0900,1800 Referrals: Loretta Ramírez, BOAT ASSEMBLER-C [Primary Care Provider] - Print Language: Sami Coding Level of Care Code ED Bug Trimmer for Kayden Molina
[2025-01-15] MEDS: acetaminophen 325 mg Tablet 650 MG PO (22:35)
[2025-01-15 22:37] LABS: Basophils % 0.2 %; Eosinophils # 0.1 10^3/uL (0.0-0.8); Eosinophils % 0.8 %; Hematocrit 36.9 % (36-47); Lymphocytes # 0.9 10^3/uL (0.8-4.8); Lymphocytes % 6.9 %; Mean Corpuscular HGB Conc 33.1 g/dL (30-55); Mean Corpuscular Hemoglobin 32.4 pg (27-33); Mean Corpuscular Volume 97.9 fl (85-98); Mean Platelet Volume 10.1 fL (7.4-10.4); Monocytes # 0.8 10^3/uL (0.2-0.9); Monocytes % 6.2 %; Neutrophils # 10.57 10^3/uL (1.8-7.7); Neutrophils % 85.4 %; Nucleated Red Blood Cells % 0 %; Platelet Count 223 10^3/cmm (157-399); Red Blood Count 3.77 10^6/uL (3.85-5.65); Red Cell Distribution Width 12.2 % (12.1-15.1); White Blood Count 12.38 10^3/uL (3.29-11.43)
[2025-01-15 22:41] VITALS: BP 136/66; PULSE 104; RESP 16; O2SAT 97
[2025-01-15 22:47] LABS: INR 1.25 (0.8-1.2)
[2025-01-15 22:52] LABS: Lactic Sepsis W/Reflex 1.6 mmol/L (0.5-2.2)
[2025-01-15 23:06] LABS: Alanine Aminotransferase 9 U/L (0-33); Alkaline Phosphatase 118 U/L (35-105); Anion Gap 12.8 (5-19); Aspartate Amino Transferase 22 U/L (0-32); Blood Urea Nitrogen 15 mg/dL (8-23); Calcium 9.1 mg/dL (8.5-10.5); Carbon Dioxide 26 mmol/L (22-29); Chloride 98 mmol/L (98-107); Creatinine Clr Calc Pharmacy 60.1722; Globulin 2.9 g/dL (1.3-4.6); Glucose 111 mg/dL (65-115); Magnesium 1.9 mg/dL (1.7-2.3); NT Pro B Type Natriuretic Pept 1626 pg/mL (0-125); Osmolality Calculated 278 mOsm/kg (285-295); Potassium 3.8 mmol/L (3.5-5.1); Sodium 133 mmol/L (136-145); Total Bilirubin 0.7 mg/dL (0.15-1.2); Total Protein 6.9 g/dL (6.6-8.7)
[2025-01-15 23:16] LABS: Influenza A NEGATIVE (Negative); Influenza B NEGATIVE (Negative); Respiratory Syncytial Virus Ce NEGATIVE (Negative); SARS-CoV-2 PCR NEGATIVE (Negative)
[2025-01-15 23:20] LABS: Bilirubin Urine Negative (Negative); Blood Urine Negative (Negative); Glucose Urine UA Negative (Normal); Ketones Urine Negative (Negative); Leukocyte Esterase Urine Trace (Negative); Nitrate Urine Negative (Negative); Protein Urine Negative (Negative); Specific Gravity, Urine 1.014 (1.005-1.030); Urine Appearance Clear (CLEAR); Urine Color Yellow (Yellow)
[2025-01-15 23:25] VITALS: PULSE 98; RESP 20; O2SAT 95
--- NOTE | 2025-01-15 23:26 | CTR_ITS ---
PROCEDURE INFORMATION: Exam: CT Chest Without Contrast; Diagnostic Exam date and time: 01/15/2025 11:54 PM Age: 74 years old Clinical indication: Pain and abnormal findings; Abnormal lab test; Other: N/a; Cough and fever and shortness of breath; Chest pressure; Prior surgery; Surgery date: 6+ months; Surgery type: Cabg. Coronary stents. Hip pinning; Chest discomfort with cough, SOB, and fever. Elevated wbc. ; Additional info: Fever, unclear source, May be getting pneumonia TECHNIQUE: Imaging protocol: Diagnostic computed tomography of the chest without contrast. Radiation optimization: All CT scans at this facility use at least one of these dose optimization techniques: automated exposure control; mA and/or kV adjustment per patient size (includes targeted exams where dose is matched to clinical indication); or iterative reconstruction. COMPARISON: PT PET skull to thigh INIT [id number] 03/03/2024 2:08 PM RADIATION DOSE METRICS: Total DLP (mGy-cm): 580.47 FINDINGS: Lungs: Mild centrilobular emphysematous changes are present. New patchy multifocal airspace disease with slightly nodular morphology at the left base suggestive of pneumonia. Stable 1.2 cm indeterminate nodule in the superior segment left lower lobe. However, hazy surrounding opacities may represent adjacent pneumonitis. Pleural spaces: Unremarkable. No pneumothorax. No pleural effusion. Heart: Unremarkable. No cardiomegaly. No pericardial effusion. Coronary arteries: Coronary artery calcifications are present. Lymph nodes: Unremarkable. No enlarged lymph nodes. Vasculature: Aortic atherosclerotic disease is seen without evidence of aneurysm. Bones/joints: Prior sternotomy. Soft tissues: Unremarkable. COMMENTS: The presence of pulmonary emphysema on CT is an independent risk factor for lung cancer. In the absence of a history or active diagnosis of lung cancer, it is recommended that this patient with emphysema be evaluated for enrollment in a low dose CT lung cancer screening program. PROCEDURE INFORMATION: Exam: CT Abdomen And Pelvis Without Contrast Exam date and time: 01/15/2025 11:54 PM Age: 74 years old Clinical indication: Pain and abnormal findings; Abnormal lab test; Other: N/a; Cough and fever and shortness of breath; Chest pressure; Prior surgery; Surgery date: 6+ months; Surgery type: Cabg. Coronary stents. Hip pinning; Chest discomfort with cough, SOB, and fever. Elevated wbc. ; Additional info: Fever, unclear source, May be getting pneumonia TECHNIQUE: Imaging protocol: Computed tomography of the abdomen and pelvis without contrast. Radiation optimization: All CT scans at this facility use at least one of these dose optimization techniques: automated exposure control; mA and/or kV adjustment per patient size (includes targeted exams where dose is matched to clinical indication); or iterative reconstruction. COMPARISON: PT PET skull to thigh INIT [id number] 03/03/2024 2:08 PM RADIATION DOSE METRICS: Total DLP (mGy-cm): 580.47 FINDINGS: Liver: Multiple calcified hepatic granulomas. Gallbladder and biliary ducts: Gallbladder not clearly identified and may be surgically absent. No evidence of biliary obstruction. Pancreas: Normal. No ductal dilation. Spleen: Multiple calcified splenic granulomas. Adrenal glands: Normal. No mass. Kidneys and ureters: Bilateral renal cysts measuring up to 3.7 cm on the right. Stomach and bowel: Unremarkable. No obstruction. No mucosal thickening. Appendix: No evidence of appendicitis. Intraperitoneal space: Unremarkable. No free air. No significant fluid collection. Vasculature: Extensive aortoiliac atherosclerotic disease infrarenal abdominal aorta is mildly ectatic. Lymph nodes: Unremarkable. No enlarged lymph nodes. Urinary bladder: Unremarkable as visualized. Reproductive: Uterus is surgically absent. No evidence of adnexal mass. Bones/joints: Diffuse osseous demineralization. Degeneration related grade 1 anterolisthesis is present at L4/L5. Multilevel lumbar spondylosis. Soft tissues: Unremarkable. CT/[place] [id number] IMPRESSION: 1. New patchy multifocal airspace disease with slightly nodular morphology at the left base suggestive of pneumonia. Short interval follow-up CT chest is recommended to assess resolution. 2. Stable 1.2 cm indeterminate nodule in the superior segment left lower lobe. However, hazy surrounding opacities may represent adjacent pneumonitis. Reassess on follow-up CT. 3. Mild emphysema. IMPRESSION: 1. No evidence of acute abdominal or pelvic process. 2. Diffuse osseous demineralization. COMMENTS: Consistent with the [employer]'s Incidental Findings Committee white paper (J Am Francois Radiol 2018): Any incidental renal lesion less than 1 cm or classified as too small to characterize, or any incidental cystic renal lesion characterized as simple-appearing, is likely benign. No follow-up imaging is recommended for these lesions per consensus recommendations based on imaging criteria.
[2025-01-15 23:29] LABS: Bacteria Urine TRACE /hpf; RBC Urine 0-4 /hpf (0-2); WBC Urine 0-4 /hpf (0-5)
[2025-01-15 23:30] LABS: Add Urine Culture? No
[2025-01-15] MEDS: ipratropium-albuterol 3 mL Neb INHALATION (23:30)
[2025-01-15] MEDS: cefTRIAXone 2,000 mg SDV 2000 MG IVP (23:38)
[2025-01-15] MEDS: sodium chloride 0.9% 1,000 ML 999 ML IV (23:38)
[2025-01-15 23:40] VITALS: BP 87/55; PULSE 94; RESP 16; RESP 20; O2SAT 95
[2025-01-15] MEDS: ketorolac 30 mg/mL INJ 10 MG IVP (23:44)
[2025-01-15] MEDS: AZITHROMYCIN ADD-Vantage 500 MG in 0.9% NaCl ADD-Vantage 250 ML 250 MG IV (23:46)
[2025-01-15 23:49] VITALS: BP 117/59; PULSE 99; RESP 16; TEMP 36.9; O2SAT 95
--- NOTE | 2025-01-15 23:54 | P.HP_ITS ---
Providers/Chief Complaint 2 Primary Care Provider: Loretta Ramírez, JORGEC Chief Complaint: sob History of Present Illness Ronit Palma is a 74 year old female with history of COPD, chronic hypoxia uses oxygen concentrator 4 L at baseline, A-fib, on Coumadin, history of lung cancer, follows up with oncologist in [place] presented with chief complaint of worsening of shortness of breath productive cough fever and chest discomfort. Patient is stating that her symptoms started getting worse in the evening yesterday, she has been noticing low-grade fever, productive cough yellow-green sputum production, headache pain which gets worse on coughing. No recent diarrhea, she is not endorsing neck pain, stating that her headache is mostly in the backside. She still smokes 1 pack/day. Compliant with the medication. Patient is stating that her lung cancer stage is likely stage I. Her last radiotherapy session was couple of months ago. Her oxygen concentrator is broken, she was not able to use oxygen today, she is stating that she uses 4 L of oxygen at nighttime consistently but in the daytime because of her smoking use she uses on as-needed basis. EKG showing right bundle branch block with ST nonspecific changes Complaining of chest pain and headache Received ketorolac Requested serial troponin EKG Requested CT chest abdomen pelvis Concern for brewing pneumonia she has received antibiotics I have requested septic bolus, criteria met with tachypnea tachycardia low blood pressure, leukocytosis Review of Systems 2 Const: Reports: fever(s) and chills Eyes: Denies: change in vision ENMT: Denies: throat pain Card: Reports: chest pain Resp: Reports: dyspnea GI: Reports: nausea : Denies: flank pain Neuro: Reports: headache(s) Medications/Allergies Home Medications ?Medication ?Instructions ?Recorded ?Confirmed ?Last Taken ?Type aspirin 81 mg chewable tablet 81 mg PO DAILY@0900 01/12/0712/24/24 06/04/22 History clopidogrel 75 mg tablet (Plavix) 75 mg PO DAILY@0900 11/18/19 12/24/24 06/04/22 History isosorbide mononitrate 30 mg 30 mg PO BID@0900,1800 12/24/24 06/04/22 History tablet,extended release 24 hr acetaminophen 325 mg tablet 325 - 350 mg PO QID PRN 12/24/24 Unknown History (Tylenol) headache/pain atorvastatin 40 mg tablet (Lipitor) 40 mg PO QPM #0 ta bs 01/12/21 12/24/24 06/03/22 Rx Lactobacillus rhamnosus GG 20 See Rx Instructions PO . 2 times 10/29/23 12/24/24 Unknown Rx billion cell capsule (Probiotic day #60 caps [facility]) albuterol sulfate 2.5 mg/3 mL 2.5 mg (3 mL) inhalation Q4H PRN 02/19/24 12/24/24 Unknown Rx (0.083 %) solution for nebulization shortness of breat h or wheezing #75 mL hydrochlorothiazide 25 mg tablet 25 mg PO DAILY PRN hi gh blood 04/14/24 12/24/24 Unknown Rx pressure #30 tabs escitalopram oxalate 10 mg tablet 10 mg PO .at supper #30 tabs 10/12/24 12/24/24 Unknown Rx (Lexapro) fluticasone fur. 100 mcg-umeclid 1 inh inhalation Q24H #28 ea 10/12/24 12/24/24 Unknown Rx 62.5 mcg-vilant 25 mcg inhalat.powder (Trelegy Ellipta) valsartan 160 mg tablet (Diovan) 160 mg PO DAILY #30 t abs 10/12/24 12/24/24 Unknown Rx cholecalciferol (vitamin D3) 125 250 mcg (2 x 125 mcg (5,000 unit)) 10/20/24 12/24/24 Unknown Rx mcg (5,000 unit) capsule PO DAILY #60 caps lidocaine 5 % topical patch 1 patch topical DAILY #30 ea 10/20/24 12/24/24 Unknown Rx warfarin 2 mg tablet 5 mg (2.5 x 2 mg) PO DAILY # 70 tabs 12/13/24 12/24/24 Unknown Rx amoxicillin 875 mg-potassium 1 tab PO BID 7 days #14 t abs 12/24/24 12/24/24 Unknown Rx clavulanate 125 mg tablet oeyfyskrsjwxfmu-ucupspwazahxqio-IK 5 ml PO Q6H PRN col d symptoms #118 12/24/24 12/24/24 Unknown Rx 2 mg-30 mg-10 mg/5 mL oral syrup mL (Bromfed DM) oseltamivir 75 mg capsule (Tamiflu) 75 mg PO BID 5 day s #10 caps 12/24/24 12/24/24 Unknown Rx prednisone 20 mg tablet 20 mg PO DAILY 5 days #5 tab s 12/24/24 12/24/24 Unknown Rx Allergies Allergy/AdvReac Type Severity Reaction Status Date / Time tramadol Allergy Severe Seizure Verified 12/24/24 18:20 PFSH Acute 2 PFSH: Medical History Smoking addiction Anxiety PE (pulmonary thromboembolism) DVT (deep venous thrombosis) Age related osteoporosis Unstable angina Bilateral renal cysts Personal history of nicotine dependence Vitamin D insufficiency Femur fracture Heart disease HTN (hypertension) COPD (chronic obstructive pulmonary disease) Surgical History History of hip surgery left History of cholecystectomy History of hysterectomy History of heart artery stent Hx of CABG Family History Mother CAD (coronary artery disease) Lung disease Other Cancer Heart disease Hypertension Denies family history of Diabetes Clotting disorder Dementia Hyperlipidemia Psychiatric illness Chronic kidney disease (CKD) Suicide Anesthesia complication Bleeding disorder Stroke Social History Smoking and tobacco/nicotine status: current every day tobacco/nicotine user cigarettes Packs smoked per day: 1 Second hand smoke exposure: Yes Alcohol intake: never Substance/Drug Use: never Adopted: No Caregiver/support person: No Lives independently: Yes Household members: children Housing: House Marital status: / Number of children: 4 service: No Current occupational status: retired Do you think of yourself as: Straight/Heterosexual Current gender identity: Female Vitals/I&O/Wt Last Vital Signs Temp 98.4 F 01/15/25 23:49 Pulse 99 01/15/25 23:49 Resp 16 01/15/25 23:49 BP 117/59 01/15/25 23:49 Pulse Ox 95 01/15/25 23:49 O2 Del Method Nasal Cannula 01/15/25 23:49 O2 Flow Rate 5 01/15/25 23:49 Weight last 48 hrs Weight 64.41 kg Physical Exam 2 Narrative: Clinically patient is euvolemic No audible thyroid wheezing GCS 15 Currently on 4 L nasal cannula Complaining of headache Meningitis signs were negative Brudzinski Kernig signs negative Awake and alert AOx4 Hypotensive Pleuritic pain Family at the bedside Sepsis: Is patient septic: Yes Focused sepsis exam performed: Yes F ocused sepsis exam: Capillary refill less than 3 sec. No skin mottling Peripheral pulses are intact Tachycardia Tachypneic Saturating well on 4 L nasal cannula No encephalopathy Date exam was performed: 01/16/25 Time exam was performed: 00:31 Data 01/15/25 21:30 01/15/25 21:30 Micro: Microbiology 01/15/25 22:56 Blood Culture - Preliminary Blood SPECIMEN COLLECTED 01/15/25 22:50 Blood Culture - Preliminary Blood SPECIMEN COLLECTED A&P Assessment and plan (1) Atrial fibrillation: (2) Anticoagulation goal of INR 2 to 3: (3) Elevated white blood cell count, unspecified: (4) Lung cancer: Qualifiers: Laterality: unspecified laterality Lung location: unspecified part of lung Qualified Code(s): C34.90 - Malignant neoplasm of unspecified part of unspecified bronchus or lung (5) Migraine: (6) Headache: Qualifiers: Headache chronicity pattern: unspecified pattern Headache type: u nspecified Intractability: not intractable Qualified Code(s): R51.9 - Headache, unspecified (7) Left lower lobe pulmonary nodule: (8) COPD (chronic obstructive pulmonary disease): Qualifiers: COPD type: emphysema Emphysema type: unspecified Qualified Code(s): J 43.9 - Emphysema, unspecified (9) Fever: (10) Smoking addiction: (11) Sepsis: Plan Sepsis Criteria met with tachypnea tachycardia leukocytosis, Fever Source is pneumonia Requested CT chest abdomen pelvis No signs of meningitis, Complaining of headache and chest pain Received ketorolac Serial troponin EKG Requested echo. Start patient on antibiotics along septic bolus Subtherapeutic INR Bridged with Lovenox Continue Coumadin, pharmacy consulted History of A-fib: Continue AV leida blocking agent along Coumadin Bridged with Lovenox until INR is above 2 Stage I lung cancer as per the patient Follows up with oncologist. Last radiotherapy session couple months ago Chronic hypoxia uses 4 L of oxygen mostly at nighttime and secondary to habitus smoking she uses oxygen on as-needed basis, on her oxygen concentrator is broken now, she will need oxygen supply at the time of discharge Patient uses trilogy inhaler at home Diastolic CHF: Preserved EF: BNP 1600 however clinically does not look fluid overloaded Full code Cardiac diet PDMP PDMP Reviewed: Not Reviewed Attestations 2 Medical Necessity Statement*: More than 2 midnights anticipated Diagnoses Atrial fibrillation I48.91 Anticoagulation goal of INR 2 to 3 Z51.81; Z79.01 Elevated white blood cell count, unspecified D72.829 Malignant neoplasm of lung, unspecified laterality, unspecified part of lung C34.90 Laterality: unspecified laterality Lung location: unspecified part of lung Migraine G43.909 Headache R51.9 Headache chronicity pattern: unspecified pattern Headache type: unspecified Intractability: not intractable Left lower lobe pulmonary nodule R91.1 Pulmonary emphysema, unspecified emphysema type J43.9 COPD type: emphysema Emphysema type: unspecified Fever R50.9 Smoking addiction F17.200 Sepsis A41.9
[2025-01-16] VITALS (12 sets, daily range): BP systolic 95–121; BP diastolic 56–64; PULSE 86–101; RESP 15–20; TEMP 36.9–37.9; O2SAT 91–99; BMI 23.8
--- NOTE | 2025-01-16 00:16 | ECG_ITS ---
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 Measurements Intervals [place] Rate: 105 P: 52 WA: 189 QRS: 87 QRSD: 118 T: 103 QT: 349 QTc: 462 Interpretive Statements SINUS TACHYCARDIA MODERATE INTRAVENTRICULAR CONDUCTION DELAY [110+ ms QRS DURATION] NONSPECIFIC ST & T-WAVE ABNORMALITY Compared to ECG 01/15/2025 22:35:38 Intraventricular conduction delay now present Possible ischemia no longer present T-wave abnormality still present Electronically Signed On 01-16-2025 07:38:58 CHILD THERAPIST by Abdelrahman Becker M.D. [id number] [id number]
--- NOTE | 2025-01-16 00:17 | USCV_ITS ---
Ronit Palma Age: 74 Gender: F : 1950 Exam Date: 01/16/2025 09:27 Ordering Phys: Tyra Mcclure MD Technologist: Guillermo Santa [place] [facility] [place]: chest pain BP: 118 / 66 HR: 91 Rhythm: Sinus Technical Quality: Adequate MEASUREMENTS (Male / Female) Normal Values 2D ECHO LV Diastolic Diameter PLAX 5.3 cm 4.2 - 5.9 / 3.9 - 5.3 cm IVS Diastolic Thickness 1.3 cm 0.6 - 1.0 / 0.6 - 0.9 cm IVS Systolic Thickness 1.4 cm LVPW Diastolic Thickness 1.2 cm 0.6 - 1.0 / 0.6 - 0.9 cm LVPW Systolic Thickness 1.6 cm LVOT Diameter 2.1 cm LV Ejection Fraction 2D Teich 62.0 % LV Ejection Fraction MOD 4C 62.9 % LV Ejection Fraction MOD 2C 58.0 % LV Ejection Fraction 2C AL 56.9 % LA Diameter 3.4 cm RA Systolic Volume 4C AL 46.4 ml RA Systolic Volume 4C MOD 46.4 ml LA Sys Volume AL 28.0 cm cubed LA Sys Volume Index AL 14.9 cm cubed/m squared Aorta at Sinotubular Diameter 1.8 cm IVC Diameter 2.0 cm M-MODE LA Ao Ratio MM 1.2 AV Cusp Separation MM 1.5 cm DOPPLER AV Peak Velocity 144.7 cm/s LVOT Peak Velocity 94.0 cm/s AV Area Cont Eq vti 1.8 cm squared AV Area Cont Eq pk 2.2 cm squared MV Peak Velocity 123.0 cm/s MV Area PHT 6.5 cm squared Mitral E to A Ratio 0.9 TV Peak Velocity 128.0 cm/s TR Peak Velocity 256.0 cm/s TR Peak Gradient 26.2 mmHg TR Mean Velocity 214.0 cm/s TR Mean Gradient 19.4 mmHg TR Velocity Time Integral 53.3 cm PV Peak Velocity 96.0 cm/s RV Ejection Time 0.2 s FINDINGS Left Ventricle Normal left ventricular size, systolic function and wall thickness, with no regional wall motion abnormalities. Estimated LVEF normal 60%. Right Ventricle Normal right ventricular size and systolic function. Right Atrium Normal right atrial size. Left Atrium Normal left atrial size. Mitral Valve Mildly thickened mitral valve. Mild mitral valve regurgitation. Aortic Valve Thickened aortic valve. Tricuspid Valve Structurally normal tricuspid valve. Trace tricuspid valve regurgitation. TVPG 26 mmHg. Pulmonic Valve Structurally normal pulmonic valve. Trace pulmonary valve regurgitation. Pericardium No pericardial effusion. Aorta Normal size aortic root and proximal ascending aorta. IVC Mildly dilated IVC with >50% respiratory change of the inferior vena cava. CONCLUSIONS Normal LV systolic function. Estimated LVEF normal 60%. Normal chamber sizes. No significant valvular abnormalities noted. Normal right heart and pulmonary pressures. Gildardo Chen MD (Electronically Signed) Final Date: 16 January 2025 12:27 S
[2025-01-16 00:42] LABS: Troponin(5th) Baseline 21 ng/L (0-10)
[2025-01-16 01:03] LABS: Troponin 5 2HR 16.02 ng/L (0-10)
[2025-01-16] MEDS: sodium chloride 0.9% 1,000 ML 999 ML IV ×2 (01:11→01:46)
[2025-01-16 01:17] LABS: Troponin 5 2HR Delta -4.98 ABS# (0-10)
[2025-01-16] MEDS: morphine 4 mg/mL SDV 1 mL 2 MG IVP (01:20)
[2025-01-16] MEDS: enoxaparin 40 mg/0.4 mL Syringe 60 MG SUBCUT (01:21)
[2025-01-16] MEDS: lidocaine 2% viscous 15 ML, aluminum-mag hydrox-simethicon 30 ML, sucralfate oral liq 1 GM PO (01:23)
--- NOTE | 2025-01-16 02:38 | ECG_ITS ---
[facility] [place] [facility] Date: 2025-01-16 Pat Name: Ronit Palma Department: Room: 253 Gender: Female Licensed Guide: : 1950 Requested By: Tyra Mcclure Order Number: [id number] Familia MD: Abdelrahman Becker M.D. Measurements Intervals [place] Rate: 99 P: 82 ID: [id number] QRS: 86 QRSD: 118 T: 120 QT: 302 QTc: 387 Interpretive Statements SINUS RHYTHM MODERATE INTRAVENTRICULAR CONDUCTION DELAY [110+ ms QRS DURATION] NONSPECIFIC ST & T-WAVE ABNORMALITY Compared to ECG 01/16/2025 00:15:28 Sinus tachycardia no longer present T-wave abnormality still present Electronically Signed On 01-16-2025 08:08:52 STOCK OR DELIVERY CLERK by Abdelrahman Becker M.D. [id number] [id number]
[2025-01-16] MEDS: ketorolac 30 mg/mL INJ 15 MG IVP (02:52)
[2025-01-16 03:55] LABS: Basophils % 0.1 %; Hematocrit 29.5 % (36-47); Lymphocytes # 1.6 10^3/uL (0.8-4.8); Lymphocytes % 9.8 %; Mean Corpuscular HGB Conc 32.5 g/dL (30-55); Mean Corpuscular Hemoglobin 32.2 pg (27-33); Mean Platelet Volume 10.2 fL (7.4-10.4); Monocytes # 1.3 10^3/uL (0.2-0.9); Neutrophils # 13.37 10^3/uL (1.8-7.7); Neutrophils % 81.3 %; Nucleated Red Blood Cells % 0 %; Platelet Count 169 10^3/cmm (157-399); Red Blood Count 2.98 10^6/uL (3.85-5.65); Red Cell Distribution Width 12.3 % (12.1-15.1); White Blood Count 16.44 10^3/uL (3.29-11.43)
[2025-01-16 04:12] LABS: INR 1.47 (0.8-1.2)
[2025-01-16 04:21] LABS: Anion Gap 12.8 (5-19); Blood Urea Nitrogen 15 mg/dL (8-23); C Reactive Protein 56.8 mg/L (0.0-4.9); Calcium 7.3 mg/dL (8.5-10.5); Carbon Dioxide 22 mmol/L (22-29); Chloride 109 mmol/L (98-107); Creatinine Clr Calc Pharmacy 60.4456; Glucose 127 mg/dL (65-115); Magnesium 1.8 mg/dL (1.7-2.3); Osmolality Calculated 292 mOsm/kg (285-295); Potassium 3.8 mmol/L (3.5-5.1); Sodium 140 mmol/L (136-145)
[2025-01-16 04:31] LABS: Troponin 5 6HR 39.95 ng/L (0-10)
[2025-01-16 04:37] LABS: Troponin 5 6HR Delta 18.95 ng/L (0-12)
[2025-01-16] MEDS: ipratropium-albuterol 3 mL Neb INHALATION ×2 (08:15→21:18)
[2025-01-16] MEDS: aspirin 81 mg Chew Tablet PO (08:36)
[2025-01-16] MEDS: clopidogrel 75 mg Tablet PO (08:36)
[2025-01-16] MEDS: azithromycin 250 mg Tablet 500 MG PO (08:37)
[2025-01-16] MEDS: sodium chloride 0.9% 1,000 ML 75 ML IV (08:38)
[2025-01-16] MEDS: acetaminophen 500 mg Tablet PO ×3 (08:43→23:58)
[2025-01-16] MEDS: morphine IR 15 mg Tablet PO ×2 (10:32→21:04)
--- NOTE | 2025-01-16 10:53 | PC.CHAP ---
Pastoral Care Encounter/Spiritual Assessment Type of Contact [] Declined screen cleaner visit [] Patient/Family/Request visit [] Outpatient visit [] Follow-up visit [] Physician referral [] Code/Alert [X] Routine visit [] Staff referral [] Actively dying [] Patient sleeping [] Family support [] [] Out of room [] Palliative care [] [] Receiving care in room [] Pre-surgical visit [] Trauma [] Long length of stay [] ICU visit [] Other: Relational/Emotional Strength [X] Patient feels connected with others/family/visitors/staff [] Distress [] Loneliness/isolation [] Abandonment Spirituality of Patient [X] Person of Tia [] Attends Taoist of their Tia [X] Believes in Prayer [] Reads Bible or Voodoo materials [] There are Spiritual issues to be addressed Hair Assistant Interventions [X] Prayer [] Active listening [X] Non-anxious presence [] Spiritual/emotional support [] Crisis/trauma care [] Spiritual counseling [] Bereavement support [] Provided bereavement packet [] Provided Bible/devotional materials [] Provided toy/stuffed animal, coloring book to patient or family member [] Provided Communion [] Anointing/[place] [] Salvation [] Completed spiritual assessment [] Other: Impact on Illness or Injury [] Angry [] Fearful [] Anxious [] Often cries [] Exhaustion [] Unable to work [] Unable to attend baptism [] Unable to walk/stand [] Unable to read [] Unable to drive [] Unable to eat/drink [] Unable to sleep [] Unable to be with family [] Patient intubated [] Other: Summary P +1. Medicated Time spent with patient 10Min
[2025-01-16] MEDS: enoxaparin 80 mg/0.8 mL Syringe 70 MG SUBCUT ×2 (11:05→21:04)
[2025-01-16] MEDS: warfarin 6 mg Tablet PO (14:47)
--- NOTE | 2025-01-16 14:48 | P.PN_ITS ---
Subjective 2 Subjective: WBC count 16,000, hemoglobin 9.6. Blood pressure stable overnight. Denies any chest pain at this time States she had a CABG x 2 in 2013 at [facility]. Also had cardiac stents placed in the last few years. Echo has been completed, results are pending at this time. She states she was treated for pneumonia [address] chest on pelvis shows new patchy multifocal airspace disease with slightly nodular morphology left basilar stable pneumonia. Vitals/I&O/Wt Last Vital Signs Temp 98.7 F 01/16/25 11:50 Pulse 91 01/16/25 11:50 Resp 16 01/16/25 10:32 BP 100/64 01/16/25 11:50 Pulse Ox 93 01/16/25 11:50 O2 Del Method Nasal Cannula 01/16/25 11:50 O2 Flow Rate 5 01/16/25 11:50 01/15/25 01/16/25 01/16/25 22:59 06:59 14:59 Intake Total 3250 / 3250 600 / 600 Balance 3250 / 3250 600 / 600 Weight last 48 hrs Weight 67.903 kg Weight 65.091 kg Weight 64.41 kg Physical Exam 2 Narrative: General: Alert oriented x3, patient seen laying in bed appearing comfortable at this time. Family ember at bedside. On 5 L nasal cannula. Patient answering questions and talking. Appears euvolemic. HEENT: Normocephalic, atraumatic, EOMI, breathing comfortably Cardio: Regular rate rhythm, normal S1-S2, Respiratory: Good bilateral air entry, no wheezes no rhonchi appreciated GI: Abdomen soft, nontender, nondistended, bowel sounds + Behavior: Appropriate and cooperative Extremities: Trace edema bilateral lower extremities. Data 01/16/25 03:34 01/16/25 03:34 Micro: Microbiology 01/15/25 22:56 Blood Culture - Preliminary Blood SPECIMEN COLLECTED 01/15/25 22:50 Blood Culture - Preliminary Blood SPECIMEN COLLECTED A&P Assessment and plan (1) Pneumonia: Qualifiers: Laterality: left Lung location: lower lobe of lung Pneumonia type: due to unspecified organism Qualified Code(s): J18.9 - Pneumonia, unspecified organism (2) Atrial fibrillation: (3) Anticoagulation goal of INR 2 to 3: (4) Elevated white blood cell count, unspecified: (5) Lung cancer: Qualifiers: Laterality: unspecified laterality Lung location: unspecified part of lung Qualified Code(s): C34.90 - Malignant neoplasm of unspecified part of unspecified bronchus or lung (6) Migraine: (7) Headache: Qualifiers: Headache chronicity pattern: unspecified pattern Headache type: u nspecified Intractability: not intractable Qualified Code(s): R51.9 - Headache, unspecified (8) Left lower lobe pulmonary nodule: (9) COPD (chronic obstructive pulmonary disease): Qualifiers: COPD type: emphysema Emphysema type: unspecified Qualified Code(s): J 43.9 - Emphysema, unspecified (10) Fever: (11) Smoking addiction: (12) Sepsis: Plan Sepsis Criteria met with tachypnea tachycardia leukocytosis, Fever Source is pneumonia Requested CT chest abdomen pelvis No signs of meningitis, Complaining of headache and chest pain Received ketorolac Serial troponin EKG Requested echo. Start patient on antibiotics along septic bolus Subtherapeutic INR Bridged with Lovenox Continue Coumadin, pharmacy consulted History of A-fib: Continue AV leida blocking agent along Coumadin Bridged with Lovenox until INR is above 2 Stage I lung cancer as per the patient Follows up with oncologist. Last radiotherapy session couple months ago Chronic hypoxia uses 4 L of oxygen mostly at nighttime and secondary to habitus smoking she uses oxygen on as-needed basis, on her oxygen concentrator is broken now, she will need oxygen supply at the time of discharge Patient uses trilogy inhaler at home Diastolic CHF: Preserved EF: BNP 1600 however clinically does not look fluid overloaded Full code Cardiac diet 01/16/2025 CT abdomen pelvis shows new patchy multifocal airspace disease at the left base suggestive pneumonia. Patient requiring positive nasal cannula at this time. At baseline she is on 4 L at home. Continue azithromycin, ceftriaxone. Patient has completed radiation for her lung cancer. Follows up with [facility]. She is a former CABG patient and has history of coronary disease and has stents. She did complain of chest pain initially when she presented to the hospital. Troponin at 6 hours 18.95. BNP 1626. Patient did require IV fluids initially normal saline 75 cc/h and was given fluids as per sepsis protocol. Echo resulted today. EF is normal. Troponin most likely secondary to demand ischemia. Secondary to active pneumonia would medically manage at this time. Will discuss with cardiology. Patient does not appear to be clinically fluid overloaded. Will stop IV fluids at 4 PM. Awaiting sputum Gram stain culture She does take warfarin at home. INR 1.47 today. Bridging with Lovenox at this time she is on Lovenox 70 twice daily. Pharmacy to dose warfarin. Will request [facility] records from [facility]. PDMP PDMP Reviewed: Not Reviewed Attestations 2 Medical Necessity Statement*: Continue to hospitalize patient at this time for pneumonia. Diagnoses Pneumonia J18.9 Laterality: left Lung location: lower lobe of lung Pneumonia type: due to unspecified organism Atrial fibrillation I48.91 Anticoagulation goal of INR 2 to 3 Z51.81; Z79.01 Elevated white blood cell count, unspecified D72.829 Malignant neoplasm of lung, unspecified laterality, unspecified part of lung C34.90 Laterality: unspecified laterality Lung location: unspecified part of lung Migraine G43.909 Headache R51.9 Headache chronicity pattern: unspecified pattern Headache type: unspecified Intractability: not intractable Left lower lobe pulmonary nodule R91.1 Pulmonary emphysema, unspecified emphysema type J43.9 COPD type: emphysema Emphysema type: unspecified Fever R50.9 Smoking addiction F17.200 Sepsis A41.9
[2025-01-16] MEDS: VANCOMYCIN ADD VANTAGE IV (18:26)
[2025-01-16] MEDS: SODIUM CHLORIDE 0.9% IV (18:26)
--- NOTE | 2025-01-16 20:38 | ECG_ITS ---
[employer] Test Date: 2025-01-16 Pat Name: Ronit Palma Department: Room: 253 Gender: Female Retail Event Coordinator: : 1950 Requested By: Tyra Mcclure Order Number: [id number] Familia MD: Gildardo Chen M.D. Measurements Intervals [place] Rate: 92 P: 84 AL: 173 QRS: 89 QRSD: 98 T: 60 QT: 343 QTc: 425 Interpretive Statements SINUS RHYTHM NONSPECIFIC ST & T-WAVE ABNORMALITY Compared to ECG 01/16/2025 02:38:13 Intraventricular conduction delay no longer present T-wave abnormality still present Electronically Signed On 01-17-2025 12:10:13 MANAGER OF MAINTENANCE by Gildardo Chen M.D. [email or web address] [id number]
--- NOTE | 2025-01-16 21:00 | PC.NURSE ---
Dr. Mcclure notified of patient c/o chest pain that radiates in her neck up under her chin. EKG taken. No new orders received.
[2025-01-16] MEDS: atorvastatin 40 mg Tablet PO (21:04)
[2025-01-16] MEDS: cefTRIAXone 1,000 MG in sodium chloride 0.9% (plus) 50 ML 100 MG IV (21:05)
[2025-01-17] VITALS (12 sets, daily range): BP systolic 108–131; BP diastolic 58–74; PULSE 83–106; RESP 16–18; TEMP 36.9–39.1; O2SAT 90–99
[2025-01-17 04:02] LABS: Basophils % 0.2 %; Eosinophils % 0.3 %; Hematocrit 29.7 % (36-47); Lymphocytes % 15.9 %; Mean Corpuscular HGB Conc 31.3 g/dL (30-55); Mean Corpuscular Volume 102.1 fl (85-98); Mean Platelet Volume 10.5 fL (7.4-10.4); Monocytes # 1.2 10^3/uL (0.2-0.9); Monocytes % 9.5 %; Neutrophils # 9.47 10^3/uL (1.8-7.7); Neutrophils % 73.6 %; Nucleated Red Blood Cells % 0 %; Platelet Count 161 10^3/cmm (157-399); Red Blood Count 2.91 10^6/uL (3.85-5.65); Red Cell Distribution Width 12.9 % (12.1-15.1); White Blood Count 12.86 10^3/uL (3.29-11.43)
[2025-01-17 04:17] LABS: INR 1.42 (0.8-1.2)
[2025-01-17 04:43] LABS: Anion Gap 11.5 (5-19); Blood Urea Nitrogen 14 mg/dL (8-23); Calcium 8.4 mg/dL (8.5-10.5); Carbon Dioxide 23 mmol/L (22-29); Chloride 109 mmol/L (98-107); Creatinine Clr Calc Pharmacy 61.5743; Glucose 109 mg/dL (65-115); Osmolality Calculated 291 mOsm/kg (285-295); Potassium 3.5 mmol/L (3.5-5.1); Sodium 140 mmol/L (136-145)
[2025-01-17] MEDS: VANCOMYCIN ADD-Vantage 1,000 MG in 0.9% NaCl ADD-Vantage 250 ML 250 MG IV ×2 (06:54→17:03)
[2025-01-17] MEDS: ipratropium-albuterol 3 mL Neb INHALATION ×2 (07:46→21:16)
[2025-01-17] MEDS: acetaminophen 500 mg Tablet PO ×2 (08:03→18:39)
[2025-01-17] MEDS: clopidogrel 75 mg Tablet PO (08:04)
[2025-01-17] MEDS: azithromycin 250 mg Tablet 500 MG PO (08:04)
[2025-01-17] MEDS: aspirin 81 mg Chew Tablet PO (08:04)
[2025-01-17] MEDS: enoxaparin 80 mg/0.8 mL Syringe 70 MG SUBCUT ×2 (09:42→22:24)
--- NOTE | 2025-01-17 11:08 | PM.CONSULT ---
Providers/Reason For Consult Consulting Physician/Specialty*: dr lund gen surg Reason for Consult*: left buttock abscess Attending Physician: Conchita Reynolds MD Primary Care Provider: SULY Taveras History of Present Illness History of Present Illness Ronit Palma is a 74 year old female whom surgery was consulted for possible incision & drainage, debridement of left buttock wound. Patient concerned that she may have an abscess that needs to be drained since it is tender. CT scan shows some soft tissue edema at the site, but no fluid collection that is drainable. On exam patient has an area of 2x3cm of induration, no fluctuance, no surrounding cellulitis on the left buttock. Medications/Allergies Home Medications ?Medication ?Instructions ?Recorded ?Confirmed ?Last Taken ?Type aspirin 81 mg chewable tablet 81 mg PO DAILY@0900 11/18/19 01/16/25 06/04/22 History clopidogrel 75 mg tablet (Plavix) 75 mg PO DAILY@0900 11/18/19 01/16/25 06/04/22 History isosorbide mononitrate 30 mg 30 mg PO BID@0900,1800 12/15/19 01/16/25 06/04/22 History tablet,extended release 24 hr acetaminophen 325 mg tablet 325 - 350 mg PO QID PRN 01/11/21 01/16/25 Unknown History (Tylenol) headache/pain atorvastatin 40 mg tablet (Lipitor) 40 mg PO QPM #0 tabs 01/12/21 01/16/25 06/03/22 Rx Lactobacillus rhamnosus GG 20 See Rx Instructions PO .2 times 10/29/23 01/16/25 Unknown Rx billion cell capsule (Probiotic day #60 caps [facility]) albuterol sulfate 2.5 mg/3 mL 2.5 mg (3 mL) inhalation Q4H PRN 02/19/24 01/16/25 Unknown Rx (0.083 %) solution for nebulization shortness of breath or wheezing #75 mL hydrochlorothiazide 25 mg tablet 25 mg PO DAILY PRN high blood 04/14/24 01/16/25 Unknown Rx pressure #30 tabs escitalopram oxalate 10 mg tablet 10 mg PO .at supper #30 tabs 10/12/24 01/16/25 Unknown Rx (Lexapro) fluticasone fur. 100 mcg-umeclid 1 inh inhalation Q24H #28 ea 10/12/24 01/16/25 Unknown Rx 62.5 mcg-vilant 25 mcg inhalat.powder (Trelegy Ellipta) valsartan 160 mg tablet (Diovan) 160 mg PO DAILY #30 tabs 10/12/24 01/16/25 Unknown Rx cholecalciferol (vitamin D3) 125 250 mcg (2 x 125 mcg (5,000 unit)) 10/20/24 01/16/25 Unknown Rx mcg (5,000 unit) capsule PO DAILY #60 caps warfarin 2 mg tablet 5 mg (2.5 x 2 mg) PO DAILY #70 tabs 12/13/24 01/16/25 Unknown Rx ranolazine 500 mg tablet,extended 500 mg PO Q12H 01/16/25 01/16/25 Unknown History release,12 hr Allergies Allergy/AdvReac Type Severity Reaction Status Date / Time tramadol Allergy Severe Seizure Verified 12/24/24 18:20 Current Medications Generic Name Dose Route Start Last Admin Trade Name Epiq PRN Reason Stop Dose Admin Acetaminophen 500 mg 01/16/25 00:17 01/17/25 08:03 Acetaminophen 500 Mg Tablet PO 500 mg Q4H PRN Administration fever Albuterol/Ipratropium 3 ml 01/16/25 00:17 01/17/25 07:46 Ipratropium-Albuterol 3 Ml Neb INHALATION 3 ml Q6H PRN Administration SHORTNESS OF BREATH Aspirin 81 mg 01/16/25 09:00 01/17/25 08:04 Aspirin 81 Mg Chew Tablet PO 81 mg DAILY@0900 [place] Administration Atorvastatin Calcium 40 mg 01/16/25 18:00 01/16/25 21:04 Atorvastatin 40 Mg Tablet PO 40 mg QPM [place] Administration Azithromycin 500 mg 01/16/25 09:00 01/17/25 08:04 Azithromycin 250 Mg Tablet PO 500 mg DAILY [place] Administration Protocol Clopidogrel Bisulfate 75 mg 01/16/25 09:00 01/17/25 08:04 Clopidogrel 75 Mg Tablet PO 75 mg DAILY@0900 [place] Administration Enoxaparin Sodium 70 mg 01/16/25 11:00 01/17/25 09:42 Enoxaparin 80 Mg/0.8 Ml Syringe SUBCUT 70 mg Q12H [place] Administration Ceftriaxone Sodium 1,000 mg/ 50 mls @ 100 mls/hr 01/16/25 23:00 01/16/25 22:29 Sodium Chloride IV Infused Q24H [place] Infusion Protocol Vancomycin HCl 1,000 mg/ 250 mls @ 250 mls/hr 01/17/25 06:15 01/17/25 08:02 Sodium Chloride IV Infused Q12H [place] Infusion Morphine Sulfate 15 mg 01/16/25 00:17 01/16/25 21:04 Morphine Ir 15 Mg Tablet PO 15 mg Q6H PRN Administration MODERATE PAIN Morphine Sulfate 2 mg 01/16/25 00:22 01/16/25 01:20 Morphine 4 Mg/Ml Sdv 1 Ml IVP 2 mg Q4H PRN Administration SEVERE PAIN Warfarin Sodium 6 mg 01/16/25 14:00 01/16/25 14:47 Warfarin 6 Mg Tablet PO 6 mg 1400 [place] Administration PFSH Acute PFSH: Medical History Smoking addiction Anxiety PE (pulmonary thromboembolism) DVT (deep venous thrombosis) Age related osteoporosis Unstable angina Bilateral renal cysts Personal history of nicotine dependence Vitamin D insufficiency Femur fracture Heart disease HTN (hypertension) COPD (chronic obstructive pulmonary disease) Surgical History History of hip surgery left History of cholecystectomy History of hysterectomy History of heart artery stent Hx of CABG Family History Mother CAD (coronary artery disease) Lung disease Other Cancer Heart disease Hypertension Denies family history of Diabetes Clotting disorder Dementia Hyperlipidemia Psychiatric illness Chronic kidney disease (CKD) Suicide Anesthesia complication Bleeding disorder Stroke Social History Smoking and tobacco/nicotine status: current every day tobacco/nicotine user cigarettes Packs smoked per day: 1 Second hand smoke exposure: Yes Alcohol intake: never Substance/Drug Use: never Adopted: No Caregiver/support person: No Lives independently: Yes Household members: children Housing: House Marital status: / Number of children: 4 service: No Current occupational status: retired Do you think of yourself as: Straight/Heterosexual Current gender identity: Female Vitals/I&O/Wt Last Vital Signs Temp 98.8 F 01/17/25 11:07 Pulse 83 01/17/25 11:07 Resp 16 01/17/25 07:47 BP 112/74 01/17/25 11:07 Pulse Ox 93 01/17/25 11:07 O2 Del Method Nasal Cannula 01/17/25 11:07 O2 Flow Rate 2 01/17/25 08:00 01/16/25 01/17/25 01/17/25 22:59 06:59 14:59 Intake Total 1660 / 2260 250 / 250 Output Total 1110 / 1110 750 / 1860 200 / 200 Balance 550 / 1150 -750 / 400 50 / 50 Weight last 48 hrs Weight 151 lb 14.4 oz Weight 149 lb 11.2 oz Weight 143 lb 8 oz Weight 142 lb Physical Exam Narrative: RRR Unlabored breathing RA Abdomen soft, nt, nd Left buttock: Area of 2x3cm of induration, no fluctuance, no surrounding cellulitis. Tissues are all viable at the site. Data 01/17/25 02:13 01/17/25 02:13 Micro: Microbiology 01/15/25 22:50 Blood Culture - Preliminary Blood Staphylococcus sp coag neg 01/15/25 22:56 Blood Culture - Preliminary Blood NEGATIVE TO DATE 01/16/25 15:54 Legionella Urinary Antigen - Final Urine,Clean Catch Bacterial Antigens - Final A&P Assessment and plan (1) Buttock wound: Plan 74yo female whom surgery was consulted to evaluate for possible I&D of left buttock abscess. No abscess to drain currently on exam and on CT scan. Lesion appears like an old abscess which is resolved. No cellulitis surrounding lesion. No tissue to debride either. Explained to patient, nurse, and family that since this is an old abscess, she will not benefit from I&D. In addition, there is no tissue that can be addressed with a debridement. Explained that we can pursue I&D if abscess recurs. At this point, I do not recommend any intervention for this wound. Discussed with hospitalist. Patient agrees with plan. PDMP PDMP Reviewed: Not Reviewed Coding Level of Care Code 01599 Diagnoses Buttock wound S31.809A Time Spent (min) 30
[2025-01-17] MEDS: morphine IR 15 mg Tablet PO ×2 (12:12→23:35)
[2025-01-17] MEDS: warfarin 6 mg Tablet PO (13:26)
[2025-01-17] MEDS: warfarin 2 mg Tablet PO (13:26)
--- NOTE | 2025-01-17 13:30 | PM.PN ---
Subjective Subjective: Seen this morning. Blood cultures positive for staph in clusters. Vancomycin added yesterday evening. INR 1.42 today. Patient laying in bed appearing comfortable at this time. States she is breathing better today. Saturating 97% on nasal cannula. Vitals/I&O/Wt Last Vital Signs Temp 98.8 F 01/17/25 11:07 Pulse 83 01/17/25 11:07 Resp 18 01/17/25 12:12 BP 112/74 01/17/25 11:07 Pulse Ox 97 01/17/25 12:12 O2 Del Method Nasal Cannula 01/17/25 11:07 O2 Flow Rate 2 01/17/25 08:00 01/16/25 01/17/25 01/17/25 22:59 06:59 14:59 Intake Total 1660 / 2260 370 / 370 Output Total 1110 / 1110 750 / 1860 200 / 200 Balance 550 / 1150 -750 / 400 170 / 170 Weight last 48 hrs Weight 68.901 kg Weight 67.903 kg Weight 65.091 kg Weight 64.41 kg Physical Exam Narrative: General: Alert oriented x3, patient seen laying in bed appearing comfortable at this time. On 5 L nasal cannula. HEENT: Normocephalic, atraumatic, EOMI, breathing comfortably Cardio: Regular rate rhythm, normal S1-S2, Respiratory: Good bilateral air entry, no wheezes no rhonchi appreciated GI: Abdomen soft, nontender, nondistended, bowel sounds + Behavior: Appropriate and cooperative Extremities: Trace edema bilateral lower extremities. Data 01/17/25 02:13 01/17/25 02:13 Micro: Microbiology 01/15/25 22:50 Blood Culture - Preliminary Blood Staphylococcus sp coag neg 01/15/25 22:56 Blood Culture - Preliminary Blood NEGATIVE TO DATE 01/16/25 15:54 Legionella Urinary Antigen - Final Urine,Clean Catch Bacterial Antigens - Final A&P Assessment and plan (1) Pneumonia: Qualifiers: Laterality: left Lung location: lower lobe of lung Pneumonia type: due to unspecified organism Qualified Code(s): J18.9 - Pneumonia, unspecified organism (2) Atrial fibrillation: (3) Anticoagulation goal of INR 2 to 3: (4) Elevated white blood cell count, unspecified: (5) Lung cancer: Qualifiers: Laterality: unspecified laterality Lung location: unspecified part of lung Qualified Code(s): C34.90 - Malignant neoplasm of unspecified part of unspecified bronchus or lung (6) Migraine: (7) Headache: Qualifiers: Headache chronicity pattern: unspecified pattern Headache type: unspecified Intractability: not intractable Qualified Code(s): R51.9 - Headache, unspecified (8) Left lower lobe pulmonary nodule: (9) COPD (chronic obstructive pulmonary disease): Qualifiers: COPD type: emphysema Emphysema type: unspecified Qualified Code(s): J43.9 - Emphysema, unspecified (10) Fever: (11) Smoking addiction: (12) Sepsis: Plan Sepsis Criteria met with tachypnea tachycardia leukocytosis, Fever Source is pneumonia Requested CT chest abdomen pelvis No signs of meningitis, Complaining of headache and chest pain Received ketorolac Serial troponin EKG Requested echo. Start patient on antibiotics along septic bolus Subtherapeutic INR Bridged with Lovenox Continue Coumadin, pharmacy consulted History of A-fib: Continue AV leida blocking agent along Coumadin Bridged with Lovenox until INR is above 2 Stage I lung cancer as per the patient Follows up with oncologist. Last radiotherapy session couple months ago Chronic hypoxia uses 4 L of oxygen mostly at nighttime and secondary to habitus smoking she uses oxygen on as-needed basis, on her oxygen concentrator is broken now, she will need oxygen supply at the time of discharge Patient uses trilogy inhaler at home Diastolic CHF: Preserved EF: BNP 1600 however clinically does not look fluid overloaded Full code Cardiac diet 01/16/2025 CT abdomen pelvis shows new patchy multifocal airspace disease at the left base suggestive pneumonia. Patient requiring positive nasal cannula at this time. At baseline she is on 4 L at home. Continue azithromycin, ceftriaxone. Patient has completed radiation for her lung cancer. Follows up with [facility]. She is a former CABG patient and has history of coronary disease and has stents. She did complain of chest pain initially when she presented to the hospital. Troponin at 6 hours 18.95. BNP 1626. Patient did require IV fluids initially normal saline 75 cc/h and was given fluids as per sepsis protocol. Echo resulted today. EF is normal. Troponin most likely secondary to demand ischemia. Secondary to active pneumonia would medically manage at this time. Will discuss with cardiology. Patient does not appear to be clinically fluid overloaded. Will stop IV fluids at 4 PM. Awaiting sputum Gram stain culture She does take warfarin at home. INR 1.47 today. Bridging with Lovenox at this time she is on Lovenox 70 twice daily. Pharmacy to dose warfarin. Will request cardiology records from [facility]. 01/17/2025 Awaiting records from [facility] Continue ceftriaxone azithromycin. Pharmacy to dose warfarin. INR subtherapeutic. 1.42. At baseline nasal cannula today. Consulted general surgery for intubation on left buttock. Possible I&D needed? Patient denies any chest pain today. Troponin elevation most likely secondary demand ischemia. Patient is on therapeutic Lovenox. We will continue the same at this time. PDMP PDMP Reviewed: Not Reviewed Attestations Medical Necessity Statement*: Continue to hospitalize patient at this time for pneumonia. Diagnoses Pneumonia J18.9 Laterality: left Lung location: lower lobe of lung Pneumonia type: due to unspecified organism Atrial fibrillation I48.91 Anticoagulation goal of INR 2 to 3 Z51.81; Z79.01 Elevated white blood cell count, unspecified D72.829 Malignant neoplasm of lung, unspecified laterality, unspecified part of lung C34.90 Laterality: unspecified laterality Lung location: unspecified part of lung Migraine G43.909 Headache R51.9 Headache chronicity pattern: unspecified pattern Headache type: unspecified Intractability: not intractable Left lower lobe pulmonary nodule R91.1 Pulmonary emphysema, unspecified emphysema type J43.9 COPD type: emphysema Emphysema type: unspecified Fever R50.9 Smoking addiction F17.200 Sepsis A41.9
--- NOTE | 2025-01-17 15:21 | PHA.VACGOAL ---
Vancomycin Goal - Goal Vancomycin Goal:: 15-20 mg/L Vancomycin Indication:: Pneumonia - Therapy Day of therpy:: Day []of [] . Actual body weight (kg): 151 lb 14.4 oz - Data Labs: WBC 12.86 10^3/uL (3.29-11.43) H 01/17/25 02:13 RBC 2.91 10^6/uL (3.85-5.65) L 01/17/25 02:13 Hgb 9.30 g/dL (11.27-16.99) L 01/17/25 02:13 Hct 29.7 % (36-47) L 01/17/25 02:13 MCV 102.1 fl (85-98) H 01/17/25 02:13 MCH 32.0 pg (27-33) 01/17/25 02:13 MCHC 31.3 g/dL (30-55) 01/17/25 02:13 RDW 12.9 % (12.1-15.1) 01/17/25 02:13 Sodium 140 mmol/L (136-145) 01/17/25 02:13 Potassium 3.5 mmol/L (3.5-5.1) 01/17/25 02:13 Chloride 109 mmol/L (98-107) H 01/17/25 02:13 Carbon Dioxide 23 mmol/L (22-29) 01/17/25 02:13 Anion Gap 11.5 (5-19) 01/17/25 02:13 BUN 14 mg/dL (8-23) 01/17/25 02:13 Creatinine 0.8 mg/dL (0.5-0.9) 01/17/25 02:13 GFR Calculation Not Reportable 01/17/25 02:13 Treatment plan:: new consult Regimen:: 1000 mg q12 started by telepharm TROUGH 01/18 @ 4363
[2025-01-17] MEDS: piperacillin-tazobactam 3.375 GM in sodium chloride 0.9% (plus) 50 ML IV ×2 (17:02→23:36)
[2025-01-17] MEDS: atorvastatin 40 mg Tablet PO (17:03)
[2025-01-17] MEDS: morphine 4 mg/mL SDV 1 mL 2 MG IVP (19:34)
[2025-01-18] VITALS (11 sets, daily range): BP systolic 101–127; BP diastolic 61–70; PULSE 73–99; RESP 15–20; TEMP 36.6–38; O2SAT 93–97; BMI 25.0
[2025-01-18] MEDS: morphine 4 mg/mL SDV 1 mL 2 MG IVP (03:26)
[2025-01-18] MEDS: VANCOMYCIN ADD-Vantage 1,000 MG in 0.9% NaCl ADD-Vantage 250 ML 250 MG IV (05:25)
[2025-01-18 06:11] LABS: Basophils % 0.2 %; Eosinophils # 0.1 10^3/uL (0.0-0.8); Eosinophils % 1.2 %; Hematocrit 29.1 % (36-47); Lymphocytes # 2.1 10^3/uL (0.8-4.8); Lymphocytes % 21.2 %; Mean Corpuscular HGB Conc 31.3 g/dL (30-55); Mean Corpuscular Hemoglobin 32.4 pg (27-33); Mean Corpuscular Volume 103.6 fl (85-98); Monocytes # 1.1 10^3/uL (0.2-0.9); Monocytes % 11.2 %; Neutrophils # 6.37 10^3/uL (1.8-7.7); Neutrophils % 65.8 %; Nucleated Red Blood Cells % 0 %; Platelet Count 155 10^3/cmm (157-399); Red Blood Count 2.81 10^6/uL (3.85-5.65); Red Cell Distribution Width 12.7 % (12.1-15.1); White Blood Count 9.68 10^3/uL (3.29-11.43)
[2025-01-18 06:26] LABS: INR 1.49 (0.8-1.2)
[2025-01-18 06:29] LABS: Anion Gap 11.6 (5-19); Blood Urea Nitrogen 15 mg/dL (8-23); Calcium 8.4 mg/dL (8.5-10.5); Carbon Dioxide 24 mmol/L (22-29); Chloride 104 mmol/L (98-107); Creatinine Clr Calc Pharmacy 61.6742; Glucose 100 mg/dL (65-115); Osmolality Calculated 283 mOsm/kg (285-295); Potassium 3.6 mmol/L (3.5-5.1); Sodium 136 mmol/L (136-145)
[2025-01-18 06:40] LABS: Vancomycin Trough 27.2 ug/mL (10-15)
[2025-01-18] MEDS: clopidogrel 75 mg Tablet PO (07:50)
[2025-01-18] MEDS: aspirin 81 mg Chew Tablet PO (07:50)
[2025-01-18] MEDS: piperacillin-tazobactam 3.375 GM in sodium chloride 0.9% (plus) 50 ML IV ×3 (07:51→23:28)
[2025-01-18] MEDS: ipratropium-albuterol 3 mL Neb INHALATION ×3 (07:56→21:26)
[2025-01-18] MEDS: enoxaparin 80 mg/0.8 mL Syringe 70 MG SUBCUT (10:03)
--- NOTE | 2025-01-18 11:56 | CT_ITS ---
WS: [id number] CT HEAD NONCONTRAST HISTORY: Headache TECHNIQUE: Contiguous axial imaging performed through the brain. Bone and soft tissue windows. Sagittal and coronal reformats reviewed. All CT scans at [facility] use at least one of these dose optimization techniques: automated exposure control; mA and/or kV adjustment per patient size (includes targeted exams where dose is matched to clinical indication); or iterative reconstruction. DLP: 1370.00 mGy.cm COMPARISON: 02/14/2024 No acute intracranial hemorrhage, midline shift or mass effect. Mild atrophy and small vessel disease. No interval change since the prior exam. Ventricles: Normal size with no hydrocephalus. Paranasal sinuses: Small amount of mucoperiosteal thickening in the RIGHT maxillary sinus is new. LEFT maxillary sinus is clear. Mastoid air cells: Well pneumatized. Calvarium and scalp: Skull is intact with no soft tissue edema or swelling. CT/CT head wo con* [id number] IMPRESSION: 1. No acute intracranial hemorrhage or edema. 2. Stable noncontrast head CT since 02/14/2024.
--- NOTE | 2025-01-18 12:25 | PC.SOCIAL ---
IMM Updated Updated pt on IMM. No questions voiced. Provided pt a copy. Initialed, dated, & timed a copy & placed in chart.
[2025-01-18] MEDS: ranolazine (12HR) 500 mg Tablet PO ×2 (12:41→23:28)
[2025-01-18] MEDS: acetaminophen 325 mg Tablet 650 MG PO ×2 (12:41→17:30)
--- NOTE | 2025-01-18 12:48 | CT_ITS ---
WS: [id number] CT CERVICAL SPINE HISTORY: neck pain TECHNIQUE: Contiguous 2.0 mm axial imaging performed through the entire cervical spine. Sagittal and coronal reformats also performed. All CT scans at [facility] use at least one of these dose optimization techniques: automated exposure control; mA and/or kV adjustment per patient size (includes targeted exams where dose is matched to clinical indication); or iterative reconstruction. DLP: 1370.00 mGy.cm COMPARISON: 06/06/2022 Increase in the cervical lordosis has progressed since the prior study. C4 anterolisthesis by 2.6 mm. Disc spaces are narrowed. Marked facet joint arthritis. No acute fracture. Lateral masses are aligned and the odontoid is intact. Osseous fusion across the C3-4 facet joint. C2-C3: Bilateral facet arthritis. C3-C4: Moderate to severe LEFT foraminal stenosis. Bilateral facet arthritis. C4-C5: Severe bilateral facet arthritis and foraminal stenosis. C5-C6: Marked osteophytic ridging encroaching upon the ventral thecal sac. Mild central with severe bilateral foraminal stenosis and facet arthropathy. C6-C7: Osteophytic ridging with marked facet arthritis. Mild central with severe foraminal stenosis. C7-T1: Mild LEFT foraminal stenosis. Soft tissues are normal. Lung apices are clear. CT/CT cervical spin wo con* [id number] IMPRESSION: 1. No acute cervical spine fracture. 2. Increase in cervical lordosis and C4 anterolisthesis since 06/06/2022. 3. Multilevel areas of facet joint arthritis and foraminal stenosis as above.
[2025-01-18 13:47] LABS: Estmated Average Glucose 103; Hemoglobin A1C 5.2 % (4.0-6.0)
[2025-01-18 13:57] LABS: Procalcitonin 0.43 ng/mL (0-0.5); Thyroid Stimulating Hormone 2.49 uIU/mL (0.27-4.20); Vitamin B12 362 pg/mL (232-1245)
[2025-01-18 14:08] LABS: Iron 15 ug/dL (37-145); Percent Saturation 6.9 % (20-50); Total Iron Binding Capacity 216 mcg/dl; Unsaturated Iron Binding 201 ug/dL (112-347)
[2025-01-18 14:59] LABS: Adenovirus Not Detected (NOT DETECT); Chlamydia Pneumoniae Not Detected (NOT DETECT); Coronavirus 229E,HKU1,NL63,OC4 Not Detected (NOT DETECT); Human Metapneumovirus Not Detected (NOT DETECT); Human Rhinovirus/Enterovirus Not Detected (NOT DETECT); Influenza A Not Detected (NOT DETECT); Influenza A H1 Not Detected (NOT DETECT); Influenza A H1-2009 Not Detected (NOT DETECT); Influenza A H3 Not Detected (NOT DETECT); Influenza B Not Detected (NOT DETECT); Mycoplasma Pneumoniae Not Detected (NOT DETECT); Parainfluenza Virus Type 1 Not Detected (NOT DETECT); Parainfluenza Virus Type 2 Not Detected (NOT DETECT); Parainfluenza Virus Type 3 Not Detected (NOT DETECT); Parainfluenza Virus Type 4 Not Detected (NOT DETECT); Respiratory Syncytial Virus A Not Detected (NOT DETECT); Respiratory Syncytial Virus B Not Detected (NOT DETECT); SARS-COV-2 Not Detected (NOT DETECT)
[2025-01-18] MEDS: escitalopram 10 mg Tablet PO (17:30)
[2025-01-18] MEDS: atorvastatin 40 mg Tablet PO (17:30)
--- NOTE | 2025-01-18 18:46 | P.PN_ITS ---
Subjective 2 Subjective: Hospital course, labs appreciated. Examination patient seen sitting up in chair with family at bedside. Patient complaining of headache, nausea. She has also been complaining of photophobia. States her symptoms have been ongoing prior to admissions. States she came to the hospital because of headache and subjective fevers. Having limited oral intake but as per family member has had limited oral intake for many years. Currently on 3 to 4 L saturating more than 92%. Vitals/I&O/Wt Last Vital Signs Temp 98.0 F 01/18/25 16:05 Pulse 82 01/18/25 17:12 Resp 20 H 01/18/25 17:12 BP 101/67 01/18/25 16:05 Pulse Ox 95 01/18/25 17:12 O2 Del Method Nasal Cannula 01/18/25 17:12 O2 Flow Rate 2 01/18/25 17:12 01/18/25 01/18/25 01/18/25 06:59 14:59 22:59 Intake Total 300 / 1210.000 290 / 290 290 / 580 Output Total 10 / 410 200 / 200 Balance 290 / 800.000 90 / 90 290 / 380 Weight last 48 hrs Weight 68.152 kg Weight 68.901 kg Physical Exam 2 Narrative: General: Alert oriented x3, patient seen laying in bed appearing comfortable at this time. On 4 L nasal cannula. HEENT: Normocephalic, atraumatic, EOMI, breathing comfortably Cardio: Regular rate rhythm, normal S1-S2, Respiratory: Good bilateral air entry, no wheezes no rhonchi appreciated GI: Abdomen soft, nontender, nondistended, bowel sounds + Behavior: Appropriate and cooperative Extremities: Trace edema bilateral lower extremities. Data 01/19/25 04:58 01/19/25 04:58 Micro: Microbiology 01/17/25 10:20 Blood Culture - Preliminary Blood NEGATIVE TO DATE 01/17/25 10:17 Blood Culture - Preliminary Blood NEGATIVE TO DATE 01/16/25 20:00 Gram Stain - Final Sputum - Expectorated Sputum Sputum Culture - Preliminary A&P Assessment and plan (1) Sepsis: (2) Acute and chronic respiratory failure with hypoxia: (3) Pneumonia: Qualifiers: Laterality: left Lung location: lower lobe of lung Pneumonia type: due to unspecified organism Qualified Code(s): J18.9 - Pneumonia, unspecified organism (4) Atrial fibrillation: (5) Anticoagulation goal of INR 2 to 3: (6) Lung cancer: Qualifiers: Laterality: unspecified laterality Lung location: unspecified part of lung Qualified Code(s): C34.90 - Malignant neoplasm of unspecified part of unspecified bronchus or lung (7) Migraine: (8) Headache: Qualifiers: Headache chronicity pattern: unspecified pattern Headache type: u nspecified Intractability: not intractable Qualified Code(s): R51.9 - Headache, unspecified (9) COPD (chronic obstructive pulmonary disease): Qualifiers: COPD type: emphysema Emphysema type: unspecified Qualified Code(s): J 43.9 - Emphysema, unspecified (10) Fever: (11) Smoking addiction: (12) Hypertension: Qualifiers: Hypertension type: primary hypertension Qualified Code(s): I10 - Essential (primary) hypertension (13) Anxiety: Plan Sepsis: Present on admission. Criteria met with tachypnea tachycardia leukocytosis, Fever Source is pneumonia Blood culture 1 out of 4 bottles from admission positive for coag negative staph. High likelihood of contamination. Patient continues to spike daily fevers. Repeat blood culture sent on 01/17. No leukocytosis today. Patient complaining of headache, neck pain and photophobia. Concerns for meningitis especially given the above symptoms, ongoing fever. Follow-up repeat blood cultures. Appreciate sputum culture. Follow-up urine culture. For now continue with current IV antibiotics including vancomycin, Zosyn. Hold off anticoagulation for lumbar puncture. Headache: Could be in setting of elevated blood pressure. Cannot rule out meningitis as above. Check CT head. Tylenol as needed. History of A-fib: Currently rate controlled. Not on rate controlling medication at home. Takes Coumadin at home. Currently getting bridged from Lovenox to Coumadin. Had supratherapeutic INR on admission. Discussed in detail with the patient regarding possible switch to NOAC. Patient is agreeable. Stopping both Lovenox and Coumadin as above for lumbar puncture. Will plan to transition to Eliquis 5 mg twice daily after lumbar puncture. Stage I lung cancer as per the patient Follows up with oncologist. Last radiotherapy session couple months ago Chronic hypoxia uses 4 L of oxygen mostly at nighttime and secondary to habitus smoking she uses oxygen on as-needed basis, on her oxygen concentrator is broken now, she will need oxygen supply at the time of discharge Patient uses trilogy inhaler at home Diastolic CHF: Preserved EF: BNP 1600 however clinically does not look fluid overloaded History of DVT History of COPD Full code Cardiac diet Full dose Lovenox/Coumadin sufficient for DVT prophylaxis. Currently on hold for lumbar puncture. SCDs PDMP PDMP Reviewed: Not Reviewed Attestations 2 Medical Necessity Statement*: Requires further hospitalization for management of sepsis, coag negative Staphylococcus, headache while meningitis is ruled out Diagnoses Sepsis A41.9 Acute and chronic respiratory failure with hypoxia J96.21 Pneumonia J18.9 Laterality: left Lung location: lower lobe of lung Pneumonia type: due to unspecified organism Atrial fibrillation I48.91 Anticoagulation goal of INR 2 to 3 Z51.81; Z79.01 Malignant neoplasm of lung, unspecified laterality, unspecified part of lung C34.90 Laterality: unspecified laterality Lung location: unspecified part of lung Migraine G43.909 Headache R51.9 Headache chronicity pattern: unspecified pattern Headache type: unspecified Intractability: not intractable Pulmonary emphysema, unspecified emphysema type J43.9 COPD type: emphysema Emphysema type: unspecified Fever R50.9 Smoking addiction F17.200 Primary hypertension I10 Hypertension type: primary hypertension Anxiety F41.9
[2025-01-18] MEDS: vancomycin 1,250 MG/250 ML PIGGYBACK 166.67 MG IV (19:25)
[2025-01-19] VITALS (9 sets, daily range): BP systolic 112–148; BP diastolic 67–88; PULSE 73–89; RESP 16–20; TEMP 36.3–36.9; O2SAT 92–98
[2025-01-19 05:12] LABS: Basophils % 0.3 %; Eosinophils # 0.3 10^3/uL (0.0-0.8); Eosinophils % 3.9 %; Hematocrit 29.1 % (36-47); Lymphocytes # 1.3 10^3/uL (0.8-4.8); Lymphocytes % 20.8 %; Mean Corpuscular HGB Conc 32.3 g/dL (30-55); Mean Corpuscular Hemoglobin 32.2 pg (27-33); Mean Corpuscular Volume 99.7 fl (85-98); Monocytes # 0.8 10^3/uL (0.2-0.9); Monocytes % 13.1 %; Neutrophils # 3.91 10^3/uL (1.8-7.7); Neutrophils % 61.4 %; Nucleated Red Blood Cells % 0 %; Platelet Count 170 10^3/cmm (157-399); Red Blood Count 2.92 10^6/uL (3.85-5.65); Red Cell Distribution Width 12.6 % (12.1-15.1); White Blood Count 6.36 10^3/uL (3.29-11.43)
[2025-01-19 05:28] LABS: INR 1.52 (0.8-1.2)
[2025-01-19 05:46] LABS: Alanine Aminotransferase 14 U/L (0-33); Alkaline Phosphatase 119 U/L (35-105); Anion Gap 10.7 (5-19); Aspartate Amino Transferase 32 U/L (0-32); Blood Urea Nitrogen 13 mg/dL (8-23); Calcium 8.5 mg/dL (8.5-10.5); Carbon Dioxide 26 mmol/L (22-29); Chloride 107 mmol/L (98-107); Creatinine Clr Calc Pharmacy 61.6288; Globulin 2.9 g/dL (1.3-4.6); Glucose 103 mg/dL (65-115); Osmolality Calculated 290 mOsm/kg (285-295); Potassium 3.7 mmol/L (3.5-5.1); Sodium 140 mmol/L (136-145); Total Bilirubin 0.5 mg/dL (0.15-1.2); Total Protein 5.9 g/dL (6.6-8.7)
[2025-01-19 05:56] LABS: Folate Level 10.6 ng/mL (4.8-37.3)
[2025-01-19] MEDS: vancomycin 1,250 MG/250 ML PIGGYBACK 166.67 MG IV ×2 (06:32→18:56)
[2025-01-19] MEDS: ipratropium-albuterol 3 mL Neb INHALATION ×2 (07:43→21:02)
[2025-01-19] MEDS: aspirin 81 mg Chew Tablet PO (08:00)
[2025-01-19] MEDS: piperacillin-tazobactam 3.375 GM in sodium chloride 0.9% (plus) 50 ML IV ×3 (08:00→23:30)
[2025-01-19] MEDS: ranolazine (12HR) 500 mg Tablet PO ×2 (11:03→23:30)
[2025-01-19] MEDS: acetaminophen 325 mg Tablet 650 MG PO ×2 (11:04→23:30)
--- NOTE | 2025-01-19 12:02 | FL_ITS ---
WS: [id number] LUMBAR PUNCTURE CLINICAL INFORMATION: Concern for meningitis COMPARISON: None. TECHNIQUE: Informed consent: The procedure and its potential risk and complications were discussed with the patient. Verbal and written consent was obtained. Timeout: A timeout was performed to confirm correct patient, procedure, and site. Patient was prepped and draped in the usual sterile fashion. Lidocaine 1% was used for local anesthesia. Utilizing fluoroscopic guidance, a 3.5 inch 22-gauge spinal needle was advanced into the subarachnoid space at L2-3 via LEFT oblique sublaminar approach. Free flow of clear CSF was obtained. 13 cc of clear CSF was collected and sent the lab for further analysis. FLUOROSCOPIC TIME: 1min [id number] # of spot films: 1 FL/FL guided lumbarpunc dx* [id number] IMPRESSION: Fluoroscopically guided lumbar puncture. No immediate complications
--- NOTE | 2025-01-19 13:27 | P.PN_ITS ---
Subjective 2 Subjective: No acute events overnight. Seen with family at bedside. Patient states she is feeling better than yesterday. Headache seems to be improved. Afebrile last 24 hours. Currently on 4 L saturating more than 94%. Vitals/I&O/Wt Last Vital Signs Temp 97.7 F 01/19/25 08:00 Pulse 89 01/19/25 08:00 Resp 19 H 01/19/25 08:00 BP 148/75 01/19/25 08:00 Pulse Ox 94 01/19/25 08:00 O2 Del Method Nasal Cannula 01/19/25 08:00 O2 Flow Rate 4 01/19/25 08:00 01/18/25 01/19/25 01/19/25 22:59 06:59 14:59 Intake Total 890 / 1180 50 / 1230 420 / 420 Output Total 400 / 600 900 / 900 Balance 890 / 980 -350 / 630 -480 / -480 Weight last 48 hrs Weight 68.039 kg Weight 68.152 kg Physical Exam 2 Narrative: General: Alert oriented x3, patient seen laying in bed appearing comfortable at this time. On 4 L nasal cannula. HEENT: Normocephalic, atraumatic, EOMI, breathing comfortably Cardio: Regular rate rhythm, normal S1-S2, Respiratory: Good bilateral air entry, no wheezes no rhonchi appreciated GI: Abdomen soft, nontender, nondistended, bowel sounds + Behavior: Appropriate and cooperative Extremities: Trace edema bilateral lower extremities. Data 01/19/25 04:58 01/19/25 04:58 Micro: Microbiology 01/16/25 20:00 Gram Stain - Final Sputum - Expectorated Sputum Sputum Culture - Final 01/15/25 22:50 Blood Culture - Preliminary Blood Staphylococcus hominis 01/17/25 23:22 Urine Culture - Preliminary Urine,Clean Catch 01/17/25 10:20 Blood Culture - Preliminary Blood NEGATIVE TO DATE 01/17/25 10:17 Blood Culture - Preliminary Blood NEGATIVE TO DATE A&P Assessment and plan (1) Sepsis: (2) Acute and chronic respiratory failure with hypoxia: (3) Pneumonia: Qualifiers: Laterality: left Lung location: lower lobe of lung Pneumonia type: due to unspecified organism Qualified Code(s): J18.9 - Pneumonia, unspecified organism (4) Atrial fibrillation: (5) Anticoagulation goal of INR 2 to 3: (6) Lung cancer: Qualifiers: Laterality: unspecified laterality Lung location: unspecified part of lung Qualified Code(s): C34.90 - Malignant neoplasm of unspecified part of unspecified bronchus or lung (7) Migraine: (8) Headache: Qualifiers: Headache chronicity pattern: unspecified pattern Headache type: u nspecified Intractability: not intractable Qualified Code(s): R51.9 - Headache, unspecified (9) COPD (chronic obstructive pulmonary disease): Qualifiers: COPD type: emphysema Emphysema type: unspecified Qualified Code(s): J 43.9 - Emphysema, unspecified (10) Fever: (11) Smoking addiction: (12) Hypertension: Qualifiers: Hypertension type: primary hypertension Qualified Code(s): I10 - Essential (primary) hypertension (13) Anxiety: Plan Sepsis: Present on admission. Criteria met with tachypnea tachycardia leukocytosis, Fever Source is pneumonia Blood culture 1 out of 4 bottles from admission positive for coag negative staph. High likelihood of contamination. Patient continues to spike daily fevers. Repeat blood culture sent on 01/17. No leukocytosis today. Patient complaining of headache, neck pain and photophobia. Concerns for meningitis especially given the above symptoms, ongoing fever. Follow-up repeat blood cultures. Appreciate sputum culture. Follow-up urine culture. For now continue with current IV antibiotics including vancomycin, Zosyn. Hold off anticoagulation for lumbar puncture. Headache: Could be in setting of elevated blood pressure. Cannot rule out meningitis as above. Check CT head. Tylenol as needed. History of A-fib: Currently rate controlled. Not on rate controlling medication at home. Takes Coumadin at home. Currently getting bridged from Lovenox to Coumadin. Had supratherapeutic INR on admission. Discussed in detail with the patient regarding possible switch to NOAC. Patient is agreeable. Stopping both Lovenox and Coumadin as above for lumbar puncture. Will plan to transition to Eliquis 5 mg twice daily after lumbar puncture. Stage I lung cancer as per the patient Follows up with oncologist. Last radiotherapy session couple months ago Chronic hypoxia uses 4 L of oxygen mostly at nighttime and secondary to habitus smoking she uses oxygen on as-needed basis, on her oxygen concentrator is broken now, she will need oxygen supply at the time of discharge Patient uses trilogy inhaler at home Diastolic CHF: Preserved EF: BNP 1600 however clinically does not look fluid overloaded History of DVT History of COPD Full code Cardiac diet Full dose Lovenox/Coumadin sufficient for DVT prophylaxis. Currently on hold for lumbar puncture. SCDs Plan for the day: Repeat blood culture from 01/17 so far negative. Blood culture from admission 1 out of 4 blood sets positive for Staphylococcus hominis. High likelihood of contamination. Given persistent fever, prolonged leukocytosis for now we will continue with current IV antibiotics. Plan for lumbar puncture today to rule out meningitis. Restart anticoagulation with Eliquis after lumbar puncture. Nicotine patch. Blood pressure improving. Start on losartan 50 mg oral daily which is equal and to home dose of valsartan. Goal blood pressure less than 140/90 mmHg. For supplementation keeping saturation over 90%. Continue with home dose of Lexapro. PDMP PDMP Reviewed: Not Reviewed Attestations 2 Medical Necessity Statement*: Requires further hospitalization while bacteremia is ruled out, further sepsis workup is done, meningitis is ruled out with lumbar puncture, antihypertensives were adjusted Diagnoses Sepsis A41.9 Acute and chronic respiratory failure with hypoxia J96.21 Pneumonia J18.9 Laterality: left Lung location: lower lobe of lung Pneumonia type: due to unspecified organism Atrial fibrillation I48.91 Anticoagulation goal of INR 2 to 3 Z51.81; Z79.01 Malignant neoplasm of lung, unspecified laterality, unspecified part of lung C34.90 Laterality: unspecified laterality Lung location: unspecified part of lung Migraine G43.909 Headache R51.9 Headache chronicity pattern: unspecified pattern Headache type: unspecified Intractability: not intractable Pulmonary emphysema, unspecified emphysema type J43.9 COPD type: emphysema Emphysema type: unspecified Fever R50.9 Smoking addiction F17.200 Primary hypertension I10 Hypertension type: primary hypertension Anxiety F41.9
[2025-01-19 16:28] LABS: Appearance CSF CLEAR (CLEAR); CSF Mononuclear # 0.002 10^3/uL (50-90); Color CSF COLORLESS (COLORLESS); Mononuclear WBC CSF % 100 % (50-90); Polynuclear WBC CSF % 0 % (0-10); Red Blood Cell CSF 0 10^3/uL (0-0); White Blood Cell CSF 2 /uL (0-5)
[2025-01-19 16:29] LABS: Pathology Referral Yes
[2025-01-19 16:33] LABS: Cyto Order Verification No Order
[2025-01-19 16:48] LABS: Glucose CSF 67 mg/dL (40-70); Total Protein CSF 34 mg/dL (15-45)
[2025-01-19] MEDS: atorvastatin 40 mg Tablet PO (17:25)
[2025-01-19] MEDS: escitalopram 10 mg Tablet PO (17:25)
[2025-01-20 04:00] VITALS: BP 148/84; PULSE 79; RESP 16; TEMP 36.6; O2SAT 97
[2025-01-20 06:48] LABS: Basophils % 0.4 %; Eosinophils # 0.3 10^3/uL (0.0-0.8); Eosinophils % 4.9 %; Hematocrit 29.7 % (36-47); Lymphocytes # 0.9 10^3/uL (0.8-4.8); Lymphocytes % 17.1 %; Mean Corpuscular HGB Conc 32.3 g/dL (30-55); Mean Platelet Volume 9.9 fL (7.4-10.4); Monocytes # 0.8 10^3/uL (0.2-0.9); Monocytes % 15.3 %; Neutrophils # 3.39 10^3/uL (1.8-7.7); Neutrophils % 61.8 %; Nucleated Red Blood Cells % 0 %; Platelet Count 183 10^3/cmm (157-399); Red Cell Distribution Width 12.1 % (12.1-15.1); White Blood Count 5.49 10^3/uL (3.29-11.43)
[2025-01-20 07:01] LABS: Vancomycin Trough 16.8 ug/mL (10-15)
[2025-01-20 07:02] LABS: Alanine Aminotransferase 12 U/L (0-33); Albumin Level 2.9 g/dL (3.5-5.2); Alkaline Phosphatase 114 U/L (35-105); Anion Gap 15.4 (5-19); Aspartate Amino Transferase 21 U/L (0-32); Blood Urea Nitrogen 15 mg/dL (8-23); Carbon Dioxide 23 mmol/L (22-29); Chloride 107 mmol/L (98-107); Creatinine Clr Calc Pharmacy 61.4831; Globulin 2.2 g/dL (1.3-4.6); Glucose 80 mg/dL (65-115); Osmolality Calculated 294 mOsm/kg (285-295); Potassium 3.4 mmol/L (3.5-5.1); Sodium 142 mmol/L (136-145); Total Bilirubin 0.5 mg/dL (0.15-1.2); Total Protein 5.1 g/dL (6.6-8.7)
[2025-01-20 07:10] LABS: INR 1.56 (0.8-1.2)
[2025-01-20 07:34] VITALS: BP 133/75; PULSE 78; RESP 18; TEMP 36.5; O2SAT 96
[2025-01-20 08:28] VITALS: BP 133/75
[2025-01-20] MEDS: aspirin 81 mg Chew Tablet PO (08:28)
[2025-01-20] MEDS: losartan 50 mg Tablet PO (08:28)
[2025-01-20] MEDS: nicotine 14 mg Patch 1 PATCH TRANSDERMA (08:28)
[2025-01-20] MEDS: vancomycin 1,250 MG/250 ML PIGGYBACK 166.67 MG IV (08:29)
[2025-01-20 08:34] VITALS: PULSE 88; RESP 16; O2SAT 91
[2025-01-20] MEDS: ipratropium-albuterol 3 mL Neb INHALATION (08:34)
[2025-01-20] MEDS: piperacillin-tazobactam 3.375 GM in sodium chloride 0.9% (plus) 50 ML IV (08:35)
--- NOTE | 2025-01-20 10:04 | PC.SOCIAL ---
IMM Updated Updated pt on IMM. No questions voiced. Provided pt a copy. Initialed, dated, & timed copy in chart.
[2025-01-20] MEDS: ranolazine (12HR) 500 mg Tablet PO (10:50)
--- NOTE | 2025-01-20 11:21 | P.DS_ITS ---
Discharge Providers Date of Admission: 01/15/25 23:27 Date of Discharge: January 20, 2025 Attending Provider at Admission: Tyra Mcclure MD Attending Provider at Discharge: Marciano Berger MD Primary Care Provider: SULY Taveras Diagnoses at Discharge Discharge Diagnosis (1) Sepsis: Status: Acute (2) Acute and chronic respiratory failure with hypoxia: Status: Acute (3) Pneumonia: Status: Inactive Qualifiers: Laterality: left Lung location: lower lobe of lung Pneumonia type: due to unspecified organism Qualified Code(s): J18.9 - Pneumonia, unspecified organism (4) Atrial fibrillation: Status: Chronic (5) Anticoagulation goal of INR 2 to 3: Status: Chronic (6) Lung cancer: Status: Acute Qualifiers: Laterality: unspecified laterality Lung location: unspecified part of lung Qualified Code(s): C34.90 - Malignant neoplasm of unspecified part of unspecified bronchus or lung (7) Migraine: Status: Chronic (8) Headache: Status: Acute Qualifiers: Headache chronicity pattern: unspecified pattern Headache type: unspecified Intractability: not intractable Qualified Code(s): R51.9 - Headache, unspecified (9) COPD (chronic obstructive pulmonary disease): Status: Chronic Qualifiers: COPD type: emphysema Emphysema type: unspecified Qualified Code(s): J43.9 - Emphysema, unspecified (10) Fever: Status: Acute (11) Smoking addiction: Status: Acute (12) Hypertension: Status: Chronic Qualifiers: Hypertension type: primary hypertension Qualified Code(s): I10 - Essential (primary) hypertension (13) Anxiety: Status: Chronic Reason for Visit Reason for Visit: sob Brief History: History as per HPI: Ronit Palma is a 74 year old female with history of COPD, chronic hypoxia uses oxygen concentrator 4 L at baseline, A-fib, on Coumadin, history of lung cancer, follows up with oncologist in [place] presented with chief complaint of worsening of shortness of breath productive cough fever and chest discomfort. Patient is stating that her symptoms started getting worse in the evening yesterday, she has been noticing low-grade fever, productive cough yellow-green sputum production, headache pain which gets worse on coughing. No recent diarrhea, she is not endorsing neck pain, stating that her headache is mostly in the backside. She still smokes 1 pack/day. Compliant with the medication. Patient is stating that her lung cancer stage is likely stage I. Her last radiotherapy session was couple of months ago. Her oxygen concentrator is broken, she was not able to use oxygen today, she is stating that she uses 4 L of oxygen at nighttime consistently but in the daytime because of her smoking use she uses on as-needed basis. EKG showing right bundle branch block with ST nonspecific changes Complaining of chest pain and headache Received ketorolac Requested serial troponin EKG Requested CT chest abdomen pelvis Concern for brewing pneumonia she has received antibiotics I have requested septic bolus, criteria met with tachypnea tachycardia low blood pressure, leukocytosis Hospital Course Hospital Course Patient was admitted to the hospital further evaluation and management of sepsis with concerns for fever, tachycardia on admission. There is a concern for pneumonia for which she started on broad-spectrum IV antibiotics. On admission she was found to have subtherapeutic INR level for which she was started on bridging with full dose Lovenox. [place] 4 blood cultures from admission came back positive for Staphylococcus hominis. Patient continued to have persistent fever, headache, photophobia. Lumbar puncture was done which ruled out meningitis. Repeat blood culture so far has remained negative. Detailed discussions were done with the patient regarding switching from Coumadin to NOAC given subtherapeutic INRs currently and in the past. Patient verbalized understanding and wanted to switch over to NOAC. She has been discharged in hemodynamically stable condition on linezolid for 5 days, fluconazole for 7 days, Eliquis 5 mg twice daily going forward. Coumadin has been discontinued. Her dose of Imdur has been changed to 30 mg oral daily. Physical Exam Narrative: General: Alert oriented x3, patient seen laying in bed appearing comfortable at this time. On 4 L nasal cannula. HEENT: Normocephalic, atraumatic, EOMI, breathing comfortably Cardio: Regular rate rhythm, normal S1-S2, Respiratory: Good bilateral air entry, no wheezes no rhonchi appreciated GI: Abdomen soft, nontender, nondistended, bowel sounds + Behavior: Appropriate and cooperative Extremities: Trace edema bilateral lower extremities. Discharge Data Studies Completed and Pending Completed Studies During Hospitalization Category Date Time Status CT cervical spin wo con* [id number] Routine Cat Scan 01/18/25 12:[address] chest abdomen pelvis [[place] [id number] Cat Scan 01/15/25 23:26 Completed ] Stat CT head wo con* [id number] Routine Cat Scan 01/18/25 11:56 Completed FL guided lumbarpunc dx* [id number] Routine Exams 01/19/25 12:02 Completed XR chest 1V portable [id number] Stat Exams 01/15/25 22:16 Completed CV. echo complete* [id number] Routine Ultrasound 01/16/25 00:17 Completed Pending at discharge Category Date Time Status Blood Culture Stat Lab 01/15/25 22:56 Results Blood Culture Stat Lab 01/17/25 10:20 Results MAG [Magnesium] AM LABS Lab 01/21/25 04:00 Ordered Miscellaneous Test Routine Lab 01/19/25 14:30 Received Prothrombin Time INR AM LABS Lab 01/21/25 04:00 Ordered Urine Culture Stat Lab 01/17/25 23:22 Results Radiology Impressions Chest X-Ray 01/15/25 22:16 IMPRESSION: No acute cardiopulmonary process. Chest/Abdomen/Pelvis CT 01/15/25 23:26 IMPRESSION: 1. New patchy multifocal airspace disease with slightly nodular morphology at the left base suggestive of pneumonia. Short interval follow-up CT chest is recommended to assess resolution. 2. Stable 1.2 cm indeterminate nodule in the superior segment left lower lobe. However, hazy surrounding opacities may represent adjacent pneumonitis. Reassess on follow-up CT. 3. Mild emphysema. IMPRESSION: 1. No evidence of acute abdominal or pelvic process. 2. Diffuse osseous demineralization. COMMENTS: Consistent with the [employer]'s Incidental Findings Committee white paper (J Am Francois Radiol 2018): Any incidental renal lesion less than 1 cm or classified as too small to characterize, or any incidental cystic renal lesion characterized as simple-appearing, is likely benign. No follow-up imaging is recommended for these lesions per consensus recommendations based on imaging criteria. Head CT 01/18/25 11:56 IMPRESSION: 1. No acute intracranial hemorrhage or edema. 2. Stable noncontrast head CT since 02/14/2024. Cervical Spine CT 01/18/25 12:48 IMPRESSION: 1. No acute cervical spine fracture. 2. Increase in cervical lordosis and C4 anterolisthesis since 06/06/2022. 3. Multilevel areas of facet joint arthritis and foraminal stenosis as above. Lumbar Puncture Fluoroscopy 01/19/25 12:02 IMPRESSION: Fluoroscopically guided lumbar puncture. No immediate complications Microbiology 01/17/25 23:22 Urine,Clean Catch Urine Culture - Preliminary Yeast species 01/19/25 14:28 Cerebrospinal Fluid Bacterial Antigens - Final 01/19/25 14:28 Cerebrospinal Fluid Cryptococcal Antigen (CSF) - Final 01/16/25 20:00 Sputum - Expectorated Sputum Gram Stain - Final 01/16/25 20:00 Sputum - Expectorated Sputum Sputum Culture - Final 01/15/25 22:50 Blood Blood Culture - Preliminary Staphylococcus hominis 01/17/25 10:20 Blood Blood Culture - Preliminary NEGATIVE TO DATE 01/17/25 10:17 Blood Blood Culture - Preliminary NEGATIVE TO DATE 01/15/25 22:56 Blood Blood Culture - Preliminary NEGATIVE TO DATE 01/16/25 15:54 Urine,Clean Catch Legionella Urinary Antigen - Final 01/16/25 15:54 Urine,Clean Catch Bacterial Antigens - Final Laboratory Results WBC 5.49 10^3/uL (3.29-11.43) 01/20/25 06:36 RBC 3.00 10^6/uL (3.85-5.65) L 01/20/25 06:36 Hgb 9.60 g/dL (11.27-16.99) L 01/20/25 06:36 Hct 29.7 % (36-47) L 01/20/25 06:36 MCV 99.0 fl (85-98) H 01/20/25 06:36 MCH 32.0 pg (27-33) 01/20/25 06:36 MCHC 32.3 g/dL (30-55) 01/20/25 06:36 RDW 12.1 % (12.1-15.1) 01/20/25 06:36 Plt Count 183 10^3/cmm (157-399) 01/20/25 06:36 MPV 9.9 fL (7.4-10.4) 01/20/25 06:36 Neut % (Auto) 61.8 % 01/20/25 06:36 Lymph % (Auto) 17.1 % 01/20/25 06:36 [place] % (Auto) 15.3 % 01/20/25 06:36 Eos % (Auto) 4.9 % 01/20/25 06:36 Baso % (Auto) 0.4 % 01/20/25 06:36 Neut # (Auto) 3.39 10^3/uL (1.8-7.7) 01/20/25 06:36 Lymph # (Auto) 0.9 10^3/uL (0.8-4.8) 01/20/25 06:36 [place] # (Auto) 0.8 10^3/uL (0.2-0.9) 01/20/25 06:36 Eos # (Auto) 0.3 10^3/uL (0.0-0.8) 01/20/25 06:36 Baso # (Auto) 0.0 10^3/uL (0.0-0.1) 01/20/25 06:36 Nucleated RBC % (auto) 0 % 01/20/25 06:36 Nucleated RBCs # 0.0 /100WBC 01/20/25 06:36 PT 19.70 SECONDS (12.1-14.9) H 01/20/25 06:36 INR 1.56 (0.8-1.2) H 01/20/25 06:36 Sodium 142 mmol/L (136-145) 01/20/25 06:36 Potassium 3.4 mmol/L (3.5-5.1) L 01/20/25 06:36 Chloride 107 mmol/L (98-107) 01/20/25 06:36 Carbon Dioxide 23 mmol/L (22-29) 01/20/25 06:36 Anion Gap 15.4 (5-19) 01/20/25 06:36 BUN 15 mg/dL (8-23) 01/20/25 06:36 Creatinine 0.5 mg/dL (0.5-0.9) 01/20/25 06:36 GFR Calculation Not Reportable 01/20/25 06:36 Glucose 80 mg/dL (65-115) 01/20/25 06:36 Estimat Average Glucose 103 01/18/25 06:02 Hemoglobin A1c 5.2 % (4.0-6.0) 01/18/25 06:02 Calculated Osmolality 294 mOsm/kg (285-295) 01/20/25 06:36 Lactic Acid 1.6 mmol/L (0.5-2.2) 01/15/25 21:30 Calcium 8.0 mg/dL (8.5-10.5) L 01/20/25 06:36 Magnesium 2.0 mg/dL (1.7-2.3) 01/20/25 06:36 Iron 15 ug/dL (37-145) L 01/18/25 06:02 TIBC 216 mcg/dl 01/18/25 06:02 % Saturation 6.9 % (20-50) L 01/18/25 06:02 Unsat Iron Binding 201 ug/dL (112-347) 01/18/25 06:02 Total Bilirubin 0.5 mg/dL (0.15-1.2) 01/20/25 06:36 AST 21 U/L (0-32) 01/20/25 06:36 ALT 12 U/L (0-33) 01/20/25 06:36 Alkaline Phosphatase 114 U/L (35-105) H 01/20/25 06:36 Troponin T Baseline 21 ng/L (0-10) H 01/15/25 21:30 Troponin T 120 Minute 16.02 ng/L (0-10) H 01/16/25 00:36 Delta Troponin T -4.98 ABS# (0-10) L 01/16/25 00:36 Troponin T Hi Sens 6Hr 39.95 ng/L (0-10) H 01/16/25 03:34 Troponin T Hi Sens 6Hr Delta 18.95 ng/L (0-12) H* 01/16/25 03:34 C-Reactive Protein 56.8 mg/L (0.0-4.9) H 01/16/25 03:34 NT-Pro-B Natriuret Pep 1626 pg/mL (0-125) H 01/15/25 21:30 Total Protein 5.1 g/dL (6.6-8.7) L 01/20/25 06:36 Albumin 2.9 g/dL (3.5-5.2) L 01/20/25 06:36 Globulin 2.2 g/dL (1.3-4.6) 01/20/25 06:36 Vitamin B12 362 pg/mL (232-1245) 01/18/25 06:02 Folate 10.6 ng/mL (4.8-37.3) 01/19/25 04:58 Procalcitonin 0.43 ng/mL (0-0.5) 01/18/25 06:02 TSH 2.49 uIU/mL (0.27-4.20) 01/18/25 06:02 Urine Color Yellow (Yellow) 01/15/25 23:14 Urine Appearance Clear (CLEAR) 01/15/25 23:14 Urine pH 7.0 (5-7) 01/15/25 23:14 Ur Specific [place] 1.014 (1.005-1.030) 01/15/25 23:14 Urine Protein Negative (Negative) 01/15/25 23:14 Urine Glucose (UA) Negative (Normal) 01/15/25 23:14 Urine Ketones Negative (Negative) 01/15/25 23:14 Urine Blood Negative (Negative) 01/15/25 23:14 Urine Nitrate Negative (Negative) 01/15/25 23:14 Urine Bilirubin Negative (Negative) 01/15/25 23:14 Urine Urobilinogen 1.0 mg/dL (Negative) 01/15/25 23:14 Ur Leukocyte Esterase Trace (Negative) A 01/15/25 23:14 Urine RBC 0-4 /hpf (0-2) H 01/15/25 23:14 Urine WBC 0-4 /hpf (0-5) H 01/15/25 23:14 Ur Squamous Epith Cells 5-10 /hpf (0-5) H 01/15/25 23:14 Amorphous Sediment Not Reportable 01/15/25 23:14 Urine Bacteria Trace /hpf (NONE) 01/15/25 23:14 CSF Appearance Clear (CLEAR) 01/19/25 14:29 CSF Color Colorless (COLORLESS) 01/19/25 14:29 CSF WBC 2 /uL (0-5) 01/19/25 14: CSF RBC 0 10^3/uL (0-0) 01/19/25 14: CSF Mononuclear # Auto 0.002 10^3/uL (50-90) L 01/19/25 14:29 CSF Mononuclear WBCs % 100 % (50-90) H 01/19/25 14:29 CSF Polynuclear WBCs # 0.000 10^3/uL (0-10) 01/19/25 14: CSF Polynuclear WBCs % 0 % (0-10) 01/19/25 14:29 CSF Diff Comment Yes 01/19/25 14:29 CSF Glucose 67 mg/dL (40-70) 01/19/25 14:27 CSF Total Protein 34 mg/dL (15-45) 01/19/25 14:27 Vancomycin Trough 16.8 ug/mL (10-15) H 01/20/25 06:36 Adenovirus (PCR) Not detected (NOT DETECT) 01/18/25 12:12 C. pneumoniae DNA (PCR) Not detected (NOT DETECT) 01/18/25 12:12 Coronavirus 229E (PCR) Not detected (NOT DETECT) 01/18/25 12:12 Human Metapneumovir PCR Not detected (NOT DETECT) 01/18/25 12:12 Influenza A (H1) PCR Not detected (NOT DETECT) 01/18/25 12:12 Influenza A (PCR) Negative (Negative) 01/15/25 22:18 Influ A (H1/09) PCR Not detected (NOT DETECT) 01/18/25 12:12 Influenza A (H3) PCR Not detected (NOT DETECT) 01/18/25 12:12 Influenza Type A (PCR) Not detected (NOT DETECT) 01/18/25 12:12 Influenza Type B (PCR) Not detected (NOT DETECT) 01/18/25 12:12 M. pneumoniae (PCR) Not detected (NOT DETECT) 01/18/25 12:12 Parainfluenza 1 (PCR) Not detected (NOT DETECT) 01/18/25 12:12 Parainfluenza 2 (PCR) Not detected (NOT DETECT) 01/18/25 12:12 Parainfluenza 3 (PCR) Not detected (NOT DETECT) 01/18/25 12:12 Parainfluenza 4 (PCR) Not detected (NOT DETECT) 01/18/25 12:12 RSV (PCR) Negative (Negative) 01/15/25 22:18 RSV Type A (PCR) Not detected (NOT DETECT) 01/18/25 12:12 RSV Type B (PCR) Not detected (NOT DETECT) 01/18/25 12:12 Entero/Rhino (PCR) Not detected (NOT DETECT) 01/18/25 12:12 SARS-CoV-2 (PCR) Not detected (NOT DETECT) 01/18/25 12:12 Vitals Last Vital Signs Temp 97.7 F 01/20/25 07:34 Pulse 88 01/20/25 08:34 Resp 16 01/20/25 08:34 BP 133/75 01/20/25 08:28 Pulse Ox 91 01/20/25 08:34 O2 Del Method Nasal Cannula 01/20/25 08:34 O2 Flow Rate 2 01/20/25 08:34 Discharge Plan Discharge Patient Disposition: Home Condition: Stable Prescriptions: New Eliquis 5 mg tablet 5 mg PO BID Qty: 60 3RF fluconazole 100 mg tablet 100 mg PO DAILY 7 Days Qty: 7 0RF linezolid 600 mg tablet 600 mg PO BID 5 Days Qty: 10 0RF Continued Probiotic Digestive Care 20 billion cell capsule See Rx Instructions PO .2 times day Qty: 60 2RF Rx Instructions: 20 billion cell PO .2 times day; albuterol sulfate 2.5 mg /3 mL (0.083 %) solution for nebulization 2.5 mg inhalation Q4H PRN (Reason: shortness of breath or wheezing) Qty: 75 2RF escitalopram oxalate [Lexapro] 10 mg tablet 10 mg PO .at supper Qty: 30 5RF Trelegy Ellipta 100-62.5-25 mcg blister with device 1 inh inhalation Q24H Qty: 28 5RF valsartan [Diovan] 160 mg tablet 160 mg PO DAILY Qty: 30 5RF cholecalciferol (vitamin D3) 125 mcg (5,000 unit) capsule 250 mcg PO DAILY Qty: 60 2RF acetaminophen [Tylenol] 325 mg Tablet 325 - 350 mg PO QID PRN (Reason: headache/pain) atorvastatin [Lipitor] 40 mg tablet 40 mg PO QPM Qty: 0 0RF clopidogrel [Plavix] 75 mg Tablet 75 mg PO DAILY@0900 aspirin 81 mg Tablet,Chewable 81 mg PO DAILY@0900 ranolazine 500 mg tablet extended release 12 hr 500 mg PO Q12H Changed isosorbide mononitrate 30 mg Tablet Extended Release 24 Hr 30 mg PO DAILY Qty: 30 0RF Discontinued hydrochlorothiazide 25 mg tablet 25 mg PO DAILY PRN (Reason: high blood pressure) Qty: 30 0RF warfarin 2 mg tablet 5 mg PO DAILY Qty: 70 0RF Discharge Orders: Discharge Order (Routine); Ordered 01/20/25 Ordered By: Marciano Berger Referrals: Loretta Ramírez FNP-C [Primary Care Provider] - 02/01/25 11:40 am Discharge Diet: Cardiac Discharge Activity: Resume usual activity and Increase activity as tolerated Patient Instructions: Fluconazole (By mouth), Linezolid (By mouth), Apixaban (By mouth) (Eliquis), A-fib (Atrial Fibrillation) (DC), COPD (Chronic Obstructive Pulmonary Disease) (DC), Pneumonia (DC), Acute Respiratory Failure (GEN), Opioid Safety Activity Restrictions/Additional Instructions: Check your blood pressure daily at home maintain a blood pressure diary. Follow-up with your primary care provider with a blood pressure diary for further adjustment of antihypertensive. Coumadin and hydralazine has been discontinued. Instead Eliquis 5 mg twice daily at home started. Dose of Imdur has been changed to 30 mg oral daily. Discharge Attestations Time Spent in Discharge Care*: greater than 30 min Specific Discharge Activities: educating patient, educating and/or supporting family/caregiver, discussing with pcp/other providers, discussing with protective services case worker/social workers/dc planners, documenting/other paperwork and evaluating patient/reviewing data Status at Discharge: Cognitive status at discharge: cognitively intact , Behavioral status at discharge: cooperative , Functional status at discharge: independent ambulation , Overall status at discharge: patient is back to baseline Quality Metrics Clinical Quality Measures [ No reported AMI, CVA or VTE this stay] Coding Level of Care Code 01227 Total time (in minutes) for Discharge: 60 Diagnoses Sepsis A41.9 Acute and chronic respiratory failure with hypoxia J96.21 Pneumonia J18.9 Laterality: left Lung location: lower lobe of lung Pneumonia type: due to unspecified organism Atrial fibrillation I48.91 Anticoagulation goal of INR 2 to 3 Z51.81; Z79.01 Malignant neoplasm of lung, unspecified laterality, unspecified part of lung C34.90 Laterality: unspecified laterality Lung location: unspecified part of lung Migraine G43.909 Headache R51.9 Headache chronicity pattern: unspecified pattern Headache type: unspecified Intractability: not intractable Pulmonary emphysema, unspecified emphysema type J43.9 COPD type: emphysema Emphysema type: unspecified Fever R50.9 Smoking addiction F17.200 Primary hypertension I10 Hypertension type: primary hypertension Anxiety F41.9
[2025-01-20 11:39] VITALS: BP 101/60; PULSE 78; RESP 20; TEMP 36.4; O2SAT 95
[2025-01-20 12:52] VITALS: BP 101/60; PULSE 78; O2SAT 95
== END 2025-01-20 13:00 | disposition home or self-care (01) | DRG 871 ==
LOC: ER 23:37 → MEDSURG 23:55
PROVIDERS: Internal Medicine; Admitting Provider Internal Medicine; Emergency Provider Emergency Medicine; PCP Nurse Practitioner; Visit Provider Student in an Organized Health Care Education/Training Program
DX: A41.2 Sepsis due to unspecified staphylococcus (principal); J18.9 Pneumonia, unspecified organism; J96.21 Acute and chronic respiratory failure with hypoxia; I50.30 Unspecified diastolic (congestive) heart failure; I24.89 Other forms of acute ischemic heart disease; F17.210 Nicotine dependence, cigarettes, uncomplicated; I48.91 Unspecified atrial fibrillation; Z79.01 Long term (current) use of anticoagulants; Z85.118 Personal history of other malignant neoplasm of bronchus and lung; G43.909 Migraine, unspecified, not intractable, without status migrainosus; J43.9 Emphysema, unspecified; I11.0 Hypertensive heart disease with heart failure; F41.9 Anxiety disorder, unspecified; E55.9 Vitamin D deficiency, unspecified; L98.8 Other specified disorders of the skin and subcutaneous tissue; Z99.81 Dependence on supplemental oxygen; Z86.718 Personal history of other venous thrombosis and embolism; Z86.711 Personal history of pulmonary embolism; Z79.02 Long term (current) use of antithrombotics/antiplatelets; Z79.82 Long term (current) use of aspirin; Z95.5 Presence of coronary angioplasty implant and graft; Z95.1 Presence of aortocoronary bypass graft
CPT/HCPCS: 36415; 62328; 70450; 71045; 71250; 72125; 74176; 80048; 80053; 80202; 80503; 81001; 82607; 82746; 82945; 83036; 83540; 83550; 83605; 83735; 83880; 84145; 84157; 84443; 84484; 85025; 85610; 86140; 86403; 87040; 87070; 87077; 87086; 87106; 87150; 87186; 87205; 87327; 87449; 87486; 87581; 87633; 87637; 89050; 93005; 93306; 94640; 96365; 96372; 96375; 99285; J0456; J0696; J1650; J1885; J2270; J2543; J3370; J7030; J7050; J9999; Q0144

== ENCOUNTER → 2025-03-29 18:19 | Outpatient (BNVA) | payer MEDICARE, OTHER, SELFPAY | PROVIDERS: PCP Nurse Practitioner; Visit Provider Family Medicine | DX: R06.02 Shortness of breath (principal); Z98.890 Other specified postprocedural states | CPT/HCPCS: 71046 ==

== ENCOUNTER → 2025-06-17 13:35 | Outpatient (BNVA) | payer MEDICARE, OTHER, SELFPAY | PROVIDERS: PCP Nurse Practitioner; Visit Provider Nurse Practitioner | DX: E55.9 Vitamin D deficiency, unspecified (principal); I10 Essential (primary) hypertension; E61.1 Iron deficiency | CPT/HCPCS: 80053; 82306; 82607; 82728; 83540; 84425; 84443; 85025 ==

== ENCOUNTER → 2025-10-20 16:17 | Outpatient (BNVA) | payer MEDICARE, OTHER, SELFPAY | PROVIDERS: PCP Nurse Practitioner; Visit Provider Nurse Practitioner | DX: I10 Essential (primary) hypertension (principal); E55.9 Vitamin D deficiency, unspecified | CPT/HCPCS: 80053; 80061; 82306; 82607; 84443 ==